=== PATIENT | male | born 1935 | race Caucasian/White ===

== ENCOUNTER 2017-12-14 14:39 | Inpatient (IN) ==
[2017-12-14] MEDS ORDERED: Naloxone Inj 2 MG/2 ML Vial ONE (14:44)
[2017-12-14] MEDS ORDERED: Succinylcholine Inj 200 MG/10 ML Vial ONE (14:45)
[2017-12-14] MEDS ORDERED: Etomidate Inj 40 MG/20 ML Vial IV.PUSH ONE (14:45)
[2017-12-14] MEDS ORDERED: Propofol 1000 mg/100 ml Inj 1,000 MG/100 ML BOTTLE ONE (14:47)
[2017-12-14] MEDS: Propofol 1000 mg/100 ml Inj 1,000 MG/100 ML BOTTLE IV.CONT PRN ×2 (14:55→21:47)
[2017-12-14] MEDS ORDERED: Metoprolol Inj 5 MG/5 ML Vial IV.PUSH ONE (15:03)
--- NOTE | 2017-12-14 15:09 | ED ---
HPI General Chief Complaint: Altered Mental Status Stated Complaint: Medical Time Seen by Provider: 12/14/17 14:48 History of Present Illness HPI narrative: This patient arrives critically ill. Arrives completely obtunded and cannot provide any history or review of systems. Family called for altered mental status gradually worsening over 3 days. During the eminence ride he decompensated fairly rapidly and when I see him in the room he has GCS 3. Related Data Home Medications Medication Instructions Recorded Confirmed esomeprazole magnesium [Nexium 20 mg PO DAILY 12/14/17 12/14/17 24HR] glipizide 5 mg PO DAILY 12/14/17 12/14/17 potassium chloride 10 meq PO DAILY 12/14/17 12/14/17 thyroid (pork) [Nature-Throid] 500 mg PO DAILY 12/14/17 12/14/17 tiotropium-olodaterol [Stiolto 2 puff INHALATION DAILY 12/14/17 12/14/17 Respimat] tizanidine 4 mg PO BID 12/14/17 12/14/17 Allergies Allergy/AdvReac Type Severity Reaction Status Date / Time No Known Allergies Allergy Verified 12/14/17 14:49 Review of Systems ROS Unobtainable ROS Unobtainable: unobtainable due to mental status PMFSH Medical History Medical History CHF (congestive heart failure) (Acute) COPD (chronic obstructive pulmonary disease) (Acute) Cyst of spinal meninges (Acute) Diabetes (Acute) GERD (gastroesophageal reflux disease) (Acute) Hypospadias (Acute) Hypothyroidism (Acute) Social History Social History Substance History: No History of Abuse Second Hand Smoke Exposure: Yes Smoking Status: Current every day smoker Tobacco Type: Cigarettes How Often Do You Have a Drink Containing Alcohol: Monthly or less Recent Travel in [facility] within the Last 8 Weeks: No Recent Out of Country Travel within the Last 8 Weeks: No Exam Narrative Exam Narrative: GENERAL: Elderly obese very hypertensive patient completely unresponsive . SKIN: Focused skin assessment reveals no rash and nodules. Skin is Warm and dry. HEAD: Atraumatic. Normocephalic. EYES: Pupils equal and round. No scleral icterus. No injection or drainage. ENT: No nasal bleeding or discharge. Mucous membranes pink and moist. NECK: Trachea midline. No JVD. CARDIOVASCULAR: Regular rate and rhythm. No murmur appreciated. RESPIRATORY: No accessory muscle use. Clear to auscultation. Breath sounds equal bilaterally. GASTROINTESTINAL: Abdomen soft, non-tender, nondistended. Hepatic and splenic margins not palpable. MUSCULOSKELETAL: No obvious deformities. No clubbing. No cyanosis. No edema. NEUROLOGICAL: GCS 3. No gag reflex. No response to pain stimuli. He is nonverbal PSYCHIATRIC: No way to assess mood or affect. insight and judgment poor . Course Initial Documented Vital Signs Temperature 98.6 F 12/14/17 14:40 Pulse Rate 86 12/14/17 14:40 Respiratory Rate 30 H 12/14/17 14:40 Blood Pressure 234/145 H 12/14/17 14:40 Pulse Oximetry 79 L 12/14/17 14:40 Last Documented Vital Signs Temperature 98.6 F 12/14/17 14:40 Pulse Rate 64 12/14/17 18:00 Respiratory Rate 18 12/14/17 18:00 Blood Pressure 137/66 12/14/17 18:00 Pulse Oximetry 100 12/14/17 17:00 Procedures Intubation Time Out Performed: No Sedative: etomidate Mg Given: 20 Laryngoscope: Travis ET Tube Size: 8 ET Tube Uncuffed: No Tube Secured Depth (cm): 24 Tube Secured Location: lips Tube Placement Confirmation: visualized tube passing through cords, equal breath sounds bilaterally and no breath sounds over epigastrium Patient Tolerated Procedure: well Intubation Complications: none Sign Out Sign Out Data: Patient Sign Out occurred on 12/14/17 at 15:24. Patient's care was discussed, and care was transferred from Marcus Moreland MD to Joya Boyer MD. Sign Out Comment: I have intubated this patient to secure airway and ordered extensive workup. Case is checked out to the evening physician. Last updated by Marcus Moreland MD at 12/14/17 15:16 Post-Handoff Eval: I received care of patient in check out. At time of check out, labs and CTs were pending with obvious plan on admission to the ICU. CT head did not show an intracranial hemorrhage. EKG showed sinus rhythm without ischemic changes. Labs revealed an elevated troponin. I spoke with Dr Vidal, manager r d business continuity specialist whom recommended the patient be started on heparin. He was admitted to Dr Beck, filter plant operator business continuity specialist with CTA PE protocol pending. Medical Decision Making MDM Narrative Medical decision making narrative: This patient required emergent intubation. He has no airway control. I am most concerned for large intracranial hemorrhage given his mental status rapid decline and excessive blood pressure. I am giving him 5 mg IV Lopressor. He arrived literally 10 minutes before shift change so I have secured an airway and ordered a workup and the case is checked out to Dr. Boyer. Medical Screen Exam Complete: Yes Emergency Medical Condition: Yes Lab Data Result diagrams: 12/14/17 15:00 12/14/17 15:00 Lab Results 12/14/17 12/14/17 12/14/17 Range/Units 15:00 15:00 15:00 WBC 10.8 (4.0-11.0) th/mm3 RBC 4.77 (4.50-5.90) mil/mm3 Hgb 15.7 (13.0-17.0) gm/dL Hct 47.8 (39.0-51.0) % MCV 100.2 H (80.0-100.0) fL MCH 33.0 (27.0-34.0) pg MCHC 32.9 (32.0-36.0) % RDW 15.2 (11.6-17.2) % Plt Count 196 (150-450) th/mm3 MPV 8.8 (7.0-11.0) fL Neut % (Auto) 61.2 (16.0-70.0) % Lymph % (Auto) 29.5 (9.0-44.0) % Bent % (Auto) 8.3 H (0.0-8.0) % Eos % (Auto) 0.7 (0.0-4.0) % Baso % (Auto) 0.3 (0.0-2.0) % Neut # (Auto) 6.6 (1.8-7.7) th/mm3 Lymph # (Auto) 3.2 (1.0-4.8) th/mm3 Bent # (Auto) 0.9 (0.0-0.9) th/mm3 Eos # (Auto) 0.1 (0.0-0.4) th/mm3 Baso # (Auto) 0.0 (0.0-0.2) th/mm3 WBC Differential . Differential Comment Auto diff final PT 11.1 (9.8-11.6) sec INR 1.1 Ratio APTT 25.6 (23.4-31.7) sec Puncture Site Patient Temperature O2 Saturation (90-100) % ABG pH (7.380-7.420) ABG pCO2 (38-42) mmHg ABG pO2 (61-120) mmHg ABG HCO3 (22-26) mmol/L ABG O2 Content (12.0-20.0) Vol % ABG Base Excess (-2-2) mmol/L ABG Methemoglobin (0-2) % Zhang Test Hemoglobin (12.0-16.0) G/DL Carboxyhemoglobin (0-4) % O2 Delivery Device Vent Setting Inspired O2 % Critical Value Sodium 142 (136-145) meq/L Potassium 4.0 (3.5-5.1) meq/L Chloride 102 (98-107) meq/L Carbon Dioxide 35.0 H (21.0-32.0) meq/L Anion Gap 5 (5-15) meq/L BUN 23 H (7-18) mg/dL Creatinine 0.98 (0.60-1.30) mg/dL Estimated GFR 66 L (>89) mL/min Random Glucose 139 H (74-106) mg/dL Lactic Acid (0.4-2.0) mmol/L Calcium 8.4 L (8.5-10.1) mg/dL Magnesium 2.1 (1.5-2.5) mg/dL Total Bilirubin 1.1 H (0.2-1.0) mg/dL AST 40 H (15-37) U/L ALT 50 (12-78) U/L Alkaline Phosphatase 55 (45-117) U/L Total Creatine Kinase 448 H (39-308) U/L CK-MB (CK-2) 22.0 H (0.5-3.6) ng/mL CK-MB (CK-2) % 4.9 H* (0.0-4.0) % Troponin I 1.35 H* (0.02-0.05) ng/mL B-Natriuretic Peptide (0-100) pg/mL Total Protein 7.5 (6.4-8.2) g/dL Albumin 3.6 (3.4-5.0) g/dL Urine Color (Yellw/Straw) Urine Clarity (Clear) Urine pH (5.0-8.5) Ur Specific [place] (1.002-1.035) Urine Protein (Neg-Trace) mg/dL Urine Glucose (UA) (Negative) mg/dL Urine Ketones (Negative) mg/dL Urine Occult Blood (Negative) Urine Nitrate (Negative) Urine Bilirubin (Negative) Urine Urobilinogen (Less than 2) mg/dL Ur Leukocyte Esterase (Negative) Urine RBC (0-3) /hpf Urine WBC (0-5) /hpf Ur Squamous Epith Cells (0-5) /hpf Hyaline Casts (0-3) /lpf Granular Casts (None) /lpf Urine Mucus (Occasional) /lpf Micro UA Comment Ur Microscopic Review Urine Culture Comments 12/14/17 12/14/17 12/14/17 Range/Units 15:00 15:09 15:10 WBC (4.0-11.0) th/mm3 RBC (4.50-5.90) mil/mm3 Hgb (13.0-17.0) gm/dL Hct (39.0-51.0) % MCV (80.0-100.0) fL MCH (27.0-34.0) pg MCHC (32.0-36.0) % RDW (11.6-17.2) % Plt Count (150-450) th/mm3 MPV (7.0-11.0) fL Neut % (Auto) (16.0-70.0) % Lymph % (Auto) (9.0-44.0) % Bent % (Auto) (0.0-8.0) % Eos % (Auto) (0.0-4.0) % Baso % (Auto) (0.0-2.0) % Neut # (Auto) (1.8-7.7) th/mm3 Lymph # (Auto) (1.0-4.8) th/mm3 Bent # (Auto) (0.0-0.9) th/mm3 Eos # (Auto) (0.0-0.4) th/mm3 Baso # (Auto) (0.0-0.2) th/mm3 WBC Differential Differential Comment PT (9.8-11.6) sec INR Ratio APTT (23.4-31.7) sec Puncture Site Patient Temperature O2 Saturation (90-100) % ABG pH (7.380-7.420) ABG pCO2 (38-42) mmHg ABG pO2 (61-120) mmHg ABG HCO3 (22-26) mmol/L ABG O2 Content (12.0-20.0) Vol % ABG Base Excess (-2-2) mmol/L ABG Methemoglobin (0-2) % Zhang Test Hemoglobin (12.0-16.0) G/DL Carboxyhemoglobin (0-4) % O2 Delivery Device Vent Setting Inspired O2 % Critical Value Sodium (136-145) meq/L Potassium (3.5-5.1) meq/L Chloride (98-107) meq/L Carbon Dioxide (21.0-32.0) meq/L Anion Gap (5-15) meq/L BUN (7-18) mg/dL Creatinine (0.60-1.30) mg/dL Estimated GFR (>89) mL/min Random Glucose (74-106) mg/dL Lactic Acid 1.2 (0.4-2.0) mmol/L Calcium (8.5-10.1) mg/dL Magnesium (1.5-2.5) mg/dL Total Bilirubin (0.2-1.0) mg/dL AST (15-37) U/L ALT (12-78) U/L Alkaline Phosphatase (45-117) U/L Total Creatine Kinase (39-308) U/L CK-MB (CK-2) (0.5-3.6) ng/mL CK-MB (CK-2) % (0.0-4.0) % Troponin I (0.02-0.05) ng/mL B-Natriuretic Peptide 227 H (0-100) pg/mL Total Protein (6.4-8.2) g/dL Albumin (3.4-5.0) g/dL Urine Color Yellow (Yellw/Straw) Urine Clarity Hazy H (Clear) Urine pH 5.0 (5.0-8.5) Ur Specific [place] 1.020 (1.002-1.035) Urine Protein 100 H (Neg-Trace) mg/dL Urine Glucose (UA) Negative (Negative) mg/dL Urine Ketones Negative (Negative) mg/dL Urine Occult Blood Small H (Negative) Urine Nitrate Negative (Negative) Urine Bilirubin Negative (Negative) Urine Urobilinogen 4 or greater (Less than 2) mg/dL Ur Leukocyte Esterase Negative (Negative) Urine RBC 2 (0-3) /hpf Urine WBC 4 (0-5) /hpf Ur Squamous Epith Cells <1 (0-5) /hpf Hyaline Casts 8 (0-3) /lpf Granular Casts 4 (None) /lpf Urine Mucus Moderate H (Occasional) /lpf Micro UA Comment Cath-culture not ind Ur Microscopic Review Not Reportable Urine Culture Comments Cath-cult not ind 12/14/17 12/14/17 Range/Units 16:18 17:05 WBC (4.0-11.0) th/mm3 RBC (4.50-5.90) mil/mm3 Hgb (13.0-17.0) gm/dL Hct (39.0-51.0) % MCV (80.0-100.0) fL MCH (27.0-34.0) pg MCHC (32.0-36.0) % RDW (11.6-17.2) % Plt Count (150-450) th/mm3 MPV (7.0-11.0) fL Neut % (Auto) (16.0-70.0) % Lymph % (Auto) (9.0-44.0) % Bent % (Auto) (0.0-8.0) % Eos % (Auto) (0.0-4.0) % Baso % (Auto) (0.0-2.0) % Neut # (Auto) (1.8-7.7) th/mm3 Lymph # (Auto) (1.0-4.8) th/mm3 Bent # (Auto) (0.0-0.9) th/mm3 Eos # (Auto) (0.0-0.4) th/mm3 Baso # (Auto) (0.0-0.2) th/mm3 WBC Differential Differential Comment PT 10.1 (9.8-11.6) sec INR 1.0 Ratio APTT 20.2 L D (23.4-31.7) sec Puncture Site Right radial Patient Temperature 98.6 O2 Saturation 96 (90-100) % ABG pH 7.39 (7.380-7.420) ABG pCO2 55 H* (38-42) mmHg ABG pO2 456 H (61-120) mmHg ABG HCO3 33 H (22-26) mmol/L ABG O2 Content 20.9 H (12.0-20.0) Vol % ABG Base Excess 8.1 H (-2-2) mmol/L ABG Methemoglobin 1.0 (0-2) % Zhang Test Present Hemoglobin 14.6 (12.0-16.0) G/DL Carboxyhemoglobin 2.3 (0-4) % O2 Delivery Device Ventilator Vent Setting See comments Inspired O2 100 % Critical Value Yes Sodium (136-145) meq/L Potassium (3.5-5.1) meq/L Chloride (98-107) meq/L Carbon Dioxide (21.0-32.0) meq/L Anion Gap (5-15) meq/L BUN (7-18) mg/dL Creatinine (0.60-1.30) mg/dL Estimated GFR (>89) mL/min Random Glucose (74-106) mg/dL Lactic Acid (0.4-2.0) mmol/L Calcium (8.5-10.1) mg/dL Magnesium (1.5-2.5) mg/dL Total Bilirubin (0.2-1.0) mg/dL AST (15-37) U/L ALT (12-78) U/L Alkaline Phosphatase (45-117) U/L Total Creatine Kinase (39-308) U/L CK-MB (CK-2) (0.5-3.6) ng/mL CK-MB (CK-2) % (0.0-4.0) % Troponin I (0.02-0.05) ng/mL B-Natriuretic Peptide (0-100) pg/mL Total Protein (6.4-8.2) g/dL Albumin (3.4-5.0) g/dL Urine Color (Yellw/Straw) Urine Clarity (Clear) Urine pH (5.0-8.5) Ur Specific [place] (1.002-1.035) Urine Protein (Neg-Trace) mg/dL Urine Glucose (UA) (Negative) mg/dL Urine Ketones (Negative) mg/dL Urine Occult Blood (Negative) Urine Nitrate (Negative) Urine Bilirubin (Negative) Urine Urobilinogen (Less than 2) mg/dL Ur Leukocyte Esterase (Negative) Urine RBC (0-3) /hpf Urine WBC (0-5) /hpf Ur Squamous Epith Cells (0-5) /hpf Hyaline Casts (0-3) /lpf Granular Casts (None) /lpf Urine Mucus (Occasional) /lpf Micro UA Comment Ur Microscopic Review Urine Culture Comments Imaging Data Radiologist's impression: Chest X-Ray 12/14/17 00:00 CONCLUSION: 1. Endotracheal tube is in appropriate position with tip measuring 4.5 cm from the vijay. 2. Underinflated examination with mild subsegmental atelectasis at the right lung base. Otherwise, no acute abnormality is identified. Head CT 12/14/17 14:53 CONCLUSION: 1. No acute intracranial abnormality is identified. 2. Chronic findings include generalized atrophy and periventricular white matter change characteristic of chronic microvascular ischemia. . Discharge Plan Discharge Disposition Patient Disposition: 30 Still Patient Discharge Condition Condition: Critical Discharge Details Diagnosis: Acute non-ST elevation myocardial infarction (NSTEMI), Respiratory failure requiring intubation Physicians Team ED Provider: Joya Boyer ED Midlevel Provider: Damion Capone Primary Care Provider: Primary Care Devorah Mcdermott Attending Provider: Caio Beck Other Providers: Jayjay Vidal Discharge Interventions Interventions: ED Discharge Assessment Last Done: 12/14/17 19:42 Vital Signs Last Done: 12/14/17 18:00 Status ED Status: Left Department Discharge Information Discharge Date/Time: 12/14/17 19:43
[2017-12-14 15:39] LABS: Baso % (Auto) 0.3 % (0.0-2.0); Eos # (Auto) 0.1 th/mm3 (0.0-0.4); Eos % (Auto) 0.7 % (0.0-4.0); Hematocrit 47.8 % (39.0-51.0); Hemoglobin 15.7 gm/dL (13.0-17.0); Lymph # (Auto) 3.2 th/mm3 (1.0-4.8); Lymph % (Auto) 29.5 % (9.0-44.0); Mean Corpuscular HGB Conc 32.9 % (32.0-36.0); Mean Corpuscular Volume 100.2 fL (80.0-100.0); Mean Platelet Volume 8.8 fL (7.0-11.0); Mono # (Auto) 0.9 th/mm3 (0.0-0.9); Mono % (Auto) 8.3 % (0.0-8.0); Neut # (Auto) 6.6 th/mm3 (1.8-7.7); Neut % (Auto) 61.2 % (16.0-70.0); Platelet Count 196 th/mm3 (150-450); Red Blood Count 4.77 mil/mm3 (4.50-5.90); Red Cell Distribution Width 15.2 % (11.6-17.2); White Blood Count 10.8 th/mm3 (4.0-11.0)
[2017-12-14] MEDS ORDERED: fentaNYL 10 mcg/mL Premix Drip 2,500 MCG/250 ML BAG IV.SIG ONE (15:45)
[2017-12-14 15:47] LABS: Activated Partial Thrombo Time 25.6 sec (23.4-31.7); INR 1.1 Ratio; Prothrombin Time 11.1 sec (9.8-11.6)
[2017-12-14 16:03] LABS: Bilirubin,Urine Negative (Negative); Clarity,Urine Hazy (Clear); Color,Urine Yellow (Yellw/Straw); Glucose,Urine (UA) Negative (Negative); Hyaline Casts,Urine 8 /lpf (0-3); Leukocyte Esterase,Urine Negative (Negative); Mucus,Urine Moderate /lpf (Occasional); Nitrite,Urine Negative (Negative); Squamous Epithelial Cell,Urine <1 /hpf (0-5); Urobilinogen,Urine 4 or Greater mg/dL (Less than 2)
[2017-12-14 16:06] LABS: Alanine Aminotransferase 50 U/L (12-78); Albumin 3.6 g/dL (3.4-5.0); Anion Gap 5 meq/L (5-15); Aspartate Aminotransferase 40 U/L (15-37); Blood Urea Nitrogen 23 mg/dL (7-18); Calcium 8.4 mg/dL (8.5-10.1); Chloride 102 meq/L (98-107); Glomerular Filtration Rate 66 mL/min (>89); Glucose,Random 139 mg/dL (74-106); Magnesium 2.1 mg/dL (1.5-2.5); Sodium 142 meq/L (136-145)
--- NOTE | 2017-12-14 16:09 | CT ---
EXAM DATE: 12/14/2017 4:02 PM EDT AGE/SEX: 89 years / Male INDICATIONS: Altered mental status. CLINICAL DATA: This is the patient's initial encounter. Patient reports that signs and symptoms have been present for 1 day and indicates a pain score of Nonresponsive. MEDICAL/SURGICAL HISTORY: Non-responsive. Non-responsive. RADIATION DOSE: 39.90 CTDI (mGy) COMPARISON: No prior exams available for comparison. TECHNIQUE: CT of the head without contrast. Using automated exposure control and adjustment of the mA and/or kV according to patient size, radiation dose was kept as low as reasonably achievable to ob tain optimal diagnostic quality images. DICOM format image data is available electronically for revi ew and comparison. FINDINGS: Cerebrum: There is mild generalized atrophy and ventricles are normal given the degree of atrophy. M ild periventricular white matter change is present. No midline shift, mass lesion, hemorrhage or acu te infarction. No extraaxial fluid collections are seen. Posterior Fossa: The cerebellum and brainstem demonstrate no acute abnormality. The 4th ventricle is midline. The cerebellopontine angle is within normal limits. Extracranial: The visualized sinuses are clear. Skull: The calvaria is intact. No skull fracture. CONCLUSION: 1. No acute intracranial abnormality is identified. 2. Chronic findings include generalized atrophy and periventricular white matter change characterist ic of chronic microvascular ischemia. . Electronically signed by: Jose Darling MD 12/14/2017 4:08 PM EDT
[2017-12-14 16:10] LABS: Alkaline Phosphatase 55 U/L (45-117); Creatine Kinase 448 U/L (39-308); Total Protein 7.5 g/dL (6.4-8.2)
--- NOTE | 2017-12-14 16:16 | XR ---
EXAM DATE: 12/14/2017 4:12 PM EDT AGE/SEX: 89 years / Male INDICATIONS: Post intubation CLINICAL DATA: This is the patient's initial encounter. Patient reports that signs and symptoms have been present for 1 day and indicates a pain score of Nonresponsive. MEDICAL/SURGICAL HISTORY: Non-responsive. Non-responsive. COMPARISON: No prior exams available for comparison. FINDINGS: 2 portable AP views of the chest demonstrate a normal size cardiac silhouette. Patient is rotated and underinflated. Endotracheal tube is present with distal tip measuring 4.5 cm from the vijay. [place] stric tube is looped in the stomach and distal tip in the gastric cardia region. There is mild atelec tasis at the right lung base. No pleural effusion, airspace consolidation, or pneumothorax is identif ied. The bones and soft tissues demonstrate no acute finding. There is levoscoliosis the lumbar spine with multilevel degenerative change. CONCLUSION: 1. Endotracheal tube is in appropriate position with tip measuring 4.5 cm from the vijay. 2. Underinflated examination with mild subsegmental atelectasis at the right lung base. Otherwise, n o acute abnormality is identified. Electronically signed by: Jose Darling MD 12/14/2017 4:15 PM EDT
[2017-12-14 16:28] LABS: ABG Base Excess 8.1 mmol/L (-2-2); ABG PCO2 55 mmHg (38-42); ABG PO2 456 mmHg (61-120)
[2017-12-14 16:41] LABS: CKMB Percent 4.9 % (0.0-4.0)
[2017-12-14 16:42] LABS: Troponin I 1.35 ng/mL (0.02-0.05)
[2017-12-14] MEDS ORDERED: Heparin 10,000 UNITS/10 ML Vial (for IV use) IV.PUSH STA (17:37)
[2017-12-14] MEDS ORDERED: Etomidate Inj 20 MG/10 ML Ampul IV.PUSH ONE (17:45)
[2017-12-14] MEDS ORDERED: Succinylcholine Inj 100 MG/5 ML Syringe IV.PUSH ONE (17:46)
[2017-12-14 18:09] LABS: Activated Partial Thrombo Time 20.2 sec (23.4-31.7); Prothrombin Time 10.1 sec (9.8-11.6)
[2017-12-14] MEDS ORDERED: Heparin Drip 25,000 UNIT/250 ML BAG IV.CONT STA (18:16)
[2017-12-14] MEDS ORDERED: Bisacodyl 10 MG Supp RECTAL PRN (18:25)
[2017-12-14] MEDS ORDERED: Acetaminophen 325 MG Tablet PO PRN (18:25)
[2017-12-14] MEDS ORDERED: fentaNYL 10 mcg/mL Premix Drip 2,500 MCG/250 ML BAG IV.SIG PRN (18:32)
[2017-12-14] MEDS ORDERED: Propofol 1000 mg/100 ml Inj 1,000 MG/100 ML BOTTLE IV.CONT PRN (18:32)
[2017-12-14] MEDS ORDERED: Potassium Phosphate Inj 30 MMOL in Sodium Chlor 0.9% Inj 250 ML IV.SIG PRN (18:45)
[2017-12-14] MEDS ORDERED: Sodium Phosphate Inj 30 MMOL in Sodium Chlor 0.9% Inj 250 ML IV.SIG PRN (18:45)
[2017-12-14] MEDS ORDERED: Potassium Chlor 20 mEq Premix 20 MEQ/100 ML PIGGYBACK IV.SIG PRN ×2 (18:45)
[2017-12-14] MEDS ORDERED: Potassium Phosphate 500 MG Soluble Tablet PO PRN ×2 (18:45)
[2017-12-14] MEDS ORDERED: Magnesium Oxide 400 MG Tablet PO PRN (18:45)
[2017-12-14] MEDS ORDERED: Potassium Chloride 25 MEQ Effervescent Tablet PO PRN (18:45)
[2017-12-14] MEDS ORDERED: Potassium Chlor 40 mEq Premix 40 MEQ/100 ML PIGGYBACK IV.SIG PRN ×2 (18:45)
[2017-12-14] MEDS ORDERED: Magnesium Sulfate Inj 2 GM in Sodium Chlor 0.9% Inj 96 ML IV.SIG PRN (18:45)
[2017-12-14] MEDS ORDERED: Magnesium Sulfate Inj 4 GM in Sodium Chlor 0.9% Inj 92 ML IV.SIG PRN (18:45)
--- NOTE | 2017-12-14 18:45 | P.HPCC ---
History of Present Illness Service: Critical care medicine Primary Care Physician: No Primary Care Physician Chief Complaint: Intubated unresponsive. History of Present Illness: This is a unknown male. Admission 11 03/2017. Past medical history is unknown to me. There is no family currently available. According to records from previous ED physician who saw the patient before the ED physician had notified me patient has a history of hypothyroidism, gastroesophageal reflux disease, COPD, diabetes, heart failure. Patient was found unresponsive by family with a GCS of 3 and was brought in to the emergency department. Patient was intubated using etomidate and succinylcholine. CT brain negative. CT pulmonary antrum revealed right upper and lower lobe atelectasis. Lower lobe atelectasis versus infiltrate. Patient had elevated troponin. EKG revealed normal sinus rhythm at 64 with normal OK, QS and QT intervals. Dr. Vidal was notified. Patient has been started on a heparin drip for non-STEMI. Cardiology will evaluate. Patient is placed on broad- spectrum antibiotics. We are asked to admit. Inpatient Certification: I certify that the inpatient services were ordered in accordance with Medicare regulations governing the order. This includes certification that hospital inpatient services are reasonable and necessary and in the case of services not specified as inpatient-only under 42 CFR 419.22(n), that they are appropriately provided as inpatient services in accordance to with the 2-midnight benchmark under 43 CFR 412.3(e) Estimated Total Length of Stay (Days): 5 Plans for Post Hospital Care: Not yet determined Review of Systems unobtainable due to endotracheal tube PMFSH - History History Provided By: Family Member - Medical History Medical History: Medical History (Last Updated 12/14/17 @ 22:29 by Caio Beck MD) CHF (congestive heart failure) COPD (chronic obstructive pulmonary disease) Cyst of spinal meninges Diabetes GERD (gastroesophageal reflux disease) Hypospadias Hypothyroidism - Surgical History Surgical History: Surgical History (Last Updated 12/14/17 @ 22:29 by Caio Beck MD) Surgical history unknown (Acute) - Family History Family History: Family History (Last Updated 12/14/17 @ 22:29 by Caio Beck MD) Other Family history unknown - Social History I have reviewed the patient's Social History: Yes - Tobacco History Second Hand Smoke Exposure: Yes Tobacco Use In Past 30 Days: Yes Smoking Status: Current every day smoker Tobacco Type: Cigarettes - Alcohol History How Often Do You Have a Drink Containing Alcohol: Monthly or less - Substance Use History Substance History: No History of Abuse - Travel History Recent Travel in the [place] Within the Last 8 Weeks: No Recent Travel Out of the Country Within the Last 8 Weeks: No - Immunization History Tetanus Immunization: Unsure Medications and Allergies Active Medications: Active Medications Acetaminophen (Tylenol) 650 mg PO Q6H PRN PRN Reason: PAIN 1-10 AND/OR FEVER >101F Al Hydroxide/Mg Hydroxide (Milk Of Magnfrantz Liq) 30 ml PO Q12H PRN PRN Reason: Mild Constipation Albuterol (Albuterol Neb (Prn)) 2.5 mg NEB Q2HR NEB PRN PRN Reason: SHORTNESS OF BREATH/WHEEZING Albuterol (Duoneb Neb (Bijal)) 1 ampul NEB Q4HR NEB BIJAL Artificial Tears (Tears Naturale Opth Drops) 1 drop EACH EYE TID BIJAL Bisacodyl (Dulcolax Supp) 10 mg RECTAL DAILY PRN PRN Reason: SEVERE CONSITIPATION Chlorhexidine Gluconate (Chlorhexidine 2% Cloth) 3 pack TOPICAL DAILY@0400 BIJAL Stop: 12/20/17 03:59 Chlorhexidine Gluconate (Chlorhexidine 2% Cloth) 3 pack TOPICAL DAILY@0400 PRN PRN Reason: Extra cloth needed Stop: 12/20/17 03:59 Chlorhexidine Gluconate (Peridex 0.12% Oral Kit) 15 ml OROPHARYNG BID@0800, 2000 [facility] Fentanyl (Fentanyl 10 Mcg/Ml Premix Drip) 2,500 mcg in 250 mls @ 5 mls/hr IV.SIG TITRATE ONE; Protocol Stop: 12/16/17 17:44 Propofol (Diprivan 1000 Mg/100 Ml Inj) 1,000 mg in 100 mls @ 2.994 mls/hr IV.CONT TITRATE PRN; Protocol PRN Reason: Per Protocol Last Titration: 12/14/17 15:30 Dose: 20 mcg/kg/min, 11.98 mls/hr Sodium Chloride (Ns Inj) 1,000 mls @ 84 mls/hr IV.CONT .[id number] [facility] Fentanyl (Fentanyl 10 Mcg/Ml Premix Drip) 2,500 mcg in 250 mls @ 5 mls/hr IV.SIG TITRATE PRN; Protocol PRN Reason: Per Protocol Propofol (Diprivan 1000 Mg/100 Ml Inj) 1,000 mg in 100 mls @ 2.994 mls/hr IV.CONT TITRATE PRN; Protocol PRN Reason: Per Protocol Lactulose (Lactulose Liq) 30 ml PO DAILY PRN PRN Reason: SEVERE CONSITIPATION Miscellaneous Medication () 1 each OROPHARYNG 0000,0400,1200,1600 BIJAL Pantoprazole Sodium (Protonix Inj) 40 mg IV.PUSH DAILY BIJAL Senna/Docusate Sodium (Marian-Colace) 1 tab PO BID BIJAL Sennosides (Senokot) 17.2 mg PO Q12H PRN PRN Reason: Moderate Constipation Sodium Chloride (Ns Flush) 2 ml IV.FLUSH PRN PRN PRN Reason: FLUSH AFTER USING IV ACCESS Sodium Chloride (Ns Flush) 2 ml IV.FLUSH BID BIJAL Sodium Chloride (Ns Flush) 2 ml IV.FLUSH PRN PRN PRN Reason: FLUSH AFTER USING IV ACCESS Allergies Allergy/AdvReac Type Severity Reaction Status Date / Time No Known Allergies Allergy Verified 12/14/17 14:49 Home Medications Medication Instructions Recorded Confirmed Type esomeprazole magnesium [Nexium 20 mg PO DAILY 12/14/17 12/14/17 History 24HR] glipizide 5 mg PO DAILY 12/14/17 12/14/17 History potassium chloride 10 meq PO DAILY 12/14/17 12/14/17 History thyroid (pork) [Nature-Throid] 500 mg PO DAILY 12/14/17 12/14/17 History tiotropium-olodaterol [Stiolto 2 puff INHALATION DAILY 12/14/17 12/14/17 History Respimat] tizanidine 4 mg PO BID 12/14/17 12/14/17 History Results - Labs CBC & Chem 7: 12/14/17 15:00 12/14/17 15:00 Labs: Short CBC 12/14/17 Range/Units 15:00 WBC 10.8 (4.0-11.0) th/mm3 Hgb 15.7 (13.0-17.0) gm/dL Hct 47.8 (39.0-51.0) % Plt Count 196 (150-450) th/mm3 [facility] 12/14/17 15:00 Sodium 142 Potassium 4.0 Chloride 102 Carbon Dioxide 35.0 H BUN 23 H Creatinine 0.98 Calcium 8.4 L Cardiac Enzymes 12/14/17 Range/Units 15:00 Total Creatine Kinase 448 H (39-308) U/L CK-MB (CK-2) 22.0 H (0.5-3.6) ng/mL Troponin I 1.35 H* (0.02-0.05) ng/mL Liver Function 12/14/17 Range/Units 15:00 Total Bilirubin 1.1 H (0.2-1.0) mg/dL AST 40 H (15-37) U/L ALT 50 (12-78) U/L Alkaline Phosphatase 55 (45-117) U/L Albumin 3.6 (3.4-5.0) g/dL Urine 12/14/17 Range/Units 15:10 Urine Color Yellow (Yellw/Straw) Urine Clarity Hazy H (Clear) Urine pH 5.0 (5.0-8.5) Ur Specific [place] 1.020 (1.002-1.035) Urine Protein 100 H (Neg-Trace) mg/dL Urine Glucose (UA) Negative (Negative) mg/dL - Imaging Impressions Chest X-Ray 12/14/17 00:00 CONCLUSION: 1. Endotracheal tube is in appropriate position with tip measuring 4.5 cm from the vijay. 2. Underinflated examination with mild subsegmental atelectasis at the right lung base. Otherwise, no acute abnormality is identified. Head CT 12/14/17 14:53 CONCLUSION: 1. No acute intracranial abnormality is identified. 2. Chronic findings include generalized atrophy and periventricular white matter change characteristic of chronic microvascular ischemia. . Exam Vital signs: Vital Signs 12/14/17 14:40 12/14/17 14:45 12/14/17 14:50 Temperature 98.6 F Pulse Rate 85 86 Respiratory Rate 30 H 16 Blood Pressure 231/145 H Pulse Oximetry 79 L 92 L 79 L 12/14/17 14:55 12/14/17 15:00 12/14/17 15:10 Temperature Pulse Rate 88 86 71 Respiratory Rate 16 16 Blood Pressure 108/65 126/66 Pulse Oximetry 100 100 100 12/14/17 15:25 12/14/17 15:59 12/14/17 16:00 Temperature Pulse Rate 67 66 70 Respiratory Rate 16 16 16 Blood Pressure 118/76 173/78 H 117/76 Pulse Oximetry 100 100 100 12/14/17 16:30 12/14/17 17:00 12/14/17 18:00 Temperature Pulse Rate 67 62 64 Respiratory Rate 16 16 18 Blood Pressure 173/78 H 125/60 137/66 Pulse Oximetry 100 100 Intake & Output 12/13/17 12/14/17 12/14/17 18:59 06:59 18:59 Weight 99.79 kg - Constitutional no acute distress - Routine HEENT Exam Head: Present: normocephalic, atraumatic Eye: Present: EOMI, PERRL ENT: Present: mucous membranes moist - Routine Neck Exam Present: supple, full ROM. Absent: JVD - Routine Chest/Breast/Axilla Exam Chest wall: Absent: tenderness Breast: Absent: tenderness Axillae: Absent: lymphadenopathy - Routine Respiratory Exam Present: patient mechanically ventilated, decreased breath sounds - Routine Cardiovascular Exam Present: RRR, S1, S2. Absent: murmur - Routine Abdominal Exam Present: soft, normoactive bowel sounds - Routine Extremities Exam Absent: cyanosis, clubbing, edema - Routine Skin Exam Present: intact - Routine Neurological Exam Present: CN II-XII intact. Absent: alert, oriented X3, sensory deficit Septic Shock Reassessment Septic shock perfusion: reassessment completed Caprini VTE Risk Assessment Caprini VTE Risk Assessment: Moderate/High Risk (score >= 2) Caprini Risk Assessment Model: Point Value = 1 Point Value = 2 Point Value = 3 Point Value = 5 Age 41-60 Minor surgery BMI > 25 kg/m2 Swollen legs Varicose veins or History of unexplained or recurrent spontaneous Oral contraceptives or hormone replacement Sepsis (< 1 month) Serious lung disease, including pneumonia (< 1 month) Abnormal pulmonary function Acute myocardial infarction Congestive heart failure (< 1 month) History of inflammatory bowel disease Medical patient at bed rest Age 61-74 Arthroscopic surgery Major open surgery (> 45 min) Laparoscopic surgery (> 45 min) Malignancy Confined to bed (> 72 hours) Immobilizing plaster cast Central venous access Age >= 75 History of VTE Family history of VTE Factor V Leiden Prothrombin [id number] Lupus anticoagulant Anticardiolipin antibodies Elevated serum homocysteine Heparin-induced thrombocytopenia Other congenital or acquired thrombophilia Stroke (< 1 month) Elective arthroplasty Hip, pelvis, or leg fracture Acute spinal cord injury (< 1 month) Prophylaxis Regimen: Total Risk Factor Score Risk Level Prophylaxis Regimen 0-1 Low Early ambulation 2 Moderate Order ONE of the following: *Sequential Compression Device (SCD) *Heparin 5000 units SQ BID 3-4 Higher Order ONE of the following medications: *Heparin 5000 units SQ TID *Enoxaparin/Lovenox 40 mg SQ daily (WT < 150 kg, CrCl > 30 mL/min) *Enoxaparin/Lovenox 30 mg SQ daily (WT < 150 kg, CrCl > 10-29 mL/min) *Enoxaparin/Lovenox 30 mg SQ BID (WT < 150 kg, CrCl > 30 mL/min) AND/OR *Sequential Compression Device (SCD) 5 or more Highest Order ONE of the following medications: *Heparin 5000 units SQ TID (Preferred with Epidurals) *Enoxaparin/Lovenox 40 mg SQ daily (WT < 150 kg, CrCl > 30 mL/min) *Enoxaparin/Lovenox 30 mg SQ daily (WT < 150 kg, CrCl > 10-29 mL/min) *Enoxaparin/Lovenox 30 mg SQ BID (WT < 150 kg, CrCl > 30 mL/min) AND *Sequential Compression Device (SCD) Assessment and Plan - Assessment and Plan Plan: Neuro/Psych: Acute altered mental status CT brain revealed no acute intracranial findings Currently on propofol/fentanyl drips for sedation/analgesia while intubated With RASS -2 Daily sedation vacation MRI brain/EEG pending Acetaminophen 650 mg every 6 hours as needed fever CV: Elevated troponin possibly type II non-STEMI History of essential hypertension History of congestive heart failure unknown etiology Dr. Patel was notified. Recommended heparin drip. Aspirin 81 mg daily Start on lipid-lowering agent Low-dose beta-valorie/CARLEEN inhibitor tolerates Cycle troponins 2D echocardiogram ordered Resp: Acute respiratory failure PRVC ventilation Albuterol/ipratropium aerosols every 4 hours with albuterol aerosols every 2 hours as needed dyspnea Ventilator bundle Spontaneous breathing trials when clinically indicated CT pulmonary revealed right upper/lower atelectasis versus infiltrate. Bilateral lower lobe consolidation versus infiltrate. GI: NPO status Pantoprazole for GI prophylaxis Docusate sodium senna 1 tablet twice daily for bowel regimen : Straight catheterization as needed Endo: Diabetes mellitus type 2 Hypothyroidism Continue home thyroid 500 mg daily Sliding scale insulin Accu-Cheks to maintain euglycemia every 6 hours aspart insulin Renal: Creatinine currently within normal limits Monitor urine output accurate I's and O's Heme: Macrocytosis Monitor CBC daily. Follow trends. No indication for transfusion of blood products at this time ID: Blood cultures x2 ordered. Placed on vancomycin/piperacillin/tazobactam Influenza a and B pending FEN: Replace electrolytes as clinically indicated per ICU electrolyte protocol MSK: Discal therapy evaluate and treat Access -Utilize peripheral IV. Central line if indicated Prophylaxis -GI -pantoprazole -DVT -SCDs/heparin drip Level 3 admission- Code Status: Full code Discussed Condition With: ED physician. Dr. Boyer. No family available. Care plan discussed and all questions answered.
[2017-12-14] MEDS ORDERED: Dextrose 50% in Water 50 ML Vial IV.PUSH PRN (18:46)
[2017-12-14] MEDS ORDERED: Chlorhexidine 0.12% Oral Kit 15 ML UDC OROPHARYNG SCH (20:00)
--- NOTE | 2017-12-14 20:08 | CT ---
EXAM DATE: 12/14/2017 7:59 PM EDT AGE/SEX: 89 years / Male INDICATIONS: Shortness of breath. CLINICAL DATA: This is the patient's initial encounter. Patient reports that signs and symptoms have been present for 1 day and indicates a pain score of 0/10. MEDICAL/SURGICAL HISTORY: Diabetes. Chronic obstructive pulmonary disease. Congestive heart failu re. Spinal Meninges cyst. None. RADIATION DOSE: 23.26 CTDI (mGy) COMPARISON: No prior exams available for comparison. TECHNIQUE: Volumetric scanning was performed using a multi-row detector CT scanner during bolus infu erika of 71 ml Omnipaque 350 (iohexol) nonionic water-soluble contrast as a single exam dose. The anny a was post processed with a variety of visualization algorithms including full volume maximum intensi ty projection and sliding thin slab reformation. Using automated exposure control and adjustment of t he mA and/or kV according to patient size, radiation dose was kept as low as reasonably achievable to obtain optimal diagnostic quality images. DICOM format image data is available electronically for r eview and comparison. FINDINGS: Pulmonary Arteries: No filling defects are seen in the pulmonary arteries out to the subsegmental ve ssels. The left and right pulmonary arteries are normal in diameter. Lung: There is mild increased density in the subpleural regions of the posterior lower lobes bilater ally likely related to atelectasis. There is focal subpleural density seen in the posterior right upp er lobe and in the superior segment of the right lower lobe likely related to atelectasis or minimal consolidation. Effusion: None. Mediastinum: No evidence of mediastinal or hilar adenopathy. Other: The axilla is unremarkable. Multiple gallstones are seen. There is degenerative change in the thoracic spine. CONCLUSION: 1. No pulmonary embolus. 2. Scattered areas of subpleural density seen in the posterior right upper and lower lobes likely re lated to mild consolidation or atelectasis. There is also some minimal suspected atelectasis or conso lidation at the posterior lower lobes bilaterally. 3. Gallstones Electronically signed by: Jose Henriquez MD 12/14/2017 8:07 PM EDT
[2017-12-14] MEDS: Chlorhexidine 0.12% Oral Kit 15 ML UDC OROPHARYNG SCH (21:49)
[2017-12-14] MEDS: Heparin Drip 25,000 UNIT/250 ML BAG IV.CONT PRN (21:50)
[2017-12-14] MEDS: Senna/Docusate Sodium 8.6/50 MG Tablet PO SCH (21:51)
[2017-12-14] MEDS: Sod Chloride 0.9% Inj 1,000 ML IV.CONT SCH (21:52)
[2017-12-14] MEDS ORDERED: Vancomycin Consult Pharmacy OTHER PRN (22:41)
[2017-12-14] MEDS ORDERED: Vancomycin Inj 2,500 MG in Sodium Chlor 0.9% Inj 500 ML IV.SIG ONE (23:00)
[2017-12-15] MEDS ORDERED: Oral Hygiene Kit OROPHARYNG SCH
[2017-12-15] MEDS: Metoprolol Inj 5 MG/5 ML Vial IV.PUSH SCH ×5 (00:33→22:37)
--- NOTE | 2017-12-15 00:34 | XR ---
EXAM DATE: 12/15/2017 12:00 AM EDT AGE/SEX: 89 years / Male INDICATIONS: Shortness of breath. CLINICAL DATA: This is the patient's subsequent encounter. Patient reports that signs and symptoms h ave been present for 1 day and indicates a pain score of Nonresponsive. MEDICAL/SURGICAL HISTORY: Non-responsive. Non-responsive. COMPARISON: [facility], [facility]A PULMONARY W CONTRAST W 3D, 12/14/2017. . FINDINGS: r endotracheal tube is present with tip in good position 3-4 cm above the vijay. Nasogastric tube de scends to the stomach. Lungs are symmetrically aerated and grossly clear. Cardiac contours are unchan ged. CONCLUSION: Stable chest appearance Electronically signed by: Jose Quintana MD 12/15/2017 12:33 AM EDT
[2017-12-15] MEDS: Insulin NovoLOG Aspart Correctional Sugar Inj SQ SCH ×4 (00:35→18:14)
[2017-12-15] MEDS: Oral Hygiene Kit OROPHARYNG SCH ×4 (00:35→16:05)
[2017-12-15 01:09] LABS: Activated Partial Thrombo Time 35.9 sec (23.4-31.7); INR 1.1 Ratio
[2017-12-15 01:50] LABS: Prothrombin Time 11.5 sec (9.8-11.6)
[2017-12-15] MEDS: Piperacil/Tazo 4.5 GM Premix 4.5 GM/100 ML BAG IV.SIG SCH ×5 (02:43→22:36)
--- NOTE | 2017-12-15 02:51 | MB ---
cc: VidalJayjay DO DATE: 12/14/2017 REASON FOR CONSULTATION: NSTEMI. HISTORY OF PRESENT ILLNESS: Jose Cowan is an unknown age male who presented to [facility] Emergency Room due to shortness of breath. The patient is unable to provide any history and so history is taken from the chart as well as the emergency room physician. Apparently, the patient was significantly short of breath and found unresponsive by the family with a GCS of 3. He was brought into the emergency room and intubated immediately. CT of the head showed no brain bleed. He was noted to have an elevated troponin and because of this, I was asked to see him. PAST MEDICAL HISTORY: 1. Unspecified congestive heart failure. 2. Chronic obstructive pulmonary disease. 3. Cyst of spinal meninges. 4. Diabetes. 5. GERD. 6. Hypospadias. 7. Hypothyroidism. PAST SURGICAL HISTORY: Unknown. ALLERGIES: NO KNOWN DRUG ALLERGIES. MEDICATIONS: 1. Glipizide 5 mg daily. 2. Tizanidine 4 mg b.i.d. 3. Stiolto Respimat 2 puffs daily. 4. Thyroid 500 mg daily. 5. Nexium 20 mg daily. 6. Potassium 10 mEq daily. FAMILY HISTORY: Unknown. SOCIAL HISTORY: The patient is a cigarette smoker. No history of alcohol or drug abuse as far as I know. REVIEW OF SYSTEMS: Unable to obtain due to the patient's current state. PHYSICAL EXAMINATION: VITAL SIGNS: Temperature 98.6, heart rate 64, blood pressure 137/66, respirations 18, pulse oximetry 100% on the ventilator. GENERAL: The patient is currently intubated and sedated. HEENT: Pupils are equal and round. Mucous membranes are moist. ET tube in place. NECK: Supple. No JVD at 45 degrees. No carotid bruits heard bilaterally. Carotid upstroke is brisk in nature. HEART: Regular rate and rhythm. Positive first and second heart sounds with no noted murmurs, gallops or rubs. LUNGS: Decreased breath sounds bilaterally. ABDOMEN: Soft, nontender, nondistended. No organomegaly noted. EXTREMITIES: Show no clubbing, cyanosis. Femoral and distal pulses are intact bilaterally. NEUROLOGIC: Unable to obtain as he is currently intubated and sedated. SKIN: Warm, dry and intact. LABORATORY DATA: Hemoglobin 15.7, hematocrit 47.8, platelets 196. Potassium 4.0, BUN 23, creatinine 0.98. Lactic acid 1.2. Troponin 1.35. Electrocardiogram (12/14/2017 at 16:47), sinus rhythm with sinus arrhythmia, poor R-wave progression, possible septal myocardial infarction. IMPRESSION: 1. Altered mental status with a GCS of 3. 2. Acute respiratory failure requiring an intubation. 3. [id number] myocardial infarction, possible type 1 versus type 2. 4. Congestive heart failure of unknown etiology. 5. Diabetes mellitus. RECOMMENDATIONS: 1. Mr. Cowan presented with a GCS of 3 and was immediately intubated for shortness of breath. 2. Unsure of the current etiology for his acute respiratory failure. ABG done after ventilator shows a pO2 of 456 which would go against congestive heart failure as a possible cause at this time, specifically with a chest x-ray that does not seem to show pulmonary edema. 3. He will be admitted to the ICU and evaluated by the critical care team. 4. He does have an elevated troponin, which may be type 1 versus type 2 in nature. For now, he will be placed on a heparin drip. EKG shows no acute ST elevations. 5. We will check a 2D echo to look at his overall left ventricular function, cardiac structure and possible valvulopathy. 6. We will have to wait and see his neurological status as he was GCS 3 upon arrival. If neurologically, he returns towards baseline, then an ischemic evaluation will need to be done less likely cardiac catheterization over stress testing. 7. Further recommendations will be made based on the hospital course. Thank you for allowing me to see Jose Cowan. If there are any questions, please do not hesitate to call. DO SHAILESH Chan/giovani/caden , 01:27 AM , 01:40 AM
[2017-12-15] MEDS: Multivitamin Inj 10 ML, Thiamine Inj 100 MG, Folic Acid Inj 1 MG in Sodium Chlor 0.9% I... IV.SIG SCH ×2 (03:36→22:36)
[2017-12-15] MEDS ORDERED: Heparin 10,000 UNITS/10 ML Vial (for IV use) IV.PUSH PRN ×2 (03:56→04:00)
[2017-12-15 04:00] LABS: Baso # (Auto) 0.1 th/mm3 (0.0-0.2); Baso % (Auto) 0.7 % (0.0-2.0); Eos % (Auto) 0.3 % (0.0-4.0); Hematocrit 44.2 % (39.0-51.0); Hemoglobin 14.4 gm/dL (13.0-17.0); Lymph # (Auto) 1.3 th/mm3 (1.0-4.8); Lymph % (Auto) 11.4 % (9.0-44.0); Mean Corpuscular HGB Conc 32.6 % (32.0-36.0); Mean Corpuscular Hemoglobin 31.9 pg (27.0-34.0); Mean Corpuscular Volume 97.8 fL (80.0-100.0); Mean Platelet Volume 8.7 fL (7.0-11.0); Mono # (Auto) 0.9 th/mm3 (0.0-0.9); Mono % (Auto) 7.9 % (0.0-8.0); Neut % (Auto) 79.7 % (16.0-70.0); Platelet Count 160 th/mm3 (150-450); Red Blood Count 4.52 mil/mm3 (4.50-5.90); Red Cell Distribution Width 14.7 % (11.6-17.2); White Blood Count 11.3 th/mm3 (4.0-11.0)
[2017-12-15] MEDS ORDERED: Chlorhexidine Gluconate 2% 1 Pack (2 Cloths) TOPICAL PRN (04:00)
[2017-12-15 04:12] LABS: Activated Partial Thrombo Time 43.8 sec (23.4-31.7); INR 1.1 Ratio; Prothrombin Time 11.5 sec (9.8-11.6)
[2017-12-15 04:24] LABS: Alanine Aminotransferase 39 U/L (12-78); Anion Gap 5 meq/L (5-15); Aspartate Aminotransferase 33 U/L (15-37); Blood Urea Nitrogen 19 mg/dL (7-18); Calcium 7.8 mg/dL (8.5-10.1); Carbon Dioxide 35.2 meq/L (21.0-32.0); Chloride 102 meq/L (98-107); Glomerular Filtration Rate 68 mL/min (>89); Glucose,Random 130 mg/dL (74-106); Magnesium 1.9 mg/dL (1.5-2.5); Phosphorus 2.7 mg/dL (2.5-4.9); Potassium 3.6 meq/L (3.5-5.1); Sodium 142 meq/L (136-145)
[2017-12-15 04:27] LABS: Lymphocytes 16 % (9-44); Monocytes 7 % (0-8); Platelet Estimate Normal (Normal); Platelet Morphology Normal (Normal); RBC Morphology Normal (Normal)
[2017-12-15 04:59] LABS: Alkaline Phosphatase 43 U/L (45-117); Total Protein 6.1 g/dL (6.4-8.2)
[2017-12-15 05:33] LABS: Troponin I 1.16 ng/mL (0.02-0.05)
[2017-12-15] MEDS: Chlorhexidine Gluconate 2% 1 Pack (2 Cloths) TOPICAL SCH (05:37)
[2017-12-15 05:40] LABS: ABG Base Excess 6.6 mmol/L (-2-2); ABG PCO2 45 mmHg (38-42); ABG PO2 76 mmHG (61-120)
--- NOTE | 2017-12-15 07:28 | P.PNCC ---
Subjective Subjective Remarks/Hospital Course: This is a unknown male. Admission 11 03/2017. Past medical history is unknown to me. There is no family currently available. According to records from previous ED physician who saw the patient before the ED physician had notified me patient has a history of hypothyroidism, gastroesophageal reflux disease, COPD, diabetes, heart failure. Patient was found unresponsive by family with a GCS of 3 and was brought in to the emergency department. Patient was intubated using etomidate and succinylcholine. CT brain negative. CT pulmonary antrum revealed right upper and lower lobe atelectasis. Lower lobe atelectasis versus infiltrate. Patient had elevated troponin. EKG revealed normal sinus rhythm at 64 with normal ND, QS and QT intervals. Dr. Vidal was notified. Patient has been started on a heparin drip for non-STEMI. Cardiology will evaluate. Patient is placed on broad- spectrum antibiotics. We are asked to admit. 12/15 Patient is intubated and sedated with Diprivan drip. On Heparin drip. Afebrile. CTA chest negative for PE. Objective Vital Signs / I&O: Vital Signs 12/14/17 14:40 12/14/17 14:45 12/14/17 14:50 Temperature 98.6 F Pulse Rate 85 86 Respiratory Rate 30 H 16 Blood Pressure 231/145 H Pulse Oximetry 79 L 92 L 79 L 12/14/17 14:55 12/14/17 15:00 12/14/17 15:10 Temperature Pulse Rate 88 86 71 Respiratory Rate 16 16 Blood Pressure 108/65 126/66 Pulse Oximetry 100 100 100 12/14/17 15:25 12/14/17 15:59 12/14/17 16:00 Temperature Pulse Rate 67 66 70 Respiratory Rate 16 16 16 Blood Pressure 118/76 173/78 H 117/76 Pulse Oximetry 100 100 100 12/14/17 16:30 12/14/17 17:00 12/14/17 18:00 Temperature Pulse Rate 67 62 64 Respiratory Rate 16 16 18 Blood Pressure 173/78 H 125/60 137/66 Pulse Oximetry 100 100 12/14/17 18:46 12/14/17 19:37 12/14/17 19:59 Temperature Pulse Rate 59 L 64 Respiratory Rate 14 Blood Pressure 156/71 H Pulse Oximetry 97 100 100 12/14/17 20:00 12/14/17 20:11 12/14/17 20:31 Temperature 98.8 F Pulse Rate 63 62 61 Respiratory Rate 25 H 16 16 Blood Pressure 179/88 H 162/77 H Pulse Oximetry 100 100 100 12/14/17 20:37 12/14/17 21:00 12/14/17 21:04 Temperature Pulse Rate 61 61 63 Respiratory Rate 16 16 16 Blood Pressure 182/84 H Pulse Oximetry 100 98 97 12/14/17 21:31 12/14/17 22:00 12/14/17 22:01 Temperature Pulse Rate 63 67 63 Respiratory Rate 16 16 16 Blood Pressure 154/82 H 137/74 Pulse Oximetry 97 97 98 12/14/17 22:35 12/14/17 23:00 12/14/17 23:01 Temperature Pulse Rate 63 61 62 Respiratory Rate 12 16 22 Blood Pressure 121/69 118/56 L Pulse Oximetry 96 97 97 12/14/17 23:25 12/14/17 23:31 12/15/17 00:00 Temperature Pulse Rate 91 H 69 66 Respiratory Rate 16 20 16 Blood Pressure 128/70 Pulse Oximetry 99 93 L 12/15/17 00:01 12/15/17 00:30 12/15/17 01:00 Temperature Pulse Rate 66 67 64 Respiratory Rate 21 16 16 Blood Pressure 133/73 130/58 L 117/56 L Pulse Oximetry 99 99 99 12/15/17 01:30 12/15/17 02:00 12/15/17 02:30 Temperature Pulse Rate 64 67 62 Respiratory Rate 16 16 16 Blood Pressure 133/69 137/64 134/63 Pulse Oximetry 97 99 97 12/15/17 03:00 12/15/17 03:01 12/15/17 03:30 Temperature Pulse Rate 65 62 66 Respiratory Rate 16 16 15 Blood Pressure 109/60 135/73 Pulse Oximetry 96 96 98 12/15/17 04:00 12/15/17 04:13 12/15/17 04:30 Temperature 99.1 F Pulse Rate 62 75 62 Respiratory Rate 14 16 16 Blood Pressure 124/72 142/65 H Pulse Oximetry 99 99 12/15/17 05:00 12/15/17 05:01 12/15/17 05:30 Temperature Pulse Rate 63 62 67 Respiratory Rate 16 16 16 Blood Pressure 128/61 128/61 Pulse Oximetry 99 98 96 Intake & Output 12/14/17 12/15/17 12/15/17 18:59 06:59 18:59 Intake Total 998.4 / 998.4 Output Total 850 / 850 Balance 148.4 / 148.4 Weight 99.79 kg 96 kg Intake: IV 878.4 / 878.4 Heparin/D5W 25,000 U/250 mL 25, 47.4 / 47.4 000 unit In 250 ml @ 1,000 UNITS/HR 10 mls/hr IV.CONT TITRATE PRN Rx#:[id number] Diprivan 1000 mg/100 ml Inj 1, 100 / 100 000 mg In 100 ml @ 5 MCG/KG/MIN 2.994 mls/hr IV.CONT TITRATE PRN Rx#:[id number] NS Inj 1,000 ML @ 84 mls/hr IV. 631 / 631 CONT .[id number] [facility] Rx#:[id number] Zosyn 4.5 GM Premix 4.5 gm In 100 / 100 100 ml @ 200 mls/hr IV.SIG Q6H [facility] Rx#:[id number] Water Bolus Amount 120 / 120 Output: Urine Amount (Catheter) 850 / 850 Indwelling Urethral Catheter 850 / 850 Gastric Drainage 0 / 0 Oral 0 / 0 Other: # Bowel Movements 0 Weight On Admission 96.5 kg Result Diagrams: 12/15/17 03:46 12/15/17 03:46 Other Results: Laboratory Results - last 12 hr 12/14/17 12/14/17 12/14/17 00:35 00:35 15:00 WBC RBC Hgb Hct MCV MCH MCHC RDW Plt Count MPV Prelim Diff (Auto) Neut % (Auto) Lymph % (Auto) [place] % (Auto) Eos % (Auto) Baso % (Auto) Neut # (Auto) Lymph # (Auto) [place] # (Auto) Eos # (Auto) Baso # (Auto) WBC Differential Seg Neuts % (Manual) Band Neuts % (Manual) Lymphocytes % (Manual) Monocytes % (Manual) Abs Neuts (Manual) Differential Comment Platelet Estimate Platelet Morphology RBC Morphology PT 11.5 11.1 INR 1.1 1.1 APTT 35.9 H 25.6 D Puncture Site Patient Temperature O2 Saturation ABG pH ABG pCO2 ABG pO2 ABG HCO3 ABG O2 Content ABG Base Excess ABG Methemoglobin Zhang Test Hemoglobin Carboxyhemoglobin O2 Delivery Device Vent Setting Inspired O2 Critical Value Sodium Potassium Chloride Carbon Dioxide Anion Gap BUN Creatinine Estimated GFR POC Glucose Random Glucose Lactic Acid Calcium Phosphorus Magnesium Total Bilirubin AST ALT Alkaline Phosphatase Troponin I 1.30 H* Total Protein Albumin Nasal Screen MRSA (PCR) 12/14/17 12/14/17 12/15/17 20:15 23:53 03:46 WBC 11.3 H RBC 4.52 Hgb 14.4 Hct 44.2 MCV 97.8 MCH 31.9 MCHC 32.6 RDW 14.7 Plt Count 160 MPV 8.7 Prelim Diff (Auto) Slide review pending Neut % (Auto) 79.7 H Lymph % (Auto) 11.4 [place] % (Auto) 7.9 Eos % (Auto) 0.3 Baso % (Auto) 0.7 Neut # (Auto) 9.0 H Lymph # (Auto) 1.3 [place] # (Auto) 0.9 Eos # (Auto) 0.0 Baso # (Auto) 0.1 WBC Differential Manual diff final Seg Neuts % (Manual) 73 H Band Neuts % (Manual) 4 Lymphocytes % (Manual) 16 Monocytes % (Manual) 7 Abs Neuts (Manual) 8.7 H Differential Comment . Platelet Estimate Normal Platelet Morphology Normal RBC Morphology Normal PT INR APTT Puncture Site Patient Temperature O2 Saturation ABG pH ABG pCO2 ABG pO2 ABG HCO3 ABG O2 Content ABG Base Excess ABG Methemoglobin Zhang Test Hemoglobin Carboxyhemoglobin O2 Delivery Device Vent Setting Inspired O2 Critical Value Sodium Potassium Chloride Carbon Dioxide Anion Gap BUN Creatinine Estimated GFR POC Glucose 109 Random Glucose Lactic Acid Calcium Phosphorus Magnesium Total Bilirubin AST ALT Alkaline Phosphatase Troponin I Total Protein Albumin Nasal Screen MRSA (PCR) Not detected 12/15/17 12/15/17 12/15/17 03:46 03:46 03:46 WBC RBC Hgb Hct MCV MCH MCHC RDW Plt Count MPV Prelim Diff (Auto) Neut % (Auto) Lymph % (Auto) [place] % (Auto) Eos % (Auto) Baso % (Auto) Neut # (Auto) Lymph # (Auto) [place] # (Auto) Eos # (Auto) Baso # (Auto) WBC Differential Seg Neuts % (Manual) Band Neuts % (Manual) Lymphocytes % (Manual) Monocytes % (Manual) Abs Neuts (Manual) Differential Comment Platelet Estimate Platelet Morphology RBC Morphology PT 11.5 INR 1.1 APTT 43.8 H D Puncture Site Patient Temperature O2 Saturation ABG pH ABG pCO2 ABG pO2 ABG HCO3 ABG O2 Content ABG Base Excess ABG Methemoglobin Zhang Test Hemoglobin Carboxyhemoglobin O2 Delivery Device Vent Setting Inspired O2 Critical Value Sodium 142 Potassium 3.6 Chloride 102 Carbon Dioxide 35.2 H Anion Gap 5 BUN 19 H Creatinine 0.95 Estimated GFR 68 L POC Glucose Random Glucose 130 H Lactic Acid 1.8 Calcium 7.8 L Phosphorus 2.7 Magnesium 1.9 Total Bilirubin 1.3 H AST 33 ALT 39 Alkaline Phosphatase 43 L Troponin I 1.16 H* Total Protein 6.1 L D Albumin 3.0 L D Nasal Screen MRSA (PCR) 12/15/17 12/15/17 12/15/17 03:46 05:24 05:44 WBC RBC Hgb Hct MCV MCH MCHC RDW Plt Count MPV Prelim Diff (Auto) Neut % (Auto) Lymph % (Auto) [place] % (Auto) Eos % (Auto) Baso % (Auto) Neut # (Auto) Lymph # (Auto) [place] # (Auto) Eos # (Auto) Baso # (Auto) WBC Differential Seg Neuts % (Manual) Band Neuts % (Manual) Lymphocytes % (Manual) Monocytes % (Manual) Abs Neuts (Manual) Differential Comment Platelet Estimate Platelet Morphology RBC Morphology PT INR APTT 44.3 H Puncture Site Left radial Patient Temperature 98.6 O2 Saturation 92 ABG pH 7.45 H ABG pCO2 45 H ABG pO2 76 ABG HCO3 31 H ABG O2 Content 18.6 ABG Base Excess 6.6 H ABG Methemoglobin 2.0 Zhang Test Present Hemoglobin 14.3 Carboxyhemoglobin 0.9 O2 Delivery Device Ventilator Vent Setting See comments Inspired O2 40 Critical Value No Sodium Potassium Chloride Carbon Dioxide Anion Gap BUN Creatinine Estimated GFR POC Glucose 127 H Random Glucose Lactic Acid Calcium Phosphorus Magnesium Total Bilirubin AST ALT Alkaline Phosphatase Troponin I Total Protein Albumin Nasal Screen MRSA (PCR) Imaging: Head CT 12/14/17 14:53 CONCLUSION: 1. No acute intracranial abnormality is identified. 2. Chronic findings include generalized atrophy and periventricular white matter change characteristic of chronic microvascular ischemia. . Chest CTA 12/14/17 17:06 CONCLUSION: 1. No pulmonary embolus. 2. Scattered areas of subpleural density seen in the posterior right upper and lower lobes likely related to mild consolidation or atelectasis. There is also some minimal suspected atelectasis or consolidation at the posterior lower lobes bilaterally. 3. Gallstones Objective Remarks: GENERAL: Patient is intubated and sedated SKIN: Warm and dry. HEAD: Normocephalic. EYES: No scleral icterus. No injection or drainage. NECK: Supple, trachea midline. No JVD or lymphadenopathy. CARDIOVASCULAR: Regular rate and rhythm without murmurs, gallops, or rubs. RESPIRATORY: Breath sounds equal bilaterally. No accessory muscle use. GASTROINTESTINAL: Abdomen soft, non-tender, nondistended. MUSCULOSKELETAL: No cyanosis, or edema. Neuro: sedated Assessment and Plan - Assessment and Plan Plan: Neuro/Psych: Acute altered mental status CT brain revealed no acute intracranial findings Currently on propofol drip for sedation/analgesia while intubated With RASS -2 Daily sedation vacation MRI brain/EEG pending Acetaminophen 650 mg every 6 hours as needed fever CV: Elevated troponin possibly type II non-STEMI History of essential hypertension History of congestive heart failure unknown etiology Monitor HR and BP keep MAP>65mmHg Aspirin 81 mg daily, Lipitor 40mg daily, Lopressor 2.5mg IV Q6 Low-dose beta-valorie/CARLEEN inhibitor tolerates Cycle troponins, continue with Heparin drip. Cards is following- Dr. Vidal 2D echocardiogram ordered Resp: Acute respiratory failure PRVC ventilation Albuterol/ipratropium aerosols every 4 hours with albuterol aerosols every 2 hours as needed dyspnea Ventilator bundle Spontaneous breathing trials CT pulmonary no evidence of PE, revealed right upper/lower atelectasis versus infiltrate. Bilateral lower lobe consolidation versus infiltrate. GI: Pantoprazole for GI prophylaxis Docusate sodium senna 1 tablet twice daily for bowel regimen Start tube feeds today if remains intubated Monitor renal function, I/O's, electrolytes replacement per protocol. Endo: Diabetes mellitus type 2 Hypothyroidism Continue home thyroid 500 mg daily Sliding scale insulin Accu-Cheks to maintain euglycemia every 6 hours aspart insulin Heme: Macrocytosis Monitor CBC daily. Follow trends. No indication for transfusion of blood products at this time ID: Follow up on blood and sputum cxs on vancomycin/piperacillin/tazobactam, deescalate abx if cultures are negative in 48hrs MSK: Discal therapy evaluate and treat Access -Utilize peripheral IV. Central line if indicated Prophylaxis -GI -pantoprazole -DVT -SCDs/heparin drip Level 3
[2017-12-15] MEDS ORDERED: THYROID PO SCH (09:00)
[2017-12-15] MEDS: Senna/Docusate Sodium 8.6/50 MG Tablet PO SCH ×2 (09:38→20:36)
[2017-12-15] MEDS: Chlorhexidine 0.12% Oral Kit 15 ML UDC OROPHARYNG SCH ×2 (09:38→21:28)
[2017-12-15] MEDS: Artificial Tears Opth Drops 15 ML Bottle EACH EYE SCH ×3 (09:39→18:14)
[2017-12-15] MEDS: Pantoprazole Inj 40 MG Vial IV.PUSH SCH (09:39)
[2017-12-15] MEDS: Sod Chloride 0.9% Inj 1,000 ML IV.CONT SCH ×2 (10:12→19:33)
[2017-12-15 10:27] LABS: Amphetamine Screen,Urine Neg (Neg); Barbiturate Screen,Urine Neg (Neg); Cannabinoid Screen,Urine Neg (Neg); Cocaine Screen,Urine Neg (Neg)
[2017-12-15 11:05] LABS: Opiate Screen,Urine Neg (Neg)
[2017-12-15 12:53] LABS: ABG Base Excess 6.3 mmol/L (-2-2); ABG PCO2 50 mmHg (38-42); ABG PO2 73 mmHG (61-120)
[2017-12-15] MEDS ORDERED: hydrALAZINE HCl Inj 20 MG/ML Vial IV.PUSH PRN (14:08)
[2017-12-15] MEDS: Vancomycin Inj 2,000 MG in Sodium Chlor 0.9% Inj 500 ML IV.SIG SCH (14:18)
--- NOTE | 2017-12-15 15:08 | P.PNCA ---
Subjective Interval history: No events overnight Awake on the ventilator, able to answer simple questions No chest pain Medications and Allergies Active Medications: Active Medications Acetaminophen (Tylenol) 650 mg PO Q6H PRN PRN Reason: PAIN 1-10 AND/OR FEVER >101F Al Hydroxide/Mg Hydroxide (Milk Of Magnfrantz Liq) 30 ml PO Q12H PRN PRN Reason: Mild Constipation Albuterol (Albuterol Neb (Prn)) 2.5 mg NEB Q2HR NEB PRN PRN Reason: SHORTNESS OF BREATH/WHEEZING Albuterol (Duoneb Neb ([facility])) 1 ampul NEB Q4HR NEB [facility] Last Admin: 12/15/17 11:22 Dose: 1 ampul Artificial Tears (Tears Naturale Opth Drops) 1 drop EACH EYE TID [facility] Last Admin: 12/15/17 14:11 Dose: 1 drop Aspirin (Aspirin Chew) 81 mg PO DAILY [facility] Last Admin: 12/15/17 09:38 Dose: 81 mg Atorvastatin Calcium (Lipitor) 40 mg PO DAILY [facility] Last Admin: 12/15/17 09:38 Dose: 40 mg Bisacodyl (Dulcolax Supp) 10 mg RECTAL DAILY PRN PRN Reason: SEVERE CONSITIPATION Chlorhexidine Gluconate (Chlorhexidine 2% Cloth) 3 pack TOPICAL DAILY@0400 [facility] Stop: 12/20/17 03:59 Last Admin: 12/15/17 05:37 Dose: 3 pack Chlorhexidine Gluconate (Chlorhexidine 2% Cloth) 3 pack TOPICAL DAILY@0400 PRN PRN Reason: Extra cloth needed Stop: 12/20/17 03:59 Chlorhexidine Gluconate (Peridex 0.12% Oral Kit) 15 ml OROPHARYNG BID@0800, 2000 [facility] Last Admin: 12/15/17 09:38 Dose: 15 ml Dextrose (D50w Vial) 50 ml IV.PUSH UNSCH PRN PRN Reason: PER HYPOGLYCEMIA PROTOCOL Diltiazem HCl (Cardizem) 60 mg PO QID [facility] Enalapril Maleate (Vasotec) 2.5 mg PO DAILY [facility] Last Admin: 12/15/17 11:19 Dose: 2.5 mg Glucagon (Glucagon Inj) 1 mg OTHER PRN PRN PRN Reason: for Hypoglycemia Protocol Heparin Sodium (Porcine) (Heparin Inj) 2,500 units IV.PUSH UNSCH PRN PRN Reason: aPTT 25-39 Last Admin: 12/15/17 01:38 Dose: 2,500 units Heparin Sodium (Porcine) (Heparin Inj) 5,000 units IV.PUSH UNSCH PRN PRN Reason: aPTT < 25 Hydralazine HCl (Apresoline Inj) 10 mg IV.PUSH Q6H PRN PRN Reason: SBP>160, DBP>90 Last Admin: 12/15/17 14:26 Dose: 10 mg Sodium Chloride (Ns Inj) 1,000 mls @ 84 mls/hr IV.CONT .[id number] [facility] Last Admin: 12/15/17 10:12 Dose: 84 mls/hr Magnesium Sulfate 4 gm/ Sodium (Chloride) 100 mls @ 50 mls/hr IV.SIG UNSCH PRN PRN Reason: For Magnesium 0.9 - 1.1 mg/dL Magnesium Sulfate 2 gm/ Sodium (Chloride) 100 mls @ 50 mls/hr IV.SIG UNSCH PRN PRN Reason: For Magnesium 1.2 - 1.6 mg/dL Potassium Chloride (Kcl 40 Meq Premix Inj) 40 meq in 100 mls @ 25 mls/hr IV.SIG Q2H PRN PRN Reason: For Potassium 2.8 - 3.2 mEq/L Potassium Chloride (Kcl 20 Meq Premix Inj) 20 meq in 100 mls @ 50 mls/hr IV.SIG Q2H PRN PRN Reason: For Potassium 3.3 - 3.5 mEq/L Potassium Chloride (Kcl 40 Meq Premix Inj) 40 meq in 100 mls @ 25 mls/hr IV.SIG UNSCH PRN PRN Reason: For Potassium 3.3 - 3.5 mEq/L Potassium Phosphate 30 mmol/ (Sodium Chloride) 260 mls @ 42 mls/hr IV.SIG UNSCH PRN PRN Reason: SEE LABEL COMMENTS Sodium Phosphate 30 mmol/ (Sodium Chloride) 260 mls @ 42 mls/hr IV.SIG UNSCH PRN PRN Reason: For Phosphorus < 2.5 mg/dL Potassium Chloride (Kcl 20 Meq Premix Inj) 20 meq in 100 mls @ 50 mls/hr IV.SIG Q2H PRN PRN Reason: For Potassium 2.8 - 3.2 mEq/L Heparin Sodium/Dextrose (Heparin/D5w 25,000 U/250 Ml) 25,000 unit in 250 mls @ 10 mls/hr IV.CONT TITRATE PRN; Protocol PRN Reason: Per Protocol Last Titration: 12/15/17 05:54 Dose: 1,100 units/hr, 11 mls/hr Piperacillin/Tazobactam/Dextrose (Zosyn 4.5 Gm Premix) 4.5 gm in 100 mls @ 200 mls/hr IV.SIG Q6H ANGIE Last Infusion: 12/15/17 11:58 Dose: Infused Multivitamins 10 ml/ Thiamine HCl 100 mg/ Folic Acid 1 mg/Sodium Chloride 511.2 mls @ 125 mls/hr IV.SIG Q24H ANGIE Stop: 12/17/17 03:06 Last Infusion: 12/15/17 09:00 Dose: Infused Vancomycin HCl 2,000 mg/ (Sodium Chloride) 520 mls @ 250 mls/hr IV.SIG Q12H [facility] Last Admin: 12/15/17 14:18 Dose: 250 mls/hr Insulin Aspart (Novolog Insulin [employer] Sugar Inj) 0 unit SQ Q6HR ANGIE; Protocol Last Admin: 12/15/17 12:01 Dose: Not Given Lactulose (Lactulose Liq) 30 ml PO DAILY PRN PRN Reason: SEVERE CONSITIPATION Magnesium Oxide (Mag-Ox) 800 mg PO UNSCH PRN PRN Reason: For Magnesium 1.2 - 1.6 mg/dL Metoprolol Tartrate (Lopressor Inj) 2.5 mg IV.PUSH Q6H [facility] Last Admin: 12/15/17 11:23 Dose: 2.5 mg Miscellaneous Information ([facility] Ordered Lab Info) 0 each OTHER ONCE ONE Stop: 12/16/17 12:46 Miscellaneous Medication () 1 each OROPHARYNG 0000,0400,1200,1600 [facility] Last Admin: 12/15/17 12:02 Dose: 1 each Non-Formulary Medication (Thyroid (Pork) [Nature-Throid]) 500 mg PO DAILY [facility] Pantoprazole Sodium (Protonix Inj) 40 mg IV.PUSH DAILY [facility] Last Admin: 12/15/17 09:39 Dose: 40 mg Pharmacy Profile Note (Vancomycin Consult Pharmacy) 1 each OTHER UNSCH PRN PRN Reason: Pharmacy to dose Potassium Bicarb/Potassium Chloride (K-Lyte Cl Eff) 50 meq PO UNSCH PRN PRN Reason: For Potassium 3.3 - 3.5 mEq/L Potassium Phosphate (K-Phos Original) 2,000 mg PO Q4H PRN PRN Reason: Phosphorus Less Than 2.5 mg/dL Potassium Phosphate (K-Phos Original) 2,000 mg PO UNSCH PRN PRN Reason: SEE LABEL COMMENTS Senna/Docusate Sodium (Marian-Colace) 1 tab PO BID [facility] Last Admin: 12/15/17 09:38 Dose: 1 tab Sennosides (Senokot) 17.2 mg PO Q12H PRN PRN Reason: Moderate Constipation Sodium Chloride (Ns Flush) 2 ml IV.FLUSH BID [facility] Last Admin: 12/15/17 09:38 Dose: 2 ml Sodium Chloride (Ns Flush) 2 ml IV.FLUSH PRN PRN PRN Reason: FLUSH AFTER USING IV ACCESS Allergies Allergy/AdvReac Type Severity Reaction Status Date / Time No Known Allergies Allergy Verified 12/14/17 14:49 Home Medications Medication Instructions Recorded Confirmed Type esomeprazole magnesium [Nexium 20 mg PO DAILY 12/14/17 12/14/17 History 24HR] glipizide 5 mg PO DAILY 12/14/17 12/14/17 History potassium chloride 10 meq PO DAILY 12/14/17 12/14/17 History thyroid (pork) [Nature-Throid] 500 mg PO DAILY 12/14/17 12/14/17 History tiotropium-olodaterol [Stiolto 2 puff INHALATION DAILY 12/14/17 12/14/17 History Respimat] tizanidine 4 mg PO BID 12/14/17 12/14/17 History Physical Exam Vital signs: Vital Signs 12/14/17 15:10 12/14/17 15:25 12/14/17 15:59 Temperature Pulse Rate 71 67 66 Respiratory Rate 16 16 16 Blood Pressure 126/66 118/76 173/78 H Pulse Oximetry 100 100 100 12/14/17 16:00 12/14/17 16:30 12/14/17 17:00 Temperature Pulse Rate 70 67 62 Respiratory Rate 16 16 16 Blood Pressure 117/76 173/78 H 125/60 Pulse Oximetry 100 100 100 12/14/17 18:00 12/14/17 18:46 12/14/17 19:37 Temperature Pulse Rate 64 59 L Respiratory Rate 18 14 Blood Pressure 137/66 156/71 H Pulse Oximetry 97 100 12/14/17 19:59 12/14/17 20:00 12/14/17 20:11 Temperature 98.8 F Pulse Rate 64 63 62 Respiratory Rate 25 H 16 Blood Pressure 179/88 H Pulse Oximetry 100 100 100 12/14/17 20:31 12/14/17 20:37 12/14/17 21:00 Temperature Pulse Rate 61 61 61 Respiratory Rate 16 16 16 Blood Pressure 162/77 H Pulse Oximetry 100 100 98 12/14/17 21:04 12/14/17 21:31 12/14/17 22:00 Temperature Pulse Rate 63 63 67 Respiratory Rate 16 16 16 Blood Pressure 182/84 H 154/82 H Pulse Oximetry 97 97 97 12/14/17 22:01 12/14/17 22:35 12/14/17 23:00 Temperature Pulse Rate 63 63 61 Respiratory Rate 16 12 16 Blood Pressure 137/74 121/69 Pulse Oximetry 98 96 97 12/14/17 23:01 12/14/17 23:25 12/14/17 23:31 Temperature Pulse Rate 62 91 H 69 Respiratory Rate 22 16 20 Blood Pressure 118/56 L 128/70 Pulse Oximetry 97 99 12/15/17 00:00 12/15/17 00:01 12/15/17 00:30 Temperature Pulse Rate 66 66 67 Respiratory Rate 16 21 16 Blood Pressure 133/73 130/58 L Pulse Oximetry 93 L 99 99 12/15/17 01:00 12/15/17 01:30 12/15/17 02:00 Temperature Pulse Rate 64 64 67 Respiratory Rate 16 16 16 Blood Pressure 117/56 L 133/69 137/64 Pulse Oximetry 99 97 99 12/15/17 02:30 12/15/17 03:00 12/15/17 03:01 Temperature Pulse Rate 62 65 62 Respiratory Rate 16 16 16 Blood Pressure 134/63 109/60 Pulse Oximetry 97 96 96 12/15/17 03:30 12/15/17 04:00 12/15/17 04:13 Temperature 99.1 F Pulse Rate 66 62 75 Respiratory Rate 15 14 16 Blood Pressure 135/73 124/72 Pulse Oximetry 98 99 12/15/17 04:30 12/15/17 05:00 12/15/17 05:01 Temperature Pulse Rate 62 63 62 Respiratory Rate 16 16 16 Blood Pressure 142/65 H 128/61 Pulse Oximetry 99 99 98 12/15/17 05:30 12/15/17 06:00 12/15/17 06:31 Temperature Pulse Rate 67 63 60 Respiratory Rate 16 16 6 L Blood Pressure 128/61 129/62 113/55 L Pulse Oximetry 96 99 96 12/15/17 07:00 12/15/17 07:31 12/15/17 08:00 Temperature 98.7 F Pulse Rate 60 61 62 Respiratory Rate 24 16 16 Blood Pressure 124/77 141/73 H 137/67 Pulse Oximetry 98 99 98 12/15/17 09:00 12/15/17 09:17 12/15/17 10:00 Temperature Pulse Rate 73 92 H 78 Respiratory Rate 19 19 20 Blood Pressure 155/72 H 141/65 H Pulse Oximetry 96 98 99 12/15/17 11:00 12/15/17 11:23 12/15/17 12:00 Temperature 99.2 F Pulse Rate 77 76 69 Respiratory Rate 17 22 21 Blood Pressure 141/65 H 129/58 L Pulse Oximetry 94 L 94 L 95 12/15/17 13:00 12/15/17 13:15 12/15/17 13:40 Temperature Pulse Rate 72 Respiratory Rate 20 Blood Pressure 152/65 H Pulse Oximetry 95 93 L 92 L 12/15/17 14:00 Temperature Pulse Rate 102 H Respiratory Rate 27 H Blood Pressure 157/122 H Pulse Oximetry 98 Intake & Output 12/14/17 12/15/17 12/15/17 18:59 06:59 18:59 Intake Total 998.4 / 998.4 1184 / 1184 Output Total 850 / 850 Balance 148.4 / 148.4 1184 / 1184 Weight 99.79 kg 96 kg Intake: IV 878.4 / 878.4 1184 / 1184 Heparin/D5W 25,000 U/250 mL 25, 47.4 / 47.4 000 unit In 250 ml @ 1,000 UNITS/HR 10 mls/hr IV.CONT TITRATE PRN Rx#:[id number] Diprivan 1000 mg/100 ml Inj 1, 100 / 100 000 mg In 100 ml @ 5 MCG/KG/MIN 2.994 mls/hr IV.CONT TITRATE PRN Rx#:[id number] NS Inj 1,000 ML @ 84 mls/hr IV. 631 / 631 337 / 337 CONT .[id number] [facility] Rx#:[id number] MVI-12 Inj 10 ML Thiamine Inj 560 / 560 100 MG Folvite Inj 1 MG In NS Inj 500 ML @ 125 mls/hr IV.SIG Q24H [facility] Rx#:[id number] Zosyn 4.5 GM Premix 4.5 gm In 100 / 100 187 / 187 100 ml @ 200 mls/hr IV.SIG Q6H [facility] Rx#:[id number] Water Bolus Amount 120 / 120 Output: Urine Amount (Catheter) 850 / 850 Indwelling Urethral Catheter 850 / 850 Gastric Drainage 0 / 0 Oral 0 / 0 Other: # Bowel Movements 0 Weight On Admission 96.5 kg Narrative: GENERAL: NAD SKIN: Warm and dry. HEAD: Atraumatic. Normocephalic. EYES: Pupils equal and round. No scleral icterus. No injection or drainage. ENT: No nasal bleeding or discharge. Mucous membranes pink and moist. NECK: Trachea midline. No JVD. CARDIOVASCULAR: Regular rate and rhythm. RESPIRATORY: No accessory muscle use. Decreased breath sounds bilaterally GASTROINTESTINAL: Abdomen soft, non-tender, nondistended. Hepatic and splenic margins not palpable. MUSCULOSKELETAL: Extremities without clubbing, cyanosis, or edema. No obvious deformities. NEUROLOGICAL: Awake and alert on the ventilator, able to answer simple questions with nod of his head - Urinary Catheter Management Indwelling Urethral Catheter Cath placed during this visit: yes Reason for continuing: Hourly intake/output Insertion date: 12/14/17 Insertion time: 15:00 Results 12/15/17 03:46 12/15/17 03:46 Cardiac Enzymes 12/14/17 12/14/17 12/14/17 Range/Units 00:35 15:00 15:00 AST 40 H (15-37) U/L CK-MB (CK-2) 22.0 H (0.5-3.6) ng/mL Troponin I 1.30 H* 1.35 H* (0.02-0.05) ng/mL B-Natriuretic Peptide 227 H (0-100) pg/mL 12/15/17 12/15/17 Range/Units 03:46 11:56 AST 33 (15-37) U/L CK-MB (CK-2) (0.5-3.6) ng/mL Troponin I 1.16 H* 1.08 H* (0.02-0.05) ng/mL B-Natriuretic Peptide (0-100) pg/mL Coagulation 12/14/17 12/14/17 12/14/17 Range/Units 00:35 15:00 15:00 PT 11.5 11.1 (9.8-11.6) sec APTT 35.9 H 25.6 D (23.4-31.7) sec B-Natriuretic Peptide 227 H (0-100) pg/mL 12/14/17 12/15/17 12/15/17 Range/Units 17:05 03:46 03:46 PT 10.1 11.5 (9.8-11.6) sec APTT 20.2 L D 43.8 H D 44.3 H (23.4-31.7) sec B-Natriuretic Peptide (0-100) pg/mL 12/15/17 Range/Units 11:56 PT (9.8-11.6) sec APTT 42.9 H (23.4-31.7) sec B-Natriuretic Peptide (0-100) pg/mL CBC 12/14/17 12/15/17 Range/Units 15:00 03:46 WBC 10.8 11.3 H (4.0-11.0) th/mm3 RBC 4.77 4.52 (4.50-5.90) mil/mm3 Hgb 15.7 14.4 (13.0-17.0) gm/dL Hct 47.8 44.2 (39.0-51.0) % Plt Count 196 160 (150-450) th/mm3 Neut # (Auto) 6.6 9.0 H (1.8-7.7) th/mm3 Lymph # (Auto) 3.2 1.3 (1.0-4.8) th/mm3 [place] # (Auto) 0.9 0.9 (0.0-0.9) th/mm3 Eos # (Auto) 0.1 0.0 (0.0-0.4) th/mm3 Baso # (Auto) 0.0 0.1 (0.0-0.2) th/mm3 Comprehensive Metabolic Panel 12/14/17 12/15/17 Range/Units 15:00 03:46 Sodium 142 142 (136-145) meq/L Potassium 4.0 3.6 (3.5-5.1) meq/L Chloride 102 102 (98-107) meq/L Carbon Dioxide 35.0 H 35.2 H (21.0-32.0) meq/L BUN 23 H 19 H (7-18) mg/dL Creatinine 0.98 0.95 (0.60-1.30) mg/dL Calcium 8.4 L 7.8 L (8.5-10.1) mg/dL AST 40 H 33 (15-37) U/L ALT 50 39 (12-78) U/L Alkaline Phosphatase 55 43 L (45-117) U/L Total Protein 7.5 6.1 L D (6.4-8.2) g/dL Albumin 3.6 3.0 L D (3.4-5.0) g/dL Intake and Output 12/15/17 12/15/17 12/15/17 06:59 14:59 22:59 Intake Total 898.4 / 898.4 1184 / 1184 Output Total 850 / 850 Balance 48.4 / 48.4 1184 / 1184 Intake: IV 778.4 / 778.4 1184 / 1184 Heparin/D5W 25,000 U/250 mL 25, 47.4 / 47.4 000 unit In 250 ml @ 1,000 UNITS/HR 10 mls/hr IV.CONT TITRATE PRN Rx#:[id number] NS Inj 1,000 ML @ 84 mls/hr IV. 631 / 631 337 / 337 CONT .[id number] [facility] Rx#:[id number] MVI-12 Inj 10 ML Thiamine Inj 560 / 560 100 MG Folvite Inj 1 MG In NS Inj 500 ML @ 125 mls/hr IV.SIG Q24H ANGIE Rx#:[id number] Zosyn 4.5 GM Premix 4.5 gm In 100 / 100 187 / 187 100 ml @ 200 mls/hr IV.SIG Q6H [facility] Rx#:[id number] Water Bolus Amount 120 / 120 Output: Urine Amount (Catheter) 850 / 850 Indwelling Urethral Catheter 850 / 850 Gastric Drainage 0 / 0 Oral 0 / 0 Other: # Bowel Movements 0 Weight 96 kg - Imaging and Cardiology Imaging: Impressions Chest X-Ray 12/14/17 00:00 CONCLUSION: 1. Endotracheal tube is in appropriate position with tip measuring 4.5 cm from the vijay. 2. Underinflated examination with mild subsegmental atelectasis at the right lung base. Otherwise, no acute abnormality is identified. Chest X-Ray 12/14/17 00:00 CONCLUSION: Stable chest appearance Head CT 12/14/17 14:53 CONCLUSION: 1. No acute intracranial abnormality is identified. 2. Chronic findings include generalized atrophy and periventricular white matter change characteristic of chronic microvascular ischemia. . Chest CTA 12/14/17 17:06 CONCLUSION: 1. No pulmonary embolus. 2. Scattered areas of subpleural density seen in the posterior right upper and lower lobes likely related to mild consolidation or atelectasis. There is also some minimal suspected atelectasis or consolidation at the posterior lower lobes bilaterally. 3. Gallstones Assessment and Plan - Assessment (1) Encephalopathy acute Code(s): G93.40 - Encephalopathy, unspecified Status: Acute (2) Acute non-ST elevation myocardial infarction (NSTEMI) Code(s): I21.4 - Non-ST elevation (NSTEMI) myocardial infarction Status: Acute (3) Respiratory failure requiring intubation Code(s): J96.90 - Respiratory failure, unspecified, unspecified whether with hypoxia or hypercapnia Status: Acute - Plan 1) Encephalopathy Presented with GCS of 3, possible carbon dioxide retention? Following simple commands on the vent 2) Acute respiratory failure s/p intubation Possible extubation later today 3) NSTEMI Probable type 2 Will need eventual ischemic work up 4) 2D echo pending
[2017-12-15] MEDS: Heparin Drip 25,000 UNIT/250 ML BAG IV.CONT PRN (16:24)
[2017-12-15] MEDS: dilTIAZem 60 MG Tablet PO SCH ×2 (18:14→20:36)
[2017-12-16] MEDS: Oral Hygiene Kit OROPHARYNG SCH ×4 (00:42→17:48)
[2017-12-16] MEDS: Vancomycin Inj 2,000 MG in Sodium Chlor 0.9% Inj 500 ML IV.SIG SCH (01:00)
[2017-12-16] MEDS: Metoprolol Inj 5 MG/5 ML Vial IV.PUSH SCH (04:48)
[2017-12-16] MEDS: Piperacil/Tazo 4.5 GM Premix 4.5 GM/100 ML BAG IV.SIG SCH ×3 (04:48→17:44)
[2017-12-16] MEDS: Chlorhexidine Gluconate 2% 1 Pack (2 Cloths) TOPICAL SCH (04:49)
[2017-12-16 07:07] LABS: Baso % (Auto) 0.3 % (0.0-2.0); Eos # (Auto) 0.1 th/mm3 (0.0-0.4); Eos % (Auto) 0.7 % (0.0-4.0); Hematocrit 42.8 % (39.0-51.0); Hemoglobin 14.4 gm/dL (13.0-17.0); Lymph # (Auto) 0.8 th/mm3 (1.0-4.8); Lymph % (Auto) 7.2 % (9.0-44.0); Mean Corpuscular HGB Conc 33.6 % (32.0-36.0); Mean Corpuscular Volume 98.1 fL (80.0-100.0); Mean Platelet Volume 8.4 fL (7.0-11.0); Mono # (Auto) 0.9 th/mm3 (0.0-0.9); Mono % (Auto) 8.2 % (0.0-8.0); Neut % (Auto) 83.6 % (16.0-70.0); Platelet Count 148 th/mm3 (150-450); Red Blood Count 4.36 mil/mm3 (4.50-5.90); Red Cell Distribution Width 15.1 % (11.6-17.2); White Blood Count 10.7 th/mm3 (4.0-11.0)
--- NOTE | 2017-12-16 07:09 | P.PNCC ---
Subjective Subjective Remarks/Hospital Course: This is a unknown male. Admission 11 03/2017. Past medical history is unknown to me. There is no family currently available. According to records from previous ED physician who saw the patient before the ED physician had notified me patient has a history of hypothyroidism, gastroesophageal reflux disease, COPD, diabetes, heart failure. Patient was found unresponsive by family with a GCS of 3 and was brought in to the emergency department. Patient was intubated using etomidate and succinylcholine. CT brain negative. CT pulmonary antrum revealed right upper and lower lobe atelectasis. Lower lobe atelectasis versus infiltrate. Patient had elevated troponin. EKG revealed normal sinus rhythm at 64 with normal UT, QS and QT intervals. Dr. Vidal was notified. Patient has been started on a heparin drip for non-STEMI. Cardiology will evaluate. Patient is placed on broad- spectrum antibiotics. We are asked to admit. 12/15 Patient is intubated and sedated with Diprivan drip. On Heparin drip. Afebrile. CTA chest negative for PE. 12/16 Patient was extubated yesterday on BIPAP 26/09 with 40% FIO2. Afebrile. Awake and alert.On Heparin drip. Objective Vital Signs / I&O: Vital Signs 12/15/17 09:00 12/15/17 09:17 12/15/17 10:00 Temperature Pulse Rate 73 92 H 78 Respiratory Rate 19 19 20 Blood Pressure 155/72 H 141/65 H Pulse Oximetry 96 98 99 12/15/17 11:00 12/15/17 11:23 12/15/17 12:00 Temperature 99.2 F Pulse Rate 77 76 69 Respiratory Rate 17 22 21 Blood Pressure 141/65 H 129/58 L Pulse Oximetry 94 L 94 L 95 12/15/17 13:00 12/15/17 13:15 12/15/17 13:40 Temperature Pulse Rate 72 Respiratory Rate 20 Blood Pressure 152/65 H Pulse Oximetry 95 93 L 92 L 12/15/17 14:00 12/15/17 15:00 12/15/17 15:51 Temperature Pulse Rate 102 H 98 H 83 Respiratory Rate 27 H 33 H 26 H Blood Pressure 157/122 H 155/81 H Pulse Oximetry 98 91 L 98 12/15/17 16:00 12/15/17 17:00 12/15/17 18:00 Temperature 99.7 F H Pulse Rate 81 79 70 Respiratory Rate 26 H 26 H 17 Blood Pressure 163/7 H 116/61 109/55 L Pulse Oximetry 97 97 95 12/15/17 20:00 12/15/17 20:44 12/15/17 21:00 Temperature 97.9 F Pulse Rate 71 71 60 Respiratory Rate 18 17 Blood Pressure 112/60 Pulse Oximetry 97 95 12/15/17 22:00 12/15/17 22:38 12/15/17 23:52 Temperature Pulse Rate 71 70 61 Respiratory Rate 20 Blood Pressure Pulse Oximetry 12/16/17 00:00 12/16/17 00:43 12/16/17 01:17 EDT Temperature 97.7 F Pulse Rate 69 65 Respiratory Rate 20 Blood Pressure 146/62 H Pulse Oximetry 97 94 L 12/16/17 02:00 12/16/17 03:33 12/16/17 04:00 Temperature 97.8 F Pulse Rate 65 60 62 Respiratory Rate 23 20 Blood Pressure 104/55 L Pulse Oximetry 96 12/16/17 04:25 12/16/17 04:35 12/16/17 06:00 Temperature Pulse Rate 64 65 Respiratory Rate Blood Pressure Pulse Oximetry 96 Intake & Output 12/15/17 12/16/17 12/16/17 19:59 06:59 18:59 Intake Total Output Total Balance Weight Intake: IV Heparin/D5W 25,000 U/250 mL 25, 000 unit In 250 ml @ 1,000 UNITS/HR 10 mls/hr IV.CONT TITRATE PRN Rx#:[id number] NS Inj 1,000 ML @ 84 mls/hr IV. CONT .[id number] [facility] Rx#:[id number] MVI-12 Inj 10 ML Thiamine Inj 100 MG Folvite Inj 1 MG In NS Inj 500 ML @ 125 mls/hr IV.SIG Q24H [facility] Rx#:[id number] Zosyn 4.5 GM Premix 4.5 gm In 100 ml @ 200 mls/hr IV.SIG Q6H [facility] Rx#:[id number] Vancomycin Inj 2,000 MG In NS Inj 500 ML @ 250 mls/hr IV.SIG Q12H [facility] Rx#:[id number] Tube Irrigant Output: Urine Amount (Catheter) Indwelling Urethral Catheter Other: # Bowel Movements Result Diagrams: 12/16/17 06:28 12/15/17 03:46 Other Results: Laboratory Results - last 12 hr 12/15/17 12/16/17 12/16/17 22:52 00:08 04:46 POC Glucose 121 H 102 Troponin I 0.93 H* Imaging: Head CT 12/14/17 14:53 CONCLUSION: 1. No acute intracranial abnormality is identified. 2. Chronic findings include generalized atrophy and periventricular white matter change characteristic of chronic microvascular ischemia. . Chest CTA 12/14/17 17:06 CONCLUSION: 1. No pulmonary embolus. 2. Scattered areas of subpleural density seen in the posterior right upper and lower lobes likely related to mild consolidation or atelectasis. There is also some minimal suspected atelectasis or consolidation at the posterior lower lobes bilaterally. 3. Gallstones Objective Remarks: GENERAL: Patient is intubated and sedated SKIN: Warm and dry. HEAD: Normocephalic. EYES: No scleral icterus. No injection or drainage. NECK: Supple, trachea midline. No JVD or lymphadenopathy. CARDIOVASCULAR: Regular rate and rhythm without murmurs, gallops, or rubs. RESPIRATORY: Breath sounds equal bilaterally. No accessory muscle use. GASTROINTESTINAL: Abdomen soft, non-tender, nondistended. MUSCULOSKELETAL: No cyanosis, or edema. Neuro: Awake and alert Assessment and Plan - Assessment and Plan Plan: Neuro/Psych: Awake and alert CT brain revealed no acute intracranial findings Acetaminophen 650 mg every 6 hours as needed fever CV: Elevated troponin possibly type II non-STEMI History of essential hypertension History of congestive heart failure unknown etiology Monitor HR and BP keep MAP>65mmHg Aspirin 81 mg daily, Lipitor 40mg daily, Cardizem 60mg QID, Vasotec 2.5mg daily continue with Heparin drip. Cards is following- Dr. Vidal 2D echo pending Resp: Acute respiratory failure Continue with oxygen keep sats >92% Bronchodilators, IS NIPPV PRN for resp distress. Check ABG CT pulmonary no evidence of PE, revealed right upper/lower atelectasis versus infiltrate. Bilateral lower lobe consolidation versus infiltrate. GI: Pantoprazole for GI prophylaxis Docusate sodium senna 1 tablet twice daily for bowel regimen Speech eval, diet per speech Monitor renal function, I/O's, electrolytes replacement per protocol. Endo: Diabetes mellitus type 2 Hypothyroidism Continue home thyroid 500 mg daily Sliding scale insulin Accu-Cheks to maintain euglycemia every 6 hours aspart insulin Heme: Macrocytosis Monitor CBC daily. Follow trends. No indication for transfusion of blood products at this time ID: Blood cx-NGTD, sputum cx: normal resp marcio on vancomycin/piperacillin/tazobactam, d/c vanco Monitor for signs of infections ( Fever, WBC) MSK: Discal therapy evaluate and treat Access -Utilize peripheral IV. Central line if indicated Prophylaxis -GI -pantoprazole -DVT -SCDs/heparin drip Level 3
[2017-12-16 07:29] LABS: Albumin 2.9 g/dL (3.4-5.0); Anion Gap 7 meq/L (5-15); Aspartate Aminotransferase 42 U/L (15-37); Blood Urea Nitrogen 13 mg/dL (7-18); Calcium 7.9 mg/dL (8.5-10.1); Carbon Dioxide 34.5 meq/L (21.0-32.0); Chloride 104 meq/L (98-107); Glomerular Filtration Rate 69 mL/min (>89); Glucose,Random 103 mg/dL (74-106); Potassium 3.2 meq/L (3.5-5.1); Sodium 145 meq/L (136-145)
[2017-12-16 07:44] LABS: Alanine Aminotransferase 37 U/L (12-78); Alkaline Phosphatase 43 U/L (45-117); Phosphorus 4.3 mg/dL (2.5-4.9); Total Protein 6.3 g/dL (6.4-8.2)
[2017-12-16 07:47] LABS: Troponin I 0.88 ng/mL (0.02-0.05)
[2017-12-16] MEDS: Pantoprazole Inj 40 MG Vial IV.PUSH SCH (09:00)
[2017-12-16] MEDS: Senna/Docusate Sodium 8.6/50 MG Tablet PO SCH ×2 (09:00→22:06)
[2017-12-16] MEDS: dilTIAZem 60 MG Tablet PO SCH ×4 (09:00→22:06)
[2017-12-16] MEDS: Artificial Tears Opth Drops 15 ML Bottle EACH EYE SCH ×3 (09:00→17:48)
[2017-12-16 09:01] LABS: ABG Base Excess 5.2 mmol/L (-2-2); ABG PCO2 58 mmHg (38-42); ABG PO2 96 mmHG (61-120)
[2017-12-16] MEDS ORDERED: Pharmacy Ordered Lab Info OTHER ONE (12:45)
[2017-12-16] MEDS: Chlorhexidine 0.12% Oral Kit 15 ML UDC OROPHARYNG SCH ×2 (13:34→22:06)
[2017-12-16] MEDS: Insulin NovoLOG Aspart Correctional Sugar Inj SQ SCH ×2 (13:45→19:11)
[2017-12-16 13:47] LABS: ABG Base Excess 5.8 mmol/L (-2-2); ABG PCO2 58 mmHg (38-42); ABG PO2 81 mmHG (61-120)
--- NOTE | 2017-12-16 15:20 | ECHRPT ---
Indication: Coronary Atherosclerosis CONCLUSIONS Normal left ventricular size. Wall thickness is measured at the upper limits of normal. The left ventricular systolic function is normal with an estimated ejection fraction in the range of 55-60%. Trace mitral valve regurgitation. Aortic valve sclerosis is present. Trace aortic valve regurgitation. There is trace tricuspid valve regurgitation. The estimated pulmonary arterial pressure is 44 mmHg. BP: 118 / 68 HR: 66 Rhythm: MEASUREMENTS (Male / Female) Normal Values Technical Quality:Fair 2D ECHO LV Diastolic Diameter PLAX 4.7 cm 4.2 - 5.9 / 3.9 - 5.3 cm LV Systolic Diameter PLAX 3.0 cm IVS Diastolic Thickness 1.0 cm 0.6 - 1.0 / 0.6 - 0.9 cm LVPW Diastolic Thickness 1.1 cm 0.6 - 1.0 / 0.6 - 0.9 cm LV Relative Wall Thickness 0.5 RV Internal Dim ED PLAX 2.5 cm LVOT Diameter 2.1 cm Aortic Root Diameter 3.0 cm LA Systolic Diameter LX 3.6 cm 3.0 - 4.0 / 2.7 - 3.8 cm DOPPLER AV Peak Velocity 156.0 cm/s AV Peak Gradient 9.7 mmHg LVOT Peak Velocity 108.0 cm/s LVOT Peak Gradient 4.7 mmHg AV Area Cont Eq pk 2.4 cm Mitral E Point Velocity 86.4 cm/s Mitral A Point Velocity 98.7 cm/s Mitral E to A Ratio 0.9 LV E' Lateral Velocity 8.0 cm/s Mitral E to LV E' Lateral Ratio 10.8 LV E' Septal Velocity 7.1 cm/s Mitral E to LV E' Septal Ratio 12.1 TR Peak Velocity 290.0 cm/s TR Peak Gradient 33.6 mmHg Right Atrial Pressure 10.0 mmHg Pulmonary Artery Systolic Pressu 43.6 mmHg Right Ventricular Systolic Press 43.6 mmHg PV Peak Velocity 115.0 cm/s PV Peak Gradient 5.3 mmHg FINDINGS LEFT VENTRICLE Normal left ventricular size. Wall thickness is measured at the upper limits of normal. The left ventricular systolic function is normal with an estimated ejection fraction in the range of 55-60%. RIGHT VENTRICLE Normal right ventricular size and systolic function. LEFT ATRIUM The left atrial size is normal. RIGHT ATRIUM The right atrial size is normal. ATRIAL SEPTUM Normal atrial septal thickness without atrial level shunting by limited color doppler interrogation. AORTA The aortic root and proximal ascending aorta are normal in size on limited imaging. MITRAL VALVE Trace mitral valve regurgitation. AORTIC VALVE Trileaflet aortic valve. Aortic valve sclerosis is present. Trace aortic valve regurgitation. TRICUSPID VALVE There is trace tricuspid valve regurgitation. The estimated pulmonary arterial pressure is 44 mmHg. PULMONARY VALVE No pulmonary valve regurgitation or stenosis. VESSELS The inferior vena cava is normal in size. PERICARDIUM No pericardial effusion. Alden Vaca MD (Electronically Signed) Final Date:16 December 2017 15:19
--- NOTE | 2017-12-16 15:27 | P.DIET ---
Nutritional Evaluation Type of nutrition evaluation: initial Nutrition consult regarding: Tube Feeding Objective - Diagnosis AMS - Objective Body Mass Index: 31.5 % IBW: 134 (IBW = 154lb) Body Weight Used for Calculations: IBW Energy Needs - Lower Range (kCal/kg): 25 Energy Needs - Upper Range (kCal/kg): 30 Lower Limit kCal/kg (kCals): 1,750 Upper Limit kCal/kg (kCals): 2,100 Lower Limit Protein Factor (Grams per Kg): 1.1 Upper Limit Protein Factor (Grams per Kg): 1.3 Lower Protein Needs (Protein): 77 Upper Protein Needs (Protein): 91 Fluid Factor (ml/kg): 25 Estimated Fluid Needs (ml): 1,750 Dietitian Reviewed in Medical Record: Current diet, Curent medications, Intake & Output, Labs, Medical history, Tube feeding Diet Order: NPO Objective Comments: PMH: CHF, COPD, DM, GERD, hypospadias, hypothyroidism Assessment Assessment: Pt is currently NPO. Pt previously received Jevity 1.5 @ 45mL goal rate. Pt was extubated yesterday (12/15) on BiPAP. ST notes reviewed, diet advancement pending on successful swallow eval. If pt continues TFing, RD to recommend Jevity 1.5 goal rate @ 55mL/hr to provide 1980 kcal, 84g of protein, 1003 mL of free water to meet pts nutritional needs. Monitor NPO status. Labs reviewed. Dietitian following. Additional recs depending on medical course. Recommendations: 1. Diet advancement pending on successful swallow eval 2. If pt continues TFing, RD to recommend Jevity 1.5 goal rate @ 55mL/hr to meet pts nutritional needs 3. Monitor NPO status 4. Dietitian following, additional recs depending on medical course Dietitian to Monitor: Lab values, Glucose level, Weight change, Diet advancement , Swallow recommendations, Medical course
--- NOTE | 2017-12-16 16:08 | P.PNCA ---
Subjective Interval history: Extubated Currently on BiPAP for elevated PCO2 No chest pain Medications and Allergies Active Medications: Active Medications Acetaminophen (Tylenol) 650 mg PO Q6H PRN PRN Reason: PAIN 1-10 AND/OR FEVER >101F Al Hydroxide/Mg Hydroxide (Milk Of Magnfrantz Liq) 30 ml PO Q12H PRN PRN Reason: Mild Constipation Albuterol (Albuterol Neb (Prn)) 2.5 mg NEB Q2HR NEB PRN PRN Reason: SHORTNESS OF BREATH/WHEEZING Albuterol (Duoneb Neb ([facility])) 1 ampul NEB Q4HR NEB [facility] Last Admin: 12/16/17 15:31 Dose: 1 ampul Artificial Tears (Tears Naturale Opth Drops) 1 drop EACH EYE TID [facility] Last Admin: 12/16/17 13:47 Dose: 1 drop Aspirin (Aspirin Chew) 81 mg PO DAILY [facility] Last Admin: 12/16/17 09:00 Dose: 81 mg Atorvastatin Calcium (Lipitor) 40 mg PO DAILY [facility] Last Admin: 12/16/17 09:00 Dose: 40 mg Bisacodyl (Dulcolax Supp) 10 mg RECTAL DAILY PRN PRN Reason: SEVERE CONSITIPATION Chlorhexidine Gluconate (Chlorhexidine 2% Cloth) 3 pack TOPICAL DAILY@0400 [facility] Stop: 12/20/17 03:59 Last Admin: 12/16/17 04:49 Dose: 3 pack Chlorhexidine Gluconate (Chlorhexidine 2% Cloth) 3 pack TOPICAL DAILY@0400 PRN PRN Reason: Extra cloth needed Stop: 12/20/17 03:59 Chlorhexidine Gluconate (Peridex 0.12% Oral Kit) 15 ml OROPHARYNG BID@0800, 2000 [facility] Last Admin: 12/16/17 13:34 Dose: Not Given Dextrose (D50w Vial) 50 ml IV.PUSH UNSCH PRN PRN Reason: PER HYPOGLYCEMIA PROTOCOL Diltiazem HCl (Cardizem) 60 mg PO QID [facility] Last Admin: 12/16/17 13:35 Dose: 60 mg Enalapril Maleate (Vasotec) 2.5 mg PO DAILY [facility] Last Admin: 12/16/17 09:00 Dose: 2.5 mg Glucagon (Glucagon Inj) 1 mg OTHER PRN PRN PRN Reason: for Hypoglycemia Protocol Heparin Sodium (Porcine) (Heparin Inj) 2,500 units IV.PUSH UNSCH PRN PRN Reason: aPTT 25-39 Last Admin: 12/15/17 01:38 Dose: 2,500 units Heparin Sodium (Porcine) (Heparin Inj) 5,000 units IV.PUSH UNSCH PRN PRN Reason: aPTT < 25 Hydralazine HCl (Apresoline Inj) 10 mg IV.PUSH Q6H PRN PRN Reason: SBP>160, DBP>90 Last Admin: 12/15/17 14:26 Dose: 10 mg Magnesium Sulfate 4 gm/ Sodium (Chloride) 100 mls @ 50 mls/hr IV.SIG UNSCH PRN PRN Reason: For Magnesium 0.9 - 1.1 mg/dL Magnesium Sulfate 2 gm/ Sodium (Chloride) 100 mls @ 50 mls/hr IV.SIG UNSCH PRN PRN Reason: For Magnesium 1.2 - 1.6 mg/dL Potassium Chloride (Kcl 40 Meq Premix Inj) 40 meq in 100 mls @ 25 mls/hr IV.SIG Q2H PRN PRN Reason: For Potassium 2.8 - 3.2 mEq/L Potassium Chloride (Kcl 20 Meq Premix Inj) 20 meq in 100 mls @ 50 mls/hr IV.SIG Q2H PRN PRN Reason: For Potassium 3.3 - 3.5 mEq/L Potassium Chloride (Kcl 40 Meq Premix Inj) 40 meq in 100 mls @ 25 mls/hr IV.SIG UNSCH PRN PRN Reason: For Potassium 3.3 - 3.5 mEq/L Potassium Phosphate 30 mmol/ (Sodium Chloride) 260 mls @ 42 mls/hr IV.SIG UNSCH PRN PRN Reason: SEE LABEL COMMENTS Sodium Phosphate 30 mmol/ (Sodium Chloride) 260 mls @ 42 mls/hr IV.SIG UNSCH PRN PRN Reason: For Phosphorus < 2.5 mg/dL Potassium Chloride (Kcl 20 Meq Premix Inj) 20 meq in 100 mls @ 50 mls/hr IV.SIG Q2H PRN PRN Reason: For Potassium 2.8 - 3.2 mEq/L Heparin Sodium/Dextrose (Heparin/D5w 25,000 U/250 Ml) 25,000 unit in 250 mls @ 10 mls/hr IV.CONT TITRATE PRN; Protocol PRN Reason: Per Protocol Last Titration: 12/15/17 23:00 Dose: 1,100 units/hr, 11 mls/hr Piperacillin/Tazobactam/Dextrose (Zosyn 4.5 Gm Premix) 4.5 gm in 100 mls @ 200 mls/hr IV.SIG Q6H [facility] Last Admin: 12/16/17 13:35 Dose: 200 mls/hr Multivitamins 10 ml/ Thiamine HCl 100 mg/ Folic Acid 1 mg/Sodium Chloride 511.2 mls @ 125 mls/hr IV.SIG Q24H [facility] Stop: 12/17/17 03:06 Last Infusion: 12/16/17 01:42 EDT Dose: Infused Insulin Aspart (Novolog Insulin Correctional Sugar Inj) 0 unit SQ Q6HR [facility]; Protocol Last Admin: 12/16/17 13:45 Dose: Not Given Lactulose (Lactulose Liq) 30 ml PO DAILY PRN PRN Reason: SEVERE CONSITIPATION Magnesium Oxide (Mag-Ox) 800 mg PO UNSCH PRN PRN Reason: For Magnesium 1.2 - 1.6 mg/dL Miscellaneous Medication () 1 each OROPHARYNG 0000,0400,1200,1600 [facility] Last Admin: 12/16/17 13:34 Dose: Not Given Non-Formulary Medication (Thyroid (Pork) [Nature-Throid]) 500 mg PO DAILY [facility] Pantoprazole Sodium (Protonix Inj) 40 mg IV.PUSH DAILY [facility] Last Admin: 12/16/17 09:00 Dose: 40 mg Potassium Bicarb/Potassium Chloride (K-Lyte Cl Eff) 50 meq PO UNSCH PRN PRN Reason: For Potassium 3.3 - 3.5 mEq/L Potassium Phosphate (K-Phos Original) 2,000 mg PO Q4H PRN PRN Reason: Phosphorus Less Than 2.5 mg/dL Potassium Phosphate (K-Phos Original) 2,000 mg PO UNSCH PRN PRN Reason: SEE LABEL COMMENTS Senna/Docusate Sodium (Marian-Colace) 1 tab PO BID [facility] Last Admin: 12/16/17 09:00 Dose: 1 tab Sennosides (Senokot) 17.2 mg PO Q12H PRN PRN Reason: Moderate Constipation Sodium Chloride (Ns Flush) 2 ml IV.FLUSH BID [facility] Last Admin: 12/16/17 09:00 Dose: 2 ml Sodium Chloride (Ns Flush) 2 ml IV.FLUSH PRN PRN PRN Reason: FLUSH AFTER USING IV ACCESS Allergies Allergy/AdvReac Type Severity Reaction Status Date / Time No Known Allergies Allergy Verified 12/14/17 14:49 Home Medications Medication Instructions Recorded Confirmed Type esomeprazole magnesium [Nexium 20 mg PO DAILY 12/14/17 12/14/17 History 24HR] glipizide 5 mg PO DAILY 12/14/17 12/14/17 History potassium chloride 10 meq PO DAILY 12/14/17 12/14/17 History thyroid (pork) [Nature-Throid] 500 mg PO DAILY 12/14/17 12/14/17 History tiotropium-olodaterol [Stiolto 2 puff INHALATION DAILY 12/14/17 12/14/17 History Respimat] tizanidine 4 mg PO BID 12/14/17 12/14/17 History Physical Exam Vital signs: Vital Signs 12/15/17 18:00 12/15/17 20:00 12/15/17 20:44 Temperature 97.9 F Pulse Rate 70 71 71 Respiratory Rate 17 18 17 Blood Pressure 109/55 L 112/60 Pulse Oximetry 95 97 95 12/15/17 21:00 12/15/17 22:00 12/15/17 22:38 Temperature Pulse Rate 60 71 70 Respiratory Rate Blood Pressure Pulse Oximetry 12/15/17 23:52 12/16/17 00:00 12/16/17 00:43 Temperature 97.7 F Pulse Rate 61 69 65 Respiratory Rate 20 20 Blood Pressure 146/62 H Pulse Oximetry 97 12/16/17 01:17 EDT 12/16/17 02:00 12/16/17 03:33 Temperature Pulse Rate 65 60 Respiratory Rate 23 Blood Pressure Pulse Oximetry 94 L 12/16/17 04:00 12/16/17 04:25 12/16/17 04:35 Temperature 97.8 F Pulse Rate 62 64 Respiratory Rate 20 Blood Pressure 104/55 L Pulse Oximetry 96 96 12/16/17 06:00 12/16/17 07:00 12/16/17 08:00 Temperature 98.2 F Pulse Rate 65 65 72 Respiratory Rate 21 21 Blood Pressure 97/62 L 150/89 H Pulse Oximetry 93 L 95 12/16/17 08:41 12/16/17 08:43 11/04/18 08:44 Temperature Pulse Rate 65 Respiratory Rate 20 Blood Pressure Pulse Oximetry 95 96 12/16/17 09:00 12/16/17 10:00 12/16/17 11:00 Temperature Pulse Rate 66 67 70 Respiratory Rate 18 19 22 Blood Pressure 126/59 L 127/58 L Pulse Oximetry 97 93 L 94 L 12/16/17 12:00 12/16/17 13:00 12/16/17 14:00 Temperature 99 F Pulse Rate 61 63 64 Respiratory Rate 20 18 18 Blood Pressure 118/68 118/67 122/59 L Pulse Oximetry 96 96 95 12/16/17 15:00 12/16/17 15:31 12/16/17 15:34 Temperature Pulse Rate 63 57 L Respiratory Rate 20 13 Blood Pressure 105/58 L Pulse Oximetry 95 98 Intake & Output 12/15/17 12/16/17 12/16/17 19:59 06:59 18:59 Intake Total Output Total Balance Weight Intake: IV Heparin/D5W 25,000 U/250 mL 25, 000 unit In 250 ml @ 1,000 UNITS/HR 10 mls/hr IV.CONT TITRATE PRN Rx#:[id number] NS Inj 1,000 ML @ 84 mls/hr IV. CONT .[id number] [facility] Rx#:[id number] MVI-12 Inj 10 ML Thiamine Inj 100 MG Folvite Inj 1 MG In NS Inj 500 ML @ 125 mls/hr IV.SIG Q24H [facility] Rx#:[id number] Zosyn 4.5 GM Premix 4.5 gm In 100 ml @ 200 mls/hr IV.SIG Q6H [facility] Rx#:[id number] Vancomycin Inj 2,000 MG In NS Inj 500 ML @ 250 mls/hr IV.SIG Q12H [facility] Rx#:[id number] Tube Irrigant Output: Urine Amount (Catheter) Indwelling Urethral Catheter Other: # Bowel Movements Narrative: GENERAL: NAD SKIN: Warm and dry. HEAD: Atraumatic. Normocephalic. EYES: Pupils equal and round. No scleral icterus. No injection or drainage. ENT: No nasal bleeding or discharge. Mucous membranes pink and moist. NECK: Trachea midline. No JVD. CARDIOVASCULAR: Regular rate and rhythm. RESPIRATORY: No accessory muscle use. Decreased breath sounds bilaterally GASTROINTESTINAL: Abdomen soft, non-tender, nondistended. Hepatic and splenic margins not palpable. MUSCULOSKELETAL: Extremities without clubbing, cyanosis, or edema. No obvious deformities. NEUROLOGICAL: Awake and alert, no focal deficits - Urinary Catheter Management Indwelling Urethral Catheter Cath placed during this visit: yes Reason for continuing: Hourly intake/output Insertion date: 12/14/17 Insertion time: 15:00 Results 12/16/17 06:28 12/16/17 06:38 Cardiac Enzymes 12/14/17 12/14/17 12/15/17 Range/Units 00:35 15:00 03:46 AST 33 (15-37) U/L Troponin I 1.30 H* 1.16 H* (0.02-0.05) ng/mL B-Natriuretic Peptide 227 H (0-100) pg/mL 12/15/17 12/15/17 12/16/17 Range/Units 11:56 18:23 00:08 AST (15-37) U/L Troponin I 1.08 H* 0.98 H* 0.93 H* (0.02-0.05) ng/mL B-Natriuretic Peptide (0-100) pg/mL 12/16/17 Range/Units 06:38 AST 42 H (15-37) U/L Troponin I 0.88 H* (0.02-0.05) ng/mL B-Natriuretic Peptide (0-100) pg/mL Coagulation 12/14/17 12/14/17 12/14/17 Range/Units 00:35 15:00 15:00 PT 11.5 11.1 (9.8-11.6) sec APTT 35.9 H 25.6 D (23.4-31.7) sec B-Natriuretic Peptide 227 H (0-100) pg/mL 12/14/17 12/15/17 12/15/17 Range/Units 17:05 03:46 03:46 PT 10.1 11.5 (9.8-11.6) sec APTT 20.2 L D 43.8 H D 44.3 H (23.4-31.7) sec B-Natriuretic Peptide (0-100) pg/mL 12/15/17 12/16/17 Range/Units 11:56 06:38 PT (9.8-11.6) sec APTT 42.9 H 50.3 H (23.4-31.7) sec B-Natriuretic Peptide (0-100) pg/mL CBC 12/15/17 12/16/17 Range/Units 03:46 06:28 WBC 11.3 H 10.7 (4.0-11.0) th/mm3 RBC 4.52 4.36 L (4.50-5.90) mil/mm3 Hgb 14.4 14.4 (13.0-17.0) gm/dL Hct 44.2 42.8 (39.0-51.0) % Plt Count 160 148 L (150-450) th/mm3 Neut # (Auto) 9.0 H 9.0 H (1.8-7.7) th/mm3 Lymph # (Auto) 1.3 0.8 L (1.0-4.8) th/mm3 [place] # (Auto) 0.9 0.9 (0.0-0.9) th/mm3 Eos # (Auto) 0.0 0.1 (0.0-0.4) th/mm3 Baso # (Auto) 0.1 0.0 (0.0-0.2) th/mm3 Comprehensive Metabolic Panel 12/15/17 12/16/17 Range/Units 03:46 06:38 Sodium 142 145 (136-145) meq/L Potassium 3.6 3.2 L (3.5-5.1) meq/L Chloride 102 104 (98-107) meq/L Carbon Dioxide 35.2 H 34.5 H (21.0-32.0) meq/L BUN 19 H 13 (7-18) mg/dL Creatinine 0.95 1.03 (0.60-1.30) mg/dL Calcium 7.8 L 7.9 L (8.5-10.1) mg/dL AST 33 42 H (15-37) U/L ALT 39 37 (12-78) U/L Alkaline Phosphatase 43 L 43 L (45-117) U/L Total Protein 6.1 L D 6.3 L (6.4-8.2) g/dL Albumin 3.0 L D 2.9 L (3.4-5.0) g/dL Intake and Output 12/16/17 12/16/17 12/16/17 06:59 14:59 22:59 Intake Total 91 / 91 Output Total Balance Intake: IV MVI-12 Inj 10 ML Thiamine Inj 100 MG Folvite Inj 1 MG In NS Inj 500 ML @ 125 mls/hr IV.SIG Q24H [facility] Rx#:[id number] Zosyn 4.5 GM Premix 4.5 gm In 100 ml @ 200 mls/hr IV.SIG Q6H [facility] Rx#:[id number] Vancomycin Inj 2,000 MG In NS Inj 500 ML @ 250 mls/hr IV.SIG Q12H [facility] Rx#:[id number] Output: Urine Amount (Catheter) Indwelling Urethral Catheter Other: Weight - Imaging and Cardiology Imaging: Impressions Chest X-Ray 12/14/17 00:00 CONCLUSION: Stable chest appearance Chest CTA 12/14/17 17:06 CONCLUSION: 1. No pulmonary embolus. 2. Scattered areas of subpleural density seen in the posterior right upper and lower lobes likely related to mild consolidation or atelectasis. There is also some minimal suspected atelectasis or consolidation at the posterior lower lobes bilaterally. 3. Gallstones Assessment and Plan - Assessment (1) Encephalopathy acute Code(s): G93.40 - Encephalopathy, unspecified Status: Acute (2) Acute non-ST elevation myocardial infarction (NSTEMI) Code(s): I21.4 - Non-ST elevation (NSTEMI) myocardial infarction Status: Acute (3) Respiratory failure requiring intubation Code(s): J96.90 - Respiratory failure, unspecified, unspecified whether with hypoxia or hypercapnia Status: Acute - Plan 1) Encephalopathy, resolved Presented with GCS of 3, possible carbon dioxide retention? Resolved now 2) Acute respiratory failure s/p extubation 3) NSTEMI Probable type 2 Will need eventual ischemic work up Discussed with him, he doesn't think he would want an ischemic evaluation , asked that I speak with his Plan to reevaluate tomorrow, discuss again with him and his 4) EF 55-60%
[2017-12-16] MEDS: Heparin Drip 25,000 UNIT/250 ML BAG IV.CONT PRN (17:05)
[2017-12-17] MEDS: Insulin NovoLOG Aspart Correctional Sugar Inj SQ SCH ×6 (00:20→17:42)
[2017-12-17] MEDS: Piperacil/Tazo 4.5 GM Premix 4.5 GM/100 ML BAG IV.SIG SCH ×3 (00:20→12:32)
[2017-12-17] MEDS: Multivitamin Inj 10 ML, Thiamine Inj 100 MG, Folic Acid Inj 1 MG in Sodium Chlor 0.9% I... IV.SIG SCH (00:22)
[2017-12-17] MEDS: Oral Hygiene Kit OROPHARYNG SCH ×4 (00:23→16:07)
--- NOTE | 2017-12-17 00:34 | ECG ---
Date Performed: 12/14/2017 Time Performed: 16:47:41 PTAGE: 89 years EKG: Sinus rhythm WITH SINUS ARRHYTHMIA SEPTAL MYOCARDIAL INFARCTION ABNORMAL ECG NO PREVIOUS TRACING DOCTOR: Jayjay Vidal Interpretating Date/Time 12/17/2017 00:32:59
[2017-12-17 05:21] LABS: Baso % (Auto) 0.4 % (0.0-2.0); Eos # (Auto) 0.1 th/mm3 (0.0-0.4); Hematocrit 40.7 % (39.0-51.0); Hemoglobin 13.5 gm/dL (13.0-17.0); Lymph # (Auto) 0.7 th/mm3 (1.0-4.8); Lymph % (Auto) 7.3 % (9.0-44.0); Mean Corpuscular HGB Conc 33.3 % (32.0-36.0); Mean Corpuscular Hemoglobin 32.5 pg (27.0-34.0); Mean Corpuscular Volume 97.6 fL (80.0-100.0); Mean Platelet Volume 8.7 fL (7.0-11.0); Mono % (Auto) 10.2 % (0.0-8.0); Neut # (Auto) 8.3 th/mm3 (1.8-7.7); Neut % (Auto) 81.1 % (16.0-70.0); Platelet Count 143 th/mm3 (150-450); Red Blood Count 4.17 mil/mm3 (4.50-5.90); Red Cell Distribution Width 15.1 % (11.6-17.2); White Blood Count 10.2 th/mm3 (4.0-11.0)
[2017-12-17 05:44] LABS: Alanine Aminotransferase 35 U/L (12-78); Albumin 2.5 g/dL (3.4-5.0); Alkaline Phosphatase 38 U/L (45-117); Anion Gap 11 meq/L (5-15); Aspartate Aminotransferase 39 U/L (15-37); Blood Urea Nitrogen 20 mg/dL (7-18); Calcium 7.8 mg/dL (8.5-10.1); Carbon Dioxide 31.7 meq/L (21.0-32.0); Chloride 104 meq/L (98-107); Glomerular Filtration Rate 28 mL/min (>89); Glucose,Random 84 mg/dL (74-106); Magnesium 2.1 mg/dL (1.5-2.5); Phosphorus 4.9 mg/dL (2.5-4.9); Potassium 3.4 meq/L (3.5-5.1); Sodium 147 meq/L (136-145); Total Protein 5.9 g/dL (6.4-8.2)
[2017-12-17] MEDS: Chlorhexidine Gluconate 2% 1 Pack (2 Cloths) TOPICAL SCH (06:53)
--- NOTE | 2017-12-17 07:33 | P.PNCC ---
Subjective Subjective Remarks/Hospital Course: This is a unknown male. Admission 11 03/2017. Past medical history is unknown to me. There is no family currently available. According to records from previous ED physician who saw the patient before the ED physician had notified me patient has a history of hypothyroidism, gastroesophageal reflux disease, COPD, diabetes, heart failure. Patient was found unresponsive by family with a GCS of 3 and was brought in to the emergency department. Patient was intubated using etomidate and succinylcholine. CT brain negative. CT pulmonary antrum revealed right upper and lower lobe atelectasis. Lower lobe atelectasis versus infiltrate. Patient had elevated troponin. EKG revealed normal sinus rhythm at 64 with normal NE, QS and QT intervals. Dr. Vidal was notified. Patient has been started on a heparin drip for non-STEMI. Cardiology will evaluate. Patient is placed on broad- spectrum antibiotics. We are asked to admit. 12/15 Patient is intubated and sedated with Diprivan drip. On Heparin drip. Afebrile. CTA chest negative for PE. 12/16 Patient was extubated yesterday on BIPAP 15/8 with 40% FIO2. Afebrile. Awake and alert.On Heparin drip. 12/17 Patient is on BIPAP 18/8 with 40%, remains on Heparin drip. Afebrile. Renal function worse today with Cr: 2.25 from 1.03 Objective Vital Signs / I&O: Vital Signs 12/16/17 08:00 12/16/17 08:41 12/16/17 08:43 Temperature 98.2 F Pulse Rate 72 65 Respiratory Rate 21 20 Blood Pressure 150/89 H Pulse Oximetry 95 95 12/16/17 08:44 12/16/17 09:00 12/16/17 10:00 Temperature Pulse Rate 66 67 Respiratory Rate 18 19 Blood Pressure 126/59 L Pulse Oximetry 96 97 93 L 12/16/17 11:00 12/16/17 12:00 12/16/17 13:00 Temperature 99 F Pulse Rate 70 61 63 Respiratory Rate 22 20 18 Blood Pressure 127/58 L 118/68 118/67 Pulse Oximetry 94 L 96 96 12/16/17 14:00 12/16/17 15:00 12/16/17 15:31 Temperature Pulse Rate 64 63 Respiratory Rate 18 20 Blood Pressure 122/59 L 105/58 L Pulse Oximetry 95 95 98 12/16/17 15:34 12/16/17 16:00 12/16/17 17:00 Temperature 98.7 F Pulse Rate 57 L 57 L 59 L Respiratory Rate 13 19 21 Blood Pressure 115/59 L 128/67 Pulse Oximetry 95 19 L 12/16/17 18:00 12/16/17 19:00 12/16/17 19:01 Temperature Pulse Rate 93 H 53 L 53 L Respiratory Rate 24 14 12 Blood Pressure 120/57 L 94/55 L Pulse Oximetry 24 L 94 L 94 L 12/16/17 20:00 12/16/17 20:18 12/16/17 20:19 Temperature 98.8 F Pulse Rate 54 L 60 Respiratory Rate 22 18 Blood Pressure 100/56 L Pulse Oximetry 96 97 12/16/17 21:00 12/16/17 22:00 12/16/17 22:01 Temperature Pulse Rate 60 56 L 52 L Respiratory Rate 18 18 18 Blood Pressure 117/56 L 115/55 L Pulse Oximetry 97 95 95 12/16/17 23:00 12/17/17 00:00 12/17/17 00:12 Temperature 98.5 F Pulse Rate 60 57 L 60 Respiratory Rate 18 16 20 Blood Pressure 116/61 114/58 L Pulse Oximetry 96 97 98 12/17/17 00:38 12/17/17 00:39 12/17/17 01:00 Temperature Pulse Rate 65 59 L Respiratory Rate 20 17 Blood Pressure 108/56 L Pulse Oximetry 98 97 12/17/17 02:00 12/17/17 03:00 12/17/17 03:01 Temperature Pulse Rate 59 L 60 60 Respiratory Rate 15 19 11 L Blood Pressure 116/64 129/61 Pulse Oximetry 98 97 97 12/17/17 04:00 12/17/17 04:26 12/17/17 05:00 Temperature Pulse Rate 59 L 65 60 Respiratory Rate 14 14 12 Blood Pressure 122/61 118/68 Pulse Oximetry 96 96 97 12/17/17 06:00 Temperature Pulse Rate 62 Respiratory Rate 15 Blood Pressure 131/66 Pulse Oximetry 98 Intake & Output 12/16/17 12/17/17 12/17/17 18:59 06:59 18:59 Intake Total 470 / 470 400 / 400 511.2 / 511.2 Output Total 250 / 250 300 / 300 Balance 220 / 220 100 / 100 511.2 / 511.2 Weight 94.6 kg Intake: IV 470 / 470 200 / 200 511.2 / 511.2 Heparin/D5W 25,000 U/250 mL 25, 279 / 279 000 unit In 250 ml @ 1,000 UNITS/HR 10 mls/hr IV.CONT TITRATE PRN Rx#:[id number] MVI-12 Inj 10 ML Thiamine Inj 511.2 / 511.2 100 MG Folvite Inj 1 MG In NS Inj 500 ML @ 125 mls/hr IV.SIG Q24H ANGIE Rx#:[id number] Zosyn 4.5 GM Premix 4.5 gm In 191 / 191 200 / 200 100 ml @ 200 mls/hr IV.SIG Q6H ANGIE Rx#:[id number] Oral 200 / 200 Output: Urine Amount (Catheter) 250 / 250 300 / 300 Indwelling Urethral Catheter 250 / 250 300 / 300 Result Diagrams: 12/17/17 08:06 12/17/17 08:06 Other Results: Laboratory Results - last 12 hr 12/16/17 12/17/17 12/17/17 18:15 00:14 03:43 WBC 10.2 RBC 4.17 L Hgb 13.5 Hct 40.7 MCV 97.6 MCH 32.5 MCHC 33.3 RDW 15.1 Plt Count 143 L MPV 8.7 Neut % (Auto) 81.1 H Lymph % (Auto) 7.3 L [place] % (Auto) 10.2 H Eos % (Auto) 1.0 Baso % (Auto) 0.4 Neut # (Auto) 8.3 H Lymph # (Auto) 0.7 L [place] # (Auto) 1.0 H Eos # (Auto) 0.1 Baso # (Auto) 0.0 WBC Differential . Differential Comment Auto diff final APTT Sodium Potassium 3.1 L Chloride Carbon Dioxide Anion Gap BUN Creatinine Estimated GFR POC Glucose 110 Random Glucose Calcium Phosphorus Magnesium Total Bilirubin AST ALT Alkaline Phosphatase Total Protein Albumin 12/17/17 12/17/17 03:43 03:43 WBC RBC Hgb Hct MCV MCH MCHC RDW Plt Count MPV Neut % (Auto) Lymph % (Auto) [place] % (Auto) Eos % (Auto) Baso % (Auto) Neut # (Auto) Lymph # (Auto) [place] # (Auto) Eos # (Auto) Baso # (Auto) WBC Differential Differential Comment APTT 47.7 H Sodium 147 H Potassium 3.4 L Chloride 104 Carbon Dioxide 31.7 Anion Gap 11 BUN 20 H Creatinine 2.25 H Estimated GFR 28 L POC Glucose Random Glucose 84 Calcium 7.8 L Phosphorus 4.9 Magnesium 2.1 Total Bilirubin 1.1 H AST 39 H ALT 35 Alkaline Phosphatase 38 L Total Protein 5.9 L Albumin 2.5 L Imaging: Head CT 12/14/17 14:53 CONCLUSION: 1. No acute intracranial abnormality is identified. 2. Chronic findings include generalized atrophy and periventricular white matter change characteristic of chronic microvascular ischemia. . Chest CTA 12/14/17 17:06 CONCLUSION: 1. No pulmonary embolus. 2. Scattered areas of subpleural density seen in the posterior right upper and lower lobes likely related to mild consolidation or atelectasis. There is also some minimal suspected atelectasis or consolidation at the posterior lower lobes bilaterally. 3. Gallstones Objective Remarks: GENERAL: Patient is intubated and sedated SKIN: Warm and dry. HEAD: Normocephalic. EYES: No scleral icterus. No injection or drainage. NECK: Supple, trachea midline. No JVD or lymphadenopathy. CARDIOVASCULAR: Regular rate and rhythm without murmurs, gallops, or rubs. RESPIRATORY: Breath sounds equal bilaterally. No accessory muscle use. GASTROINTESTINAL: Abdomen soft, non-tender, nondistended. MUSCULOSKELETAL: No cyanosis, or edema. Neuro: Awake and alert Assessment and Plan - Assessment and Plan Plan: Neuro/Psych: Awake and alert CT brain revealed no acute intracranial findings Acetaminophen 650 mg every 6 hours as needed fever CV: Elevated troponin possibly type II non-STEMI History of essential hypertension History of congestive heart failure unknown etiology Monitor HR and BP keep MAP>65mmHg Aspirin 81 mg daily, Lipitor 40mg daily, Cardizem 60mg QID, Vasotec 2.5mg daily continue with Heparin drip. Cards is following- Dr. Vidal Echo showed EF 55-60% Resp: Acute respiratory failure Continue with oxygen keep sats >92% Bronchodilators, IS NIPPV PRN for resp distress. CT pulmonary no evidence of PE, revealed right upper/lower atelectasis versus infiltrate. Bilateral lower lobe consolidation versus infiltrate. GI: Pantoprazole for GI prophylaxis Docusate sodium senna 1 tablet twice daily for bowel regimen Speech eval, diet per speech Monitor renal function, I/O's, avoid nephrotoxins Place on 02/13 NS@84ml/hr, check renal US Renal eval. Endo: Diabetes mellitus type 2 Hypothyroidism Continue home thyroid 500 mg daily. TSH level:2.37 today Sliding scale insulin Accu-Cheks to maintain euglycemia every 6 hours aspart insulin Heme: Macrocytosis Monitor CBC daily. Follow trends. No indication for transfusion of blood products at this time ID: Blood [id number], sputum cx: normal resp marcio Continue Zosyn and monitor for signs of infections ( Fever, WBC) MSK: Discal therapy evaluate and treat Access -Utilize peripheral IV. Prophylaxis -GI -pantoprazole -DVT -SCDs/heparin drip Palliative care met with today and they elected for no code DNR. Will sign off and transfer care in [facility] Level 2
[2017-12-17] MEDS: Chlorhexidine 0.12% Oral Kit 15 ML UDC OROPHARYNG SCH ×2 (08:20→21:13)
[2017-12-17 08:47] LABS: Baso % (Auto) 0.4 % (0.0-2.0); Eos # (Auto) 0.1 th/mm3 (0.0-0.4); Eos % (Auto) 1.5 % (0.0-4.0); Hematocrit 40.6 % (39.0-51.0); Hemoglobin 13.2 gm/dL (13.0-17.0); Lymph # (Auto) 0.8 th/mm3 (1.0-4.8); Lymph % (Auto) 8.2 % (9.0-44.0); Mean Corpuscular HGB Conc 32.5 % (32.0-36.0); Mean Corpuscular Hemoglobin 32.3 pg (27.0-34.0); Mean Corpuscular Volume 99.4 fL (80.0-100.0); Mean Platelet Volume 9.4 fL (7.0-11.0); Mono # (Auto) 0.9 th/mm3 (0.0-0.9); Mono % (Auto) 9.2 % (0.0-8.0); Neut # (Auto) 7.7 th/mm3 (1.8-7.7); Neut % (Auto) 80.7 % (16.0-70.0); Platelet Count 151 th/mm3 (150-450); Red Blood Count 4.09 mil/mm3 (4.50-5.90); Red Cell Distribution Width 15.3 % (11.6-17.2); White Blood Count 9.6 th/mm3 (4.0-11.0)
[2017-12-17 09:13] LABS: Albumin 2.5 g/dL (3.4-5.0); Anion Gap 6 meq/L (5-15); Aspartate Aminotransferase 37 U/L (15-37); Blood Urea Nitrogen 21 mg/dL (7-18); Carbon Dioxide 33.8 meq/L (21.0-32.0); Chloride 104 meq/L (98-107); Glomerular Filtration Rate 25 mL/min (>89); Glucose,Random 124 mg/dL (74-106); Potassium 3.3 meq/L (3.5-5.1); Sodium 144 meq/L (136-145)
[2017-12-17 09:14] LABS: Alanine Aminotransferase 36 U/L (12-78)
[2017-12-17] MEDS: Sodium Chloride 0.45 % Inj 1,000 ML IV.CONT SCH ×2 (09:16→21:13)
[2017-12-17] MEDS: Senna/Docusate Sodium 8.6/50 MG Tablet PO SCH ×2 (09:18→21:14)
[2017-12-17] MEDS: dilTIAZem 60 MG Tablet PO SCH ×4 (09:18→21:13)
[2017-12-17] MEDS: Artificial Tears Opth Drops 15 ML Bottle EACH EYE SCH ×3 (09:19→17:37)
[2017-12-17] MEDS: Pantoprazole Inj 40 MG Vial IV.PUSH SCH (09:19)
[2017-12-17 09:23] LABS: Alkaline Phosphatase 39 U/L (45-117)
[2017-12-17 10:27] LABS: ABG Base Excess 4.3 mmol/L (-2-2); ABG PCO2 59 mmHg (38-42); ABG PO2 81 mmHG (61-120)
--- NOTE | 2017-12-17 10:31 | P.CONNP ---
History of Present Illness Service: Nephrology Consult date: 12/17/17 Requesting Physician: Serene Stevenson Reason for Consult: Acute renal failure Primary Care Provider: No Primary Care Physician Chief Complaint: copd History of Present Illness: Patient is a 81-year-old white male who is on BiPAP, COPD, diabetes, admitted with exacerbation of COPD and shortness of breath patient was unresponsive subsequently he is on BiPAP, patient received CTA of the chest on 12/14/2017 with IV contrast and his baseline creatinine was around 0.95 and currently at 2.47 Urine output has declined to 550 cc, he was given IV fluid 1/2 normal saline at 84 cc an hour Continues to have shortness of breath, patient is responsive appears confused. Review of Systems Constitutional: Reports lack of energy, Reports malaise Eyes: Denies blind spots, Denies blurry vision, Denies bulging eyes, Denies change in vision, Denies double vision, Denies discharge, Denies dry eyes, Denies floaters, Denies irritation, Denies itchy eyes, Denies loss of vision, Denies pain, Denies requires corrective lenses, Denies sensitivity to light, Denies other Ears, Nose, Mouth, and Throat: Denies abnormal hearing, Denies bleeding gums, Denies bad breath, Denies change in voice, Denies dental pain, Denies difficulty swallowing, Denies dizziness, Denies dry mouth, Denies ear discharge , Denies ear pain, Denies facial pain, Denies headache(s), Denies hearing loss, Denies hoarseness, Denies lip swelling, Denies nosebleed, Denies mouth lesions, Denies mouth pain, Denies nasal congestion, Denies nasal discharge, Denies nasal obstruction, Denies nasal trauma, Denies neck lump, Denies neck pain, Denies nose pain, Denies pain with swallowing, Denies poor balance, Denies post nasal drip, Denies ringing in the ears, Denies sinus pain, Denies sinus pressure , Denies sore throat, Denies throat swelling, Denies tongue swelling, Denies other Cardiovascular: Reports shortness of breath, Reports shortness of breath with activity Respiratory: Reports shortness of breath Gastrointestinal: Reports change in stools Genitourinary: Reports other Musculoskeletal: Reports other Skin/Breast: Denies acne, Denies bleeding lesions, Denies boil, Denies breast swelling, Denies breast skin changes, Denies breast pain, Denies breast lump, Denies change in breast shape, Denies change in hair, Denies change in skin color, Denies changing lesions, Denies dry skin, Denies excessive hair growth, Denies hair loss, Denies itching, Denies lesions, Denies nail changes, Denies new lesions, Denies nipple discharge, Denies non-healing lesions, Denies redness , Denies sensitivity to light, Denies rash, Denies skin pain, Denies skin ulcer , Denies sores, Denies stretch irene, Denies unusual bruising, Denies wounds, Denies yellowing of the skin, Denies other Neurologic: Reports weakness Endocrine: Denies cold intolerance, Denies excessive sweating, Denies flushing, Denies heat intolerance, Denies increased hunger, Denies increased thirst, Denies increased urination, Denies rapid, pounding, or irregular heartbeat, Denies other Hematologic/Lymphatic: Denies easy bleeding, Denies easy bruising, Denies enlarged lymph nodes, Denies other Allergic/Immunologic: Denies GI upset with certain foods, Denies hives, Denies itchy eyes, Denies lip swelling, Denies seasonal runny nose, Denies throat swelling, Denies tongue swelling, Denies wheezing, Denies other PMFSH - History History Provided By: Family Member - Medical History Medical History: Medical History (Last Reviewed 12/17/17 @ 10:24 by Logan Hodler MD) CHF (congestive heart failure) COPD (chronic obstructive pulmonary disease) Cyst of spinal meninges Diabetes GERD (gastroesophageal reflux disease) Hypospadias Hypothyroidism - Surgical History Surgical History: Surgical History (Last Reviewed 12/17/17 @ 10:24 by Logan Holder MD) Surgical history unknown (Acute) - Family History Family History: Family History (Last Reviewed 12/17/17 @ 10:24 by Logan Holder MD) Other Family history unknown - Social History I have reviewed the patient's Social History: Yes - Tobacco History Second Hand Smoke Exposure: Yes Tobacco Use In Past 30 Days: Yes Smoking Status: Current every day smoker Tobacco Type: Cigarettes - Alcohol History How Often Do You Have a Drink Containing Alcohol: Monthly or less - Substance Use History Substance History: No History of Abuse - Travel History Recent Travel in the [facility] Within the Last 8 Weeks: No Recent Travel Out of the Country Within the Last 8 Weeks: No - Immunization History Tetanus Immunization: <5 Years Hx Influenza Vaccine This Season: No Medications and Allergies Active Medications: Active Medications Acetaminophen (Tylenol) 650 mg PO Q6H PRN PRN Reason: PAIN 1-10 AND/OR FEVER >101F Al Hydroxide/Mg Hydroxide (Milk Of Magnfrantz Liq) 30 ml PO Q12H PRN PRN Reason: Mild Constipation Albuterol (Albuterol Neb (Prn)) 2.5 mg NEB Q2HR NEB PRN PRN Reason: SHORTNESS OF BREATH/WHEEZING Albuterol (Duoneb Neb (Bijal)) 1 ampul NEB Q4HR NEB [facility] Last Admin: 12/17/17 08:10 Dose: 1 ampul Artificial Tears (Tears Naturale Opth Drops) 1 drop EACH EYE TID [facility] Last Admin: 12/17/17 09:19 Dose: 1 drop Aspirin (Aspirin Chew) 81 mg PO DAILY [facility] Last Admin: 12/17/17 09:18 Dose: 81 mg Atorvastatin Calcium (Lipitor) 40 mg PO DAILY [facility] Last Admin: 12/17/17 09:18 Dose: 40 mg Bisacodyl (Dulcolax Supp) 10 mg RECTAL DAILY PRN PRN Reason: SEVERE CONSITIPATION Bumetanide (Bumex Inj) 2 mg IV.PUSH BID [facility] Chlorhexidine Gluconate (Chlorhexidine 2% Cloth) 3 pack TOPICAL DAILY@0400 [facility] Stop: 12/20/17 03:59 Last Admin: 12/17/17 06:53 Dose: 3 pack Chlorhexidine Gluconate (Chlorhexidine 2% Cloth) 3 pack TOPICAL DAILY@0400 PRN PRN Reason: Extra cloth needed Stop: 12/20/17 03:59 Chlorhexidine Gluconate (Peridex 0.12% Oral Kit) 15 ml OROPHARYNG BID@0800, 2000 [facility] Last Admin: 12/17/17 08:20 Dose: Not Given Dextrose (D50w Vial) 50 ml IV.PUSH UNSCH PRN PRN Reason: PER HYPOGLYCEMIA PROTOCOL Diltiazem HCl (Cardizem) 60 mg PO QID [facility] Last Admin: 12/17/17 09:18 Dose: 60 mg Enalapril Maleate (Vasotec) 2.5 mg PO DAILY [facility] Last Admin: 12/17/17 09:18 Dose: 2.5 mg Glucagon (Glucagon Inj) 1 mg OTHER PRN PRN PRN Reason: for Hypoglycemia Protocol Heparin Sodium (Porcine) (Heparin Inj) 2,500 units IV.PUSH UNSCH PRN PRN Reason: aPTT 25-39 Last Admin: 12/15/17 01:38 Dose: 2,500 units Heparin Sodium (Porcine) (Heparin Inj) 5,000 units IV.PUSH UNSCH PRN PRN Reason: aPTT < 25 Hydralazine HCl (Apresoline Inj) 10 mg IV.PUSH Q6H PRN PRN Reason: SBP>160, DBP>90 Last Admin: 12/15/17 14:26 Dose: 10 mg Heparin Sodium/Dextrose (Heparin/D5w 25,000 U/250 Ml) 25,000 unit in 250 mls @ 10 mls/hr IV.CONT TITRATE PRN; Protocol PRN Reason: Per Protocol Last Admin: 12/16/17 17:05 Dose: 1,100 units/hr, 11 mls/hr Piperacillin/Tazobactam/Dextrose (Zosyn 4.5 Gm Premix) 4.5 gm in 100 mls @ 200 mls/hr IV.SIG Q6H [facility] Last Infusion: 12/17/17 08:21 Dose: Infused Sodium Chloride (1/2 Normal Saline Inj) 1,000 mls @ 84 mls/hr IV.CONT .[id number] [facility] Last Admin: 12/17/17 09:16 Dose: 84 mls/hr Insulin Aspart (Novolog Insulin Correctional Sugar Inj) 0 unit SQ Q6HR [facility]; Protocol Last Admin: 12/17/17 06:52 Dose: Not Given Lactulose (Lactulose Liq) 30 ml PO DAILY PRN PRN Reason: SEVERE CONSITIPATION Miscellaneous Medication () 1 each OROPHARYNG 0000,0400,1200,1600 [facility] Last Admin: 12/17/17 06:53 Dose: 1 each Pantoprazole Sodium (Protonix Inj) 40 mg IV.PUSH DAILY [facility] Last Admin: 12/17/17 09:19 Dose: 40 mg Senna/Docusate Sodium (Marian-Colace) 1 tab PO BID [facility] Last Admin: 12/17/17 09:18 Dose: 1 tab Sennosides (Senokot) 17.2 mg PO Q12H PRN PRN Reason: Moderate Constipation Sodium Chloride (Ns Flush) 2 ml IV.FLUSH BID [facility] Last Admin: 12/17/17 09:19 Dose: 2 ml Sodium Chloride (Ns Flush) 2 ml IV.FLUSH PRN PRN PRN Reason: FLUSH AFTER USING IV ACCESS Thyroid (Saragosa Thyroid) 30 mg PO DAILY@0600 [facility] Allergies Allergy/AdvReac Type Severity Reaction Status Date / Time No Known Allergies Allergy Verified 12/14/17 14:49 Home Medications Medication Instructions Recorded Confirmed Type esomeprazole magnesium [Nexium 20 mg PO DAILY 12/14/17 12/14/17 History 24HR] glipizide 5 mg PO DAILY 12/14/17 12/14/17 History potassium chloride 10 meq PO DAILY 12/14/17 12/14/17 History tiotropium-olodaterol [Stiolto 2 puff INHALATION DAILY 12/14/17 12/14/17 History Respimat] tizanidine 4 mg PO BID 12/14/17 12/14/17 History thyroid (pork) 30 mg PO DAILY 12/17/17 12/17/17 History Exam Vital signs: Vital Signs 12/16/17 11:00 12/16/17 12:00 12/16/17 13:00 Temperature 99 F Pulse Rate 70 61 63 Respiratory Rate 22 20 18 Blood Pressure 127/58 L 118/68 118/67 Pulse Oximetry 94 L 96 96 12/16/17 14:00 12/16/17 15:00 12/16/17 15:31 Temperature Pulse Rate 64 63 Respiratory Rate 18 20 Blood Pressure 122/59 L 105/58 L Pulse Oximetry 95 95 98 12/16/17 15:34 12/16/17 16:00 12/16/17 17:00 Temperature 98.7 F Pulse Rate 57 L 57 L 59 L Respiratory Rate 13 19 21 Blood Pressure 115/59 L 128/67 Pulse Oximetry 95 19 L 12/16/17 18:00 12/16/17 19:00 12/16/17 19:01 Temperature Pulse Rate 93 H 53 L 53 L Respiratory Rate 24 14 12 Blood Pressure 120/57 L 94/55 L Pulse Oximetry 24 L 94 L 94 L 12/16/17 20:00 12/16/17 20:18 12/16/17 20:19 Temperature 98.8 F Pulse Rate 54 L 60 Respiratory Rate 22 18 Blood Pressure 100/56 L Pulse Oximetry 96 97 12/16/17 21:00 12/16/17 22:00 12/16/17 22:01 Temperature Pulse Rate 60 56 L 52 L Respiratory Rate 18 18 18 Blood Pressure 117/56 L 115/55 L Pulse Oximetry 97 95 95 12/16/17 23:00 12/17/17 00:00 12/17/17 00:12 Temperature 98.5 F Pulse Rate 60 57 L 60 Respiratory Rate 18 16 20 Blood Pressure 116/61 114/58 L Pulse Oximetry 96 97 98 12/17/17 00:38 12/17/17 00:39 12/17/17 01:00 Temperature Pulse Rate 65 59 L Respiratory Rate 20 17 Blood Pressure 108/56 L Pulse Oximetry 98 97 12/17/17 02:00 12/17/17 03:00 12/17/17 03:01 Temperature Pulse Rate 59 L 60 60 Respiratory Rate 15 19 11 L Blood Pressure 116/64 129/61 Pulse Oximetry 98 97 97 12/17/17 04:00 12/17/17 04:26 12/17/17 05:00 Temperature Pulse Rate 59 L 65 60 Respiratory Rate 14 14 12 Blood Pressure 122/61 118/68 Pulse Oximetry 96 96 97 12/17/17 06:00 12/17/17 08:12 12/17/17 08:25 Temperature Pulse Rate 62 68 Respiratory Rate 15 20 Blood Pressure 131/66 Pulse Oximetry 98 91 L 12/17/17 08:46 Temperature Pulse Rate Respiratory Rate Blood Pressure Pulse Oximetry 96 Intake & Output 12/16/17 12/17/17 12/17/17 18:59 06:59 18:59 Intake Total 470 / 470 400 / 400 611.2 / 611.2 Output Total 250 / 250 300 / 300 Balance 220 / 220 100 / 100 611.2 / 611.2 Weight 94.6 kg Intake: IV 470 / 470 200 / 200 611.2 / 611.2 Heparin/D5W 25,000 U/250 mL 25, 279 / 279 000 unit In 250 ml @ 1,000 UNITS/HR 10 mls/hr IV.CONT TITRATE PRN Rx#:[id number] MVI-12 Inj 10 ML Thiamine Inj 511.2 / 511.2 100 MG Folvite Inj 1 MG In NS Inj 500 ML @ 125 mls/hr IV.SIG Q24H BIJAL Rx#:[id number] Zosyn 4.5 GM Premix 4.5 gm In 191 / 191 200 / 200 100 / 100 100 ml @ 200 mls/hr IV.SIG Q6H BIJAL Rx#:[id number] Oral 200 / 200 Output: Urine Amount (Catheter) 250 / 250 300 / 300 Indwelling Urethral Catheter 250 / 250 300 / 300 Narrative: GENERAL: Well-nourished, well-developed obese patient. On BiPAP SKIN: Warm and dry. HEAD: Normocephalic. EYES: No scleral icterus. No injection or drainage. NECK: Supple, trachea midline. No JVD or lymphadenopathy. CARDIOVASCULAR: Regular rate and rhythm without murmurs, gallops, or rubs. RESPIRATORY: Breath sounds diminished at bases GASTROINTESTINAL: Abdomen soft, non-tender, nondistended. EXTREMITIES: 1+ edema NEUROLOGICAL: Awake, alert, . Results - Lab Results 12/17/17 08:06 12/17/17 08:06 Most recent lab results ABG pH 7.35 (7.380-7.420) L 12/16/17 11:45 ABG pCO2 58 mmHg (38-42) H* 12/16/17 11:45 ABG pO2 81 mmHG (61-120) 12/16/17 11:45 ABG HCO3 31 mmol/L (22-26) H 12/16/17 11:45 Calcium 8.0 mg/dL (8.5-10.1) L 12/17/17 08:06 Phosphorus 4.9 mg/dL (2.5-4.9) 12/17/17 03:43 Magnesium 2.1 mg/dL (1.5-2.5) 12/17/17 03:43 Assessment and Plan - Assessment (1) Acute renal failure Code(s): N17.9 - Acute kidney failure, unspecified Status: Acute Plan: Acute renal failure is due to contrast-induced nephropathy, I will try to diurese him as he has not responded to IV fluid, waiting to get kidney ultrasound, repeat chest x-ray, his urine output is low I ordered Bumex 2 mg twice a day Follow BMP Avoid nephrotoxic agents Continue to monitor intake and output (2) COPD exacerbation Code(s): J44.1 - Chronic obstructive pulmonary disease with (acute) exacerbation Status: Acute Plan: Patient is under treatment (3) Respiratory failure Code(s): J96.90 - Respiratory failure, unspecified, unspecified whether with hypoxia or hypercapnia Status: Acute Plan: On BiPAP (4) Diabetes Code(s): E11.9 - Type 2 diabetes mellitus without complications Status: Acute Plan: Monitor blood glucose (5) Acute non-ST elevation myocardial infarction (NSTEMI) Code(s): I21.4 - Non-ST elevation (NSTEMI) myocardial infarction Status: Acute Plan: Cardiology is following
--- NOTE | 2017-12-17 10:42 | US ---
EXAM DATE: 12/17/2017 10:22 AM EST AGE/SEX: 81 years / Male INDICATIONS: Acute kidney injury. CLINICAL DATA: This is the patient's initial encounter. Patient reports that signs and symptoms have been present for 3 days and indicates a pain score of 4/10. MEDICAL/SURGICAL HISTORY: Congestive heart failure. Chronic obstructive pulmonary disease. Ga stroesophageal reflux disease. Diabetes. Hypospadias. Hypothyroidism. None. COMPARISON: No prior exams available for comparison. MEASUREMENTS: Right Kidney:__10.5 x 4.8 x 5.1 cm Left Kidney:__11.8 x 4.9 x 5.9 cm FINDINGS: Right Kidney: Borderline increased echotexture. No mass or hydronephrosis. Left Kidney: Borderline increased echotexture. No mass or hydronephrosis. Simple cyst lower pole eleno ures 21 x 17 x 23 mm. Smaller simple appearing cyst measures 17 x 14 x 15 mm. Bladder: Barlow catheter is present. Bladder decompressed. Other: Bilateral pleural effusions. Liver is echogenic. CONCLUSION: 1. Kidneys are borderline echogenic which can be seen with medical renal disease. 2. Left renal cyst. 3. Liver appears echogenic which can be seen with hepatic steatosis/hepatocellular dysfunction. Electronically signed by: Juan J Shelton MD 12/17/2017 10:41 AM EST
--- NOTE | 2017-12-17 10:57 | XR ---
EXAM DATE: 12/17/2017 10:50 AM EST AGE/SEX: 81 years / Male INDICATIONS: Shortness of breath. CLINICAL DATA: This is the patient's subsequent encounter. Patient reports that signs and symptoms h ave been present for 4 - 6 days and indicates a pain score of Nonresponsive. MEDICAL/SURGICAL HISTORY: None. None. COMPARISON: [facility] [place], CHEST 1V SINGLE AP, 12/14/2017. . FINDINGS: A single AP view of the chest demonstrates diminished lung volumes and minimal bibasilar densities. H eart normal in size. The cardiomediastinal contours are unremarkable. Osseous structures are intact. CONCLUSION: Diminished lung volumes and minimal bibasilar densities, greater left lower lobe Electronically signed by: Juan J Shelton MD 12/17/2017 10:56 AM EST
--- NOTE | 2017-12-17 11:58 | P.PNWCN ---
Wound Care Nurse Consult Description: Received wound management consult for sacral area Communicated with: KEZIA Riddle [facility] Recommendation: Please leave roofed bullae open to air and spray with Cavilon barrier film spray BID and PRN after cleaning patient following episodes of incontinence. Please keep patient turned from L side to R side avoiding pressure to sacral/ bilateral inner buttocks with diffuse roofed bullae Wound/Pressure Injury - Patient Status Premedicated for Pain Prior to Dressing Change: No - Wound medial bilateral inner buttocks Wound Type: Blister (Diffuse roofed and unroofed bullea) Is This a Chronic Wound: No Requested from Provider a Wound Care Consult: Yes (Saw patient today) Wound Bed Appearance: Diffuse roofed and unroofed bullae to medial bilateral inner buttocks and gluteal cleft Surrounding Tissue Appearance: Blanched/Dull, Erythema (blanchable erythema) Surrounding Tissue Temperature: Warm Drainage Amount: None Drainage Odor: No Odor Dressing Status: Open to Air - Additional Information Patient seen [place] [facility] management of sacral area. Patient was turned with the minimal assistance of sign writer hand and KEZIA riddle to reveal medial bilateral inner buttocks and gluteal cleft areas with diffuse roofed and unroofed bullae of unknown etiology. Bullae are dry without drainage. Skin surrounding bullae is noted with blanchable erythema. Patient requires minimal assistance with repositioning in bed, and is on a [facility] airloss bed with Micro climate management on.Bed is correctly set for patient's weight. Patient was positioned off bottom with pillow in place for support. Wound care recommendations are noted above. Please vocera wound care nurse for deterioration of wounds.
--- NOTE | 2017-12-17 13:52 | P.CONPAL ---
Consult Service: Palliative Care Requesting Physician: Serene Stevenson Reason for Consult: a. To assist with evaluation and management of symptoms including:pain, dyspnea , confusion b. To assist medical decision maker(s) with: better understanding of current medical conditions; weighing benefits/burdens of medical treatment options; making medical treatment decisions. Primary Care Provider: No Primary Care Physician History of Present Illness History of Present Illness: Mr. Da Silva is an 81-year-old male who presented to [place] emergency room on 12/14/17 with shortness of breath and altered mental status. Apparently he was found unresponsive by the family who then called 911. During his ambulance ride to the hospital he quickly decompensated to a GCS of 3, requiring emergent intubation. Per the family, the patient has a past medical history of hypothyroidism, GERD, COPD, diabetes, cyst of spinal meninges, and heart failure. Due to the perplexing nature of this patient's presentation and unsure etiology of his altered mental status he was admitted for further evaluation and treatment. Initial emergency room evaluation revealed: * Temp 98.6, pulse 86, respiratory rate 30, BP 234/144, pulse ox 79% on room air * WBC 10.8, Hgb 15.7, HCT 47.8, platelet 196 * PT 11.1, INR 1.1, APTT 25.6 * NA 142, K+ 4.0, CL 102, CO2 35, BUN 23, creatinine 0.98, estimated GFR 66, glucose 139 * CA 8.4, MG 2.1, total bili 1.1, AST 40, ALT 50, alk phos 55, lactic acid 1.2 * Total creatine kinase 448, CK-MB 22, troponin I 0.35, BNP 227 * ABG: PH 7.34, PCO2 55, PO2 456, HCO3 33, base excess 8.1+ current readings on ventilator with 100% FiO2 * CXR: Endotracheal tube is in appropriate position with the tip measuring 4.5 cm from the vijay. Underinflated examination with mild subsegmental atelectasis at the right lung base. Otherwise no acute abnormality is identified * Head CT: No acute intracranial abnormality is identified. Chronic findings include generalized atrophy and periventricular white matter change characteristic of chronic microvascular ischemia * EKG: Sinus rhythm with sinus arrhythmia, poor R wave progression, possible septal myocardial infarction The patient was transferred to the medical ICU for further evaluation. Dr. Vidal (Cardiology) was consulted for N STEMI, with unclear etiology. He felt this was unlikely due to CHF ordered a 2D echo. And suggest the patient be started on a heparin drip. 2D echo showed an EF of 55-60% with trace mitral valve and aortic valve regurgitation. There was aortic valve sclerosis and estimated pulmonary arterial pressure of 44 mmHg. Intensive care ordered CTA which was negative for PE. The patient was extubated to BiPAP 15/8 with 40% FiO2 on 12/16/17. Today his BiPAP settings were slightly increased to 18/8 remaining on 40% FiO2. His renal functioning was noted to be increasing in nephrology was consulted. Nephrology did note patient had probable medical renal disease. Palliative care was consulted to assist with symptom management and clarify goals of medical care. Upon examination patient is awake and alert though slightly confused. He knows he is at [facility] and that it is 2018. He is confused on the day and originally stated the president was Roberto Carlos, then corrected himself to name President Donna. He does not remember the events that brought him to the hospital in the first place. He was taken of Bipap earlier today though does appear to be working hard to breath. O2 sats 88% on room air. The patient denies any pain at this time and when asked about his breathing he states "I feel alright". Dr. Vidal was present for part of the exam and discussed the need for further cardiovascular workout including cardiac cath. The patient verbalized he would not want this time. Dr. Vidal reiterated that he declined further workup yesterday as well. Further discussion regarding goals of care, family discussion, etc. to follow. Function/Cognitive Trajectory: Prior to this admission, the patient was independent of ambulation and all ADL' s. He did walk at home with a walker and verbalizes difficult time ambulating due to shortness of breath. Review of Systems Cardiovascular: Reports shortness of breath with activity PMFSH - History History Provided By: Family Member - Medical History Medical History: Medical History (Last Reviewed 12/17/17 @ 10:24 by Logan Holder MD) CHF (congestive heart failure) COPD (chronic obstructive pulmonary disease) Cyst of spinal meninges Diabetes GERD (gastroesophageal reflux disease) Hypospadias Hypothyroidism - Surgical History Surgical History: Surgical History (Last Updated 12/17/17 @ 16:42 by MARIA ELENA Neumann) No pertinent past surgical history - Family History Family History: Family History (Last Updated 12/17/17 @ 16:44 by MARIA ELENA Neumann) Other Family history in first degree relatives is unremarkable - Social History I have reviewed the patient's Social History: Yes - Tobacco History Second Hand Smoke Exposure: Yes Tobacco Use In Past 30 Days: Yes Smoking Status: Current every day smoker Tobacco Type: Cigarettes - Alcohol History How Often Do You Have a Drink Containing Alcohol: 2 to 4 times a month - Substance Use History Substance History: No History of Abuse - Travel History History of Recent Travel: No Recent Travel in the [place] Within the Last 8 Weeks: No Recent Travel Out of the Country Within the Last 8 Weeks: No - Immunization History Tetanus Immunization: <5 Years Hx Influenza Vaccine This Season: No Medications and Allergies Active Medications: Active Medications Acetaminophen (Tylenol) 650 mg PO Q6H PRN PRN Reason: PAIN 1-10 AND/OR FEVER >101F Al Hydroxide/Mg Hydroxide (Milk Of Sia Burks) 30 ml PO Q12H PRN PRN Reason: Mild Constipation Albuterol (Albuterol Neb (Prn)) 2.5 mg NEB Q2HR NEB PRN PRN Reason: SHORTNESS OF BREATH/WHEEZING Albuterol (Duoneb Neb (Bijal)) 1 ampul NEB Q4HR NEB [facility] Last Admin: 12/17/17 10:59 Dose: 1 ampul Artificial Tears (Tears Naturale Opth Drops) 1 drop EACH EYE TID [facility] Last Admin: 12/17/17 09:19 Dose: 1 drop Aspirin (Aspirin Chew) 81 mg PO DAILY [facility] Last Admin: 12/17/17 09:18 Dose: 81 mg Atorvastatin Calcium (Lipitor) 40 mg PO DAILY [facility] Last Admin: 12/17/17 09:18 Dose: 40 mg Bisacodyl (Dulcolax Supp) 10 mg RECTAL DAILY PRN PRN Reason: SEVERE CONSITIPATION Bumetanide (Bumex Inj) 2 mg IV.PUSH BID [facility] Last Admin: 12/17/17 13:15 Dose: 2 mg Chlorhexidine Gluconate (Chlorhexidine 2% Cloth) 3 pack TOPICAL DAILY@0400 [facility] Stop: 12/20/17 03:59 Last Admin: 12/17/17 06:53 Dose: 3 pack Chlorhexidine Gluconate (Chlorhexidine 2% Cloth) 3 pack TOPICAL DAILY@0400 PRN PRN Reason: Extra cloth needed Stop: 12/20/17 03:59 Chlorhexidine Gluconate (Peridex 0.12% Oral Kit) 15 ml OROPHARYNG BID@0800, 2000 [facility] Last Admin: 12/17/17 08:20 Dose: Not Given Dextrose (D50w Vial) 50 ml IV.PUSH UNSCH PRN PRN Reason: PER HYPOGLYCEMIA PROTOCOL Diltiazem HCl (Cardizem) 60 mg PO QID [facility] Last Admin: 12/17/17 09:18 Dose: 60 mg Enalapril Maleate (Vasotec) 2.5 mg PO DAILY [facility] Last Admin: 12/17/17 09:18 Dose: 2.5 mg Glucagon (Glucagon Inj) 1 mg OTHER PRN PRN PRN Reason: for Hypoglycemia Protocol Heparin Sodium (Porcine) (Heparin Inj) 2,500 units IV.PUSH UNSCH PRN PRN Reason: aPTT 25-39 Last Admin: 12/15/17 01:38 Dose: 2,500 units Heparin Sodium (Porcine) (Heparin Inj) 5,000 units IV.PUSH UNSCH PRN PRN Reason: aPTT < 25 Hydralazine HCl (Apresoline Inj) 10 mg IV.PUSH Q6H PRN PRN Reason: SBP>160, DBP>90 Last Admin: 12/15/17 14:26 Dose: 10 mg Heparin Sodium/Dextrose (Heparin/D5w 25,000 U/250 Ml) 25,000 unit in 250 mls @ 10 mls/hr IV.CONT TITRATE PRN; Protocol PRN Reason: Per Protocol Last Admin: 12/16/17 17:05 Dose: 1,100 units/hr, 11 mls/hr Piperacillin/Tazobactam/Dextrose (Zosyn 4.5 Gm Premix) 4.5 gm in 100 mls @ 200 mls/hr IV.SIG Q6H [facility] Last Admin: 12/17/17 12:32 Dose: 200 mls/hr Sodium Chloride (1/2 Normal Saline Inj) 1,000 mls @ 84 mls/hr IV.CONT .[id number] [facility] Last Admin: 12/17/17 09:16 Dose: 84 mls/hr Insulin Aspart (Novolog Insulin Correctional Sugar Inj) 0 unit SQ Q6HR [facility]; Protocol Last Admin: 12/17/17 13:15 Dose: Not Given Lactulose (Lactulose Liq) 30 ml PO DAILY PRN PRN Reason: SEVERE CONSITIPATION Miscellaneous Medication () 1 each OROPHARYNG 0000,0400,1200,1600 [facility] Last Admin: 12/17/17 12:34 Dose: Not Given Pantoprazole Sodium (Protonix Inj) 40 mg IV.PUSH DAILY [facility] Last Admin: 12/17/17 09:19 Dose: 40 mg Senna/Docusate Sodium (Marian-Colace) 1 tab PO BID [facility] Last Admin: 12/17/17 09:18 Dose: 1 tab Sennosides (Senokot) 17.2 mg PO Q12H PRN PRN Reason: Moderate Constipation Sodium Chloride (Ns Flush) 2 ml IV.FLUSH BID [facility] Last Admin: 12/17/17 09:19 Dose: 2 ml Sodium Chloride (Ns Flush) 2 ml IV.FLUSH PRN PRN PRN Reason: FLUSH AFTER USING IV ACCESS Thyroid ([place] Thyroid) 30 mg PO DAILY@0600 [facility] Last Admin: 12/17/17 13:15 Dose: 30 mg Allergies Allergy/AdvReac Type Severity Reaction Status Date / Time No Known Allergies Allergy Verified 12/14/17 14:49 Home Medications Medication Instructions Recorded Confirmed Type esomeprazole magnesium [Nexium 20 mg PO DAILY 12/14/17 12/14/17 History 24HR] glipizide 5 mg PO DAILY 12/14/17 12/14/17 History potassium chloride 10 meq PO DAILY 12/14/17 12/14/17 History tiotropium-olodaterol [Stiolto 2 puff INHALATION DAILY 12/14/17 12/14/17 History Respimat] tizanidine 4 mg PO BID 12/14/17 12/14/17 History thyroid (pork) 30 mg PO DAILY 12/17/17 12/17/17 History Advance Directives Living Will: No Healthcare Surrogate: No Documented care wishes: The patient does not currently have a documented living will or durable power of energy attorney Today's verbally stated goals: We discussed in detail with RN Gracy) at bedside, should his clinical status deteriorate again to the point of requiring cardiopulmonary resuscitation, would he want intubation and CPR. The risks, benefits, and burdens of such were explained and the patient stated he did not want that. Dr. Vidal was also present for part of the conversation. He discussed the need for ischemic cardiac workout including cardiac cath at some point. The patient also verbalized that he would not want to have this procedure done. He verbalized that he just wants to get comfortable and go back home. Family/friends goals: Discussed case with patient's via telephone. Discussed patient's current clinical condition. He was informed that he has been taken off BiPAP though may require some supplemental oxygenation. We did talk about his unknown etiology concerning his N STEMI and acute respiratory failure. We also discussed how he has an increased probability of suffering another event in the near future. The patient's stated that she and her had talked about situations like this numerous times prior to this hospitalization. They both voiced their desire to be a DNR and not desire heroic measures. I informed her that her had stated as much to myself and numerous providers. She concurs with this thought and agrees to a DNR. Ethical and Legal Issues: The patient can participate to a limited degree in his own healthcare decision making. Should he become completely incapacitated at any time, per [place] statues, medical decision making would fall to his Sharon Da Silva by proxy Physical Exam Vital Signs: Vital Signs - 24 hr 12/16/17 14:00 12/16/17 15:00 12/16/17 15:31 Temperature Pulse Rate 64 63 Respiratory Rate 18 20 Blood Pressure 122/59 L 105/58 L Pulse Oximetry 95 95 98 12/16/17 15:34 12/16/17 16:00 12/16/17 17:00 Temperature 98.7 F Pulse Rate 57 L 57 L 59 L Respiratory Rate 13 19 21 Blood Pressure 115/59 L 128/67 Pulse Oximetry 95 19 L 12/16/17 18:00 12/16/17 19:00 12/16/17 19:01 Temperature Pulse Rate 93 H 53 L 53 L Respiratory Rate 24 14 12 Blood Pressure 120/57 L 94/55 L Pulse Oximetry 24 L 94 L 94 L 12/16/17 20:00 12/16/17 20:18 12/16/17 20:19 Temperature 98.8 F Pulse Rate 54 L 60 Respiratory Rate 22 18 Blood Pressure 100/56 L Pulse Oximetry 96 97 12/16/17 21:00 12/16/17 22:00 12/16/17 22:01 Temperature Pulse Rate 60 56 L 52 L Respiratory Rate 18 18 18 Blood Pressure 117/56 L 115/55 L Pulse Oximetry 97 95 95 12/16/17 23:00 12/17/17 00:00 12/17/17 00:12 Temperature 98.5 F Pulse Rate 60 57 L 60 Respiratory Rate 18 16 20 Blood Pressure 116/61 114/58 L Pulse Oximetry 96 97 98 12/17/17 00:38 12/17/17 00:39 12/17/17 01:00 Temperature Pulse Rate 65 59 L Respiratory Rate 20 17 Blood Pressure 108/56 L Pulse Oximetry 98 97 12/17/17 02:00 12/17/17 03:00 12/17/17 03:01 Temperature Pulse Rate 59 L 60 60 Respiratory Rate 15 19 11 L Blood Pressure 116/64 129/61 Pulse Oximetry 98 97 97 12/17/17 04:00 12/17/17 04:26 12/17/17 05:00 Temperature Pulse Rate 59 L 65 60 Respiratory Rate 14 14 12 Blood Pressure 122/61 118/68 Pulse Oximetry 96 96 97 12/17/17 06:00 12/17/17 07:00 12/17/17 08:00 Temperature 97.1 F L Pulse Rate 62 65 65 Respiratory Rate 15 18 19 Blood Pressure 131/66 124/68 124/60 Pulse Oximetry 98 98 19 L 12/17/17 08:12 12/17/17 08:25 12/17/17 08:46 Temperature Pulse Rate 68 Respiratory Rate 20 Blood Pressure Pulse Oximetry 91 L 96 12/17/17 09:00 12/17/17 10:00 12/17/17 10:59 Temperature Pulse Rate 62 70 59 L Respiratory Rate 19 23 20 Blood Pressure 117/58 L 114/54 L Pulse Oximetry 96 97 12/17/17 11:00 12/17/17 12:00 12/17/17 13:00 Temperature 97.4 F L Pulse Rate 64 56 L 61 Respiratory Rate 20 15 19 Blood Pressure 102/56 L 105/58 L 94/59 L Pulse Oximetry 97 94 L 98 I&O: Intake & Output 12/15/17 12/16/17 12/17/17 12/18/17 07:59 06:59 06:59 06:59 Intake Total 870 / 870 611.2 / 611.2 Output Total 550 / 550 Balance 320 / 320 611.2 / 611.2 Weight 94.6 kg Physical Exam: CONSTITUTIONAL/GENERAL: This is an adequately nourished patient, in no apparent distress. TUBES/LINES/DRAINS:PIV, Barlow SKIN: No jaundice, rashes, or lesions. Ecchymoses on upper extremities. No wounds seen anteriorly. Skin temperature appropriate. Not diaphoretic. HEAD: Atraumatic. Normocephalic. EYES: Pupils equal and round and reactive. Extraocular motions intact. No scleral icterus. No injection or drainage. Fundi not examined. ENT: Hearing grossly normal. Nose without bleeding or purulent drainage. Throat without visible erythema, exudates, masses, or lesions. NECK: Trachea midline. Supple, nontender. No palpable thyroid enlargement or nodularity. CARDIOVASCULAR: Sinus rhythm/sinus arrhythmia on tele with frequent PVC's. without murmurs, gallops, or rubs. No JVD. Peripheral pulses symmetric. RESPIRATORY/CHEST: Symmetric, slightly labored respirations. Clear to auscultation. Breath sounds equal bilaterally. No wheezes, rales, or rhonchi. Diminished at the bases. GASTROINTESTINAL: Abdomen soft, non-tender, nondistended. No hepato-splenomegaly , or palpable masses. No guarding. Bowel sounds present. GENITOURINARY: Without palpable bladder distension. Barlow catheter in place. MUSCULOSKELETAL: Extremities without clubbing, cyanosis, or edema. No joint tenderness or effusion noted. No calf tenderness. No mottling or clubbing. LYMPHATICS: No palpable cervical or supraclavicular adenopathy. NEUROLOGICAL: Awake and alert. Motor and sensory grossly within normal limits. Follows commands. Moves all extremities. Oriented to self, place and year. Does not remember the day. PSYCHIATRIC: No obvious anxiety/depression. no apparent hallucinations or other psychotic thought process. Diagnostic Tests Laboratory: Laboratory Results - last 72 hr 12/14/17 12/14/17 12/14/17 00:35 00:35 15:00 WBC 10.8 RBC 4.77 Hgb 15.7 Hct 47.8 MCV 100.2 H MCH 33.0 MCHC 32.9 RDW 15.2 Plt Count 196 MPV 8.8 Prelim Diff (Auto) Neut % (Auto) 61.2 Lymph % (Auto) 29.5 Gage % (Auto) 8.3 H Eos % (Auto) 0.7 Baso % (Auto) 0.3 Neut # (Auto) 6.6 Lymph # (Auto) 3.2 Gage # (Auto) 0.9 Eos # (Auto) 0.1 Baso # (Auto) 0.0 WBC Differential . Seg Neuts % (Manual) Band Neuts % (Manual) Lymphocytes % (Manual) Monocytes % (Manual) Abs Neuts (Manual) Differential Comment Auto diff final Platelet Estimate Platelet Morphology RBC Morphology PT 11.5 INR 1.1 APTT 35.9 H Puncture Site Patient Temperature O2 Saturation ABG pH ABG pCO2 ABG pO2 ABG HCO3 ABG O2 Content ABG Base Excess ABG Methemoglobin Zhang Test Hemoglobin Carboxyhemoglobin O2 Delivery Device Vent Setting Inspired O2 Critical Value Sodium Potassium Chloride Carbon Dioxide Anion Gap BUN Creatinine Estimated GFR POC Glucose Random Glucose Lactic Acid Calcium Phosphorus Magnesium Total Bilirubin AST ALT Alkaline Phosphatase Total Creatine Kinase CK-MB (CK-2) CK-MB (CK-2) % Troponin I 1.30 H* B-Natriuretic Peptide Total Protein Albumin TSH Urine Color Urine Clarity Urine pH Ur Specific [place] Urine Protein Urine Glucose (UA) Urine Ketones Urine Occult Blood Urine Nitrate Urine Bilirubin Urine Urobilinogen Ur Leukocyte Esterase Urine RBC Urine WBC Ur Squamous Epith Cells Hyaline Casts Granular Casts Urine Mucus Micro UA Comment Ur Microscopic Review Urine Culture Comments Nasal Screen MRSA (PCR) Vancomycin Trough Urine Opiates Screen Ur Barbiturates Screen Ur Amphetamines Screen U Benzodiazepines Scrn Urine Cocaine Screen U Cannabinoids Screen 12/14/17 12/14/17 12/14/17 15:00 15:00 15:00 WBC RBC Hgb Hct MCV MCH MCHC RDW Plt Count MPV Prelim Diff (Auto) Neut % (Auto) Lymph % (Auto) Gage % (Auto) Eos % (Auto) Baso % (Auto) Neut # (Auto) Lymph # (Auto) Gage # (Auto) Eos # (Auto) Baso # (Auto) WBC Differential Seg Neuts % (Manual) Band Neuts % (Manual) Lymphocytes % (Manual) Monocytes % (Manual) Abs Neuts (Manual) Differential Comment Platelet Estimate Platelet Morphology RBC Morphology PT 11.1 INR 1.1 APTT 25.6 D Puncture Site Patient Temperature O2 Saturation ABG pH ABG pCO2 ABG pO2 ABG HCO3 ABG O2 Content ABG Base Excess ABG Methemoglobin Zhang Test Hemoglobin Carboxyhemoglobin O2 Delivery Device Vent Setting Inspired O2 Critical Value Sodium 142 Potassium 4.0 Chloride 102 Carbon Dioxide 35.0 H Anion Gap 5 BUN 23 H Creatinine 0.98 Estimated GFR 66 L POC Glucose Random Glucose 139 H Lactic Acid Calcium 8.4 L Phosphorus Magnesium 2.1 Total Bilirubin 1.1 H AST 40 H ALT 50 Alkaline Phosphatase 55 Total Creatine Kinase 448 H CK-MB (CK-2) 22.0 H CK-MB (CK-2) % 4.9 H* Troponin I 1.35 H* B-Natriuretic Peptide 227 H Total Protein 7.5 Albumin 3.6 TSH Urine Color Urine Clarity Urine pH Ur Specific [place] Urine Protein Urine Glucose (UA) Urine Ketones Urine Occult Blood Urine Nitrate Urine Bilirubin Urine Urobilinogen Ur Leukocyte Esterase Urine RBC Urine WBC Ur Squamous Epith Cells Hyaline Casts Granular Casts Urine Mucus Micro UA Comment Ur Microscopic Review Urine Culture Comments Nasal Screen MRSA (PCR) Vancomycin Trough Urine Opiates Screen Ur Barbiturates Screen Ur Amphetamines Screen U Benzodiazepines Scrn Urine Cocaine Screen U Cannabinoids Screen 12/14/17 12/14/17 12/14/17 15:09 15:10 16:18 WBC RBC Hgb Hct MCV MCH MCHC RDW Plt Count MPV Prelim Diff (Auto) Neut % (Auto) Lymph % (Auto) Gage % (Auto) Eos % (Auto) Baso % (Auto) Neut # (Auto) Lymph # (Auto) Gage # (Auto) Eos # (Auto) Baso # (Auto) WBC Differential Seg Neuts % (Manual) Band Neuts % (Manual) Lymphocytes % (Manual) Monocytes % (Manual) Abs Neuts (Manual) Differential Comment Platelet Estimate Platelet Morphology RBC Morphology PT INR APTT Puncture Site Right radial Patient Temperature 98.6 O2 Saturation 96 ABG pH 7.39 ABG pCO2 55 H* ABG pO2 456 H ABG HCO3 33 H ABG O2 Content 20.9 H ABG Base Excess 8.1 H ABG Methemoglobin 1.0 Zhang Test Present Hemoglobin 14.6 Carboxyhemoglobin 2.3 O2 Delivery Device Ventilator Vent Setting See comments Inspired O2 100 Critical Value Yes Sodium Potassium Chloride Carbon Dioxide Anion Gap BUN Creatinine Estimated GFR POC Glucose Random Glucose Lactic Acid 1.2 Calcium Phosphorus Magnesium Total Bilirubin AST ALT Alkaline Phosphatase Total Creatine Kinase CK-MB (CK-2) CK-MB (CK-2) % Troponin I B-Natriuretic Peptide Total Protein Albumin TSH Urine Color Yellow Urine Clarity Hazy H Urine pH 5.0 Ur Specific [place] 1.020 Urine Protein 100 H Urine Glucose (UA) Negative Urine Ketones Negative Urine Occult Blood Small H Urine Nitrate Negative Urine Bilirubin Negative Urine Urobilinogen 4 or greater Ur Leukocyte Esterase Negative Urine RBC 2 Urine WBC 4 Ur Squamous Epith Cells <1 Hyaline Casts 8 Granular Casts 4 Urine Mucus Moderate H Micro UA Comment Cath-culture not ind Ur Microscopic Review Not Reportable Urine Culture Comments Cath-cult not ind Nasal Screen MRSA (PCR) Vancomycin Trough Urine Opiates Screen Ur Barbiturates Screen Ur Amphetamines Screen U Benzodiazepines Scrn Urine Cocaine Screen U Cannabinoids Screen 12/14/17 12/14/17 12/14/17 17:05 20:15 23:53 WBC RBC Hgb Hct MCV MCH MCHC RDW Plt Count MPV Prelim Diff (Auto) Neut % (Auto) Lymph % (Auto) Gage % (Auto) Eos % (Auto) Baso % (Auto) Neut # (Auto) Lymph # (Auto) Gage # (Auto) Eos # (Auto) Baso # (Auto) WBC Differential Seg Neuts % (Manual) Band Neuts % (Manual) Lymphocytes % (Manual) Monocytes % (Manual) Abs Neuts (Manual) Differential Comment Platelet Estimate Platelet Morphology RBC Morphology PT 10.1 INR 1.0 APTT 20.2 L D Puncture Site Patient Temperature O2 Saturation ABG pH ABG pCO2 ABG pO2 ABG HCO3 ABG O2 Content ABG Base Excess ABG Methemoglobin Zhang Test Hemoglobin Carboxyhemoglobin O2 Delivery Device Vent Setting Inspired O2 Critical Value Sodium Potassium Chloride Carbon Dioxide Anion Gap BUN Creatinine Estimated GFR POC Glucose 109 Random Glucose Lactic Acid Calcium Phosphorus Magnesium Total Bilirubin AST ALT Alkaline Phosphatase Total Creatine Kinase CK-MB (CK-2) CK-MB (CK-2) % Troponin I B-Natriuretic Peptide Total Protein Albumin TSH Urine Color Urine Clarity Urine pH Ur Specific [place] Urine Protein Urine Glucose (UA) Urine Ketones Urine Occult Blood Urine Nitrate Urine Bilirubin Urine Urobilinogen Ur Leukocyte Esterase Urine RBC Urine WBC Ur Squamous Epith Cells Hyaline Casts Granular Casts Urine Mucus Micro UA Comment Ur Microscopic Review Urine Culture Comments Nasal Screen MRSA (PCR) Not detected Vancomycin Trough Urine Opiates Screen Ur Barbiturates Screen Ur Amphetamines Screen U Benzodiazepines Scrn Urine Cocaine Screen U Cannabinoids Screen 12/15/17 12/15/17 12/15/17 01:47 03:46 03:46 WBC 11.3 H RBC 4.52 Hgb 14.4 Hct 44.2 MCV 97.8 MCH 31.9 MCHC 32.6 RDW 14.7 Plt Count 160 MPV 8.7 Prelim Diff (Auto) Slide review pending Neut % (Auto) 79.7 H Lymph % (Auto) 11.4 Gage % (Auto) 7.9 Eos % (Auto) 0.3 Baso % (Auto) 0.7 Neut # (Auto) 9.0 H Lymph # (Auto) 1.3 Gage # (Auto) 0.9 Eos # (Auto) 0.0 Baso # (Auto) 0.1 WBC Differential Manual diff final Seg Neuts % (Manual) 73 H Band Neuts % (Manual) 4 Lymphocytes % (Manual) 16 Monocytes % (Manual) 7 Abs Neuts (Manual) 8.7 H Differential Comment . Platelet Estimate Normal Platelet Morphology Normal RBC Morphology Normal PT 11.5 INR 1.1 APTT 43.8 H D Puncture Site Patient Temperature O2 Saturation ABG pH ABG pCO2 ABG pO2 ABG HCO3 ABG O2 Content ABG Base Excess ABG Methemoglobin Zhang Test Hemoglobin Carboxyhemoglobin O2 Delivery Device Vent Setting Inspired O2 Critical Value Sodium Potassium Chloride Carbon Dioxide Anion Gap BUN Creatinine Estimated GFR POC Glucose Random Glucose Lactic Acid Calcium Phosphorus Magnesium Total Bilirubin AST ALT Alkaline Phosphatase Total Creatine Kinase CK-MB (CK-2) CK-MB (CK-2) % Troponin I B-Natriuretic Peptide Total Protein Albumin TSH Urine Color Urine Clarity Urine pH Ur Specific [place] Urine Protein Urine Glucose (UA) Urine Ketones Urine Occult Blood Urine Nitrate Urine Bilirubin Urine Urobilinogen Ur Leukocyte Esterase Urine RBC Urine WBC Ur Squamous Epith Cells Hyaline Casts Granular Casts Urine Mucus Micro UA Comment Ur Microscopic Review Urine Culture Comments Nasal Screen MRSA (PCR) Vancomycin Trough Urine Opiates Screen Neg Ur Barbiturates Screen Neg Ur Amphetamines Screen Neg U Benzodiazepines Scrn Pos H Urine Cocaine Screen Neg U Cannabinoids Screen Neg 12/15/17 12/15/17 12/15/17 03:46 03:46 03:46 WBC RBC Hgb Hct MCV MCH MCHC RDW Plt Count MPV Prelim Diff (Auto) Neut % (Auto) Lymph % (Auto) Gage % (Auto) Eos % (Auto) Baso % (Auto) Neut # (Auto) Lymph # (Auto) Gage # (Auto) Eos # (Auto) Baso # (Auto) WBC Differential Seg Neuts % (Manual) Band Neuts % (Manual) Lymphocytes % (Manual) Monocytes % (Manual) Abs Neuts (Manual) Differential Comment Platelet Estimate Platelet Morphology RBC Morphology PT INR APTT 44.3 H Puncture Site Patient Temperature O2 Saturation ABG pH ABG pCO2 ABG pO2 ABG HCO3 ABG O2 Content ABG Base Excess ABG Methemoglobin Zhang Test Hemoglobin Carboxyhemoglobin O2 Delivery Device Vent Setting Inspired O2 Critical Value Sodium 142 Potassium 3.6 Chloride 102 Carbon Dioxide 35.2 H Anion Gap 5 BUN 19 H Creatinine 0.95 Estimated GFR 68 L POC Glucose Random Glucose 130 H Lactic Acid 1.8 Calcium 7.8 L Phosphorus 2.7 Magnesium 1.9 Total Bilirubin 1.3 H AST 33 ALT 39 Alkaline Phosphatase 43 L Total Creatine Kinase CK-MB (CK-2) CK-MB (CK-2) % Troponin I 1.16 H* B-Natriuretic Peptide Total Protein 6.1 L D Albumin 3.0 L D TSH Urine Color Urine Clarity Urine pH Ur Specific [place] Urine Protein Urine Glucose (UA) Urine Ketones Urine Occult Blood Urine Nitrate Urine Bilirubin Urine Urobilinogen Ur Leukocyte Esterase Urine RBC Urine WBC Ur Squamous Epith Cells Hyaline Casts Granular Casts Urine Mucus Micro UA Comment Ur Microscopic Review Urine Culture Comments Nasal Screen MRSA (PCR) Vancomycin Trough Urine Opiates Screen Ur Barbiturates Screen Ur Amphetamines Screen U Benzodiazepines Scrn Urine Cocaine Screen U Cannabinoids Screen 12/15/17 12/15/17 12/15/17 05:24 05:44 11:56 WBC RBC Hgb Hct MCV MCH MCHC RDW Plt Count MPV Prelim Diff (Auto) Neut % (Auto) Lymph % (Auto) Gage % (Auto) Eos % (Auto) Baso % (Auto) Neut # (Auto) Lymph # (Auto) Gage # (Auto) Eos # (Auto) Baso # (Auto) WBC Differential Seg Neuts % (Manual) Band Neuts % (Manual) Lymphocytes % (Manual) Monocytes % (Manual) Abs Neuts (Manual) Differential Comment Platelet Estimate Platelet Morphology RBC Morphology PT INR APTT Puncture Site Left radial Patient Temperature 98.6 O2 Saturation 92 ABG pH 7.45 H ABG pCO2 45 H ABG pO2 76 ABG HCO3 31 H ABG O2 Content 18.6 ABG Base Excess 6.6 H ABG Methemoglobin 2.0 Zhang Test Present Hemoglobin 14.3 Carboxyhemoglobin 0.9 O2 Delivery Device Ventilator Vent Setting See comments Inspired O2 40 Critical Value No Sodium Potassium Chloride Carbon Dioxide Anion Gap BUN Creatinine Estimated GFR POC Glucose 127 H Random Glucose Lactic Acid Calcium Phosphorus Magnesium Total Bilirubin AST ALT Alkaline Phosphatase Total Creatine Kinase CK-MB (CK-2) CK-MB (CK-2) % Troponin I 1.08 H* B-Natriuretic Peptide Total Protein Albumin TSH Urine Color Urine Clarity Urine pH Ur Specific [place] Urine Protein Urine Glucose (UA) Urine Ketones Urine Occult Blood Urine Nitrate Urine Bilirubin Urine Urobilinogen Ur Leukocyte Esterase Urine RBC Urine WBC Ur Squamous Epith Cells Hyaline Casts Granular Casts Urine Mucus Micro UA Comment Ur Microscopic Review Urine Culture Comments Nasal Screen MRSA (PCR) Vancomycin Trough Urine Opiates Screen Ur Barbiturates Screen Ur Amphetamines Screen U Benzodiazepines Scrn Urine Cocaine Screen U Cannabinoids Screen 12/15/17 12/15/17 12/15/17 11:56 12:01 12:46 WBC RBC Hgb Hct MCV MCH MCHC RDW Plt Count MPV Prelim Diff (Auto) Neut % (Auto) Lymph % (Auto) Gage % (Auto) Eos % (Auto) Baso % (Auto) Neut # (Auto) Lymph # (Auto) Gage # (Auto) Eos # (Auto) Baso # (Auto) WBC Differential Seg Neuts % (Manual) Band Neuts % (Manual) Lymphocytes % (Manual) Monocytes % (Manual) Abs Neuts (Manual) Differential Comment Platelet Estimate Platelet Morphology RBC Morphology PT INR APTT 42.9 H Puncture Site Right radial Patient Temperature 98.6 O2 Saturation 91 ABG pH 7.41 ABG pCO2 50 H ABG pO2 73 ABG HCO3 31 H ABG O2 Content 19.0 ABG Base Excess 6.3 H ABG Methemoglobin 1.9 Zhang Test Present Hemoglobin 14.9 Carboxyhemoglobin 0.8 O2 Delivery Device Ventilator Vent Setting Cpap+[id number] Inspired O2 40 Critical Value No Sodium Potassium Chloride Carbon Dioxide Anion Gap BUN Creatinine Estimated GFR POC Glucose 130 H Random Glucose Lactic Acid Calcium Phosphorus Magnesium Total Bilirubin AST ALT Alkaline Phosphatase Total Creatine Kinase CK-MB (CK-2) CK-MB (CK-2) % Troponin I B-Natriuretic Peptide Total Protein Albumin TSH Urine Color Urine Clarity Urine pH Ur Specific [place] Urine Protein Urine Glucose (UA) Urine Ketones Urine Occult Blood Urine Nitrate Urine Bilirubin Urine Urobilinogen Ur Leukocyte Esterase Urine RBC Urine WBC Ur Squamous Epith Cells Hyaline Casts Granular Casts Urine Mucus Micro UA Comment Ur Microscopic Review Urine Culture Comments Nasal Screen MRSA (PCR) Vancomycin Trough Urine Opiates Screen Ur Barbiturates Screen Ur Amphetamines Screen U Benzodiazepines Scrn Urine Cocaine Screen U Cannabinoids Screen 12/15/17 12/15/17 12/15/17 18:12 18:23 22:52 WBC RBC Hgb Hct MCV MCH MCHC RDW Plt Count MPV Prelim Diff (Auto) Neut % (Auto) Lymph % (Auto) Gage % (Auto) Eos % (Auto) Baso % (Auto) Neut # (Auto) Lymph # (Auto) Gage # (Auto) Eos # (Auto) Baso # (Auto) WBC Differential Seg Neuts % (Manual) Band Neuts % (Manual) Lymphocytes % (Manual) Monocytes % (Manual) Abs Neuts (Manual) Differential Comment Platelet Estimate Platelet Morphology RBC Morphology PT INR APTT Puncture Site Patient Temperature O2 Saturation ABG pH ABG pCO2 ABG pO2 ABG HCO3 ABG O2 Content ABG Base Excess ABG Methemoglobin Zhang Test Hemoglobin Carboxyhemoglobin O2 Delivery Device Vent Setting Inspired O2 Critical Value Sodium Potassium Chloride Carbon Dioxide Anion Gap BUN Creatinine Estimated GFR POC Glucose 124 H 121 H Random Glucose Lactic Acid Calcium Phosphorus Magnesium Total Bilirubin AST ALT Alkaline Phosphatase Total Creatine Kinase CK-MB (CK-2) CK-MB (CK-2) % Troponin I 0.98 H* B-Natriuretic Peptide Total Protein Albumin TSH Urine Color Urine Clarity Urine pH Ur Specific [place] Urine Protein Urine Glucose (UA) Urine Ketones Urine Occult Blood Urine Nitrate Urine Bilirubin Urine Urobilinogen Ur Leukocyte Esterase Urine RBC Urine WBC Ur Squamous Epith Cells Hyaline Casts Granular Casts Urine Mucus Micro UA Comment Ur Microscopic Review Urine Culture Comments Nasal Screen MRSA (PCR) Vancomycin Trough Urine Opiates Screen Ur Barbiturates Screen Ur Amphetamines Screen U Benzodiazepines Scrn Urine Cocaine Screen U Cannabinoids Screen 12/16/17 12/16/17 12/16/17 00:08 04:46 06:28 WBC 10.7 RBC 4.36 L Hgb 14.4 Hct 42.8 MCV 98.1 MCH 33.0 MCHC 33.6 RDW 15.1 Plt Count 148 L MPV 8.4 Prelim Diff (Auto) Neut % (Auto) 83.6 H Lymph % (Auto) 7.2 L Gage % (Auto) 8.2 H Eos % (Auto) 0.7 Baso % (Auto) 0.3 Neut # (Auto) 9.0 H Lymph # (Auto) 0.8 L Gage # (Auto) 0.9 Eos # (Auto) 0.1 Baso # (Auto) 0.0 WBC Differential . Seg Neuts % (Manual) Band Neuts % (Manual) Lymphocytes % (Manual) Monocytes % (Manual) Abs Neuts (Manual) Differential Comment Auto diff final Platelet Estimate Platelet Morphology RBC Morphology PT INR APTT Puncture Site Patient Temperature O2 Saturation ABG pH ABG pCO2 ABG pO2 ABG HCO3 ABG O2 Content ABG Base Excess ABG Methemoglobin Zhang Test Hemoglobin Carboxyhemoglobin O2 Delivery Device Vent Setting Inspired O2 Critical Value Sodium Potassium Chloride Carbon Dioxide Anion Gap BUN Creatinine Estimated GFR POC Glucose 102 Random Glucose Lactic Acid Calcium Phosphorus Magnesium Total Bilirubin AST ALT Alkaline Phosphatase Total Creatine Kinase CK-MB (CK-2) CK-MB (CK-2) % Troponin I 0.93 H* B-Natriuretic Peptide Total Protein Albumin TSH Urine Color Urine Clarity Urine pH Ur Specific [place] Urine Protein Urine Glucose (UA) Urine Ketones Urine Occult Blood Urine Nitrate Urine Bilirubin Urine Urobilinogen Ur Leukocyte Esterase Urine RBC Urine WBC Ur Squamous Epith Cells Hyaline Casts Granular Casts Urine Mucus Micro UA Comment Ur Microscopic Review Urine Culture Comments Nasal Screen MRSA (PCR) Vancomycin Trough Urine Opiates Screen Ur Barbiturates Screen Ur Amphetamines Screen U Benzodiazepines Scrn Urine Cocaine Screen U Cannabinoids Screen 12/16/17 12/16/17 12/16/17 06:38 06:38 08:50 WBC RBC Hgb Hct MCV MCH MCHC RDW Plt Count MPV Prelim Diff (Auto) Neut % (Auto) Lymph % (Auto) Gage % (Auto) Eos % (Auto) Baso % (Auto) Neut # (Auto) Lymph # (Auto) Gage # (Auto) Eos # (Auto) Baso # (Auto) WBC Differential Seg Neuts % (Manual) Band Neuts % (Manual) Lymphocytes % (Manual) Monocytes % (Manual) Abs Neuts (Manual) Differential Comment Platelet Estimate Platelet Morphology RBC Morphology PT INR APTT 50.3 H Puncture Site Left radial Patient Temperature 98.6 O2 Saturation 93 ABG pH 7.34 L ABG pCO2 58 H* ABG pO2 96 ABG HCO3 31 H ABG O2 Content 18.9 ABG Base Excess 5.2 H ABG Methemoglobin 1.9 Zhang Test Present Hemoglobin 14.3 Carboxyhemoglobin 1.1 O2 Delivery Device Bipap Vent Setting 15/5/40 Inspired O2 40 Critical Value Yes Sodium 145 Potassium 3.2 L Chloride 104 Carbon Dioxide 34.5 H Anion Gap 7 BUN 13 Creatinine 1.03 Estimated GFR 69 L POC Glucose Random Glucose 103 Lactic Acid Calcium 7.9 L Phosphorus 4.3 D Magnesium 2.0 Total Bilirubin 1.0 AST 42 H ALT 37 Alkaline Phosphatase 43 L Total Creatine Kinase CK-MB (CK-2) CK-MB (CK-2) % Troponin I 0.88 H* B-Natriuretic Peptide Total Protein 6.3 L Albumin 2.9 L TSH Urine Color Urine Clarity Urine pH Ur Specific [place] Urine Protein Urine Glucose (UA) Urine Ketones Urine Occult Blood Urine Nitrate Urine Bilirubin Urine Urobilinogen Ur Leukocyte Esterase Urine RBC Urine WBC Ur Squamous Epith Cells Hyaline Casts Granular Casts Urine Mucus Micro UA Comment Ur Microscopic Review Urine Culture Comments Nasal Screen MRSA (PCR) Vancomycin Trough Urine Opiates Screen Ur Barbiturates Screen Ur Amphetamines Screen U Benzodiazepines Scrn Urine Cocaine Screen U Cannabinoids Screen 12/16/17 12/16/17 12/16/17 11:45 12:10 18:15 WBC RBC Hgb Hct MCV MCH MCHC RDW Plt Count MPV Prelim Diff (Auto) Neut % (Auto) Lymph % (Auto) Gage % (Auto) Eos % (Auto) Baso % (Auto) Neut # (Auto) Lymph # (Auto) Gage # (Auto) Eos # (Auto) Baso # (Auto) WBC Differential Seg Neuts % (Manual) Band Neuts % (Manual) Lymphocytes % (Manual) Monocytes % (Manual) Abs Neuts (Manual) Differential Comment Platelet Estimate Platelet Morphology RBC Morphology PT INR APTT Puncture Site Left radial Patient Temperature 98.6 O2 Saturation 92 ABG pH 7.35 L ABG pCO2 58 H* ABG pO2 81 ABG HCO3 31 H ABG O2 Content 18.4 ABG Base Excess 5.8 H ABG Methemoglobin 1.9 Zhang Test Present Hemoglobin 14.2 Carboxyhemoglobin 1.0 O2 Delivery Device Bipap Vent Setting 18/8/40 Inspired O2 40 Critical Value Yes Sodium Potassium Chloride Carbon Dioxide Anion Gap BUN Creatinine Estimated GFR POC Glucose 120 H Random Glucose Lactic Acid Calcium Phosphorus Magnesium Total Bilirubin AST ALT Alkaline Phosphatase Total Creatine Kinase CK-MB (CK-2) CK-MB (CK-2) % Troponin I B-Natriuretic Peptide Total Protein Albumin TSH Urine Color Urine Clarity Urine pH Ur Specific [place] Urine Protein Urine Glucose (UA) Urine Ketones Urine Occult Blood Urine Nitrate Urine Bilirubin Urine Urobilinogen Ur Leukocyte Esterase Urine RBC Urine WBC Ur Squamous Epith Cells Hyaline Casts Granular Casts Urine Mucus Micro UA Comment Ur Microscopic Review Urine Culture Comments Nasal Screen MRSA (PCR) Vancomycin Trough 23.8 H Urine Opiates Screen Ur Barbiturates Screen Ur Amphetamines Screen U Benzodiazepines Scrn Urine Cocaine Screen U Cannabinoids Screen 12/16/17 12/16/17 12/17/17 18:15 18:42 00:14 WBC RBC Hgb Hct MCV MCH MCHC RDW Plt Count MPV Prelim Diff (Auto) Neut % (Auto) Lymph % (Auto) Gage % (Auto) Eos % (Auto) Baso % (Auto) Neut # (Auto) Lymph # (Auto) Gage # (Auto) Eos # (Auto) Baso # (Auto) WBC Differential Seg Neuts % (Manual) Band Neuts % (Manual) Lymphocytes % (Manual) Monocytes % (Manual) Abs Neuts (Manual) Differential Comment Platelet Estimate Platelet Morphology RBC Morphology PT INR APTT Puncture Site Patient Temperature O2 Saturation ABG pH ABG pCO2 ABG pO2 ABG HCO3 ABG O2 Content ABG Base Excess ABG Methemoglobin Zhang Test Hemoglobin Carboxyhemoglobin O2 Delivery Device Vent Setting Inspired O2 Critical Value Sodium Potassium 3.1 L Chloride Carbon Dioxide Anion Gap BUN Creatinine Estimated GFR POC Glucose 111 H 110 Random Glucose Lactic Acid Calcium Phosphorus Magnesium Total Bilirubin AST ALT Alkaline Phosphatase Total Creatine Kinase CK-MB (CK-2) CK-MB (CK-2) % Troponin I B-Natriuretic Peptide Total Protein Albumin TSH Urine Color Urine Clarity Urine pH Ur Specific [place] Urine Protein Urine Glucose (UA) Urine Ketones Urine Occult Blood Urine Nitrate Urine Bilirubin Urine Urobilinogen Ur Leukocyte Esterase Urine RBC Urine WBC Ur Squamous Epith Cells Hyaline Casts Granular Casts Urine Mucus Micro UA Comment Ur Microscopic Review Urine Culture Comments Nasal Screen MRSA (PCR) Vancomycin Trough Urine Opiates Screen Ur Barbiturates Screen Ur Amphetamines Screen U Benzodiazepines Scrn Urine Cocaine Screen U Cannabinoids Screen 12/17/17 12/17/17 12/17/17 03:43 03:43 03:43 WBC 10.2 RBC 4.17 L Hgb 13.5 Hct 40.7 MCV 97.6 MCH 32.5 MCHC 33.3 RDW 15.1 Plt Count 143 L MPV 8.7 Prelim Diff (Auto) Neut % (Auto) 81.1 H Lymph % (Auto) 7.3 L Gage % (Auto) 10.2 H Eos % (Auto) 1.0 Baso % (Auto) 0.4 Neut # (Auto) 8.3 H Lymph # (Auto) 0.7 L Gage # (Auto) 1.0 H Eos # (Auto) 0.1 Baso # (Auto) 0.0 WBC Differential . Seg Neuts % (Manual) Band Neuts % (Manual) Lymphocytes % (Manual) Monocytes % (Manual) Abs Neuts (Manual) Differential Comment Auto diff final Platelet Estimate Platelet Morphology RBC Morphology PT INR APTT 47.7 H Puncture Site Patient Temperature O2 Saturation ABG pH ABG pCO2 ABG pO2 ABG HCO3 ABG O2 Content ABG Base Excess ABG Methemoglobin Zhang Test Hemoglobin Carboxyhemoglobin O2 Delivery Device Vent Setting Inspired O2 Critical Value Sodium 147 H Potassium 3.4 L Chloride 104 Carbon Dioxide 31.7 Anion Gap 11 BUN 20 H Creatinine 2.25 H Estimated GFR 28 L POC Glucose Random Glucose 84 Lactic Acid Calcium 7.8 L Phosphorus 4.9 Magnesium 2.1 Total Bilirubin 1.1 H AST 39 H ALT 35 Alkaline Phosphatase 38 L Total Creatine Kinase CK-MB (CK-2) CK-MB (CK-2) % Troponin I B-Natriuretic Peptide Total Protein 5.9 L Albumin 2.5 L TSH Urine Color Urine Clarity Urine pH Ur Specific [place] Urine Protein Urine Glucose (UA) Urine Ketones Urine Occult Blood Urine Nitrate Urine Bilirubin Urine Urobilinogen Ur Leukocyte Esterase Urine RBC Urine WBC Ur Squamous Epith Cells Hyaline Casts Granular Casts Urine Mucus Micro UA Comment Ur Microscopic Review Urine Culture Comments Nasal Screen MRSA (PCR) Vancomycin Trough Urine Opiates Screen Ur Barbiturates Screen Ur Amphetamines Screen U Benzodiazepines Scrn Urine Cocaine Screen U Cannabinoids Screen 12/17/17 12/17/17 12/17/17 08:06 08:06 10:20 WBC 9.6 RBC 4.09 L Hgb 13.2 Hct 40.6 MCV 99.4 MCH 32.3 MCHC 32.5 RDW 15.3 Plt Count 151 MPV 9.4 Prelim Diff (Auto) Neut % (Auto) 80.7 H Lymph % (Auto) 8.2 L Gage % (Auto) 9.2 H Eos % (Auto) 1.5 Baso % (Auto) 0.4 Neut # (Auto) 7.7 Lymph # (Auto) 0.8 L Gage # (Auto) 0.9 Eos # (Auto) 0.1 Baso # (Auto) 0.0 WBC Differential . Seg Neuts % (Manual) Band Neuts % (Manual) Lymphocytes % (Manual) Monocytes % (Manual) Abs Neuts (Manual) Differential Comment Auto diff final Platelet Estimate Platelet Morphology RBC Morphology PT INR APTT Puncture Site Right radial Patient Temperature 98.6 O2 Saturation 92 ABG pH 7.33 L ABG pCO2 59 H* ABG pO2 81 ABG HCO3 30 H ABG O2 Content 17.9 ABG Base Excess 4.3 H ABG Methemoglobin 1.9 Zhang Test Present Hemoglobin 13.8 Carboxyhemoglobin 0.9 O2 Delivery Device Bipap/18ipap/8epap Vent Setting Inspired O2 40 Critical Value Yes Sodium 144 Potassium 3.3 L Chloride 104 Carbon Dioxide 33.8 H Anion Gap 6 BUN 21 H Creatinine 2.47 H Estimated GFR 25 L POC Glucose Random Glucose 124 H Lactic Acid Calcium 8.0 L Phosphorus Magnesium Total Bilirubin 1.0 AST 37 ALT 36 Alkaline Phosphatase 39 L Total Creatine Kinase CK-MB (CK-2) CK-MB (CK-2) % Troponin I B-Natriuretic Peptide Total Protein 6.0 L Albumin 2.5 L TSH 2.370 Urine Color Urine Clarity Urine pH Ur Specific [place] Urine Protein Urine Glucose (UA) Urine Ketones Urine Occult Blood Urine Nitrate Urine Bilirubin Urine Urobilinogen Ur Leukocyte Esterase Urine RBC Urine WBC Ur Squamous Epith Cells Hyaline Casts Granular Casts Urine Mucus Micro UA Comment Ur Microscopic Review Urine Culture Comments Nasal Screen MRSA (PCR) Vancomycin Trough Urine Opiates Screen Ur Barbiturates Screen Ur Amphetamines Screen U Benzodiazepines Scrn Urine Cocaine Screen U Cannabinoids Screen 12/17/17 13:04 WBC RBC Hgb Hct MCV MCH MCHC RDW Plt Count MPV Prelim Diff (Auto) Neut % (Auto) Lymph % (Auto) Gage % (Auto) Eos % (Auto) Baso % (Auto) Neut # (Auto) Lymph # (Auto) Gage # (Auto) Eos # (Auto) Baso # (Auto) WBC Differential Seg Neuts % (Manual) Band Neuts % (Manual) Lymphocytes % (Manual) Monocytes % (Manual) Abs Neuts (Manual) Differential Comment Platelet Estimate Platelet Morphology RBC Morphology PT INR APTT Puncture Site Patient Temperature O2 Saturation ABG pH ABG pCO2 ABG pO2 ABG HCO3 ABG O2 Content ABG Base Excess ABG Methemoglobin Zhang Test Hemoglobin Carboxyhemoglobin O2 Delivery Device Vent Setting Inspired O2 Critical Value Sodium Potassium Chloride Carbon Dioxide Anion Gap BUN Creatinine Estimated GFR POC Glucose 132 H Random Glucose Lactic Acid Calcium Phosphorus Magnesium Total Bilirubin AST ALT Alkaline Phosphatase Total Creatine Kinase CK-MB (CK-2) CK-MB (CK-2) % Troponin I B-Natriuretic Peptide Total Protein Albumin TSH Urine Color Urine Clarity Urine pH Ur Specific [place] Urine Protein Urine Glucose (UA) Urine Ketones Urine Occult Blood Urine Nitrate Urine Bilirubin Urine Urobilinogen Ur Leukocyte Esterase Urine RBC Urine WBC Ur Squamous Epith Cells Hyaline Casts Granular Casts Urine Mucus Micro UA Comment Ur Microscopic Review Urine Culture Comments Nasal Screen MRSA (PCR) Vancomycin Trough Urine Opiates Screen Ur Barbiturates Screen Ur Amphetamines Screen U Benzodiazepines Scrn Urine Cocaine Screen U Cannabinoids Screen Result Diagrams: 12/17/17 08:06 12/17/17 08:06 Microbiology: Microbiology 12/14/17 15:00 Aerobic Blood Culture - Preliminary Blood - Peripheral No growth in 3 days Anaerobic Blood Culture - Preliminary No growth in 3 days 12/14/17 15:00 Aerobic Blood Culture - Preliminary Blood - Peripheral No growth in 3 days Anaerobic Blood Culture - Preliminary No growth in 3 days 12/15/17 01:47 Urine Culture - Final Catheterized Urine No growth in 48 hours 12/14/17 19:05 Gram Stain - Final Sputum - Endotracheal Sputum Culture - Final Heavy growth normal respiratory marcio Imaging: Impressions Abdomen/Bladder Ultrasound 12/17/17 00:00 CONCLUSION: 1. Kidneys are borderline echogenic which can be seen with medical renal disease. 2. Left renal cyst. 3. Liver appears echogenic which can be seen with hepatic steatosis/ hepatocellular dysfunction. Chest X-Ray 12/17/17 00:00 CONCLUSION: Diminished lung volumes and minimal bibasilar densities, greater left lower lobe Procedures: 12/14/17 * Endotracheal intubation Patient/Family Conference Present at Family Conference: KEZIA Mckeon at bedside. Was later able to discuss issues with patient's , Sharon Da Silva via telephone Family Conference Location: Bedside, Telephone Issues Discussed: * Palliative care role, purpose, approach * Additional medical, psychosocial, and spiritual history * Patients general health, functional status, and cognitive changes in the months leading up to the current hospitalization * Patient/family understanding of the current medical problems * Patient/family understanding of prognosis * Patients goals of care as best understood from advance directives and/or conversations and/or values * Current medical treatment options and benefits/burdens of those options * Likely scenarios comparing ongoing aggressive care with a transition to comfort measures only; concerning if the patient declined further cardiac workup and he suffered another cardiovascular event * Questions answered to the best of my ability * Palliative care contact information provided We discussed in detail with RN (Linda) at bedside, should his clinical status deteriorate again to the point of requiring cardiopulmonary resuscitation, would he want intubation and CPR. The risks, benefits, and burdens of such were explained and the patient stated he did not want that. Dr. Vidal was also present for part of the conversation. He discussed the need for ischemic cardiac workout including cardiac cath at some point. The patient also verbalized that he would not want to have this procedure done. He verbalized that he just wants to get comfortable and go back home. Discussed case with patient's via telephone. Discussed patient's current clinical condition. He was informed that he has been taken off BiPAP though may require some supplemental oxygenation. We did talk about his unknown etiology concerning his N STEMI and acute respiratory failure. We also discussed how he has an increased probability of suffering another event in the near future. The patient's stated that she and her had talked about situations like this numerous times prior to this hospitalization. They both voiced their desire to be a DNR and not desire heroic measures. I informed her that her had stated as much to myself and numerous providers. She concurs with this thought and agrees to a DNR. Assessment and Plan - Disease Oriented Problem List (1) Acute non-ST elevation myocardial infarction (NSTEMI) (2) Respiratory failure requiring intubation - Symptom Scale (1) Dyspnea 0-10 Scale: Unable to quantify (2) Pain 0-10 Scale: Unable to quantify Pertinent Non-Medical Issues: Psychosocial: The patient was born and raised in [place] where he met his . 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 They have 2 sons to still live in [place] Spiritual: Gnosticist. 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 Legal: Should the patient become completely incapacitated, and in the absence of a documented living, per [place] statues medical decision making would fall to his , Sharon Da Silva by proxy [phone] Ethical issues impacting care: There are currently no known ethical issues impacting care at this time. Important Contacts: Sharon Da Silva, Prognosis: The patient currently remains in the MICU in stable condition. He has declined further cardiac workup at this and now appears to be in acute renal insufficiency. He remains at high risk for further decline, increased morbidity , and . Code Status: No Code DNR Plan: * LEGAL DECISION MAKER -the patient is currently able to participate in his own healthcare decision making though defers to his Sharon. Should he become completely incapacitated any time in the absence of a documented living will per [place] statutes decision making would fall to his by proxy Sharon Da Silva [phone] * GOALS - We discussed in detail with RN (Linda) at bedside, should his clinical status deteriorate again to the point of requiring cardiopulmonary resuscitation, would he want intubation and CPR. The risks, benefits, and burdens of such were explained and the patient stated he did not want that. Dr. Vidal was also present for part of the conversation. He discussed the need for ischemic cardiac workout including cardiac cath at some point. The patient also verbalized that he would not want to have this procedure done. He verbalized that he just wants to get comfortable and go back home. Discussed case with patient's via telephone. Discussed patient's current clinical condition. He was informed that he has been taken off BiPAP though may require some supplemental oxygenation. We did talk about his unknown etiology concerning his N STEMI and acute respiratory failure. We also discussed how he has an increased probability of suffering another event in the near future. The patient's stated that she and her had talked about situations like this numerous times prior to this hospitalization. They both voiced their desire to be a DNR and not desire heroic measures. I informed her that her had stated as much to myself and numerous providers. She concurs with this thought and agrees to a DNR. * CODE STATUS -DNR * SYMPTOMS Pain - multifactorial including bedbound status, blood draws, invasive lines, tubes, procedures, etc. currently the patient verbalizes that he does not have any pain and appears comfortable. There is concern for increased respiratory depression with opiate use in this patient. Should the need arise with benefit from a small dose of oral oxycodone as needed. Would stay away from morphine use in light of patient's recent renal insufficiency. Dyspnea patient is currently been extubated and off BiPAP since this morning. Does have periods of desaturation. Encourage cold pulmonary toilet and frequent repositioning. Did discuss at length with patient and the need for possible reintubation and accumulation of CO2 causing confusion. They would be amenable to BiPAP but do not want further intubation. Palliative care will continue to follow during hospital course as condition evolves, to assist patient/decision maker with understanding of medical conditions, weighing benefits/burdens of treatment options, for clarification of goals of treatment. Additionally will assist with any symptoms of palliative concern. Appreciation Thank you for the opportunity to participate in the care of Avinash Saha. Attestation Attestation: To help prompt me to consider important information that might be impacting today's encounter and assessment, information from prior notes written by myself or my colleagues may have been "brought forward" into today's note. My signature on this note, however, is an attestation that I personally performed the exam, history, and/or decision-making noted today, and, unless otherwise indicated, the interactions with patient, family, and staff as well as the review of records all occurred today. I also attest that the listed assessment and stated plan reflect my best clinical judgment today based on the combination of historical information, prior notes, and today's exam/ interactions. When time spent is documented, it refers only to time spent today by the signer, or if indicated, combined time spent today by collaborating physician/nurse practitioner.
[2017-12-17] MEDS: Heparin Drip 25,000 UNIT/250 ML BAG IV.CONT PRN (15:36)
[2017-12-17] MEDS: Piperacil/Tazo 3.375 GM Premix 50 ML IV.SIG SCH ×2 (17:42→23:13)
--- NOTE | 2017-12-17 23:28 | P.PNCA ---
Subjective Interval history: Off Bipap Palliative care at the bedside discussing goals with patient Medications and Allergies Active Medications: Active Medications Acetaminophen (Tylenol) 650 mg PO Q6H PRN PRN Reason: PAIN 1-10 AND/OR FEVER >101F Al Hydroxide/Mg Hydroxide (Milk Of Magnesia Liq) 30 ml PO Q12H PRN PRN Reason: Mild Constipation Albuterol (Albuterol Neb (Prn)) 2.5 mg NEB Q2HR NEB PRN PRN Reason: SHORTNESS OF BREATH/WHEEZING Albuterol (Duoneb Neb ([facility])) 1 ampul NEB Q4HR NEB [facility] Last Admin: 12/17/17 19:43 Dose: 1 ampul Artificial Tears (Tears Naturale Opth Drops) 1 drop EACH EYE TID [facility] Last Admin: 12/17/17 17:37 Dose: 1 drop Aspirin (Aspirin Chew) 81 mg PO DAILY [facility] Last Admin: 12/17/17 09:18 Dose: 81 mg Atorvastatin Calcium (Lipitor) 40 mg PO DAILY [facility] Last Admin: 12/17/17 09:18 Dose: 40 mg Bisacodyl (Dulcolax Supp) 10 mg RECTAL DAILY PRN PRN Reason: SEVERE CONSITIPATION Bumetanide (Bumex Inj) 2 mg IV.PUSH BID [facility] Last Admin: 12/17/17 21:12 Dose: 2 mg Chlorhexidine Gluconate (Chlorhexidine 2% Cloth) 3 pack TOPICAL DAILY@0400 [facility] Stop: 12/20/17 03:59 Last Admin: 12/17/17 06:53 Dose: 3 pack Chlorhexidine Gluconate (Chlorhexidine 2% Cloth) 3 pack TOPICAL DAILY@0400 PRN PRN Reason: Extra cloth needed Stop: 12/20/17 03:59 Chlorhexidine Gluconate (Peridex 0.12% Oral Kit) 15 ml OROPHARYNG BID@0800, 2000 [facility] Last Admin: 12/17/17 21:13 Dose: Not Given Dextrose (D50w Vial) 50 ml IV.PUSH UNSCH PRN PRN Reason: PER HYPOGLYCEMIA PROTOCOL Diltiazem HCl (Cardizem) 60 mg PO QID [facility] Last Admin: 12/17/17 21:13 Dose: Not Given Enalapril Maleate (Vasotec) 2.5 mg PO DAILY [facility] Last Admin: 12/17/17 09:18 Dose: 2.5 mg Glucagon (Glucagon Inj) 1 mg OTHER PRN PRN PRN Reason: for Hypoglycemia Protocol Heparin Sodium (Porcine) (Heparin Inj) 2,500 units IV.PUSH UNSCH PRN PRN Reason: aPTT 25-39 Last Admin: 12/15/17 01:38 Dose: 2,500 units Heparin Sodium (Porcine) (Heparin Inj) 5,000 units IV.PUSH UNSCH PRN PRN Reason: aPTT < 25 Hydralazine HCl (Apresoline Inj) 10 mg IV.PUSH Q6H PRN PRN Reason: SBP>160, DBP>90 Last Admin: 12/15/17 14:26 Dose: 10 mg Heparin Sodium/Dextrose (Heparin/D5w 25,000 U/250 Ml) 25,000 unit in 250 mls @ 10 mls/hr IV.CONT TITRATE PRN; Protocol PRN Reason: Per Protocol Last Admin: 12/17/17 15:36 Dose: 1,100 units/hr, 11 mls/hr Sodium Chloride (1/2 Normal Saline Inj) 1,000 mls @ 84 mls/hr IV.CONT .[id number] [facility] Last Admin: 12/17/17 21:13 Dose: 84 mls/hr Piperacillin/Tazobactam/Dextrose (Zosyn 3.375 Gm Premix) 50 mls @ 200 mls/hr IV.SIG Q6H [facility] Last Admin: 12/17/17 23:13 Dose: 100 mls/hr Insulin Aspart (Novolog Insulin [place] Sugar Inj) 0 unit SQ Q6HR [facility]; Protocol Last Admin: 12/17/17 17:42 Dose: Not Given Lactulose (Lactulose Liq) 30 ml PO DAILY PRN PRN Reason: SEVERE CONSITIPATION Miscellaneous Medication () 1 each OROPHARYNG 0000,0400,1200,1600 [facility] Last Admin: 12/17/17 16:07 Dose: Not Given Pantoprazole Sodium (Protonix Inj) 40 mg IV.PUSH DAILY [facility] Last Admin: 12/17/17 09:19 Dose: 40 mg Senna/Docusate Sodium (Marian-Colace) 1 tab PO BID [facility] Last Admin: 12/17/17 21:14 Dose: Not Given Sennosides (Senokot) 17.2 mg PO Q12H PRN PRN Reason: Moderate Constipation Sodium Chloride (Ns Flush) 2 ml IV.FLUSH BID [facility] Last Admin: 12/17/17 21:13 Dose: 2 ml Sodium Chloride (Ns Flush) 2 ml IV.FLUSH PRN PRN PRN Reason: FLUSH AFTER USING IV ACCESS Thyroid ([place] Thyroid) 30 mg PO DAILY@0600 [facility] Last Admin: 12/17/17 13:15 Dose: 30 mg Allergies Allergy/AdvReac Type Severity Reaction Status Date / Time No Known Allergies Allergy Verified 12/14/17 14:49 Home Medications Medication Instructions Recorded Confirmed Type esomeprazole magnesium [Nexium 20 mg PO DAILY 12/14/17 12/14/17 History 24HR] glipizide 5 mg PO DAILY 12/14/17 12/14/17 History potassium chloride 10 meq PO DAILY 12/14/17 12/14/17 History tiotropium-olodaterol [Stiolto 2 puff INHALATION DAILY 12/14/17 12/14/17 History Respimat] tizanidine 4 mg PO BID 12/14/17 12/14/17 History thyroid (pork) 30 mg PO DAILY 12/17/17 12/17/17 History Physical Exam Vital signs: Vital Signs 12/17/17 00:00 12/17/17 00:12 12/17/17 00:38 Temperature 98.5 F Pulse Rate 57 L 60 Respiratory Rate 16 20 Blood Pressure 114/58 L Pulse Oximetry 97 98 98 12/17/17 00:39 12/17/17 01:00 12/17/17 02:00 Temperature Pulse Rate 65 59 L 59 L Respiratory Rate 20 17 15 Blood Pressure 108/56 L 116/64 Pulse Oximetry 97 98 12/17/17 03:00 12/17/17 03:01 12/17/17 04:00 Temperature Pulse Rate 60 60 59 L Respiratory Rate 19 11 L 14 Blood Pressure 129/61 122/61 Pulse Oximetry 97 97 96 12/17/17 04:26 12/17/17 05:00 12/17/17 06:00 Temperature Pulse Rate 65 60 62 Respiratory Rate 14 12 15 Blood Pressure 118/68 131/66 Pulse Oximetry 96 97 98 12/17/17 07:00 12/17/17 08:00 12/17/17 08:12 Temperature 97.1 F L Pulse Rate 65 65 68 Respiratory Rate 18 19 20 Blood Pressure 124/68 124/60 Pulse Oximetry 98 19 L 12/17/17 08:25 12/17/17 08:46 12/17/17 09:00 Temperature Pulse Rate 62 Respiratory Rate 19 Blood Pressure 117/58 L Pulse Oximetry 91 L 96 96 12/17/17 10:00 12/17/17 10:59 12/17/17 11:00 Temperature Pulse Rate 70 59 L 64 Respiratory Rate 23 20 20 Blood Pressure 114/54 L 102/56 L Pulse Oximetry 97 97 12/17/17 12:00 12/17/17 13:00 12/17/17 14:00 Temperature 97.4 F L Pulse Rate 56 L 61 65 Respiratory Rate 15 19 19 Blood Pressure 105/58 L 94/59 L 109/53 L Pulse Oximetry 94 L 98 94 L 12/17/17 14:34 12/17/17 15:00 12/17/17 16:00 Temperature Pulse Rate 68 64 73 Respiratory Rate 24 27 H 23 Blood Pressure 107/51 L 112/56 L Pulse Oximetry 92 L 92 L 12/17/17 17:00 12/17/17 18:00 12/17/17 19:43 Temperature 97.5 F L Pulse Rate 72 75 65 Respiratory Rate 22 45 H 21 Blood Pressure 114/53 L 98/54 L Pulse Oximetry 95 84 L 95 12/17/17 20:00 12/17/17 22:00 Temperature 98 F Pulse Rate 63 65 Respiratory Rate 20 Blood Pressure 103/51 L Pulse Oximetry 100 Intake & Output 12/17/17 12/17/17 12/18/17 06:59 18:59 06:59 Intake Total 400 / 400 1728.2 / 1728.2 1000 / 1000 Output Total 300 / 300 450 / 450 Balance 100 / 100 1278.2 / 1278.2 1000 / 1000 Weight 94.6 kg Intake: IV 200 / 200 1008.2 / 1008.2 1000 / 1000 Heparin/D5W 25,000 U/250 mL 25, 247 / 247 000 unit In 250 ml @ 1,000 UNITS/HR 10 mls/hr IV.CONT TITRATE PRN Rx#:[id number] 1/2 Normal Saline Inj 1,000 ML 1000 / 1000 @ 84 mls/hr IV.CONT .[id number] [facility] Rx#:[id number] MVI-12 Inj 10 ML Thiamine Inj 511.2 / 511.2 100 MG Folvite Inj 1 MG In NS Inj 500 ML @ 125 mls/hr IV.SIG Q24H [facility] Rx#:[id number] Zosyn 3.375 GM Premix 50 ML @ 50 / 50 200 mls/hr IV.SIG Q6H [facility] Rx#: [id number] Zosyn 4.5 GM Premix 4.5 gm In 200 / 200 200 / 200 100 ml @ 200 mls/hr IV.SIG Q6H [facility] Rx#:[id number] Oral 200 / 200 720 / 720 Output: Urine Amount (Catheter) 300 / 300 450 / 450 Indwelling Urethral Catheter 300 / 300 450 / 450 Narrative: GENERAL: Well-nourished, well-developed obese patient. On BiPAP SKIN: Warm and dry. HEAD: Normocephalic. EYES: No scleral icterus. No injection or drainage. NECK: Supple, trachea midline. No JVD or lymphadenopathy. CARDIOVASCULAR: Regular rate and rhythm without murmurs, gallops, or rubs. RESPIRATORY: Breath sounds diminished at bases GASTROINTESTINAL: Abdomen soft, non-tender, nondistended. EXTREMITIES: 1+ edema NEUROLOGICAL: Awake, alert, . - Urinary Catheter Management Indwelling Urethral Catheter Cath placed during this visit: yes Reason for continuing: Hourly intake/output Insertion date: 12/14/17 Insertion time: 15:00 Results 12/17/17 08:06 12/17/17 08:06 Cardiac Enzymes 12/16/17 12/16/17 12/17/17 Range/Units 00:08 06:38 03:43 AST 42 H 39 H (15-37) U/L Troponin I 0.93 H* 0.88 H* (0.02-0.05) ng/mL 12/17/17 Range/Units 08:06 AST 37 (15-37) U/L Troponin I (0.02-0.05) ng/mL Coagulation 12/16/17 12/17/17 Range/Units 06:38 03:43 APTT 50.3 H 47.7 H (23.4-31.7) sec CBC 12/16/17 12/17/17 12/17/17 Range/Units 06:28 03:43 08:06 WBC 10.7 10.2 9.6 (4.0-11.0) th/mm3 RBC 4.36 L 4.17 L 4.09 L (4.50-5.90) mil/mm3 Hgb 14.4 13.5 13.2 (13.0-17.0) gm/dL Hct 42.8 40.7 40.6 (39.0-51.0) % Plt Count 148 L 143 L 151 (150-450) th/mm3 Neut # (Auto) 9.0 H 8.3 H 7.7 (1.8-7.7) th/mm3 Lymph # (Auto) 0.8 L 0.7 L 0.8 L (1.0-4.8) th/mm3 [place] # (Auto) 0.9 1.0 H 0.9 (0.0-0.9) th/mm3 Eos # (Auto) 0.1 0.1 0.1 (0.0-0.4) th/mm3 Baso # (Auto) 0.0 0.0 0.0 (0.0-0.2) th/mm3 Comprehensive Metabolic Panel 12/16/17 12/16/17 12/17/17 Range/Units 06:38 18:15 03:43 Sodium 145 147 H (136-145) meq/L Potassium 3.2 L 3.1 L 3.4 L (3.5-5.1) meq/L Chloride 104 104 (98-107) meq/L Carbon Dioxide 34.5 H 31.7 (21.0-32.0) meq/L BUN 13 20 H (7-18) mg/dL Creatinine 1.03 2.25 H (0.60-1.30) mg/dL Calcium 7.9 L 7.8 L (8.5-10.1) mg/dL AST 42 H 39 H (15-37) U/L ALT 37 35 (12-78) U/L Alkaline Phosphatase 43 L 38 L (45-117) U/L Total Protein 6.3 L 5.9 L (6.4-8.2) g/dL Albumin 2.9 L 2.5 L (3.4-5.0) g/dL 12/17/17 Range/Units 08:06 Sodium 144 (136-145) meq/L Potassium 3.3 L (3.5-5.1) meq/L Chloride 104 (98-107) meq/L Carbon Dioxide 33.8 H (21.0-32.0) meq/L BUN 21 H (7-18) mg/dL Creatinine 2.47 H (0.60-1.30) mg/dL Calcium 8.0 L (8.5-10.1) mg/dL AST 37 (15-37) U/L ALT 36 (12-78) U/L Alkaline Phosphatase 39 L (45-117) U/L Total Protein 6.0 L (6.4-8.2) g/dL Albumin 2.5 L (3.4-5.0) g/dL Intake and Output 12/17/17 12/17/17 12/18/17 14:59 22:59 06:59 Intake Total 611.2 / 611.2 2117 / 2117 Output Total 450 / 450 Balance 611.2 / 611.2 1667 / 1667 Intake: IV 611.2 / 611.2 1397 / 1397 Heparin/D5W 25,000 U/250 mL 25, 247 / 247 000 unit In 250 ml @ 1,000 UNITS/HR 10 mls/hr IV.CONT TITRATE PRN Rx#:[id number] 1/2 Normal Saline Inj 1,000 ML 1000 / 1000 @ 84 mls/hr IV.CONT .[id number] [facility] Rx#:[id number] MVI-12 Inj 10 ML Thiamine Inj 511.2 / 511.2 100 MG Folvite Inj 1 MG In NS Inj 500 ML @ 125 mls/hr IV.SIG Q24H [facility] Rx#:[id number] Zosyn 3.375 GM Premix 50 ML @ 50 / 50 200 mls/hr IV.SIG Q6H [facility] Rx#: [id number] Zosyn 4.5 GM Premix 4.5 gm In 100 / 100 100 / 100 100 ml @ 200 mls/hr IV.SIG Q6H [facility] Rx#:[id number] Oral 720 / 720 Output: Urine Amount (Catheter) 450 / 450 Indwelling Urethral Catheter 450 / 450 - Imaging and Cardiology Imaging: Impressions Abdomen/Bladder Ultrasound 12/17/17 00:00 CONCLUSION: 1. Kidneys are borderline echogenic which can be seen with medical renal disease. 2. Left renal cyst. 3. Liver appears echogenic which can be seen with hepatic steatosis/ hepatocellular dysfunction. Chest X-Ray 12/17/17 00:00 CONCLUSION: Diminished lung volumes and minimal bibasilar densities, greater left lower lobe Assessment and Plan - Assessment (1) Encephalopathy acute Code(s): G93.40 - Encephalopathy, unspecified Status: Acute (2) Acute non-ST elevation myocardial infarction (NSTEMI) Code(s): I21.4 - Non-ST elevation (NSTEMI) myocardial infarction Status: Acute (3) Respiratory failure requiring intubation Code(s): J96.90 - Respiratory failure, unspecified, unspecified whether with hypoxia or hypercapnia Status: Acute - Plan 1) Encephalopathy, resolved Presented with GCS of 3, possible carbon dioxide retention? Resolved now 2) Acute respiratory failure s/p extubation 3) NSTEMI Probable type 2 Discussed with him on multiple days about consideration of ischemic work up He declines ischemic work up, understands risks/benefits Discussed with Palliative care, patient is DNR Will continue to treat medically per the patient's wishes 4) EF 55-60%
[2017-12-18] MEDS: Insulin NovoLOG Aspart Correctional Sugar Inj SQ SCH ×5 (03:03→23:56)
[2017-12-18] MEDS: Oral Hygiene Kit OROPHARYNG SCH ×5 (03:04→23:57)
[2017-12-18] MEDS: Chlorhexidine Gluconate 2% 1 Pack (2 Cloths) TOPICAL SCH (04:15)
[2017-12-18] MEDS: Piperacil/Tazo 3.375 GM Premix 50 ML IV.SIG SCH ×4 (05:39→23:57)
[2017-12-18 06:05] LABS: Baso % (Auto) 0.3 % (0.0-2.0); Eos # (Auto) 0.2 th/mm3 (0.0-0.4); Eos % (Auto) 2.2 % (0.0-4.0); Hematocrit 40.8 % (39.0-51.0); Hemoglobin 13.2 gm/dL (13.0-17.0); Lymph # (Auto) 0.8 th/mm3 (1.0-4.8); Lymph % (Auto) 9.7 % (9.0-44.0); Mean Corpuscular HGB Conc 32.4 % (32.0-36.0); Mean Corpuscular Hemoglobin 31.9 pg (27.0-34.0); Mean Corpuscular Volume 98.6 fL (80.0-100.0); Mono # (Auto) 0.8 th/mm3 (0.0-0.9); Mono % (Auto) 9.9 % (0.0-8.0); Neut # (Auto) 6.5 th/mm3 (1.8-7.7); Neut % (Auto) 77.9 % (16.0-70.0); Platelet Count 150 th/mm3 (150-450); Red Blood Count 4.13 mil/mm3 (4.50-5.90); Red Cell Distribution Width 14.8 % (11.6-17.2); White Blood Count 8.4 th/mm3 (4.0-11.0)
[2017-12-18 06:27] LABS: Alanine Aminotransferase 46 U/L (12-78); Albumin 2.8 g/dL (3.4-5.0); Anion Gap 10 meq/L (5-15); Aspartate Aminotransferase 44 U/L (15-37); Blood Urea Nitrogen 24 mg/dL (7-18); Calcium 8.2 mg/dL (8.5-10.1); Carbon Dioxide 32.7 meq/L (21.0-32.0); Chloride 99 meq/L (98-107); Glomerular Filtration Rate 18 mL/min (>89); Glucose,Random 96 mg/dL (74-106); Magnesium 2.1 mg/dL (1.5-2.5); Phosphorus 4.7 mg/dL (2.5-4.9); Potassium 3.3 meq/L (3.5-5.1); Sodium 142 meq/L (136-145)
[2017-12-18 06:30] LABS: Alkaline Phosphatase 40 U/L (45-117); Total Protein 6.5 g/dL (6.4-8.2)
[2017-12-18] MEDS: Pantoprazole Inj 40 MG Vial IV.PUSH SCH (10:23)
[2017-12-18] MEDS: Senna/Docusate Sodium 8.6/50 MG Tablet PO SCH ×2 (10:24→20:42)
[2017-12-18] MEDS: dilTIAZem 60 MG Tablet PO SCH ×4 (10:24→20:42)
[2017-12-18] MEDS: Artificial Tears Opth Drops 15 ML Bottle EACH EYE SCH ×3 (11:38→18:26)
[2017-12-18] MEDS: Chlorhexidine 0.12% Oral Kit 15 ML UDC OROPHARYNG SCH ×2 (11:39→20:43)
[2017-12-18] MEDS: Sodium Chloride 0.45 % Inj 1,000 ML IV.CONT SCH ×2 (11:39→23:59)
--- NOTE | 2017-12-18 12:38 | P.PNNP ---
Subjective Interval history: Patient did improve and off BiPAP urine output increased Physical Exam Vital signs: Vital Signs 12/17/17 13:00 12/17/17 14:00 12/17/17 14:34 Temperature Pulse Rate 61 65 68 Respiratory Rate 19 19 24 Blood Pressure 94/59 L 109/53 L Pulse Oximetry 98 94 L 12/17/17 15:00 12/17/17 16:00 12/17/17 17:00 Temperature Pulse Rate 64 73 72 Respiratory Rate 27 H 23 22 Blood Pressure 107/51 L 112/56 L 114/53 L Pulse Oximetry 92 L 92 L 95 12/17/17 18:00 12/17/17 19:43 12/17/17 20:00 Temperature 97.5 F L 98 F Pulse Rate 75 65 63 Respiratory Rate 45 H 21 20 Blood Pressure 98/54 L 103/51 L Pulse Oximetry 84 L 95 100 12/17/17 22:00 12/17/17 23:33 12/18/17 00:00 Temperature 98.4 F Pulse Rate 65 97 H 76 Respiratory Rate 18 22 Blood Pressure 140/64 Pulse Oximetry 94 L 12/18/17 01:13 12/18/17 02:00 12/18/17 03:36 Temperature Pulse Rate 62 67 Respiratory Rate 17 Blood Pressure Pulse Oximetry 94 L 12/18/17 04:00 12/18/17 04:46 12/18/17 06:00 Temperature 99.1 F Pulse Rate 71 59 L Respiratory Rate 22 Blood Pressure 152/68 H Pulse Oximetry 93 L 97 12/18/17 07:43 12/18/17 07:44 12/18/17 08:00 Temperature Pulse Rate 66 Respiratory Rate 18 Blood Pressure Pulse Oximetry 98 95 12/18/17 08:49 12/18/17 11:22 Temperature Pulse Rate 73 Respiratory Rate 20 Blood Pressure Pulse Oximetry 93 L Intake & Output 12/17/17 12/18/17 12/18/17 18:59 06:59 18:59 Intake Total 1728.2 / 1728.2 1050 / 1050 1000 / 1000 Output Total 450 / 450 975 / 975 Balance 1278.2 / 1278.2 75 / 75 1000 / 1000 Weight 97.5 kg Intake: IV 1008.2 / 1008.2 1050 / 1050 1000 / 1000 Heparin/D5W 25,000 U/250 mL 25, 247 / 247 000 unit In 250 ml @ 1,000 UNITS/HR 10 mls/hr IV.CONT TITRATE PRN Rx#:[id number] 1/2 Normal Saline Inj 1,000 ML 1000 / 1000 1000 / 1000 @ 84 mls/hr IV.CONT .[id number] [facility] Rx#:[id number] MVI-12 Inj 10 ML Thiamine Inj 511.2 / 511.2 100 MG Folvite Inj 1 MG In NS Inj 500 ML @ 125 mls/hr IV.SIG Q24H [facility] Rx#:[id number] Zosyn 3.375 GM Premix 50 ML @ 50 / 50 50 / 50 200 mls/hr IV.SIG Q6H [facility] Rx#: [id number] Zosyn 4.5 GM Premix 4.5 gm In 200 / 200 100 ml @ 200 mls/hr IV.SIG Q6H [facility] Rx#:[id number] Oral 720 / 720 Output: Urine Amount (Catheter) 450 / 450 975 / 975 Indwelling Urethral Catheter 450 / 450 975 / 975 Narrative: GENERAL: Well-nourished, well-developed obese patient. On BiPAP SKIN: Warm and dry. HEAD: Normocephalic. EYES: No scleral icterus. No injection or drainage. NECK: Supple, trachea midline. No JVD or lymphadenopathy. CARDIOVASCULAR: Regular rate and rhythm without murmurs, gallops, or rubs. RESPIRATORY: Breath sounds diminished at bases GASTROINTESTINAL: Abdomen soft, non-tender, nondistended. EXTREMITIES: 1+ edema NEUROLOGICAL: Awake, alert, . - Urinary Catheter Management Indwelling Urethral Catheter Cath placed during this visit: yes Reason for continuing: Hourly intake/output Insertion date: 12/14/17 Insertion time: 15:00 Assessment and Plan - Assessment (1) Acute renal failure Code(s): N17.9 - Acute kidney failure, unspecified Status: Acute Plan: Acute renal failure is due to contrast-induced nephropathy, good response to Bumex 1.4 L off I will DC Bumex and give him potassium supplement, Diamox and restarted from tomorrow 500 mg IV daily Creatinine is still higher he is getting IV fluids which I will cut back Follow BMP Avoid nephrotoxic agents Continue to monitor intake and output (2) COPD exacerbation Code(s): J44.1 - Chronic obstructive pulmonary disease with (acute) exacerbation Status: Acute Plan: Patient is under treatment (3) Respiratory failure Code(s): J96.90 - Respiratory failure, unspecified, unspecified whether with hypoxia or hypercapnia Status: Acute Plan: On BiPAP (4) Diabetes Code(s): E11.9 - Type 2 diabetes mellitus without complications Status: Acute Plan: Monitor blood glucose (5) Acute non-ST elevation myocardial infarction (NSTEMI) Code(s): I21.4 - Non-ST elevation (NSTEMI) myocardial infarction Status: Acute Plan: Cardiology is following
[2017-12-18] MEDS: Heparin Drip 25,000 UNIT/250 ML BAG IV.CONT PRN (15:41)
[2017-12-18] MEDS: Potassium Chloride 8 MEQ ER Capsule PO SCH (15:42)
--- NOTE | 2017-12-18 17:12 | P.PNPAL ---
Reason for Visit Reason for visit: a. To assist with evaluation and management of symptoms including:pain, dyspnea , confusion b. To assist medical decision maker(s) with: better understanding of current medical conditions; weighing benefits/burdens of medical treatment options; making medical treatment decisions. Subjective Subjective/Interval History: Mr. Da Silva is an 81-year-old male who presented to [facility] emergency room on 12/14/17 with shortness of breath and altered mental status. Apparently he was found unresponsive by the family who then called 911. During his ambulance ride to the hospital he quickly decompensated to a GCS of 3, requiring emergent intubation. Per the family, the patient has a past medical history of hypothyroidism, GERD, COPD, diabetes, cyst of spinal meninges, and heart failure. Due to the perplexing nature of this patient's presentation and unsure etiology of his altered mental status he was admitted for further evaluation and treatment. The patient was transferred to the medical ICU for further evaluation. Dr. Vidal (Cardiology) was consulted for N STEMI, with unclear etiology. He felt this was unlikely due to CHF ordered a 2D echo. And suggest the patient be started on a heparin drip. 2D echo showed an EF of 55-60% with trace mitral valve and aortic valve regurgitation. There was aortic valve sclerosis and estimated pulmonary arterial pressure of 44 mmHg. Intensive care ordered CTA which was negative for PE. The patient was extubated to BiPAP 15/8 with 40% FiO2 on 12/16/17. Today his BiPAP settings were slightly increased to 18/8 remaining on 40% FiO2. His renal functioning was noted to be increasing in nephrology was consulted. Nephrology did note patient had probable medical renal disease. 12/18/17 Palliative care to follow with symptom management and to assist with continued medical goals. Patient continues to require Bipap on and off throughout the day. He states he feels his breathing has improved but still appears to have some increased work of breathing. Kidney function continues to trend upward. Nephrology started Diamox today. Patient was able to pass swallow eval today and cleared for regular diet with thin liquids. Today clinical's data revealed: * WBC 8.4, Hgb 13.2, HCT 40.8, platelets 150 * NA 142, K+ 3.3, CL 99, CO2 32.7, BUN 24, creatinine 3.31, glucose 96 * Total bili 1.0, AST 44, ALT 46, alk phos 40, albumin 2.8 Family/Friend Interactions: Update given to patient's , Sharon Da Silva [phone]: Discussed patient's clinical course. We she is aware he is requiring BiPAP usage throughout the night and periodically throughout the day coupled with O2 use via nasal cannula ranging from 2-4 L she reiterates that he was not on oxygen prior to this admission at home. Discussed upward trend in kidney function and explained how this can happen in critically ill patients but we will continue to monitor. We did talk about her plans after the patient was discharged. We briefly talked about hospice and the support that they can provide for her at home. She states that she is well aware of hospice services but declined to discuss further at this time. They plan to hopefully discharge to an [facility] back in [place] near their children. Advance Directives Health Care Surrogate Name and Number: Sharon Da Silva, /HCP [phone] Documented care wishes:: The patient does not currently have a documented living will or durable power of coordinator of online programs Significant change in goals:: No significant goals and care. The patient will remain a DNR. They have declined further cardiac workup but would still like aggressive treatment up to the point of requiring cardiopulmonary resuscitation. Objective Vital Signs: Vital Signs 12/17/17 17:00 12/17/17 18:00 12/17/17 19:43 Temperature 97.5 F L Pulse Rate 72 75 65 Respiratory Rate 22 45 H 21 Blood Pressure 114/53 L 98/54 L Pulse Oximetry 95 84 L 95 12/17/17 20:00 12/17/17 22:00 12/17/17 23:33 Temperature 98 F Pulse Rate 63 65 97 H Respiratory Rate 20 18 Blood Pressure 103/51 L Pulse Oximetry 100 12/18/17 00:00 12/18/17 01:13 12/18/17 02:00 Temperature 98.4 F Pulse Rate 76 62 Respiratory Rate 22 Blood Pressure 140/64 Pulse Oximetry 94 L 94 L 12/18/17 03:36 12/18/17 04:00 12/18/17 04:46 Temperature 99.1 F Pulse Rate 67 71 Respiratory Rate 17 22 Blood Pressure 152/68 H Pulse Oximetry 93 L 97 12/18/17 06:00 12/18/17 07:43 12/18/17 07:44 Temperature Pulse Rate 59 L 66 Respiratory Rate 18 Blood Pressure Pulse Oximetry 98 12/18/17 08:00 12/18/17 08:49 12/18/17 10:00 Temperature 98.5 F Pulse Rate 63 80 Respiratory Rate 18 Blood Pressure 150/67 H Pulse Oximetry 95 93 L 12/18/17 11:22 12/18/17 12:00 12/18/17 14:00 Temperature 99.0 F Pulse Rate 73 79 80 Respiratory Rate 20 25 H Blood Pressure 146/65 H Pulse Oximetry 95 12/18/17 14:50 12/18/17 16:00 Temperature 98.3 F Pulse Rate 78 80 Respiratory Rate 24 22 Blood Pressure 139/60 Pulse Oximetry 91 L Intake & Output 12/17/17 12/18/17 12/18/17 18:59 06:59 18:59 Intake Total 1728.2 / 1728.2 1100 / 1100 1250 / 1250 Output Total 450 / 450 975 / 975 Balance 1278.2 / 1278.2 125 / 125 1250 / 1250 Weight 97.5 kg Intake: IV 1008.2 / 1008.2 1100 / 1100 1250 / 1250 Heparin/D5W 25,000 U/250 mL 25, 247 / 247 250 / 250 000 unit In 250 ml @ 1,000 UNITS/HR 10 mls/hr IV.CONT TITRATE PRN Rx#:[id number] 1/2 Normal Saline Inj 1,000 ML 1000 / 1000 1000 / 1000 @ 84 mls/hr IV.CONT .[id number] ANGIE Rx#:[id number] MVI-12 Inj 10 ML Thiamine Inj 511.2 / 511.2 100 MG Folvite Inj 1 MG In NS Inj 500 ML @ 125 mls/hr IV.SIG Q24H ANGIE Rx#:[id number] Zosyn 3.375 GM Premix 50 ML @ 50 / 50 100 / 100 200 mls/hr IV.SIG Q6H ANGIE Rx#: [id number] Zosyn 4.5 GM Premix 4.5 gm In 200 / 200 100 ml @ 200 mls/hr IV.SIG Q6H ANGIE Rx#:[id number] Oral 720 / 720 Output: Urine Amount (Catheter) 450 / 450 975 / 975 Indwelling Urethral Catheter 450 / 450 975 / 975 Physical Exam: CONSTITUTIONAL/GENERAL: This is an adequately nourished patient, in no apparent distress. TUBES/LINES/DRAINS:PIV, [place] EYES: Pupils equal and round and reactive. Extraocular motions intact. No scleral icterus. No injection or drainage. Fundi not examined. ENT: Hearing grossly normal. Nose without bleeding or purulent drainage. Throat without visible erythema, exudates, masses, or lesions. CARDIOVASCULAR: Sinus rhythm on tele. Regular rate and rhythm to auscultation without murmurs, gallops, or rubs. No JVD. Peripheral pulses symmetric. RESPIRATORY/CHEST: Symmetric, slightly labored respirations. Clear to auscultation. Breath sounds equal bilaterally. No wheezes, rales, or rhonchi. Diminished at the bases. Currently on 3 L nasal cannula GASTROINTESTINAL: Abdomen soft, non-tender, nondistended. No hepato-splenomegaly , or palpable masses. No guarding. Bowel sounds present. MUSCULOSKELETAL: Extremities without clubbing, cyanosis, or edema. No joint tenderness or effusion noted. No calf tenderness. No mottling or clubbing. LYMPHATICS: No palpable cervical or supraclavicular adenopathy. NEUROLOGICAL: Awake and alert. Motor and sensory grossly within normal limits. Follows commands. Moves all extremities. Oriented to self, place and year. Does not remember the day. Able to make his needs more clearly known today. Was able to verbalize the moving plan he and his have made to get back to [place] PSYCHIATRIC: No obvious anxiety/depression. no apparent hallucinations or other psychotic thought process. Diagnostic Tests Laboratory: Laboratory Results - last 72 hr 12/15/17 12/15/17 12/15/17 18:12 18:23 22:52 WBC RBC Hgb Hct MCV MCH MCHC RDW Plt Count MPV Neut % (Auto) Lymph % (Auto) Graves % (Auto) Eos % (Auto) Baso % (Auto) Neut # (Auto) Lymph # (Auto) Graves # (Auto) Eos # (Auto) Baso # (Auto) WBC Differential Differential Comment APTT Puncture Site Patient Temperature O2 Saturation ABG pH ABG pCO2 ABG pO2 ABG HCO3 ABG O2 Content ABG Base Excess ABG Methemoglobin Zhang Test Hemoglobin Carboxyhemoglobin O2 Delivery Device Vent Setting Inspired O2 Critical Value Sodium Potassium Chloride Carbon Dioxide Anion Gap BUN Creatinine Estimated GFR POC Glucose 124 H 121 H Random Glucose Calcium Phosphorus Magnesium Total Bilirubin AST ALT Alkaline Phosphatase Troponin I 0.98 H* Total Protein Albumin TSH Vancomycin Trough 12/16/17 12/16/17 12/16/17 00:08 04:46 06:28 WBC 10.7 RBC 4.36 L Hgb 14.4 Hct 42.8 MCV 98.1 MCH 33.0 MCHC 33.6 RDW 15.1 Plt Count 148 L MPV 8.4 Neut % (Auto) 83.6 H Lymph % (Auto) 7.2 L Graves % (Auto) 8.2 H Eos % (Auto) 0.7 Baso % (Auto) 0.3 Neut # (Auto) 9.0 H Lymph # (Auto) 0.8 L Graves # (Auto) 0.9 Eos # (Auto) 0.1 Baso # (Auto) 0.0 WBC Differential . Differential Comment Auto diff final APTT Puncture Site Patient Temperature O2 Saturation ABG pH ABG pCO2 ABG pO2 ABG HCO3 ABG O2 Content ABG Base Excess ABG Methemoglobin Zhang Test Hemoglobin Carboxyhemoglobin O2 Delivery Device Vent Setting Inspired O2 Critical Value Sodium Potassium Chloride Carbon Dioxide Anion Gap BUN Creatinine Estimated GFR POC Glucose 102 Random Glucose Calcium Phosphorus Magnesium Total Bilirubin AST ALT Alkaline Phosphatase Troponin I 0.93 H* Total Protein Albumin TSH Vancomycin Trough 12/16/17 12/16/17 12/16/17 06:38 06:38 08:50 WBC RBC Hgb Hct MCV MCH MCHC RDW Plt Count MPV Neut % (Auto) Lymph % (Auto) Graves % (Auto) Eos % (Auto) Baso % (Auto) Neut # (Auto) Lymph # (Auto) Graves # (Auto) Eos # (Auto) Baso # (Auto) WBC Differential Differential Comment APTT 50.3 H Puncture Site Left radial Patient Temperature 98.6 O2 Saturation 93 ABG pH 7.34 L ABG pCO2 58 H* ABG pO2 96 ABG HCO3 31 H ABG O2 Content 18.9 ABG Base Excess 5.2 H ABG Methemoglobin 1.9 Zhang Test Present Hemoglobin 14.3 Carboxyhemoglobin 1.1 O2 Delivery Device Bipap Vent Setting 15/5/40 Inspired O2 40 Critical Value Yes Sodium 145 Potassium 3.2 L Chloride 104 Carbon Dioxide 34.5 H Anion Gap 7 BUN 13 Creatinine 1.03 Estimated GFR 69 L POC Glucose Random Glucose 103 Calcium 7.9 L Phosphorus 4.3 D Magnesium 2.0 Total Bilirubin 1.0 AST 42 H ALT 37 Alkaline Phosphatase 43 L Troponin I 0.88 H* Total Protein 6.3 L Albumin 2.9 L TSH Vancomycin Trough 12/16/17 12/16/17 12/16/17 11:45 12:10 18:15 WBC RBC Hgb Hct MCV MCH MCHC RDW Plt Count MPV Neut % (Auto) Lymph % (Auto) Graves % (Auto) Eos % (Auto) Baso % (Auto) Neut # (Auto) Lymph # (Auto) Graves # (Auto) Eos # (Auto) Baso # (Auto) WBC Differential Differential Comment APTT Puncture Site Left radial Patient Temperature 98.6 O2 Saturation 92 ABG pH 7.35 L ABG pCO2 58 H* ABG pO2 81 ABG HCO3 31 H ABG O2 Content 18.4 ABG Base Excess 5.8 H ABG Methemoglobin 1.9 Zhang Test Present Hemoglobin 14.2 Carboxyhemoglobin 1.0 O2 Delivery Device Bipap Vent Setting 30/09/39 Inspired O2 40 Critical Value Yes Sodium Potassium Chloride Carbon Dioxide Anion Gap BUN Creatinine Estimated GFR POC Glucose 120 H Random Glucose Calcium Phosphorus Magnesium Total Bilirubin AST ALT Alkaline Phosphatase Troponin I Total Protein Albumin TSH Vancomycin Trough 23.8 H 12/16/17 12/16/17 12/17/17 18:15 18:42 00:14 WBC RBC Hgb Hct MCV MCH MCHC RDW Plt Count MPV Neut % (Auto) Lymph % (Auto) Graves % (Auto) Eos % (Auto) Baso % (Auto) Neut # (Auto) Lymph # (Auto) Graves # (Auto) Eos # (Auto) Baso # (Auto) WBC Differential Differential Comment APTT Puncture Site Patient Temperature O2 Saturation ABG pH ABG pCO2 ABG pO2 ABG HCO3 ABG O2 Content ABG Base Excess ABG Methemoglobin Zhang Test Hemoglobin Carboxyhemoglobin O2 Delivery Device Vent Setting Inspired O2 Critical Value Sodium Potassium 3.1 L Chloride Carbon Dioxide Anion Gap BUN Creatinine Estimated GFR POC Glucose 111 H 110 Random Glucose Calcium Phosphorus Magnesium Total Bilirubin AST ALT Alkaline Phosphatase Troponin I Total Protein Albumin TSH Vancomycin Trough 12/17/17 12/17/17 12/17/17 03:43 03:43 03:43 WBC 10.2 RBC 4.17 L Hgb 13.5 Hct 40.7 MCV 97.6 MCH 32.5 MCHC 33.3 RDW 15.1 Plt Count 143 L MPV 8.7 Neut % (Auto) 81.1 H Lymph % (Auto) 7.3 L Graves % (Auto) 10.2 H Eos % (Auto) 1.0 Baso % (Auto) 0.4 Neut # (Auto) 8.3 H Lymph # (Auto) 0.7 L Graves # (Auto) 1.0 H Eos # (Auto) 0.1 Baso # (Auto) 0.0 WBC Differential . Differential Comment Auto diff final APTT 47.7 H Puncture Site Patient Temperature O2 Saturation ABG pH ABG pCO2 ABG pO2 ABG HCO3 ABG O2 Content ABG Base Excess ABG Methemoglobin Zhang Test Hemoglobin Carboxyhemoglobin O2 Delivery Device Vent Setting Inspired O2 Critical Value Sodium 147 H Potassium 3.4 L Chloride 104 Carbon Dioxide 31.7 Anion Gap 11 BUN 20 H Creatinine 2.25 H Estimated GFR 28 L POC Glucose Random Glucose 84 Calcium 7.8 L Phosphorus 4.9 Magnesium 2.1 Total Bilirubin 1.1 H AST 39 H ALT 35 Alkaline Phosphatase 38 L Troponin I Total Protein 5.9 L Albumin 2.5 L TSH Vancomycin Trough 12/17/17 12/17/17 12/17/17 08:06 08:06 10:20 WBC 9.6 RBC 4.09 L Hgb 13.2 Hct 40.6 MCV 99.4 MCH 32.3 MCHC 32.5 RDW 15.3 Plt Count 151 MPV 9.4 Neut % (Auto) 80.7 H Lymph % (Auto) 8.2 L Graves % (Auto) 9.2 H Eos % (Auto) 1.5 Baso % (Auto) 0.4 Neut # (Auto) 7.7 Lymph # (Auto) 0.8 L Graves # (Auto) 0.9 Eos # (Auto) 0.1 Baso # (Auto) 0.0 WBC Differential . Differential Comment Auto diff final APTT Puncture Site Right radial Patient Temperature 98.6 O2 Saturation 92 ABG pH 7.33 L ABG pCO2 59 H* ABG pO2 81 ABG HCO3 30 H ABG O2 Content 17.9 ABG Base Excess 4.3 H ABG Methemoglobin 1.9 Zhang Test Present Hemoglobin 13.8 Carboxyhemoglobin 0.9 O2 Delivery Device Bipap/18ipap/8epap Vent Setting Inspired O2 40 Critical Value Yes Sodium 144 Potassium 3.3 L Chloride 104 Carbon Dioxide 33.8 H Anion Gap 6 BUN 21 H Creatinine 2.47 H Estimated GFR 25 L POC Glucose Random Glucose 124 H Calcium 8.0 L Phosphorus Magnesium Total Bilirubin 1.0 AST 37 ALT 36 Alkaline Phosphatase 39 L Troponin I Total Protein 6.0 L Albumin 2.5 L TSH 2.370 Vancomycin Trough 12/17/17 12/17/17 12/18/17 13:04 23:16 05:08 WBC 8.4 RBC 4.13 L Hgb 13.2 Hct 40.8 MCV 98.6 MCH 31.9 MCHC 32.4 RDW 14.8 Plt Count 150 MPV 9.0 Neut % (Auto) 77.9 H Lymph % (Auto) 9.7 Graves % (Auto) 9.9 H Eos % (Auto) 2.2 Baso % (Auto) 0.3 Neut # (Auto) 6.5 Lymph # (Auto) 0.8 L Graves # (Auto) 0.8 Eos # (Auto) 0.2 Baso # (Auto) 0.0 WBC Differential . Differential Comment Auto diff final APTT Puncture Site Patient Temperature O2 Saturation ABG pH ABG pCO2 ABG pO2 ABG HCO3 ABG O2 Content ABG Base Excess ABG Methemoglobin Zhang Test Hemoglobin Carboxyhemoglobin O2 Delivery Device Vent Setting Inspired O2 Critical Value Sodium Potassium Chloride Carbon Dioxide Anion Gap BUN Creatinine Estimated GFR POC Glucose 132 H 112 H Random Glucose Calcium Phosphorus Magnesium Total Bilirubin AST ALT Alkaline Phosphatase Troponin I Total Protein Albumin TSH Vancomycin Trough 12/18/17 12/18/17 12/18/17 05:08 05:08 05:39 WBC RBC Hgb Hct MCV MCH MCHC RDW Plt Count MPV Neut % (Auto) Lymph % (Auto) Graves % (Auto) Eos % (Auto) Baso % (Auto) Neut # (Auto) Lymph # (Auto) Graves # (Auto) Eos # (Auto) Baso # (Auto) WBC Differential Differential Comment APTT 48.8 H Puncture Site Patient Temperature O2 Saturation ABG pH ABG pCO2 ABG pO2 ABG HCO3 ABG O2 Content ABG Base Excess ABG Methemoglobin Zhang Test Hemoglobin Carboxyhemoglobin O2 Delivery Device Vent Setting Inspired O2 Critical Value Sodium 142 Potassium 3.3 L Chloride 99 Carbon Dioxide 32.7 H Anion Gap 10 BUN 24 H Creatinine 3.31 H Estimated GFR 18 L POC Glucose 105 Random Glucose 96 Calcium 8.2 L Phosphorus 4.7 Magnesium 2.1 Total Bilirubin 1.0 AST 44 H ALT 46 Alkaline Phosphatase 40 L Troponin I Total Protein 6.5 Albumin 2.8 L TSH Vancomycin Trough 12/18/17 13:16 WBC RBC Hgb Hct MCV MCH MCHC RDW Plt Count MPV Neut % (Auto) Lymph % (Auto) Graves % (Auto) Eos % (Auto) Baso % (Auto) Neut # (Auto) Lymph # (Auto) Graves # (Auto) Eos # (Auto) Baso # (Auto) WBC Differential Differential Comment APTT Puncture Site Patient Temperature O2 Saturation ABG pH ABG pCO2 ABG pO2 ABG HCO3 ABG O2 Content ABG Base Excess ABG Methemoglobin Zhang Test Hemoglobin Carboxyhemoglobin O2 Delivery Device Vent Setting Inspired O2 Critical Value Sodium Potassium Chloride Carbon Dioxide Anion Gap BUN Creatinine Estimated GFR POC Glucose 99 Random Glucose Calcium Phosphorus Magnesium Total Bilirubin AST ALT Alkaline Phosphatase Troponin I Total Protein Albumin TSH Vancomycin Trough Result Diagrams: 12/18/17 05:08 12/18/17 05:08 Microbiology: Microbiology 12/14/17 15:00 Aerobic Blood Culture - Preliminary Blood - Peripheral No growth in 4 days Anaerobic Blood Culture - Preliminary No growth in 4 days 12/14/17 15:00 Aerobic Blood Culture - Preliminary Blood - Peripheral No growth in 4 days Anaerobic Blood Culture - Preliminary No growth in 4 days 12/15/17 01:47 Urine Culture - Final Catheterized Urine No growth in 48 hours 12/14/17 19:05 Gram Stain - Final Sputum - Endotracheal Sputum Culture - Final Heavy growth normal respiratory marcio Procedures: 12/14/17 * Endotracheal intubation Assessment and Plan - Disease Oriented Problem List (1) Acute non-ST elevation myocardial infarction (NSTEMI) (2) Respiratory failure requiring intubation - Symptom Scale (1) Dyspnea 0-10 Scale: Unable to quantify Comment: waxes and wanes between Bipap and NC (2) Pain 0-10 Scale: 0 Comment: Denies at this time (3) Debility 0-10 Scale: Unable to quantify Pertinent Non-Medical Issues: Psychosocial: The patient was born and raised in [place] where he met his . 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 They have 2 sons to still live in [place] Spiritual: Quaker. He declines a director instrumentation visit at this time. Legal: Should the patient become completely incapacitated, and in the absence of a documented living, per [place] statues medical decision making would fall to his , Sharon Da Silva by proxy [phone] Ethical issues impacting care: There are currently no known ethical issues impacting care at this time. Important Contacts: Sharon Da Silva, Prognosis: The patient currently remains in the MICU in stable condition. He has declined further cardiac workup at this and now appears to be in acute renal insufficiency. He remains at high risk for further decline, increased morbidity , and . Code Status: No Code DNR Plan: * LEGAL DECISION MAKER -the patient is currently able to participate in his own healthcare decision making though defers to his Sharon. Should he become completely incapacitated any time in the absence of a documented living will per [place] statutes decision making would fall to his by proxy Sharon Da Silva [phone] * GOALS - Discussed patient's clinical course. We she is aware he is requiring BiPAP usage throughout the night and periodically throughout the day coupled with O2 use via nasal cannula ranging from 2-4 L she reiterates that he was not on oxygen prior to this admission at home. Discussed upward trend in kidney function and explained how this can happen in critically ill patients but we will continue to monitor. We did talk about her plans after the patient was discharged. We briefly talked about hospice and the support that they can provide for her at home. She states that she is well aware of hospice services but declined to discuss further at this time. They plan to hopefully discharge to an [facility] back in [place] near their children. * CODE STATUS -DNR * SYMPTOMS Pain - multifactorial including bedbound status, blood draws, invasive lines, tubes, procedures, etc. currently the patient verbalizes that he does not have any pain and appears comfortable. There is concern for increased respiratory depression with opiate use in this patient. Should the need arise with benefit from a small dose of oral oxycodone as needed. Would stay away from morphine use in light of patient's recent renal insufficiency. Dyspnea patient is currently been extubated and off BiPAP since this morning. Does have periods of desaturation. Encourage cold pulmonary toilet and frequent repositioning. Did discuss at length with patient and the need for possible reintubation and accumulation of CO2 causing confusion. They would be amenable to BiPAP but do not want further intubation. Patient may also benefit from occasional reverse Trendelenburg position as he has a large abdomen which is most likely impeding diaphragmatic breathing Debility -patient was walking with a walker at home would be short of breath walking from the front door to the mailbox. Would benefit from increased ambulation with physical therapy. May possibly need supplemental oxygen functional status and ambulation. Palliative care will continue to follow during hospital course as condition evolves, to assist patient/decision maker with understanding of medical conditions, weighing benefits/burdens of treatment options, for clarification of goals of treatment. Additionally will assist with any symptoms of palliative concern. Case discussed with RN (Delia) at bedside Attestation Attestation: To help prompt me to consider important information that might be impacting today's encounter and assessment, information from prior notes written by myself or my colleagues may have been "brought forward" into today's note. My signature on this note, however, is an attestation that I personally performed the exam, history, and/or decision-making noted today, and, unless otherwise indicated, the interactions with patient, family, and staff as well as the review of records all occurred today. I also attest that the listed assessment and stated plan reflect my best clinical judgment today based on the combination of historical information, prior notes, and today's exam/ interactions. When time spent is documented, it refers only to time spent today by the signer, or if indicated, combined time spent today by collaborating physician/nurse practitioner.
--- NOTE | 2017-12-18 17:21 | P.PNIM ---
Subjective Interval history: 81-year-old male admitted with respiratory failure who was intubated on 2017 extubated on 12/16/2017. Today he is still dependent on BiPAP for adequate oxygenation. He is being treated for pneumonia and possible OR. Physical Exam Vital signs: Vital Signs 12/17/17 18:00 12/17/17 19:43 12/17/17 20:00 Temperature 97.5 F L 98 F Pulse Rate 75 65 63 Respiratory Rate 45 H 21 20 Blood Pressure 98/54 L 103/51 L Pulse Oximetry 84 L 95 100 12/17/17 22:00 12/17/17 23:33 12/18/17 00:00 Temperature 98.4 F Pulse Rate 65 97 H 76 Respiratory Rate 18 22 Blood Pressure 140/64 Pulse Oximetry 94 L 12/18/17 01:13 12/18/17 02:00 12/18/17 03:36 Temperature Pulse Rate 62 67 Respiratory Rate 17 Blood Pressure Pulse Oximetry 94 L 12/18/17 04:00 12/18/17 04:46 12/18/17 06:00 Temperature 99.1 F Pulse Rate 71 59 L Respiratory Rate 22 Blood Pressure 152/68 H Pulse Oximetry 93 L 97 12/18/17 07:43 12/18/17 07:44 12/18/17 08:00 Temperature 98.5 F Pulse Rate 66 63 Respiratory Rate 18 18 Blood Pressure 150/67 H Pulse Oximetry 98 95 12/18/17 08:49 12/18/17 10:00 12/18/17 11:22 Temperature Pulse Rate 80 73 Respiratory Rate 20 Blood Pressure Pulse Oximetry 93 L 12/18/17 12:00 12/18/17 14:00 12/18/17 14:50 Temperature 99.0 F Pulse Rate 79 80 78 Respiratory Rate 25 H 24 Blood Pressure 146/65 H Pulse Oximetry 95 12/18/17 16:00 Temperature 98.3 F Pulse Rate 80 Respiratory Rate 22 Blood Pressure 139/60 Pulse Oximetry 91 L Intake & Output 12/17/17 12/18/17 12/18/17 18:59 06:59 18:59 Intake Total 1728.2 / 1728.2 1100 / 1100 1250 / 1250 Output Total 450 / 450 975 / 975 Balance 1278.2 / 1278.2 125 / 125 1250 / 1250 Weight 97.5 kg Intake: IV 1008.2 / 1008.2 1100 / 1100 1250 / 1250 Heparin/D5W 25,000 U/250 mL 25, 247 / 247 250 / 250 000 unit In 250 ml @ 1,000 UNITS/HR 10 mls/hr IV.CONT TITRATE PRN Rx#:[id number] 1/2 Normal Saline Inj 1,000 ML 1000 / 1000 1000 / 1000 @ 84 mls/hr IV.CONT .[id number] ANGIE Rx#:[id number] MVI-12 Inj 10 ML Thiamine Inj 511.2 / 511.2 100 MG Folvite Inj 1 MG In NS Inj 500 ML @ 125 mls/hr IV.SIG Q24H ANGIE Rx#:[id number] Zosyn 3.375 GM Premix 50 ML @ 50 / 50 100 / 100 200 mls/hr IV.SIG Q6H ANGIE Rx#: [id number] Zosyn 4.5 GM Premix 4.5 gm In 200 / 200 100 ml @ 200 mls/hr IV.SIG Q6H ANGIE Rx#:[id number] Oral 720 / 720 Output: Urine Amount (Catheter) 450 / 450 975 / 975 Indwelling Urethral Catheter 450 / 450 975 / 975 Narrative: GENERAL: AAOx3, requiring BiPAP use for oxygenation SKIN: Warm and dry. No rashes HEAD: Atruamtic, normocephalic. EYES: No scleral icterus. No injection or drainage. ENT: Moist mucous membranes, patent nares, no erythema of oropharynx. NECK: Supple, trachea midline. No JVD or lymphadenopathy. Normal thyroid. CARDIOVASCULAR: Borderline sinus tachycardia. No murmurs, gallops, or rubs. RESPIRATORY: Breath sounds mostly clear, scattered congestive sounds. No accessory muscle use. GASTROINTESTINAL: Abdomen soft, non-tender, nondistended, normal active bowel sounds MUSCULOSKELETAL: No cyanosis, or edema. NEURO: CN II-XII grossly intact, no focal deficits, no slurring of speech - Urinary Catheter Management Indwelling Urethral Catheter Cath placed during this visit: yes Reason for continuing: Hourly intake/output Insertion date: 12/14/17 Insertion time: 15:00 Results - Labs CBC & Chem 7: 12/18/17 05:08 12/18/17 05:08 Laboratory Results - last 24 hr 12/17/17 12/18/17 12/18/17 23:16 05:08 05:08 WBC 8.4 RBC 4.13 L Hgb 13.2 Hct 40.8 MCV 98.6 MCH 31.9 MCHC 32.4 RDW 14.8 Plt Count 150 MPV 9.0 Neut % (Auto) 77.9 H Lymph % (Auto) 9.7 [place] % (Auto) 9.9 H Eos % (Auto) 2.2 Baso % (Auto) 0.3 Neut # (Auto) 6.5 Lymph # (Auto) 0.8 L [place] # (Auto) 0.8 Eos # (Auto) 0.2 Baso # (Auto) 0.0 WBC Differential . Differential Comment Auto diff final APTT Sodium 142 Potassium 3.3 L Chloride 99 Carbon Dioxide 32.7 H Anion Gap 10 BUN 24 H Creatinine 3.31 H Estimated GFR 18 L POC Glucose 112 H Random Glucose 96 Calcium 8.2 L Phosphorus 4.7 Magnesium 2.1 Total Bilirubin 1.0 AST 44 H ALT 46 Alkaline Phosphatase 40 L Total Protein 6.5 Albumin 2.8 L 12/18/17 12/18/17 12/18/17 05:08 05:39 13:16 WBC RBC Hgb Hct MCV MCH MCHC RDW Plt Count MPV Neut % (Auto) Lymph % (Auto) [place] % (Auto) Eos % (Auto) Baso % (Auto) Neut # (Auto) Lymph # (Auto) [place] # (Auto) Eos # (Auto) Baso # (Auto) WBC Differential Differential Comment APTT 48.8 H Sodium Potassium Chloride Carbon Dioxide Anion Gap BUN Creatinine Estimated GFR POC Glucose 105 99 Random Glucose Calcium Phosphorus Magnesium Total Bilirubin AST ALT Alkaline Phosphatase Total Protein Albumin Microbiology 12/14/17 15:00 Blood - Peripheral Aerobic Blood Culture - Preliminary No growth in 4 days 12/14/17 15:00 Blood - Peripheral Anaerobic Blood Culture - Preliminary No growth in 4 days 12/14/17 15:00 Blood - Peripheral Aerobic Blood Culture - Preliminary No growth in 4 days 12/14/17 15:00 Blood - Peripheral Anaerobic Blood Culture - Preliminary No growth in 4 days Assessment and Plan - Plan Respiratory failure Patient patient has bilateral lower lobe consolidations versus infiltrates, treatment for pneumonia Echocardiogram seems sufficient with ejection fraction of 55-60% Continue with Zosyn IV Patient is still dependent on BiPAP Continue efforts to wean Elevated troponin level Consider non-STEMI versus cardiac strain secondary to hypoxemia Continue with heparin drip Continue aspirin, Lipitor, Cardizem, Vasotec Echocardiogram shows ejection fraction 55-60% Appreciate cardiology following Acute on chronic kidney failure Balancing between avoiding nephrotoxins and need to diurese due to pulmonary edema Follow labs for trend, avoid nephrotoxins Type 2 diabetes Accu-Cheks with sliding scale insulin coverage Diabetic diet Hypothyroidism Continue Synthroid DVT Prophylaxis Heparin drip CODE STATUS DNR after family discussion
--- NOTE | 2017-12-19 00:55 | P.PNCA ---
Subjective Interval history: No events overnight On Bipap at the bedside No chest pain Medications and Allergies Active Medications: Active Medications Acetaminophen (Tylenol) 650 mg PO Q6H PRN PRN Reason: PAIN 1-10 AND/OR FEVER >101F Acetazolamide Sodium (Diamox Inj) 500 mg IV.PUSH DAILY [facility] Al Hydroxide/Mg Hydroxide (Milk Of Sia Liq) 30 ml PO Q12H PRN PRN Reason: Mild Constipation Albuterol (Albuterol Neb (Prn)) 2.5 mg NEB Q2HR NEB PRN PRN Reason: SHORTNESS OF BREATH/WHEEZING Artificial Tears (Tears Naturale Opth Drops) 1 drop EACH EYE TID [facility] Last Admin: 12/18/17 18:26 Dose: 1 drop Aspirin (Aspirin Chew) 81 mg PO DAILY [facility] Last Admin: 12/18/17 11:38 Dose: 81 mg Atorvastatin Calcium (Lipitor) 40 mg PO DAILY [facility] Last Admin: 12/18/17 10:24 Dose: 40 mg Bisacodyl (Dulcolax Supp) 10 mg RECTAL DAILY PRN PRN Reason: SEVERE CONSITIPATION Chlorhexidine Gluconate (Chlorhexidine 2% Cloth) 3 pack TOPICAL DAILY@0400 [facility] Stop: 12/20/17 03:59 Last Admin: 12/18/17 04:15 Dose: 3 pack Chlorhexidine Gluconate (Chlorhexidine 2% Cloth) 3 pack TOPICAL DAILY@0400 PRN PRN Reason: Extra cloth needed Stop: 12/20/17 03:59 Chlorhexidine Gluconate (Peridex 0.12% Oral Kit) 15 ml OROPHARYNG BID@0800, 2000 [facility] Last Admin: 12/18/17 20:43 Dose: Not Given Dextrose (D50w Vial) 50 ml IV.PUSH UNSCH PRN PRN Reason: PER HYPOGLYCEMIA PROTOCOL Diltiazem HCl (Cardizem) 60 mg PO QID [facility] Last Admin: 12/18/17 20:42 Dose: 60 mg Enalapril Maleate (Vasotec) 2.5 mg PO DAILY [facility] Last Admin: 12/18/17 10:24 Dose: 2.5 mg Glucagon (Glucagon Inj) 1 mg OTHER PRN PRN PRN Reason: for Hypoglycemia Protocol Heparin Sodium (Porcine) (Heparin Inj) 2,500 units IV.PUSH UNSCH PRN PRN Reason: aPTT 25-39 Last Admin: 12/15/17 01:38 Dose: 2,500 units Heparin Sodium (Porcine) (Heparin Inj) 5,000 units IV.PUSH UNSCH PRN PRN Reason: aPTT < 25 Hydralazine HCl (Apresoline Inj) 10 mg IV.PUSH Q6H PRN PRN Reason: SBP>160, DBP>90 Last Admin: 12/15/17 14:26 Dose: 10 mg Sodium Chloride (1/2 Normal Saline Inj) 1,000 mls @ 42 mls/hr IV.CONT .[id number] [facility] Last Admin: 12/18/17 23:59 Dose: 42 mls/hr Piperacillin/Tazobactam/Dextrose (Zosyn 3.375 Gm Premix) 50 mls @ 200 mls/hr IV.SIG Q6H [facility] Last Admin: 12/18/17 23:57 Dose: 200 mls/hr Insulin Aspart (Novolog Insulin Correctional Sugar Inj) 0 unit SQ Q6HR [facility]; Protocol Last Admin: 12/18/17 23:56 Dose: Not Given Lactulose (Lactulose Liq) 30 ml PO DAILY PRN PRN Reason: SEVERE CONSITIPATION Miscellaneous Medication () 1 each OROPHARYNG 0000,0400,1200,1600 [facility] Last Admin: 12/18/17 23:57 Dose: Not Given Pantoprazole Sodium (Protonix Inj) 40 mg IV.PUSH DAILY [facility] Last Admin: 12/18/17 10:23 Dose: 40 mg Potassium Chloride (Micro-K) 16 meq PO DAILY [facility] Last Admin: 12/18/17 15:42 Dose: 16 meq Senna/Docusate Sodium (Marian-Colace) 1 tab PO BID [facility] Last Admin: 12/18/17 20:42 Dose: 1 tab Sennosides (Senokot) 17.2 mg PO Q12H PRN PRN Reason: Moderate Constipation Sodium Chloride (Ns Flush) 2 ml IV.FLUSH BID [facility] Last Admin: 12/18/17 20:42 Dose: 2 ml Sodium Chloride (Ns Flush) 2 ml IV.FLUSH PRN PRN PRN Reason: FLUSH AFTER USING IV ACCESS Thyroid (Wiota Thyroid) 30 mg PO DAILY@0600 [facility] Last Admin: 12/18/17 05:39 Dose: 30 mg Allergies Allergy/AdvReac Type Severity Reaction Status Date / Time No Known Allergies Allergy Verified 12/14/17 14:49 Home Medications Medication Instructions Recorded Confirmed Type esomeprazole magnesium [Nexium 20 mg PO DAILY 12/14/17 12/14/17 History 24HR] glipizide 5 mg PO DAILY 12/14/17 12/14/17 History potassium chloride 10 meq PO DAILY 12/14/17 12/14/17 History tiotropium-olodaterol [Stiolto 2 puff INHALATION DAILY 12/14/17 12/14/17 History Respimat] tizanidine 4 mg PO BID 12/14/17 12/14/17 History thyroid (pork) 30 mg PO DAILY 12/17/17 12/17/17 History Physical Exam Vital signs: Vital Signs 12/18/17 01:13 12/18/17 02:00 12/18/17 03:36 Temperature Pulse Rate 62 67 Respiratory Rate 17 Blood Pressure Pulse Oximetry 94 L 12/18/17 04:00 12/18/17 04:46 12/18/17 06:00 Temperature 99.1 F Pulse Rate 71 59 L Respiratory Rate 22 Blood Pressure 152/68 H Pulse Oximetry 93 L 97 12/18/17 07:43 12/18/17 07:44 12/18/17 08:00 Temperature 98.5 F Pulse Rate 66 63 Respiratory Rate 18 18 Blood Pressure 150/67 H Pulse Oximetry 98 95 12/18/17 08:49 12/18/17 10:00 12/18/17 11:22 Temperature Pulse Rate 80 73 Respiratory Rate 20 Blood Pressure Pulse Oximetry 93 L 12/18/17 12:00 12/18/17 14:00 12/18/17 14:50 Temperature 99.0 F Pulse Rate 79 80 78 Respiratory Rate 25 H 24 Blood Pressure 146/65 H Pulse Oximetry 95 12/18/17 16:00 12/18/17 18:00 12/18/17 19:56 Temperature 98.3 F Pulse Rate 80 78 79 Respiratory Rate 22 18 Blood Pressure 139/60 Pulse Oximetry 91 L 96 12/18/17 20:00 12/18/17 22:57 Temperature Pulse Rate 79 Respiratory Rate Blood Pressure Pulse Oximetry 98 Intake & Output 12/18/17 12/18/17 12/19/17 06:59 18:59 06:59 Intake Total 1100 / 1100 1780 / 1780 1050 / 1050 Output Total 975 / 975 2000 / 2000 Balance 125 / 125 -220 / -220 1050 / 1050 Weight 97.5 kg Intake: IV 1100 / 1100 1300 / 1300 1050 / 1050 Heparin/D5W 25,000 U/250 mL 25, 250 / 250 000 unit In 250 ml @ 1,000 UNITS/HR 10 mls/hr IV.CONT TITRATE PRN Rx#:[id number] 1/2 Normal Saline Inj 1,000 ML 1000 / 1000 1000 / 1000 1000 / 1000 @ 42 mls/hr IV.CONT .[id number] [facility] Rx#:[id number] Zosyn 3.375 GM Premix 50 ML @ 100 / 100 50 / 50 50 / 50 200 mls/hr IV.SIG Q6H ANGIE Rx#: [id number] Oral 480 / 480 Output: Urine Amount (Catheter) 1999 Indwelling Urethral Catheter 1999 Other: # Bowel Movements 0 Narrative: GENERAL: AAOx3, requiring BiPAP use for oxygenation SKIN: Warm and dry. No rashes HEAD: Atruamtic, normocephalic. EYES: No scleral icterus. No injection or drainage. ENT: Moist mucous membranes, patent nares, no erythema of oropharynx. NECK: Supple, trachea midline. No JVD or lymphadenopathy. Normal thyroid. CARDIOVASCULAR: Borderline sinus tachycardia. No murmurs, gallops, or rubs. RESPIRATORY: Breath sounds mostly clear, scattered congestive sounds. No accessory muscle use. GASTROINTESTINAL: Abdomen soft, non-tender, nondistended, normal active bowel sounds MUSCULOSKELETAL: No cyanosis, or edema. NEURO: CN II-XII grossly intact, no focal deficits, no slurring of speech - Urinary Catheter Management Indwelling Urethral Catheter Cath placed during this visit: yes Reason for continuing: Hourly intake/output Insertion date: 12/14/17 Insertion time: 15:00 Results 12/18/17 05:08 12/18/17 05:08 Cardiac Enzymes 12/17/17 12/17/17 12/18/17 Range/Units 03:43 08:06 05:08 AST 39 H 37 44 H (15-37) U/L Coagulation 12/17/17 12/18/17 Range/Units 03:43 05:08 APTT 47.7 H 48.8 H (23.4-31.7) sec CBC 11/05/18 11/05/18 11/06/18 Range/Units 03:43 08:06 05:08 WBC 10.2 9.6 8.4 (4.0-11.0) th/mm3 RBC 4.17 L 4.09 L 4.13 L (4.50-5.90) mil/mm3 Hgb 13.5 13.2 13.2 (13.0-17.0) gm/dL Hct 40.7 40.6 40.8 (39.0-51.0) % Plt Count 143 L 151 150 (150-450) th/mm3 Neut # (Auto) 8.3 H 7.7 6.5 (1.8-7.7) th/mm3 Lymph # (Auto) 0.7 L 0.8 L 0.8 L (1.0-4.8) th/mm3 [place] # (Auto) 1.0 H 0.9 0.8 (0.0-0.9) th/mm3 Eos # (Auto) 0.1 0.1 0.2 (0.0-0.4) th/mm3 Baso # (Auto) 0.0 0.0 0.0 (0.0-0.2) th/mm3 Comprehensive Metabolic Panel 12/17/17 12/17/17 12/18/17 Range/Units 03:43 08:06 05:08 Sodium 147 H 144 142 (136-145) meq/L Potassium 3.4 L 3.3 L 3.3 L (3.5-5.1) meq/L Chloride 104 104 99 (98-107) meq/L Carbon Dioxide 31.7 33.8 H 32.7 H (21.0-32.0) meq/L BUN 20 H 21 H 24 H (7-18) mg/dL Creatinine 2.25 H 2.47 H 3.31 H (0.60-1.30) mg/dL Calcium 7.8 L 8.0 L 8.2 L (8.5-10.1) mg/dL AST 39 H 37 44 H (15-37) U/L ALT 35 36 46 (12-78) U/L Alkaline Phosphatase 38 L 39 L 40 L (45-117) U/L Total Protein 5.9 L 6.0 L 6.5 (6.4-8.2) g/dL Albumin 2.5 L 2.5 L 2.8 L (3.4-5.0) g/dL Intake and Output 12/18/17 12/18/17 12/19/17 14:59 22:59 06:59 Intake Total 1300 / 1300 530 / 530 1000 / 1000 Output Total 1999 Balance 1300 / 1300 -1470 / -1470 1000 / 1000 Intake: IV 1300 / 1300 50 / 50 1000 / 1000 Heparin/D5W 25,000 U/250 mL 25, 250 / 250 000 unit In 250 ml @ 1,000 UNITS/HR 10 mls/hr IV.CONT TITRATE PRN Rx#:[id number] 02/13 Normal Saline Inj 1,000 ML 1000 / 1000 1000 / 1000 @ 42 mls/hr IV.CONT .[id number] [facility] Rx#:[id number] Zosyn 3.375 GM Premix 50 ML @ 50 / 50 50 / 50 200 mls/hr IV.SIG Q6H ANGIE Rx#: [id number] Oral 480 / 480 Output: Urine Amount (Catheter) 1999 Indwelling Urethral Catheter 1999 Other: # Bowel Movements 0 - Imaging and Cardiology Imaging: Impressions Abdomen/Bladder Ultrasound 12/17/17 00:00 CONCLUSION: 1. Kidneys are borderline echogenic which can be seen with medical renal disease. 2. Left renal cyst. 3. Liver appears echogenic which can be seen with hepatic steatosis/ hepatocellular dysfunction. Chest X-Ray 12/17/17 00:00 CONCLUSION: Diminished lung volumes and minimal bibasilar densities, greater left lower lobe Assessment and Plan - Assessment (1) Encephalopathy acute Code(s): G93.40 - Encephalopathy, unspecified Status: Acute (2) Acute non-ST elevation myocardial infarction (NSTEMI) Code(s): I21.4 - Non-ST elevation (NSTEMI) myocardial infarction Status: Acute (3) Respiratory failure requiring intubation Code(s): J96.90 - Respiratory failure, unspecified, unspecified whether with hypoxia or hypercapnia Status: Acute - Plan 1) Encephalopathy, resolved Presented with GCS of 3, possible carbon dioxide retention? Resolved now 2) Acute respiratory failure s/p extubation 3) NSTEMI Probable type 2 Discussed with him on multiple days about consideration of ischemic work up He declines ischemic work up, understands risks/benefits Discussed with Palliative care, patient is DNR Will continue to treat medically per the patient's wishes Discussed with on 12/18/17, she agrees with decision of medical management and DNR status Will DC Heparin drip Con't ASA/Cardizem/Statin No CARLEEN-I due to SCARLET No BB due to significant lung disease 4) EF 55-60%
--- NOTE | 2017-12-19 05:07 | XR ---
EXAM DATE: 12/19/2017 5:04 AM EST AGE/SEX: 81 years / Male INDICATIONS: Short of breath. CLINICAL DATA: This is the patient's subsequent encounter. Patient reports that signs and symptoms h ave been present for 1 week and indicates a pain score of 0/10. MEDICAL/SURGICAL HISTORY: Non-responsive. Non-responsive. COMPARISON: [facility] – [place], CHEST 1V SINGLE AP, 12/17/2017. . FINDINGS: There is elevation of the right diaphragm and blunting of the costophrenic angle consistent with subp ulmonic effusion. Left lung appears grossly clear. Visualized cardiac contours are satisfactory. CONCLUSION: Likely subpulmonic effusion on the right Electronically signed by: Jose Quintana MD 12/19/2017 5:06 AM EST
[2017-12-19 05:40] LABS: Baso % (Auto) 0.4 % (0.0-2.0); Eos # (Auto) 0.3 th/mm3 (0.0-0.4); Eos % (Auto) 3.3 % (0.0-4.0); Hematocrit 39.7 % (39.0-51.0); Hemoglobin 13.3 gm/dL (13.0-17.0); Lymph # (Auto) 0.7 th/mm3 (1.0-4.8); Lymph % (Auto) 8.5 % (9.0-44.0); Mean Corpuscular HGB Conc 33.6 % (32.0-36.0); Mean Corpuscular Hemoglobin 32.2 pg (27.0-34.0); Mean Corpuscular Volume 95.9 fL (80.0-100.0); Mean Platelet Volume 8.9 fL (7.0-11.0); Mono % (Auto) 11.1 % (0.0-8.0); Neut # (Auto) 6.7 th/mm3 (1.8-7.7); Neut % (Auto) 76.7 % (16.0-70.0); Platelet Count 146 th/mm3 (150-450); Red Blood Count 4.14 mil/mm3 (4.50-5.90); Red Cell Distribution Width 14.8 % (11.6-17.2); White Blood Count 8.7 th/mm3 (4.0-11.0)
[2017-12-19 05:51] LABS: Albumin 2.5 g/dL (3.4-5.0); Anion Gap 8 meq/L (5-15); Aspartate Aminotransferase 35 U/L (15-37); Blood Urea Nitrogen 29 mg/dL (7-18); Carbon Dioxide 31.8 meq/L (21.0-32.0); Chloride 102 meq/L (98-107); Glomerular Filtration Rate 15 mL/min (>89); Glucose,Random 127 mg/dL (74-106); Magnesium 2.1 mg/dL (1.5-2.5); Potassium 3.6 meq/L (3.5-5.1); Sodium 142 meq/L (136-145)
[2017-12-19] MEDS: Oral Hygiene Kit OROPHARYNG SCH ×3 (05:56→16:56)
[2017-12-19 05:57] LABS: Alanine Aminotransferase 45 U/L (12-78); Alkaline Phosphatase 35 U/L (45-117); Phosphorus 4.9 mg/dL (2.5-4.9); Total Protein 6.4 g/dL (6.4-8.2)
[2017-12-19] MEDS: Insulin NovoLOG Aspart Correctional Sugar Inj SQ SCH ×3 (05:57→17:14)
[2017-12-19] MEDS: Chlorhexidine Gluconate 2% 1 Pack (2 Cloths) TOPICAL SCH (05:57)
[2017-12-19] MEDS: Piperacil/Tazo 3.375 GM Premix 50 ML IV.SIG SCH ×3 (05:57→17:16)
[2017-12-19] MEDS: Pantoprazole Inj 40 MG Vial IV.PUSH SCH (08:42)
[2017-12-19] MEDS: Potassium Chloride 8 MEQ ER Capsule PO SCH (08:43)
[2017-12-19] MEDS: Senna/Docusate Sodium 8.6/50 MG Tablet PO SCH ×2 (08:43→21:07)
[2017-12-19] MEDS: dilTIAZem 60 MG Tablet PO SCH ×4 (08:43→21:07)
[2017-12-19] MEDS: Chlorhexidine 0.12% Oral Kit 15 ML UDC OROPHARYNG SCH ×2 (08:44→21:07)
[2017-12-19] MEDS: Artificial Tears Opth Drops 15 ML Bottle EACH EYE SCH ×3 (09:00→17:15)
[2017-12-19] MEDS ORDERED: MethylPREDNISolone Sod Succinate Inj 125 MG/2 ML Vial IV.PUSH ONE (10:00)
--- NOTE | 2017-12-19 11:39 | P.PNIM ---
Subjective Interval history: Patient remains in the ICU for hypoxemia and regular use of BiPAP overnight. BiPAP was removed this morning we had a conversation which she explains to me that he was formerly a 2 pack/day smoker. Physical Exam Vital signs: Vital Signs 12/18/17 12:00 12/18/17 14:00 12/18/17 14:50 Temperature 99.0 F Pulse Rate 79 80 78 Respiratory Rate 25 H 24 Blood Pressure 146/65 H Pulse Oximetry 95 12/18/17 16:00 12/18/17 18:00 12/18/17 19:56 Temperature 98.3 F Pulse Rate 80 78 79 Respiratory Rate 22 18 Blood Pressure 139/60 Pulse Oximetry 91 L 96 12/18/17 20:00 12/18/17 22:00 12/18/17 22:57 Temperature 98.3 F Pulse Rate 79 73 Respiratory Rate 28 H Blood Pressure 151/66 H Pulse Oximetry 100 98 12/19/17 00:00 12/19/17 02:00 12/19/17 04:00 Temperature 98.2 F 98 F Pulse Rate 68 67 58 L Respiratory Rate 26 H 28 H Blood Pressure 131/61 133/62 Pulse Oximetry 98 97 12/19/17 04:44 12/19/17 06:00 12/19/17 08:00 Temperature 98.9 F Pulse Rate 55 L 53 L Respiratory Rate 26 H Blood Pressure 110/53 L Pulse Oximetry 98 96 12/19/17 08:44 12/19/17 09:44 12/19/17 10:00 Temperature Pulse Rate 51 L 58 L Respiratory Rate 17 Blood Pressure Pulse Oximetry 91 L 92 L Intake & Output 12/18/17 12/19/17 12/19/17 18:59 06:59 18:59 Intake Total 1780 / 1780 1285 / 1285 Output Total 1999 / 1999 1400 / 1400 Balance -220 / -220 -115 / -115 Weight 96 kg Intake: IV 1300 / 1300 1225 / 1225 Heparin/D5W 25,000 U/250 mL 25, 250 / 250 125 / 125 000 unit In 250 ml @ 1,000 UNITS/HR 10 mls/hr IV.CONT TITRATE PRN Rx#:[id number] 1/2 Normal Saline Inj 1,000 ML 1000 / 1000 1000 / 1000 @ 42 mls/hr IV.CONT .[id number] ANGIE Rx#:[id number] Zosyn 3.375 GM Premix 50 ML @ 50 / 50 100 / 100 200 mls/hr IV.SIG Q6H ANGIE Rx#: [id number] Oral 480 / 480 60 / 60 Output: Stool 0 / 0 Urine/Stool Mix 0 / 0 Urine Amount (Catheter) 1999 Indwelling Urethral Catheter 1999 Other: # Bowel Movements 0 0 # Incontinent Bowel Movements 0 Narrative: GENERAL: AAOx3, requiring BiPAP use for oxygenation SKIN: Warm and dry. No rashes HEAD: Atruamtic, normocephalic. EYES: No scleral icterus. No injection or drainage. ENT: Moist mucous membranes, patent nares, no erythema of oropharynx. NECK: Supple, trachea midline. No JVD or lymphadenopathy. Normal thyroid. CARDIOVASCULAR: Borderline sinus tachycardia. No murmurs, gallops, or rubs. RESPIRATORY: Poor airway passage and upper airway, diminished bases, scattered congestive sounds. No accessory muscle use. GASTROINTESTINAL: Abdomen soft, non-tender, nondistended, normal active bowel sounds MUSCULOSKELETAL: No cyanosis, or edema. NEURO: CN II-XII grossly intact, no focal deficits, no slurring of speech - Urinary Catheter Management Indwelling Urethral Catheter Cath placed during this visit: yes Reason for continuing: Hourly intake/output Insertion date: 12/14/17 Insertion time: 15:00 Results - Labs CBC & Chem 7: 12/19/17 05:04 12/19/17 05:04 Laboratory Results - last 24 hr 12/18/17 12/18/17 12/18/17 13:16 18:25 23:40 WBC RBC Hgb Hct MCV MCH MCHC RDW Plt Count MPV Neut % (Auto) Lymph % (Auto) [place] % (Auto) Eos % (Auto) Baso % (Auto) Neut # (Auto) Lymph # (Auto) [place] # (Auto) Eos # (Auto) Baso # (Auto) WBC Differential Differential Comment Sodium Potassium Chloride Carbon Dioxide Anion Gap BUN Creatinine Estimated GFR POC Glucose 99 125 H 106 Random Glucose Calcium Phosphorus Magnesium Total Bilirubin AST ALT Alkaline Phosphatase Total Protein Albumin 12/19/17 12/19/17 12/19/17 05:04 05:04 05:51 WBC 8.7 RBC 4.14 L Hgb 13.3 Hct 39.7 MCV 95.9 MCH 32.2 MCHC 33.6 RDW 14.8 Plt Count 146 L MPV 8.9 Neut % (Auto) 76.7 H Lymph % (Auto) 8.5 L [place] % (Auto) 11.1 H Eos % (Auto) 3.3 Baso % (Auto) 0.4 Neut # (Auto) 6.7 Lymph # (Auto) 0.7 L [place] # (Auto) 1.0 H Eos # (Auto) 0.3 Baso # (Auto) 0.0 WBC Differential . Differential Comment Auto diff final Sodium 142 Potassium 3.6 Chloride 102 Carbon Dioxide 31.8 Anion Gap 8 BUN 29 H Creatinine 3.96 H Estimated GFR 15 L POC Glucose 156 H Random Glucose 127 H Calcium 8.0 L Phosphorus 4.9 Magnesium 2.1 Total Bilirubin 0.8 AST 35 ALT 45 Alkaline Phosphatase 35 L Total Protein 6.4 Albumin 2.5 L Microbiology 12/14/17 15:00 Blood - Peripheral Aerobic Blood Culture - Final No growth in 5 days 12/14/17 15:00 Blood - Peripheral Anaerobic Blood Culture - Final No growth in 5 days 12/14/17 15:00 Blood - Peripheral Aerobic Blood Culture - Final No growth in 5 days 12/14/17 15:00 Blood - Peripheral Anaerobic Blood Culture - Final No growth in 5 days - Imaging Impressions Chest X-Ray 12/19/17 06:00 CONCLUSION: Likely subpulmonic effusion on the right Assessment and Plan - Plan Respiratory failure, pneumonia, COPD Patient patient has bilateral lower lobe consolidations versus infiltrates, treatment for pneumonia Echocardiogram seems sufficient with ejection fraction of 55-60% Patient reports he is formerly a 2 pack/day smoker, will add treatment for COPD elements Begin Solu-Medrol with single dose of 125 mg now, continue duo nebs as needed Patient using BiPAP overnight, nasal cannula or nonrebreather during the day Continue with Zosyn IV Continue efforts to wean Elevated troponin level Consider non-STEMI versus cardiac strain secondary to hypoxemia Continue with heparin drip Continue aspirin, Lipitor, Cardizem, Vasotec Echocardiogram shows ejection fraction 55-60% Appreciate cardiology following Acute on chronic kidney failure Balancing between avoiding nephrotoxins and need to diurese due to pulmonary edema Follow labs for trend, avoid nephrotoxins Type 2 diabetes Accu-Cheks with sliding scale insulin coverage Diabetic diet Hypothyroidism Continue Synthroid DVT Prophylaxis Heparin drip CODE STATUS DNR after family discussion
--- NOTE | 2017-12-19 17:57 | P.PNNP ---
Subjective Interval history: Patient remains critically ill on BiPAP Physical Exam Vital signs: Vital Signs 12/18/17 18:00 12/18/17 19:56 12/18/17 20:00 Temperature 98.3 F Pulse Rate 78 79 79 Respiratory Rate 18 28 H Blood Pressure 151/66 H Pulse Oximetry 96 100 12/18/17 22:00 12/18/17 22:57 12/19/17 00:00 Temperature 98.2 F Pulse Rate 73 68 Respiratory Rate 26 H Blood Pressure 131/61 Pulse Oximetry 98 98 12/19/17 02:00 12/19/17 04:00 12/19/17 04:44 Temperature 98 F Pulse Rate 67 58 L Respiratory Rate 28 H Blood Pressure 133/62 Pulse Oximetry 97 98 12/19/17 06:00 12/19/17 08:00 12/19/17 08:44 Temperature 98.9 F Pulse Rate 55 L 53 L Respiratory Rate 26 H Blood Pressure 110/53 L Pulse Oximetry 96 91 L 12/19/17 09:44 12/19/17 10:00 12/19/17 12:00 Temperature 98.3 F Pulse Rate 51 L 58 L 57 L Respiratory Rate 17 13 Blood Pressure 126/65 Pulse Oximetry 92 L 93 L 12/19/17 13:05 12/19/17 14:00 12/19/17 14:49 Temperature Pulse Rate 57 L Respiratory Rate Blood Pressure Pulse Oximetry 93 L 93 L 12/19/17 15:10 12/19/17 16:27 Temperature Pulse Rate Respiratory Rate Blood Pressure Pulse Oximetry 92 L 96 Intake & Output 12/18/17 12/19/17 12/19/17 18:59 06:59 18:59 Intake Total 1780 / 1780 1335 / 1335 50 / 50 Output Total 1999 / 1999 1400 / 1400 Balance -220 / -220 -65 / -65 50 / 50 Weight 96 kg Intake: IV 1300 / 1300 1275 / 1275 50 / 50 Heparin/D5W 25,000 U/250 mL 25, 250 / 250 125 / 125 000 unit In 250 ml @ 1,000 UNITS/HR 10 mls/hr IV.CONT TITRATE PRN Rx#:[id number] 1/2 Normal Saline Inj 1,000 ML 1000 / 1000 1000 / 1000 @ 42 mls/hr IV.CONT .[id number] [facility] Rx#:[id number] Zosyn 3.375 GM Premix 50 ML @ 50 / 50 150 / 150 50 / 50 200 mls/hr IV.SIG Q6H [facility] Rx#: [id number] Oral 480 / 480 60 / 60 Output: Stool 0 / 0 Urine/Stool Mix 0 / 0 Urine Amount (Catheter) 1999 Indwelling Urethral Catheter 1999 Other: # Bowel Movements 0 0 # Incontinent Bowel Movements 0 Narrative: GENERAL: AAOx3, requiring BiPAP use for oxygenation SKIN: Warm and dry. No rashes HEAD: Atruamtic, normocephalic. EYES: No scleral icterus. No injection or drainage. ENT: Moist mucous membranes, patent nares, no erythema of oropharynx. NECK: Supple, trachea midline. No JVD or lymphadenopathy. Normal thyroid. CARDIOVASCULAR: Borderline sinus tachycardia. No murmurs, gallops, or rubs. RESPIRATORY: Poor airway passage and upper airway, diminished bases, scattered congestive sounds. No accessory muscle use. GASTROINTESTINAL: Abdomen soft, non-tender, nondistended, normal active bowel sounds MUSCULOSKELETAL: No cyanosis, or edema. NEURO: CN II-XII grossly intact, no focal deficits, no slurring of speech - Urinary Catheter Management Indwelling Urethral Catheter Cath placed during this visit: yes Reason for continuing: Hourly intake/output Insertion date: 12/14/17 Insertion time: 15:00 Assessment and Plan - Assessment (1) Acute renal failure Code(s): N17.9 - Acute kidney failure, unspecified Status: Acute Plan: Acute renal failure is due to contrast-induced nephropathy, 3.4 L of urine Patient on Diamox urine output is improved however creatinine is higher Follow BMP Avoid nephrotoxic agents Continue to monitor intake and output (2) COPD exacerbation Code(s): J44.1 - Chronic obstructive pulmonary disease with (acute) exacerbation Status: Acute Plan: Patient is under treatment (3) Respiratory failure Code(s): J96.90 - Respiratory failure, unspecified, unspecified whether with hypoxia or hypercapnia Status: Acute Plan: On BiPAP (4) Diabetes Code(s): E11.9 - Type 2 diabetes mellitus without complications Status: Acute Plan: Monitor blood glucose (5) Acute non-ST elevation myocardial infarction (NSTEMI) Code(s): I21.4 - Non-ST elevation (NSTEMI) myocardial infarction Status: Acute Plan: Cardiology is following
[2017-12-19] MEDS: Sodium Chloride 0.45 % Inj 1,000 ML IV.CONT SCH (22:00)
--- NOTE | 2017-12-19 23:26 | P.PNCA ---
Subjective Interval history: Still requiring significant time on Bipap SOB when off Bipap No chest pain Medications and Allergies Active Medications: Active Medications Acetaminophen (Tylenol) 650 mg PO Q6H PRN PRN Reason: PAIN 1-10 AND/OR FEVER >101F Acetazolamide Sodium (Diamox Inj) 500 mg IV.PUSH DAILY [facility] Last Admin: 12/19/17 08:42 Dose: 500 mg Al Hydroxide/Mg Hydroxide (Milk Of Magnesia Liq) 30 ml PO Q12H PRN PRN Reason: Mild Constipation Albuterol (Albuterol Neb (Prn)) 2.5 mg NEB Q2HR NEB PRN PRN Reason: SHORTNESS OF BREATH/WHEEZING Last Admin: 12/19/17 09:43 Dose: 2.5 mg Artificial Tears (Tears Naturale Opth Drops) 1 drop EACH EYE TID [facility] Last Admin: 12/19/17 17:15 Dose: 1 drop Aspirin (Aspirin Chew) 81 mg PO DAILY [facility] Last Admin: 12/19/17 08:42 Dose: 81 mg Atorvastatin Calcium (Lipitor) 40 mg PO DAILY [facility] Last Admin: 12/19/17 08:43 Dose: 40 mg Bisacodyl (Dulcolax Supp) 10 mg RECTAL DAILY PRN PRN Reason: SEVERE CONSITIPATION Budesonide (Pulmocort Respule Neb) 0.5 mg NEB Q12HR NEB [facility] Last Admin: 12/19/17 20:32 Dose: 0.5 mg Chlorhexidine Gluconate (Chlorhexidine 2% Cloth) 3 pack TOPICAL DAILY@0400 [facility] Stop: 12/20/17 03:59 Last Admin: 12/19/17 05:57 Dose: 3 pack Chlorhexidine Gluconate (Chlorhexidine 2% Cloth) 3 pack TOPICAL DAILY@0400 PRN PRN Reason: Extra cloth needed Stop: 12/20/17 03:59 Chlorhexidine Gluconate (Peridex 0.12% Oral Kit) 15 ml OROPHARYNG BID@0800, 2000 [facility] Last Admin: 12/19/17 21:07 Dose: Not Given Dextrose (D50w Vial) 50 ml IV.PUSH UNSCH PRN PRN Reason: PER HYPOGLYCEMIA PROTOCOL Diltiazem HCl (Cardizem) 60 mg PO QID [facility] Last Admin: 12/19/17 21:07 Dose: 60 mg Enalapril Maleate (Vasotec) 2.5 mg PO DAILY [facility] Last Admin: 12/19/17 08:43 Dose: 2.5 mg Glucagon (Glucagon Inj) 1 mg OTHER PRN PRN PRN Reason: for Hypoglycemia Protocol Hydralazine HCl (Apresoline Inj) 10 mg IV.PUSH Q6H PRN PRN Reason: SBP>160, DBP>90 Last Admin: 12/15/17 14:26 Dose: 10 mg Sodium Chloride (1/2 Normal Saline Inj) 1,000 mls @ 42 mls/hr IV.CONT .[id number] [facility] Last Admin: 12/19/17 22:00 Dose: 42 mls/hr Piperacillin/Tazobactam/Dextrose (Zosyn 3.375 Gm Premix) 50 mls @ 200 mls/hr IV.SIG Q6H [facility] Last Infusion: 12/19/17 19:57 Dose: Infused Insulin Aspart (Novolog Insulin Correctional Sugar Inj) 0 unit SQ Q6HR [facility]; Protocol Last Admin: 12/19/17 17:14 Dose: 1 unit Lactulose (Lactulose Liq) 30 ml PO DAILY PRN PRN Reason: SEVERE CONSITIPATION Miscellaneous Medication () 1 each OROPHARYNG 0000,0400,1200,1600 [facility] Last Admin: 12/19/17 16:56 Dose: Not Given Pantoprazole Sodium (Protonix Inj) 40 mg IV.PUSH DAILY [facility] Last Admin: 12/19/17 08:42 Dose: 40 mg Potassium Chloride (Micro-K) 16 meq PO DAILY [facility] Last Admin: 12/19/17 08:43 Dose: 16 meq Senna/Docusate Sodium (Marian-Colace) 1 tab PO BID [facility] Last Admin: 12/19/17 21:07 Dose: 1 tab Sennosides (Senokot) 17.2 mg PO Q12H PRN PRN Reason: Moderate Constipation Sodium Chloride (Ns Flush) 2 ml IV.FLUSH BID [facility] Last Admin: 12/19/17 21:07 Dose: 2 ml Sodium Chloride (Ns Flush) 2 ml IV.FLUSH PRN PRN PRN Reason: FLUSH AFTER USING IV ACCESS Thyroid ([place] Thyroid) 30 mg PO DAILY@0600 [facility] Last Admin: 12/19/17 05:56 Dose: 30 mg Allergies Allergy/AdvReac Type Severity Reaction Status Date / Time No Known Allergies Allergy Verified 12/14/17 14:49 Home Medications Medication Instructions Recorded Confirmed Type esomeprazole magnesium [Nexium 20 mg PO DAILY 12/14/17 12/14/17 History 24HR] glipizide 5 mg PO DAILY 12/14/17 12/14/17 History potassium chloride 10 meq PO DAILY 12/14/17 12/14/17 History tiotropium-olodaterol [Stiolto 2 puff INHALATION DAILY 12/14/17 12/14/17 History Respimat] tizanidine 4 mg PO BID 12/14/17 12/14/17 History thyroid (pork) 30 mg PO DAILY 12/17/17 12/17/17 History Physical Exam Vital signs: Vital Signs 12/19/17 00:00 12/19/17 02:00 12/19/17 04:00 Temperature 98.2 F 98 F Pulse Rate 68 67 58 L Respiratory Rate 26 H 28 H Blood Pressure 131/61 133/62 Pulse Oximetry 98 97 12/19/17 04:44 12/19/17 06:00 12/19/17 08:00 Temperature 98.9 F Pulse Rate 55 L 53 L Respiratory Rate 26 H Blood Pressure 110/53 L Pulse Oximetry 98 96 12/19/17 08:44 12/19/17 09:44 12/19/17 10:00 Temperature Pulse Rate 51 L 58 L Respiratory Rate 17 Blood Pressure Pulse Oximetry 91 L 92 L 12/19/17 12:00 12/19/17 13:05 12/19/17 14:00 Temperature 98.3 F Pulse Rate 57 L 57 L Respiratory Rate 13 Blood Pressure 126/65 Pulse Oximetry 93 L 93 L 12/19/17 14:49 12/19/17 15:10 12/19/17 16:00 Temperature 98 F Pulse Rate 60 Respiratory Rate 22 Blood Pressure 130/61 Pulse Oximetry 93 L 92 L 95 12/19/17 16:27 12/19/17 18:00 12/19/17 20:32 Temperature Pulse Rate 60 59 L Respiratory Rate 17 Blood Pressure Pulse Oximetry 96 96 Intake & Output 12/19/17 12/19/17 12/20/17 06:59 18:59 06:59 Intake Total 1335 / 1335 250 / 250 1050 / 1050 Output Total 1400 / 1400 700 / 700 Balance -65 / -65 -450 / -450 1050 / 1050 Weight 96 kg Intake: IV 1275 / 1275 50 / 50 1050 / 1050 Heparin/D5W 25,000 U/250 mL 25, 125 / 125 000 unit In 250 ml @ 1,000 UNITS/HR 10 mls/hr IV.CONT TITRATE PRN Rx#:[id number] 1/2 Normal Saline Inj 1,000 ML 1000 / 1000 1000 / 1000 @ 42 mls/hr IV.CONT .[id number] [facility] Rx#:[id number] Zosyn 3.375 GM Premix 50 ML @ 150 / 150 50 / 50 50 / 50 200 mls/hr IV.SIG Q6H [facility] Rx#: [id number] Oral 60 / 60 200 / 200 Output: Stool 0 / 0 0 / 0 Urine/Stool Mix 0 / 0 0 / 0 Urine Amount (Catheter) 1400 / 1400 700 / 700 Indwelling Urethral Catheter 1400 / 1400 700 / 700 Other: # Bowel Movements 0 0 # Incontinent Bowel Movements 0 0 Narrative: GENERAL: AAOx3, requiring BiPAP use for oxygenation SKIN: Warm and dry. No rashes HEAD: Atruamtic, normocephalic. EYES: No scleral icterus. No injection or drainage. ENT: Moist mucous membranes, patent nares, no erythema of oropharynx. NECK: Supple, trachea midline. No JVD or lymphadenopathy. Normal thyroid. CARDIOVASCULAR: Borderline sinus tachycardia. No murmurs, gallops, or rubs. RESPIRATORY: Poor airway passage and upper airway, diminished bases, scattered congestive sounds. No accessory muscle use. GASTROINTESTINAL: Abdomen soft, non-tender, nondistended, normal active bowel sounds MUSCULOSKELETAL: No cyanosis, or edema. NEURO: CN II-XII grossly intact, no focal deficits, no slurring of speech - Urinary Catheter Management Indwelling Urethral Catheter Cath placed during this visit: yes Reason for continuing: Hourly intake/output Insertion date: 12/14/17 Insertion time: 15:00 Results 12/19/17 05:04 12/19/17 05:04 Cardiac Enzymes 12/18/17 12/19/17 Range/Units 05:08 05:04 AST 44 H 35 (15-37) U/L Coagulation 12/18/17 Range/Units 05:08 APTT 48.8 H (23.4-31.7) sec CBC 12/18/17 12/19/17 Range/Units 05:08 05:04 WBC 8.4 8.7 (4.0-11.0) th/mm3 RBC 4.13 L 4.14 L (4.50-5.90) mil/mm3 Hgb 13.2 13.3 (13.0-17.0) gm/dL Hct 40.8 39.7 (39.0-51.0) % Plt Count 150 146 L (150-450) th/mm3 Neut # (Auto) 6.5 6.7 (1.8-7.7) th/mm3 Lymph # (Auto) 0.8 L 0.7 L (1.0-4.8) th/mm3 [place] # (Auto) 0.8 1.0 H (0.0-0.9) th/mm3 Eos # (Auto) 0.2 0.3 (0.0-0.4) th/mm3 Baso # (Auto) 0.0 0.0 (0.0-0.2) th/mm3 Comprehensive Metabolic Panel 12/18/17 12/19/17 Range/Units 05:08 05:04 Sodium 142 142 (136-145) meq/L Potassium 3.3 L 3.6 (3.5-5.1) meq/L Chloride 99 102 (98-107) meq/L Carbon Dioxide 32.7 H 31.8 (21.0-32.0) meq/L BUN 24 H 29 H (7-18) mg/dL Creatinine 3.31 H 3.96 H (0.60-1.30) mg/dL Calcium 8.2 L 8.0 L (8.5-10.1) mg/dL AST 44 H 35 (15-37) U/L ALT 46 45 (12-78) U/L Alkaline Phosphatase 40 L 35 L (45-117) U/L Total Protein 6.5 6.4 (6.4-8.2) g/dL Albumin 2.8 L 2.5 L (3.4-5.0) g/dL Intake and Output 12/19/17 12/19/17 12/20/17 14:59 22:59 06:59 Intake Total 1300 / 1300 Output Total 700 / 700 Balance 600 / 600 Intake: IV 1100 / 1100 1/2 Normal Saline Inj 1,000 ML 1000 / 1000 @ 42 mls/hr IV.CONT .[id number] [facility] Rx#:[id number] Zosyn 3.375 GM Premix 50 ML @ 100 / 100 200 mls/hr IV.SIG Q6H [facility] Rx#: [id number] Oral 200 / 200 Output: Stool 0 / 0 Urine/Stool Mix 0 / 0 Urine Amount (Catheter) 700 / 700 Indwelling Urethral Catheter 700 / 700 Other: # Bowel Movements 0 # Incontinent Bowel Movements 0 - Imaging and Cardiology Imaging: Impressions Chest X-Ray 12/19/17 06:00 CONCLUSION: Likely subpulmonic effusion on the right Assessment and Plan - Assessment (1) Encephalopathy acute Code(s): G93.40 - Encephalopathy, unspecified Status: Acute (2) Acute non-ST elevation myocardial infarction (NSTEMI) Code(s): I21.4 - Non-ST elevation (NSTEMI) myocardial infarction Status: Acute (3) Respiratory failure requiring intubation Code(s): J96.90 - Respiratory failure, unspecified, unspecified whether with hypoxia or hypercapnia Status: Acute - Plan 1) Encephalopathy, resolved Presented with GCS of 3, possible carbon dioxide retention? Resolved now 2) Acute respiratory failure s/p extubation 3) NSTEMI Probable type 2 Discussed with him on multiple days about consideration of ischemic work up He declines ischemic work up, understands risks/benefits Discussed with Palliative care, patient is DNR Will continue to treat medically per the patient's wishes Discussed with on 12/18/17, she agrees with decision of medical management and DNR status Will DC Heparin drip Con't ASA/Cardizem/Statin No CARLEEN-I due to SCARLET No BB due to significant lung disease 4) EF 55-60%
[2017-12-20] MEDS: Oral Hygiene Kit OROPHARYNG SCH ×4 (00:47→17:37)
[2017-12-20] MEDS: Piperacil/Tazo 3.375 GM Premix 50 ML IV.SIG SCH ×4 (00:47→17:37)
[2017-12-20] MEDS: Insulin NovoLOG Aspart Correctional Sugar Inj SQ SCH ×4 (00:50→17:40)
[2017-12-20] MEDS: Potassium Chloride 8 MEQ ER Capsule PO SCH (08:41)
[2017-12-20] MEDS: Pantoprazole Inj 40 MG Vial IV.PUSH SCH (08:42)
[2017-12-20] MEDS: Senna/Docusate Sodium 8.6/50 MG Tablet PO SCH ×2 (08:42→21:30)
[2017-12-20] MEDS: dilTIAZem 60 MG Tablet PO SCH ×4 (08:49→21:27)
[2017-12-20] MEDS: Artificial Tears Opth Drops 15 ML Bottle EACH EYE SCH ×3 (08:50→18:49)
--- NOTE | 2017-12-20 10:44 | P.PNIM ---
Subjective Interval history: No acute complaints today. Decreased need for BiPAP. Respiratory status is slightly improved. Story status is not at baseline. Physical Exam Vital signs: Vital Signs 12/19/17 12:00 12/19/17 13:05 12/19/17 14:00 Temperature 98.3 F Pulse Rate 57 L 57 L Respiratory Rate 13 Blood Pressure 126/65 Pulse Oximetry 93 L 93 L 12/19/17 14:49 12/19/17 15:10 12/19/17 16:00 Temperature 98 F Pulse Rate 60 Respiratory Rate 22 Blood Pressure 130/61 Pulse Oximetry 93 L 92 L 95 12/19/17 16:27 12/19/17 18:00 12/19/17 20:00 Temperature 98.4 F Pulse Rate 60 56 L Respiratory Rate 19 Blood Pressure 127/66 Pulse Oximetry 96 95 12/19/17 20:32 12/19/17 22:00 12/20/17 00:00 Temperature 98.2 F Pulse Rate 59 L 58 L 59 L Respiratory Rate 17 28 H Blood Pressure 126/60 Pulse Oximetry 96 93 L 12/20/17 02:00 12/20/17 04:00 12/20/17 06:00 Temperature 98.2 F Pulse Rate 60 63 66 Respiratory Rate 19 Blood Pressure 144/72 H Pulse Oximetry 96 12/20/17 08:22 Temperature Pulse Rate 66 Respiratory Rate 18 Blood Pressure Pulse Oximetry 97 Intake & Output 12/19/17 12/20/17 12/20/17 18:59 06:59 18:59 Intake Total 250 / 250 1350 / 1350 Output Total 700 / 700 400 / 400 Balance -450 / -450 950 / 950 Weight 97.5 kg Intake: IV 50 / 50 1150 / 1150 1/2 Normal Saline Inj 1,000 ML 1000 / 1000 @ 42 mls/hr IV.CONT .[id number] [facility] Rx#:[id number] Zosyn 3.375 GM Premix 50 ML @ 50 / 50 150 / 150 200 mls/hr IV.SIG Q6H [facility] Rx#: [id number] Oral 200 / 200 200 / 200 Output: Stool 0 / 0 Urine/Stool Mix 0 / 0 Urine Amount (Catheter) 700 / 700 400 / 400 Indwelling Urethral Catheter 700 / 700 400 / 400 Other: Date of Last Bowel Movement 12/20/17 # Bowel Movements 0 1 # Incontinent Bowel Movements 0 1 Narrative: GENERAL: NAD, A&Ox3 HEAD: Normocephalic. NECK: Supple, trachea midline. No lymphadenopathy. EYES: No scleral icterus. No injection or drainage. CARDIOVASCULAR: Regular rate and rhythm without murmurs, gallops, or rubs. RESPIRATORY: Breath sounds equal bilaterally. No accessory muscle use. GASTROINTESTINAL: Abdomen soft, non-tender, nondistended. MUSCULOSKELETAL: No cyanosis, or edema. SKIN: Warm and dry. NEURO: No focal neurological deficits. - Urinary Catheter Management Indwelling Urethral Catheter Cath placed during this visit: yes Reason for continuing: Hourly intake/output Insertion date: 12/14/17 Insertion time: 15:00 Results - Labs CBC & Chem 7: 12/19/17 05:04 12/19/17 05:04 Laboratory Results - last 24 hr 12/19/17 12/19/17 12/20/17 14:25 17:04 00:16 POC Glucose 144 H 154 H 172 H 12/20/17 05:52 POC Glucose 132 H Microbiology 12/14/17 15:00 Blood - Peripheral Aerobic Blood Culture - Final No growth in 5 days 12/14/17 15:00 Blood - Peripheral Anaerobic Blood Culture - Final No growth in 5 days 12/14/17 15:00 Blood - Peripheral Aerobic Blood Culture - Final No growth in 5 days 12/14/17 15:00 Blood - Peripheral Anaerobic Blood Culture - Final No growth in 5 days Assessment and Plan - Plan 81-year-old male admitted secondary to respiratory failure with pneumonia Respiratory failure Community-acquired pneumonia COPD Continue oxygen supplementation Continue Zosyn Wean oxygen as tolerated BiPAP as needed Continue steroids Breathing treatments as needed Elevated troponin level Likely related to cardiac strain Continue heparin Continue aspirin, Lipitor, Cardizem, Vasotec Echocardiogram shows ejection fraction 55-60% Cardiology following Acute on chronic kidney failure Monitor renal function Avoid nephrotoxins Type 2 diabetes Follow blood sugars Insulin sliding scale Diabetic diet Hypothyroidism Continue Synthroid DVT Prophylaxis Heparin drip CODE STATUS DNR after family discussion
--- NOTE | 2017-12-20 11:09 | P.PNPAL ---
Reason for Visit Reason for visit: a. To assist with evaluation and management of symptoms including:pain, dyspnea , debility b. To assist medical decision maker(s) with: better understanding of current medical conditions; weighing benefits/burdens of medical treatment options; making medical treatment decisions. Subjective Subjective/Interval History: Mr. Da Silva is an 81-year-old male who presented to [place] emergency room on 12/14/17 with shortness of breath and altered mental status. Apparently he was found unresponsive by the family who then called 911. During his ambulance ride to the hospital he quickly decompensated to a GCS of 3, requiring emergent intubation. Per the family, the patient has a past medical history of hypothyroidism, GERD, COPD, diabetes, cyst of spinal meninges, and heart failure. Due to the perplexing nature of this patient's presentation and unsure etiology of his altered mental status he was admitted for further evaluation and treatment. The patient was transferred to the medical ICU for further evaluation. Dr. Vidal (Cardiology) was consulted for N STEMI, with unclear etiology. He felt this was unlikely due to CHF ordered a 2D echo. And suggest the patient be started on a heparin drip. 2D echo showed an EF of 55-60% with trace mitral valve and aortic valve regurgitation. There was aortic valve sclerosis and estimated pulmonary arterial pressure of 44 mmHg. Intensive care ordered CTA which was negative for PE. The patient was extubated to BiPAP 15/8 with 40% FiO2 on 12/16/17. Today his BiPAP settings were slightly increased to 18/8 remaining on 40% FiO2. His renal functioning was noted to be increasing in nephrology was consulted. Nephrology did note patient had probable medical renal disease. 12/20/17 Palliative care to follow with symptom management and to assist with continued medical goals. Patient continues to require Bipap on and off throughout the day. They are attempting to keep BiPAP on at night and supplement with nasal cannula or Ventimask during the day. Patient denies any pain today. Mentation appears somewhat more clear. He continues to deny shortness of breath. Renal function does not appear to be improving. Yesterday creatinine was up to 3.96. Labs today are pending. Discussed with and patient at bedside. They agree that they would be open to temporary hemodialysis if the need arises and we do not see any improvement in renal function. They would however, not be open to long-term hemodialysis if the patient did in fact exhibit permanent renal failure. Today clinical's data revealed: * WBC 8.4, Hgb 13.2, HCT 40.8, platelets 150 * NA 142, K+ 3.3, CL 99, CO2 32.7, BUN 24, creatinine 3.31, glucose 96 * Total bili 1.0, AST 44, ALT 46, alk phos 40, albumin 2.8 Family/Friend Interactions: Discussed with patient's , Sharon Da Silva at bedside. We discussed that he still is requiring a significant amount of BiPAP at night and at times throughout the day. She reiterates along with the patient that he still continues to desire a DNR CODE STATUS and would not want any further intubation. We also discussed worsening renal function. She is aware that there is a possibility his renal function may not improve and he may require hemodialysis. She feels that he would be open to temporary hemodialysis but should it appear that his renal function will be permanently impaired, patient would not want permanent hemodialysis. The patient is able to verbalize agreement with this. Advance Directives Health Care Surrogate Name and Number: Sharon Da Silva, /HCP [phone] Documented care wishes:: The patient does not currently have a documented living will or durable power of district attorney Significant change in goals:: Discussed with patient's , Sharon Da Silva at bedside. We discussed that he still is requiring a significant amount of BiPAP at night and at times throughout the day. She reiterates along with the patient that he still continues to desire a DNR CODE STATUS and would not want any further intubation. We also discussed worsening renal function. She is aware that there is a possibility his renal function may not improve and he may require hemodialysis. She feels that he would be open to temporary hemodialysis but should it appear that his renal function will be permanently impaired, patient would not want permanent hemodialysis. The patient is able to verbalize agreement with this. Objective Vital Signs: Vital Signs 12/19/17 12:00 12/19/17 13:05 12/19/17 14:00 Temperature 98.3 F Pulse Rate 57 L 57 L Respiratory Rate 13 Blood Pressure 126/65 Pulse Oximetry 93 L 93 L 12/19/17 14:49 12/19/17 15:10 12/19/17 16:00 Temperature 98 F Pulse Rate 60 Respiratory Rate 22 Blood Pressure 130/61 Pulse Oximetry 93 L 92 L 95 12/19/17 16:27 12/19/17 18:00 12/19/17 20:00 Temperature 98.4 F Pulse Rate 60 56 L Respiratory Rate 19 Blood Pressure 127/66 Pulse Oximetry 96 95 12/19/17 20:32 12/19/17 22:00 12/20/17 00:00 Temperature 98.2 F Pulse Rate 59 L 58 L 59 L Respiratory Rate 17 28 H Blood Pressure 126/60 Pulse Oximetry 96 93 L 12/20/17 02:00 12/20/17 04:00 12/20/17 06:00 Temperature 98.2 F Pulse Rate 60 63 66 Respiratory Rate 19 Blood Pressure 144/72 H Pulse Oximetry 96 12/20/17 08:22 Temperature Pulse Rate 66 Respiratory Rate 18 Blood Pressure Pulse Oximetry 97 Intake & Output 12/19/17 12/20/17 12/20/17 18:59 06:59 18:59 Intake Total 250 / 250 1350 / 1350 Output Total 700 / 700 400 / 400 Balance -450 / -450 950 / 950 Weight 97.5 kg Intake: IV 50 / 50 1150 / 1150 1/2 Normal Saline Inj 1,000 ML 1000 / 1000 @ 42 mls/hr IV.CONT .[id number] [facility] Rx#:[id number] Zosyn 3.375 GM Premix 50 ML @ 50 / 50 150 / 150 200 mls/hr IV.SIG Q6H [facility] Rx#: [id number] Oral 200 / 200 200 / 200 Output: Stool 0 / 0 Urine/Stool Mix 0 / 0 Urine Amount (Catheter) 700 / 700 400 / 400 Indwelling Urethral Catheter 700 / 700 400 / 400 Other: Date of Last Bowel Movement 12/20/17 # Bowel Movements 0 1 # Incontinent Bowel Movements 0 1 Physical Exam: CONSTITUTIONAL/GENERAL: This is an adequately nourished patient, in no apparent distress. TUBES/LINES/DRAINS:PIV, [place] EYES: Pupils equal and round and reactive. Extraocular motions intact. No scleral icterus. No injection or drainage. Fundi not examined. ENT: Hearing grossly normal. Nose without bleeding or purulent drainage. Throat without visible erythema, exudates, masses, or lesions. CARDIOVASCULAR: Sinus rhythm on tele. Regular rate and rhythm to auscultation without murmurs, gallops, or rubs. No JVD. Peripheral pulses symmetric. RESPIRATORY/CHEST: Symmetric, slightly labored respirations. Clear to auscultation. Breath sounds equal bilaterally. No wheezes, rales, or rhonchi. Diminished at the bases. Currently on 3 L nasal cannula GASTROINTESTINAL: Abdomen soft, non-tender, nondistended. No hepato-splenomegaly , or palpable masses. No guarding. Bowel sounds present. MUSCULOSKELETAL: Extremities without clubbing, cyanosis, or edema. No joint tenderness or effusion noted. No calf tenderness. No mottling or clubbing. LYMPHATICS: No palpable cervical or supraclavicular adenopathy. NEUROLOGICAL: Awake and alert. Motor and sensory grossly within normal limits. Follows commands. Moves all extremities. Oriented to self, place and year. Does not remember the day. Able to make his needs more clearly known today. Was able to verbalize the moving plan he and his have made to get back to [place] PSYCHIATRIC: No obvious anxiety/depression. no apparent hallucinations or other psychotic thought process. Diagnostic Tests Laboratory: Laboratory Results - last 72 hr 12/17/17 12/17/17 12/18/17 13:04 23:16 05:08 WBC 8.4 RBC 4.13 L Hgb 13.2 Hct 40.8 MCV 98.6 MCH 31.9 MCHC 32.4 RDW 14.8 Plt Count 150 MPV 9.0 Neut % (Auto) 77.9 H Lymph % (Auto) 9.7 Meriwether % (Auto) 9.9 H Eos % (Auto) 2.2 Baso % (Auto) 0.3 Neut # (Auto) 6.5 Lymph # (Auto) 0.8 L [place]iwether # (Auto) 0.8 Eos # (Auto) 0.2 Baso # (Auto) 0.0 WBC Differential . Differential Comment Auto diff final APTT Sodium Potassium Chloride Carbon Dioxide Anion Gap BUN Creatinine Estimated GFR POC Glucose 132 H 112 H Random Glucose Calcium Phosphorus Magnesium Total Bilirubin AST ALT Alkaline Phosphatase Total Protein Albumin 12/18/17 12/18/17 12/18/17 05:08 05:08 05:39 WBC RBC Hgb Hct MCV MCH MCHC RDW Plt Count MPV Neut % (Auto) Lymph % (Auto) Mer[place]ether % (Auto) Eos % (Auto) Baso % (Auto) Neut # (Auto) Lymph # (Auto) Meriwether # (Auto) Eos # (Auto) Baso # (Auto) WBC Differential Differential Comment APTT 48.8 H Sodium 142 Potassium 3.3 L Chloride 99 Carbon Dioxide 32.7 H Anion Gap 10 BUN 24 H Creatinine 3.31 H Estimated GFR 18 L POC Glucose 105 Random Glucose 96 Calcium 8.2 L Phosphorus 4.7 Magnesium 2.1 Total Bilirubin 1.0 AST 44 H ALT 46 Alkaline Phosphatase 40 L Total Protein 6.5 Albumin 2.8 L 12/18/17 12/18/17 12/18/17 13:16 18:25 23:40 WBC RBC Hgb Hct MCV MCH MCHC RDW Plt Count MPV Neut % (Auto) Lymph % (Auto) Meriwether % (Auto) Eos % (Auto) Baso % (Auto) Neut # (Auto) Lymph # (Auto) Meriwether # (Auto) Eos # (Auto) Baso # (Auto) WBC Differential Differential Comment APTT Sodium Potassium Chloride Carbon Dioxide Anion Gap BUN Creatinine Estimated GFR POC Glucose 99 125 H 106 Random Glucose Calcium Phosphorus Magnesium Total Bilirubin AST ALT Alkaline Phosphatase Total Protein Albumin 12/19/17 12/19/17 12/19/17 05:04 05:04 05:51 WBC 8.7 RBC 4.14 L Hgb 13.3 Hct 39.7 MCV 95.9 MCH 32.2 MCHC 33.6 RDW 14.8 Plt Count 146 L MPV 8.9 Neut % (Auto) 76.7 H Lymph % (Auto) 8.5 L [place] % (Auto) 11.1 H Eos % (Auto) 3.3 Baso % (Auto) 0.4 Neut # (Auto) 6.7 Lymph # (Auto) 0.7 L [place] # (Auto) 1.0 H Eos # (Auto) 0.3 Baso # (Auto) 0.0 WBC Differential . Differential Comment Auto diff final APTT Sodium 142 Potassium 3.6 Chloride 102 Carbon Dioxide 31.8 Anion Gap 8 BUN 29 H Creatinine 3.96 H Estimated GFR 15 L POC Glucose 156 H Random Glucose 127 H Calcium 8.0 L Phosphorus 4.9 Magnesium 2.1 Total Bilirubin 0.8 AST 35 ALT 45 Alkaline Phosphatase 35 L Total Protein 6.4 Albumin 2.5 L 12/19/17 12/19/17 12/20/17 14:25 17:04 00:16 WBC RBC Hgb Hct MCV MCH MCHC RDW Plt Count MPV Neut % (Auto) Lymph % (Auto) Mer[place]ether % (Auto) Eos % (Auto) Baso % (Auto) Neut # (Auto) Lymph # (Auto) Mer[place]ether # (Auto) Eos # (Auto) Baso # (Auto) WBC Differential Differential Comment APTT Sodium Potassium Chloride Carbon Dioxide Anion Gap BUN Creatinine Estimated GFR POC Glucose 144 H 154 H 172 H Random Glucose Calcium Phosphorus Magnesium Total Bilirubin AST ALT Alkaline Phosphatase Total Protein Albumin 12/20/17 05:52 WBC RBC Hgb Hct MCV MCH MCHC RDW Plt Count MPV Neut % (Auto) Lymph % (Auto) [place]ether % (Auto) Eos % (Auto) Baso % (Auto) Neut # (Auto) Lymph # (Auto) [place]ether # (Auto) Eos # (Auto) Baso # (Auto) WBC Differential Differential Comment APTT Sodium Potassium Chloride Carbon Dioxide Anion Gap BUN Creatinine Estimated GFR POC Glucose 132 H Random Glucose Calcium Phosphorus Magnesium Total Bilirubin AST ALT Alkaline Phosphatase Total Protein Albumin Result Diagrams: 12/19/17 05:04 12/19/17 05:04 Microbiology: Microbiology 12/14/17 15:00 Aerobic Blood Culture - Final Blood - Peripheral No growth in 5 days Anaerobic Blood Culture - Final No growth in 5 days 12/14/17 15:00 Aerobic Blood Culture - Final Blood - Peripheral No growth in 5 days Anaerobic Blood Culture - Final No growth in 5 days 12/15/17 01:47 Urine Culture - Final Catheterized Urine No growth in 48 hours Procedures: 12/14/17 * Endotracheal intubation Assessment and Plan - Disease Oriented Problem List (1) Acute non-ST elevation myocardial infarction (NSTEMI) (2) Respiratory failure requiring intubation - Symptom Scale (1) Dyspnea 0-10 Scale: Unable to quantify Comment: waxes and wanes between Bipap and NC (2) Pain 0-10 Scale: Unable to quantify Comment: Denies at this time (3) Debility 0-10 Scale: Unable to quantify Pertinent Non-Medical Issues: Psychosocial: The patient was born and raised in [place] where he met his . 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 They have 2 sons to still live in [place] Spiritual: Yazidi. 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 Legal: Should the patient become completely incapacitated, and in the absence of a documented living, per [place] statues medical decision making would fall to his , Sharon Da Silva by proxy [phone] Ethical issues impacting care: There are currently no known ethical issues impacting care at this time. Important Contacts: Sharon Da Silva, Prognosis: The patient currently remains in the MICU in stable condition. He has declined further cardiac workup at this and now appears to be in acute renal insufficiency. Given the unclear etiology of his original medical insult, combined with his multiple comorbidities he remains at high risk for further decline, increased morbidity, and . Code Status: No Code DNR Plan: * LEGAL DECISION MAKER -the patient is currently able to participate in his own healthcare decision making though defers to his Sharon. Should he become completely incapacitated any time in the absence of a documented living will per [place] statutes decision making would fall to his by proxy Sharon Da Silva [phone] * GOALS - Discussed with patient's , Sharon Da Silva at bedside. We discussed that he still is requiring a significant amount of BiPAP at night and at times throughout the day. She reiterates along with the patient that he still continues to desire a DNR CODE STATUS and would not want any further intubation. We also discussed worsening renal function. She is aware that there is a possibility his renal function may not improve and he may require hemodialysis. She feels that he would be open to temporary hemodialysis but should it appear that his renal function will be permanently impaired, patient would not want permanent hemodialysis. The patient is able to verbalize agreement with this. * CODE STATUS -DNR * SYMPTOMS Pain - multifactorial including bedbound status, blood draws, invasive lines, tubes, procedures, etc. currently the patient verbalizes that he does not have any pain and appears comfortable. There is concern for increased respiratory depression with opiate use in this patient. Should the need arise with benefit from a small dose of oral oxycodone as needed. Would stay away from morphine use in light of patient's recent renal insufficiency. Dyspnea patient is currently been extubated and off BiPAP since this morning. Does have periods of desaturation. Encourage cold pulmonary toilet and frequent repositioning. Did discuss at length with patient and the need for possible reintubation and accumulation of CO2 causing confusion. They would be amenable to BiPAP but do not want further intubation. Patient may also benefit from occasional reverse Trendelenburg position as he has a large abdomen which is most likely impeding diaphragmatic breathing Debility -patient was walking with a walker at home would be short of breath walking from the front door to the mailbox. Would benefit from increased ambulation with physical therapy. May possibly need supplemental oxygen functional status and ambulation. Palliative care will continue to follow during hospital course as condition evolves, to assist patient/decision maker with understanding of medical conditions, weighing benefits/burdens of treatment options, for clarification of goals of treatment. Additionally will assist with any symptoms of palliative concern. Case discussed with RN (Linda) at bedside Attestation Attestation: To help prompt me to consider important information that might be impacting today's encounter and assessment, information from prior notes written by myself or my colleagues may have been "brought forward" into today's note. My signature on this note, however, is an attestation that I personally performed the exam, history, and/or decision-making noted today, and, unless otherwise indicated, the interactions with patient, family, and staff as well as the review of records all occurred today. I also attest that the listed assessment and stated plan reflect my best clinical judgment today based on the combination of historical information, prior notes, and today's exam/ interactions. When time spent is documented, it refers only to time spent today by the signer, or if indicated, combined time spent today by collaborating physician/nurse practitioner.
[2017-12-20] MEDS: Chlorhexidine 0.12% Oral Kit 15 ML UDC OROPHARYNG SCH ×2 (13:01→21:15)
[2017-12-20] MEDS ORDERED: Epoetin Alfa Inj 4,000 UNIT/ML Vial IV.PUSH PRN (16:27)
[2017-12-20] MEDS ORDERED: Sod Chloride 0.9% Inj 1,000 ML OTHER PRN ×2 (16:27)
[2017-12-20] MEDS ORDERED: Sod Chloride 0.9% Inj 1,000 ML IV.CONT PRN (16:27)
[2017-12-20] MEDS ORDERED: Acetaminophen 325 MG Tablet PO PRN (16:27)
[2017-12-20] MEDS ORDERED: Gelatin 12 MM/7 MM Topical Foam TOPICAL PRN (16:27)
[2017-12-20] MEDS ORDERED: Heparin 10,000 UNITS/10 ML Vial (for IV use) OTHER PRN ×2 (16:27)
[2017-12-20] MEDS ORDERED: Albumin Human 25% Inj 100 ML IV.SIG PRN (16:27)
--- NOTE | 2017-12-20 16:31 | P.PNNP ---
Subjective Interval history: Patient is sick on BiPAP again O2 sats 91-93% Physical Exam Vital signs: Vital Signs 12/19/17 18:00 12/19/17 20:00 12/19/17 20:32 Temperature 98.4 F Pulse Rate 60 56 L 59 L Respiratory Rate 19 17 Blood Pressure 127/66 Pulse Oximetry 95 96 12/19/17 22:00 12/20/17 00:00 12/20/17 02:00 Temperature 98.2 F Pulse Rate 58 L 59 L 60 Respiratory Rate 28 H Blood Pressure 126/60 Pulse Oximetry 93 L 12/20/17 04:00 12/20/17 06:00 12/20/17 08:00 Temperature 98.2 F 98.0 F Pulse Rate 63 66 70 Respiratory Rate 19 23 Blood Pressure 144/72 H 153/101 H Pulse Oximetry 96 90 L 12/20/17 08:22 12/20/17 10:00 12/20/17 11:18 Temperature Pulse Rate 66 68 Respiratory Rate 18 Blood Pressure Pulse Oximetry 97 94 L 12/20/17 12:00 12/20/17 13:05 12/20/17 14:00 Temperature 98.2 F Pulse Rate 66 66 68 Respiratory Rate 23 Blood Pressure 109/57 L Pulse Oximetry 94 L Intake & Output 12/19/17 12/20/17 12/20/17 18:59 06:59 18:59 Intake Total 250 / 250 1350 / 1350 Output Total 700 / 700 400 / 400 Balance -450 / -450 950 / 950 Weight 97.5 kg Intake: IV 50 / 50 1150 / 1150 1/2 Normal Saline Inj 1,000 ML 1000 / 1000 @ 42 mls/hr IV.CONT .[id number] [facility] Rx#:[id number] Zosyn 3.375 GM Premix 50 ML @ 50 / 50 150 / 150 200 mls/hr IV.SIG Q6H [facility] Rx#: [id number] Oral 200 / 200 200 / 200 Output: Stool 0 / 0 Urine/Stool Mix 0 / 0 Urine Amount (Catheter) 700 / 700 400 / 400 Indwelling Urethral Catheter 700 / 700 400 / 400 Other: Date of Last Bowel Movement 12/20/17 12/20/17 # Bowel Movements 0 1 # Incontinent Bowel Movements 0 1 Narrative: GENERAL: NAD, A&Ox3 HEAD: Normocephalic. NECK: Supple, trachea midline. No lymphadenopathy. EYES: No scleral icterus. No injection or drainage. CARDIOVASCULAR: Regular rate and rhythm without murmurs, gallops, or rubs. RESPIRATORY: Breath sounds equal bilaterally. No accessory muscle use. GASTROINTESTINAL: Abdomen soft, non-tender, nondistended. MUSCULOSKELETAL: No cyanosis, or edema. SKIN: Warm and dry. NEURO: No focal neurological deficits. - Urinary Catheter Management Indwelling Urethral Catheter Cath placed during this visit: yes, but has since been removed by the nurse Reason for continuing: Hourly intake/output Insertion date: 12/14/17 Insertion time: 15:00 Removal date: 12/20/17 Removal time: 13:53 Condom Cath placed during this visit: yes Reason for continuing: Not indwelling catheter Insertion date: 12/20/17 Insertion time: 13:05 Assessment and Plan - Assessment (1) Acute renal failure Code(s): N17.9 - Acute kidney failure, unspecified Status: Acute Plan: Acute renal failure is due to contrast-induced nephropathy, 1.1 L of urine Patient on Diamox urine output is improved however creatinine is higher Doing poorly creatinine continued to climb discuss he needs dialysis Orders placed for Vas-Cath and hemodialysis for tomorrow meanwhile continue with Diamox Continue to monitor intake and output (2) COPD exacerbation Code(s): J44.1 - Chronic obstructive pulmonary disease with (acute) exacerbation Status: Acute Plan: Patient is under treatment (3) Respiratory failure Code(s): J96.90 - Respiratory failure, unspecified, unspecified whether with hypoxia or hypercapnia Status: Acute Plan: On BiPAP (4) Diabetes Code(s): E11.9 - Type 2 diabetes mellitus without complications Status: Acute Plan: Monitor blood glucose (5) Acute non-ST elevation myocardial infarction (NSTEMI) Code(s): I21.4 - Non-ST elevation (NSTEMI) myocardial infarction Status: Acute Plan: Cardiology is following
[2017-12-20] MEDS: Sodium Chloride 0.45 % Inj 1,000 ML IV.CONT SCH (21:30)
--- NOTE | 2017-12-20 22:59 | P.PNCA ---
Subjective Interval history: No complaints Off Bipap at this time, but still requiring frequently Medications and Allergies Active Medications: Active Medications Acetaminophen (Tylenol) 650 mg PO Q6H PRN PRN Reason: FEVER >101F Acetaminophen (Tylenol) 650 mg PO UNSCH PRN PRN Reason: SEE LABEL COMMENTS Acetazolamide Sodium (Diamox Inj) 500 mg IV.PUSH DAILY [facility] [place] Last Admin: 12/20/17 13:06 Dose: 500 mg Al Hydroxide/Mg Hydroxide (Milk Of Magnfrantz Liq) 30 ml PO Q12H PRN PRN Reason: Mild Constipation Albuterol (Albuterol Neb (Prn)) 2.5 mg NEB Q2HR NEB PRN PRN Reason: SHORTNESS OF BREATH/WHEEZING Last Admin: 12/20/17 08:22 Dose: 2.5 mg Artificial Tears (Tears Naturale Opth Drops) 1 drop EACH EYE TID [facility] [place] Last Admin: 12/20/17 18:49 Dose: 1 drop Aspirin (Aspirin Chew) 81 mg PO DAILY [facility] [place] Last Admin: 12/20/17 08:50 Dose: 81 mg Atorvastatin Calcium (Lipitor) 40 mg PO DAILY [facility] [place] Last Admin: 12/20/17 08:43 Dose: 40 mg Bisacodyl (Dulcolax Supp) 10 mg RECTAL DAILY PRN PRN Reason: SEVERE CONSITIPATION Budesonide (Pulmocort Respule Neb) 0.5 mg NEB Q12HR NEB [facility] [place] Last Admin: 12/20/17 08:21 Dose: 0.5 mg Chlorhexidine Gluconate (Peridex 0.12% Oral Kit) 15 ml OROPHARYNG BID@0800, 2000 [facility] [place] Last Admin: 12/20/17 21:15 Dose: Not Given Clonidine HCl (Catapres) 0.1 mg PO UNSCH PRN PRN Reason: SEE LABEL COMMENTS Dextrose (D50w Vial) 50 ml IV.PUSH UNSCH PRN PRN Reason: PER HYPOGLYCEMIA PROTOCOL Diltiazem HCl (Cardizem) 60 mg PO QID [facility] [place] Last Admin: 12/20/17 21:27 Dose: 60 mg Diphenhydramine HCl (Benadryl) 25 mg PO UNSCH PRN PRN Reason: SEE LABEL COMMENTS Enalapril Maleate (Vasotec) 2.5 mg PO DAILY [facility] [place] Last Admin: 12/20/17 08:50 Dose: 2.5 mg Epoetin [place] (Epogen Inj) 4,000 unit IV.PUSH UNSCH PRN PRN Reason: SEE LABEL COMMENTS Gelatin (Gelfoam 12 Mm/7 Mm Topical) 1 foam TOPICAL PRN PRN PRN Reason: help stop bleeding from site Gentamicin Sulfate (Gentamicin Inj) 20 mg OTHER WITH DIALYSIS PRN PRN Reason: Dwell Gentamycin Lock Glucagon (Glucagon Inj) 1 mg OTHER PRN PRN PRN Reason: for Hypoglycemia Protocol Heparin Sodium (Porcine) (Heparin Inj) 8,000 units OTHER WITH DIALYSIS PRN PRN Reason: for machine prime Heparin Sodium (Porcine) (Heparin Inj) 1,000 units OTHER WITH DIALYSIS PRN PRN Reason: Dwell Heparin to Fill Catheter Hydralazine HCl (Apresoline Inj) 10 mg IV.PUSH Q6H PRN PRN Reason: SBP>160, DBP>90 Last Admin: 12/15/17 14:26 Dose: 10 mg Sodium Chloride (1/2 Normal Saline Inj) 1,000 mls @ 42 mls/hr IV.CONT .[id number] [facility] [place] Last Admin: 12/20/17 21:30 Dose: 42 mls/hr Piperacillin/Tazobactam/Dextrose (Zosyn 3.375 Gm Premix) 50 mls @ 200 mls/hr IV.SIG Q6H [facility] [place] Last Admin: 12/20/17 17:37 Dose: 200 mls/hr Albumin Human (Flexbumin 25% Inj) 100 mls @ 60 mls/hr IV.SIG WITH DIALYSIS PRN PRN Reason: hypotension / volume replace Sodium Chloride (Ns Inj) 1,000 mls @ 0 mls/hr OTHER .Q0M PRN PRN Reason: for prime and rinse back Sodium Chloride (Ns Inj) 1,000 mls @ 200 mls/hr OTHER .Q5H PRN PRN Reason: for dialyzer flush PRN Sodium Chloride (Ns Inj) 1,000 mls @ 0 mls/hr IV.CONT .Q0M PRN PRN Reason: hypotension / volume replace Insulin Aspart (Novolog Insulin Correctional Sugar Inj) 0 unit SQ Q6HR [facility] [place]; Protocol Last Admin: 12/20/17 17:40 Dose: Not Given Lactulose (Lactulose Liq) 30 ml PO DAILY PRN PRN Reason: SEVERE CONSITIPATION Mannitol (Mannitol Inj) 12.5 gm IV.PUSH UNSCH PRN PRN Reason: hypotension / volume replace Miscellaneous Medication () 1 each OROPHARYNG 0000,0400,1200,1600 [facility] [place] Last Admin: 12/20/17 17:37 Dose: Not Given Nitroglycerin (Nitrostat Sl) 0.4 mg SL Q5M PRN PRN Reason: CHEST PAIN Ondansetron HCl (Zofran Inj) 4 mg IV.PUSH UNSCH PRN PRN Reason: NAUSEA OR VOMITING Pantoprazole Sodium (Protonix Inj) 40 mg IV.PUSH DAILY [facility] [place] Last Admin: 12/20/17 08:42 Dose: 40 mg Potassium Chloride (Micro-K) 16 meq PO DAILY [facility] [place] Last Admin: 12/20/17 08:41 Dose: 16 meq Senna/Docusate Sodium (Marian-Colace) 1 tab PO BID [facility] [place] Last Admin: 12/20/17 21:30 Dose: Not Given Sennosides (Senokot) 17.2 mg PO Q12H PRN PRN Reason: Moderate Constipation Sodium Chloride (Ns Flush) 2 ml IV.FLUSH BID [facility] [place] Last Admin: 12/20/17 21:29 Dose: Not Given Sodium Chloride (Ns Flush) 2 ml IV.FLUSH PRN PRN PRN Reason: FLUSH AFTER USING IV ACCESS Sodium Chloride (Ns Flush) 5 ml IV.FLUSH PRN PRN PRN Reason: flush each lumen during HD Thyroid (Minong Thyroid) 30 mg PO DAILY@0600 [facility] [place] Last Admin: 12/20/17 05:45 Dose: 30 mg Allergies Allergy/AdvReac Type Severity Reaction Status Date / Time No Known Allergies Allergy Verified 12/14/17 14:49 Home Medications Medication Instructions Recorded Confirmed Type esomeprazole magnesium [Nexium 20 mg PO DAILY 12/14/17 12/14/17 History 24HR] glipizide 5 mg PO DAILY 12/14/17 12/14/17 History potassium chloride 10 meq PO DAILY 12/14/17 12/14/17 History tiotropium-olodaterol [Stiolto 2 puff INHALATION DAILY 12/14/17 12/14/17 History Respimat] tizanidine 4 mg PO BID 12/14/17 12/14/17 History thyroid (pork) 30 mg PO DAILY 12/17/17 12/17/17 History Physical Exam Vital signs: Vital Signs 12/20/17 00:00 12/20/17 02:00 12/20/17 04:00 Temperature 98.2 F 98.2 F Pulse Rate 59 L 60 63 Respiratory Rate 28 H 19 Blood Pressure 126/60 144/72 H Pulse Oximetry 93 L 96 12/20/17 06:00 12/20/17 08:00 12/20/17 08:22 Temperature 98.0 F Pulse Rate 66 70 66 Respiratory Rate 23 18 Blood Pressure 153/101 H Pulse Oximetry 90 L 97 12/20/17 10:00 12/20/17 11:18 12/20/17 12:00 Temperature 98.2 F Pulse Rate 68 66 Respiratory Rate 23 Blood Pressure 109/57 L Pulse Oximetry 94 L 94 L 12/20/17 13:05 12/20/17 14:00 12/20/17 16:00 Temperature 97.9 F Pulse Rate 66 68 63 Respiratory Rate 25 H Blood Pressure 131/58 L Pulse Oximetry 92 L 12/20/17 16:39 12/20/17 18:00 12/20/17 20:00 Temperature 97.7 F Pulse Rate 63 114 H Respiratory Rate 18 Blood Pressure 104/52 L Pulse Oximetry 93 L 92 L 12/20/17 21:10 12/20/17 21:53 Temperature Pulse Rate Respiratory Rate Blood Pressure Pulse Oximetry 96 95 Intake & Output 12/20/17 12/20/17 12/21/17 06:59 18:59 06:59 Intake Total 1350 / 1350 350 / 350 1000 / 1000 Output Total 400 / 400 600 / 600 Balance 950 / 950 -250 / -250 1000 / 1000 Weight 97.5 kg Intake: IV 1150 / 1150 50 / 50 1000 / 1000 1/2 Normal Saline Inj 1,000 ML 1000 / 1000 1000 / 1000 @ 42 mls/hr IV.CONT .[id number] [facility] Rx#:[id number] Zosyn 3.375 GM Premix 50 ML @ 150 / 150 50 / 50 200 mls/hr IV.SIG Q6H [facility] Rx#: [id number] Oral 200 / 200 300 / 300 Output: Urine Amount (Catheter) 400 / 400 600 / 600 Condom 0 / 0 Indwelling Urethral Catheter 400 / 400 600 / 600 Other: Date of Last Bowel Movement 12/20/17 12/20/17 # Bowel Movements 1 1 # Incontinent Bowel Movements 1 1 Narrative: GENERAL: NAD, A&Ox3 HEAD: Normocephalic. NECK: Supple, trachea midline. No lymphadenopathy. EYES: No scleral icterus. No injection or drainage. CARDIOVASCULAR: Regular rate and rhythm without murmurs, gallops, or rubs. RESPIRATORY: Breath sounds equal bilaterally. No accessory muscle use. GASTROINTESTINAL: Abdomen soft, non-tender, nondistended. MUSCULOSKELETAL: No cyanosis, or edema. SKIN: Warm and dry. NEURO: No focal neurological deficits. - Urinary Catheter Management Indwelling Urethral Catheter Cath placed during this visit: yes, but has since been removed by the nurse Reason for continuing: Hourly intake/output Insertion date: 12/14/17 Insertion time: 15:00 Removal date: 12/20/17 Removal time: 13:53 Condom Cath placed during this visit: yes Reason for continuing: Not indwelling catheter Insertion date: 12/20/17 Insertion time: 13:05 Results 12/19/17 05:04 12/19/17 05:04 Cardiac Enzymes 12/19/17 Range/Units 05:04 AST 35 (15-37) U/L CBC 12/19/17 Range/Units 05:04 WBC 8.7 (4.0-11.0) th/mm3 RBC 4.14 L (4.50-5.90) mil/mm3 Hgb 13.3 (13.0-17.0) gm/dL Hct 39.7 (39.0-51.0) % Plt Count 146 L (150-450) th/mm3 Neut # (Auto) 6.7 (1.8-7.7) th/mm3 Lymph # (Auto) 0.7 L (1.0-4.8) th/mm3 [place] # (Auto) 1.0 H (0.0-0.9) th/mm3 Eos # (Auto) 0.3 (0.0-0.4) th/mm3 Baso # (Auto) 0.0 (0.0-0.2) th/mm3 Comprehensive Metabolic Panel 12/19/17 Range/Units 05:04 Sodium 142 (136-145) meq/L Potassium 3.6 (3.5-5.1) meq/L Chloride 102 (98-107) meq/L Carbon Dioxide 31.8 (21.0-32.0) meq/L BUN 29 H (7-18) mg/dL Creatinine 3.96 H (0.60-1.30) mg/dL Calcium 8.0 L (8.5-10.1) mg/dL AST 35 (15-37) U/L ALT 45 (12-78) U/L Alkaline Phosphatase 35 L (45-117) U/L Total Protein 6.4 (6.4-8.2) g/dL Albumin 2.5 L (3.4-5.0) g/dL Intake and Output 12/20/17 12/20/17 12/20/17 06:59 14:59 22:59 Intake Total 300 / 300 50 / 50 1300 / 1300 Output Total 400 / 400 600 / 600 Balance -100 / -100 50 / 50 700 / 700 Intake: IV 100 / 100 50 / 50 1000 / 1000 1/2 Normal Saline Inj 1,000 ML 1000 / 1000 @ 42 mls/hr IV.CONT .[id number] [facility] [place] Rx#:[id number] Zosyn 3.375 GM Premix 50 ML @ 100 / 100 50 / 50 200 mls/hr IV.SIG Q6H [facility] Rx#: [id number] Oral 200 / 200 300 / 300 Output: Urine Amount (Catheter) 400 / 400 600 / 600 Condom 0 / 0 Indwelling Urethral Catheter 400 / 400 600 / 600 Other: Date of Last Bowel Movement 12/20/17 12/20/17 12/20/17 # Bowel Movements 1 1 # Incontinent Bowel Movements 1 1 Weight 97.5 kg - Imaging and Cardiology Imaging: Impressions Chest X-Ray 12/19/17 06:00 CONCLUSION: Likely subpulmonic effusion on the right Assessment and Plan - Assessment (1) Encephalopathy acute Code(s): G93.40 - Encephalopathy, unspecified Status: Acute (2) Acute non-ST elevation myocardial infarction (NSTEMI) Code(s): I21.4 - Non-ST elevation (NSTEMI) myocardial infarction Status: Acute (3) Respiratory failure requiring intubation Code(s): J96.90 - Respiratory failure, unspecified, unspecified whether with hypoxia or hypercapnia Status: Acute - Plan 1) Encephalopathy, resolved Presented with GCS of 3, possible carbon dioxide retention? Resolved now 2) Acute respiratory failure s/p extubation 3) NSTEMI Probable type 2 Discussed with him on multiple days about consideration of ischemic work up He declines ischemic work up, understands risks/benefits Discussed with Palliative care, patient is DNR Will continue to treat medically per the patient's wishes Discussed with on 12/18/17, she agrees with decision of medical management and DNR status Will DC Heparin drip Con't ASA/Cardizem/Statin No CARLEEN-I due to SCARLET No BB due to significant lung disease 4) EF 55-60% 5) Attempting to diuresis May need HD, but would only want temporary per palliative care
[2017-12-21] MEDS: Piperacil/Tazo 3.375 GM Premix 50 ML IV.SIG SCH ×4 (01:00→18:25)
[2017-12-21] MEDS: Oral Hygiene Kit OROPHARYNG SCH ×4 (01:00→16:57)
[2017-12-21] MEDS: Insulin NovoLOG Aspart Correctional Sugar Inj SQ SCH ×5 (01:00→18:03)
[2017-12-21] MEDS: Chlorhexidine 0.12% Oral Kit 15 ML UDC OROPHARYNG SCH ×2 (07:39→21:34)
[2017-12-21 07:46] LABS: Baso % (Auto) 0.3 % (0.0-2.0); Eos # (Auto) 0.1 th/mm3 (0.0-0.4); Eos % (Auto) 0.8 % (0.0-4.0); Hematocrit 41.7 % (39.0-51.0); Hemoglobin 13.6 gm/dL (13.0-17.0); Lymph # (Auto) 1.1 th/mm3 (1.0-4.8); Lymph % (Auto) 9.4 % (9.0-44.0); Mean Corpuscular HGB Conc 32.5 % (32.0-36.0); Mean Corpuscular Hemoglobin 32.3 pg (27.0-34.0); Mean Corpuscular Volume 99.2 fL (80.0-100.0); Mean Platelet Volume 9.5 fL (7.0-11.0); Mono % (Auto) 8.4 % (0.0-8.0); Neut # (Auto) 9.3 th/mm3 (1.8-7.7); Neut % (Auto) 81.1 % (16.0-70.0); Platelet Count 178 th/mm3 (150-450); Red Blood Count 4.21 mil/mm3 (4.50-5.90); Red Cell Distribution Width 15.4 % (11.6-17.2); White Blood Count 11.5 th/mm3 (4.0-11.0)
[2017-12-21 08:02] LABS: Albumin 2.8 g/dL (3.4-5.0); Anion Gap 11 meq/L (5-15); Aspartate Aminotransferase 23 U/L (15-37); Blood Urea Nitrogen 51 mg/dL (7-18); Calcium 8.3 mg/dL (8.5-10.1); Carbon Dioxide 29.7 meq/L (21.0-32.0); Chloride 101 meq/L (98-107); Glomerular Filtration Rate 13 mL/min (>89); Glucose,Random 115 mg/dL (74-106); Potassium 3.5 meq/L (3.5-5.1); Sodium 142 meq/L (136-145)
[2017-12-21 08:22] LABS: Alanine Aminotransferase 43 U/L (12-78); Alkaline Phosphatase 35 U/L (45-117); Total Protein 6.6 g/dL (6.4-8.2)
[2017-12-21 08:28] LABS: Hepatitits B Surface Antigen Nonreactive (Nonreactive)
[2017-12-21] MEDS: Senna/Docusate Sodium 8.6/50 MG Tablet PO SCH ×2 (09:42→21:42)
[2017-12-21] MEDS: dilTIAZem 60 MG Tablet PO SCH (09:42)
[2017-12-21] MEDS: Artificial Tears Opth Drops 15 ML Bottle EACH EYE SCH ×3 (09:43→18:03)
[2017-12-21 10:05] LABS: Hepatitis A IgM Antibody Indeterminate (Nonreactive)
--- NOTE | 2017-12-21 10:22 | P.PNIM ---
Subjective Interval history: Patient is lethargic compared to previous day. Oxygen levels are normal on pulse ox and his breathing rates within normal limits. Patient is unable to converse A. Physical Exam Vital signs: Vital Signs 12/20/17 11:18 12/20/17 12:00 12/20/17 13:05 Temperature 98.2 F Pulse Rate 66 66 Respiratory Rate 23 Blood Pressure 109/57 L Pulse Oximetry 94 L 94 L 12/20/17 14:00 12/20/17 16:00 12/20/17 16:39 Temperature 97.9 F Pulse Rate 68 63 Respiratory Rate 25 H Blood Pressure 131/58 L Pulse Oximetry 92 L 93 L 12/20/17 18:00 12/20/17 20:00 12/20/17 21:10 Temperature 97.7 F Pulse Rate 63 114 H Respiratory Rate 18 Blood Pressure 104/52 L Pulse Oximetry 95 96 12/20/17 21:53 12/21/17 00:00 12/21/17 04:00 Temperature 97.5 F L 97.7 F Pulse Rate 97 H 67 Respiratory Rate 18 18 Blood Pressure 106/53 L 133/62 Pulse Oximetry 95 93 L 94 L 12/21/17 08:32 12/21/17 08:43 Temperature Pulse Rate 71 Respiratory Rate 16 Blood Pressure Pulse Oximetry 98 Intake & Output 12/20/17 12/21/17 12/21/17 18:59 06:59 18:59 Intake Total 400 / 400 1100 / 1100 Output Total 600 / 600 350 / 350 Balance -200 / -200 750 / 750 Weight 97.5 kg Intake: IV 100 / 100 1100 / 1100 1/2 Normal Saline Inj 1,000 ML 1000 / 1000 @ 42 mls/hr IV.CONT .[id number] [facility] Rx#:[id number] Zosyn 3.375 GM Premix 50 ML @ 100 / 100 100 / 100 200 mls/hr IV.SIG Q6H [facility] Rx#: [id number] Oral 300 / 300 Output: Urine 350 / 350 Urine Amount (Catheter) 600 / 600 Condom 0 / 0 Indwelling Urethral Catheter 600 / 600 Other: # Urine Diapers 2 Date of Last Bowel Movement 12/20/17 12/20/17 # Bowel Movements 1 # Incontinent Bowel Movements 1 2 Narrative: GENERAL: NAD, A&Ox0 HEAD: Normocephalic. NECK: Supple, trachea midline. No lymphadenopathy. EYES: No scleral icterus. No injection or drainage. CARDIOVASCULAR: Regular rate and rhythm without murmurs, gallops, or rubs. RESPIRATORY: Breath sounds equal bilaterally. No accessory muscle use. GASTROINTESTINAL: Abdomen soft, non-tender, nondistended. MUSCULOSKELETAL: No cyanosis, or edema. SKIN: Warm and dry. NEURO: No focal neurological deficits. - Urinary Catheter Management Indwelling Urethral Catheter Cath placed during this visit: yes, but has since been removed by the nurse Reason for continuing: Hourly intake/output Insertion date: 12/14/17 Insertion time: 15:00 Removal date: 12/20/17 Removal time: 13:53 Condom Cath placed during this visit: yes Reason for continuing: Not indwelling catheter Insertion date: 12/20/17 Insertion time: 13:05 Results - Labs CBC & Chem 7: 12/21/17 05:54 12/21/17 05:54 Laboratory Results - last 24 hr 12/20/17 12/21/17 12/21/17 23:39 05:54 05:54 WBC 11.5 H RBC 4.21 L Hgb 13.6 Hct 41.7 MCV 99.2 MCH 32.3 MCHC 32.5 RDW 15.4 Plt Count 178 MPV 9.5 Neut % (Auto) 81.1 H Lymph % (Auto) 9.4 [place] % (Auto) 8.4 H Eos % (Auto) 0.8 Baso % (Auto) 0.3 Neut # (Auto) 9.3 H Lymph # (Auto) 1.1 [place] # (Auto) 1.0 H Eos # (Auto) 0.1 Baso # (Auto) 0.0 WBC Differential . Differential Comment Auto diff final Sodium Potassium Chloride Carbon Dioxide Anion Gap BUN Creatinine Estimated GFR POC Glucose 116 H Random Glucose Calcium Total Bilirubin AST ALT Alkaline Phosphatase Total Protein Albumin Hepatitis A IgM Ab Indeterminate H Hep Bs Antigen Nonreactive Hep B Core IgM Ab Nonreactive Hep C IgG Ab Nonreactive 12/21/17 12/21/17 05:54 06:13 WBC RBC Hgb Hct MCV MCH MCHC RDW Plt Count MPV Neut % (Auto) Lymph % (Auto) [place] % (Auto) Eos % (Auto) Baso % (Auto) Neut # (Auto) Lymph # (Auto) [place] # (Auto) Eos # (Auto) Baso # (Auto) WBC Differential Differential Comment Sodium 142 Potassium 3.5 Chloride 101 Carbon Dioxide 29.7 Anion Gap 11 BUN 51 H Creatinine 4.49 H Estimated GFR 13 L POC Glucose 117 H Random Glucose 115 H Calcium 8.3 L Total Bilirubin 0.5 AST 23 ALT 43 Alkaline Phosphatase 35 L Total Protein 6.6 Albumin 2.8 L Hepatitis A IgM Ab Hep Bs Antigen Hep B Core IgM Ab Hep C IgG Ab Assessment and Plan - Plan 81-year-old male admitted secondary to respiratory failure with pneumonia Acute lethargy Hypercarbia suspected Obtain ABG Obtain chest x-ray Continue oxygen supplementation Upgraded BiPAP if needed Will transfer to critical care if upgraded BiPAP as needed Respiratory failure Community-acquired pneumonia COPD Continue oxygen supplementation Continue Zosyn Wean oxygen as tolerated BiPAP as needed Continue steroids Breathing treatments as needed Elevated troponin level Likely related to cardiac strain Continue heparin Continue aspirin, Lipitor, Cardizem, Vasotec Echocardiogram shows ejection fraction 55-60% Cardiology following Acute on chronic kidney failure Monitor renal function Avoid nephrotoxins Type 2 diabetes Follow blood sugars Insulin sliding scale Diabetic diet Hypothyroidism Continue Synthroid DVT Prophylaxis Heparin drip CODE STATUS DNR after family discussion
[2017-12-21 11:16] LABS: ABG Base Excess -1.6 mmol/L (-2-2); ABG PCO2 108 mmHg (38-42); ABG PO2 108 mmHg (61-120)
--- NOTE | 2017-12-21 11:18 | XR ---
EXAM DATE: 12/21/2017 11:13 AM EST AGE/SEX: 81 years / Male INDICATIONS: Shortness of breath. CLINICAL DATA: This is the patient's initial encounter. Patient reports that signs and symptoms have been present for 1 day and indicates a pain score of Nonresponsive. MEDICAL/SURGICAL HISTORY: Non-responsive. Non-responsive. [place] [facility] [place]. . FINDINGS: Generalized interstitial vascular prominence, basilar airspace disease and bilateral effusions have d eveloped. Heart appears enlarged. CONCLUSION: Acute mild pulmonary congestion with suspected bilateral pleural effusions. Electronically signed by: Alex Brewer MD 12/21/2017 11:17 AM EST
[2017-12-21] MEDS: Potassium Chloride 8 MEQ ER Capsule PO SCH (12:00)
--- NOTE | 2017-12-21 12:44 | P.PNCA ---
Subjective Interval history: More lethargic this morning Medications and Allergies Active Medications: Active Medications Acetaminophen (Tylenol) 650 mg PO Q6H PRN PRN Reason: FEVER >101F Acetaminophen (Tylenol) 650 mg PO UNSCH PRN PRN Reason: SEE LABEL COMMENTS Acetazolamide Sodium (Diamox Inj) 500 mg IV.PUSH DAILY [facility] Last Admin: 12/21/17 09:43 Dose: 500 mg Al Hydroxide/Mg Hydroxide (Milk Of Magnfrantz Liq) 30 ml PO Q12H PRN PRN Reason: Mild Constipation Albuterol (Albuterol Neb (Prn)) 2.5 mg NEB Q2HR NEB PRN PRN Reason: SHORTNESS OF BREATH/WHEEZING Last Admin: 12/20/17 08:22 Dose: 2.5 mg Artificial Tears (Tears Naturale Opth Drops) 1 drop EACH EYE TID [facility] Last Admin: 12/21/17 09:43 Dose: Not Given Aspirin (Aspirin Chew) 81 mg PO DAILY [facility] Last Admin: 12/21/17 09:42 Dose: 81 mg Atorvastatin Calcium (Lipitor) 40 mg PO DAILY [facility] Last Admin: 12/21/17 09:42 Dose: 40 mg Bisacodyl (Dulcolax Supp) 10 mg RECTAL DAILY PRN PRN Reason: SEVERE CONSITIPATION Budesonide (Pulmocort Respule Neb) 0.5 mg NEB Q12HR NEB [facility] Last Admin: 12/21/17 08:32 Dose: 0.5 mg Chlorhexidine Gluconate (Peridex 0.12% Oral Kit) 15 ml OROPHARYNG BID@0800, 2000 [facility] Last Admin: 12/21/17 07:39 Dose: Not Given Clonidine HCl (Catapres) 0.1 mg PO UNSCH PRN PRN Reason: SEE LABEL COMMENTS Dextrose (D50w Vial) 50 ml IV.PUSH UNSCH PRN PRN Reason: PER HYPOGLYCEMIA PROTOCOL Diltiazem HCl (Cardizem) 60 mg PO QID [facility] Last Admin: 12/21/17 09:42 Dose: 60 mg Diphenhydramine HCl (Benadryl) 25 mg PO UNSCH PRN PRN Reason: SEE LABEL COMMENTS Enalapril Maleate (Vasotec) 2.5 mg PO DAILY [facility] Last Admin: 12/20/17 08:50 Dose: 2.5 mg Epoetin Norman (Epogen Inj) 4,000 unit IV.PUSH UNSCH PRN PRN Reason: SEE LABEL COMMENTS Gelatin (Gelfoam 12 Mm/7 Mm Topical) 1 foam TOPICAL PRN PRN PRN Reason: help stop bleeding from site Gentamicin Sulfate (Gentamicin Inj) 20 mg OTHER WITH DIALYSIS PRN PRN Reason: Dwell Gentamycin Lock Glucagon (Glucagon Inj) 1 mg OTHER PRN PRN PRN Reason: for Hypoglycemia Protocol Heparin Sodium (Porcine) (Heparin Inj) 8,000 units OTHER WITH DIALYSIS PRN PRN Reason: for machine prime Heparin Sodium (Porcine) (Heparin Inj) 1,000 units OTHER WITH DIALYSIS PRN PRN Reason: Dwell Heparin to Fill Catheter Hydralazine HCl (Apresoline Inj) 10 mg IV.PUSH Q6H PRN PRN Reason: SBP>160, DBP>90 Last Admin: 12/15/17 14:26 Dose: 10 mg Sodium Chloride (1/2 Normal Saline Inj) 1,000 mls @ 42 mls/hr IV.CONT .[id number] [facility] Last Admin: 12/20/17 21:30 Dose: 42 mls/hr Piperacillin/Tazobactam/Dextrose (Zosyn 3.375 Gm Premix) 50 mls @ 200 mls/hr IV.SIG Q6H [facility] Last Infusion: 12/21/17 06:43 Dose: Infused Albumin Human (Flexbumin 25% Inj) 100 mls @ 60 mls/hr IV.SIG WITH DIALYSIS PRN PRN Reason: hypotension / volume replace Sodium Chloride (Ns Inj) 1,000 mls @ 0 mls/hr OTHER .Q0M PRN PRN Reason: for prime and rinse back Sodium Chloride (Ns Inj) 1,000 mls @ 200 mls/hr OTHER .Q5H PRN PRN Reason: for dialyzer flush PRN Sodium Chloride (Ns Inj) 1,000 mls @ 0 mls/hr IV.CONT .Q0M PRN PRN Reason: hypotension / volume replace Insulin Aspart (Novolog Insulin Correctional Sugar Inj) 0 unit SQ Q6HR [facility]; Protocol Last Admin: 12/21/17 06:07 Dose: Not Given Lactulose (Lactulose Liq) 30 ml PO DAILY PRN PRN Reason: SEVERE CONSITIPATION Mannitol (Mannitol Inj) 12.5 gm IV.PUSH UNSCH PRN PRN Reason: hypotension / volume replace Miscellaneous Medication () 1 each OROPHARYNG 0000,0400,1200,1600 [facility] Last Admin: 12/21/17 03:41 Dose: Not Given Nitroglycerin (Nitrostat Sl) 0.4 mg SL Q5M PRN PRN Reason: CHEST PAIN Ondansetron HCl (Zofran Inj) 4 mg IV.PUSH UNSCH PRN PRN Reason: NAUSEA OR VOMITING Pantoprazole Sodium (Protonix) 40 mg PO DAILY [facility] Potassium Chloride (Micro-K) 16 meq PO DAILY [facility] Last Admin: 12/20/17 08:41 Dose: 16 meq Senna/Docusate Sodium (Marian-Colace) 1 tab PO BID [facility] Last Admin: 12/21/17 09:42 Dose: 1 tab Sennosides (Senokot) 17.2 mg PO Q12H PRN PRN Reason: Moderate Constipation Sodium Chloride (Ns Flush) 2 ml IV.FLUSH BID [facility] Last Admin: 12/21/17 09:43 Dose: 2 ml Sodium Chloride (Ns Flush) 2 ml IV.FLUSH PRN PRN PRN Reason: FLUSH AFTER USING IV ACCESS Sodium Chloride (Ns Flush) 5 ml IV.FLUSH PRN PRN PRN Reason: flush each lumen during HD Thyroid ([place] Thyroid) 30 mg PO DAILY@0600 [facility] Last Admin: 12/21/17 06:08 Dose: 30 mg Allergies Allergy/AdvReac Type Severity Reaction Status Date / Time No Known Allergies Allergy Verified 12/14/17 14:49 Home Medications Medication Instructions Recorded Confirmed Type esomeprazole magnesium [Nexium 20 mg PO DAILY 12/14/17 12/14/17 History 24HR] glipizide 5 mg PO DAILY 12/14/17 12/14/17 History potassium chloride 10 meq PO DAILY 12/14/17 12/14/17 History tiotropium-olodaterol [Stiolto 2 puff INHALATION DAILY 12/14/17 12/14/17 History Respimat] tizanidine 4 mg PO BID 12/14/17 12/14/17 History thyroid (pork) 30 mg PO DAILY 12/17/17 12/17/17 History Physical Exam Vital signs: Vital Signs 12/20/17 13:05 12/20/17 14:00 12/20/17 16:00 Temperature 97.9 F Pulse Rate 66 68 63 Respiratory Rate 25 H Blood Pressure 131/58 L Pulse Oximetry 92 L 12/20/17 16:39 12/20/17 18:00 12/20/17 20:00 Temperature 97.7 F Pulse Rate 63 114 H Respiratory Rate 18 Blood Pressure 104/52 L Pulse Oximetry 93 L 95 12/20/17 21:10 12/20/17 21:53 12/21/17 00:00 Temperature 97.5 F L Pulse Rate 97 H Respiratory Rate 18 Blood Pressure 106/53 L Pulse Oximetry 96 95 93 L 12/21/17 04:00 12/21/17 08:00 12/21/17 08:32 Temperature 97.7 F 97.1 F L Pulse Rate 67 68 71 Respiratory Rate 18 18 16 Blood Pressure 133/62 142/66 H Pulse Oximetry 94 L 92 L 12/21/17 08:43 12/21/17 11:27 Temperature Pulse Rate Respiratory Rate Blood Pressure Pulse Oximetry 98 97 Intake & Output 12/20/17 12/21/17 12/21/17 18:59 06:59 18:59 Intake Total 400 / 400 1100 / 1100 Output Total 600 / 600 350 / 350 Balance -200 / -200 750 / 750 Weight 97.5 kg Intake: IV 100 / 100 1100 / 1100 1/2 Normal Saline Inj 1,000 ML 1000 / 1000 @ 42 mls/hr IV.CONT .[id number] [facility] Rx#:[id number] Zosyn 3.375 GM Premix 50 ML @ 100 / 100 100 / 100 200 mls/hr IV.SIG Q6H [facility] Rx#: [id number] Oral 300 / 300 Output: Urine 350 / 350 Urine Amount (Catheter) 600 / 600 Condom 0 / 0 Indwelling Urethral Catheter 600 / 600 Other: # Urine Diapers 2 Date of Last Bowel Movement 12/20/17 12/20/17 # Bowel Movements 1 # Incontinent Bowel Movements 1 2 Narrative: GENERAL: NAD, A&Ox0 HEAD: Normocephalic. NECK: Supple, trachea midline. No lymphadenopathy. EYES: No scleral icterus. No injection or drainage. CARDIOVASCULAR: Regular rate and rhythm without murmurs, gallops, or rubs. RESPIRATORY: Breath sounds equal bilaterally. No accessory muscle use. GASTROINTESTINAL: Abdomen soft, non-tender, nondistended. MUSCULOSKELETAL: No cyanosis, or edema. SKIN: Warm and dry. NEURO: No focal neurological deficits. - Urinary Catheter Management Indwelling Urethral Catheter Cath placed during this visit: yes, but has since been removed by the nurse Reason for continuing: Hourly intake/output Insertion date: 12/14/17 Insertion time: 15:00 Removal date: 12/20/17 Removal time: 13:53 Condom Cath placed during this visit: yes Reason for continuing: Not indwelling catheter Insertion date: 12/20/17 Insertion time: 13:05 Results 12/21/17 05:54 12/21/17 05:54 Cardiac Enzymes 12/21/17 Range/Units 05:54 AST 23 (15-37) U/L CBC 12/21/17 Range/Units 05:54 WBC 11.5 H (4.0-11.0) th/mm3 RBC 4.21 L (4.50-5.90) mil/mm3 Hgb 13.6 (13.0-17.0) gm/dL Hct 41.7 (39.0-51.0) % Plt Count 178 (150-450) th/mm3 Neut # (Auto) 9.3 H (1.8-7.7) th/mm3 Lymph # (Auto) 1.1 (1.0-4.8) th/mm3 Parker # (Auto) 1.0 H (0.0-0.9) th/mm3 Eos # (Auto) 0.1 (0.0-0.4) th/mm3 Baso # (Auto) 0.0 (0.0-0.2) th/mm3 Comprehensive Metabolic Panel 12/21/17 Range/Units 05:54 Sodium 142 (136-145) meq/L Potassium 3.5 (3.5-5.1) meq/L Chloride 101 (98-107) meq/L Carbon Dioxide 29.7 (21.0-32.0) meq/L BUN 51 H (7-18) mg/dL Creatinine 4.49 H (0.60-1.30) mg/dL Calcium 8.3 L (8.5-10.1) mg/dL AST 23 (15-37) U/L ALT 43 (12-78) U/L Alkaline Phosphatase 35 L (45-117) U/L Total Protein 6.6 (6.4-8.2) g/dL Albumin 2.8 L (3.4-5.0) g/dL Intake and Output 12/20/17 12/21/17 12/21/17 22:59 06:59 14:59 Intake Total 1350 / 1350 100 / 100 Output Total 600 / 600 350 / 350 Balance 750 / 750 -250 / -250 Intake: IV 1050 / 1050 100 / 100 1/2 Normal Saline Inj 1,000 ML 1000 / 1000 @ 42 mls/hr IV.CONT .[id number] [facility] Rx#:[id number] Zosyn 3.375 GM Premix 50 ML @ 50 / 50 100 / 100 200 mls/hr IV.SIG Q6H [facility] Rx#: [id number] Oral 300 / 300 Output: Urine 350 / 350 Urine Amount (Catheter) 600 / 600 Condom 0 / 0 Indwelling Urethral Catheter 600 / 600 Other: # Urine Diapers 2 Date of Last Bowel Movement 12/20/17 # Bowel Movements 1 # Incontinent Bowel Movements 1 2 Weight 97.5 kg - Imaging and Cardiology Imaging: Impressions Chest X-Ray 12/21/17 00:00 CONCLUSION: Acute mild pulmonary congestion with suspected bilateral pleural effusions. Assessment and Plan - Assessment (1) Encephalopathy acute Code(s): G93.40 - Encephalopathy, unspecified Status: Acute (2) Acute non-ST elevation myocardial infarction (NSTEMI) Code(s): I21.4 - Non-ST elevation (NSTEMI) myocardial infarction Status: Acute (3) Respiratory failure requiring intubation Code(s): J96.90 - Respiratory failure, unspecified, unspecified whether with hypoxia or hypercapnia Status: Acute - Plan 1) Encephalopathy, resolved Presented with GCS of 3, possible carbon dioxide retention? Resolved now 2) Acute respiratory failure s/p extubation 3) NSTEMI Probable type 2 Discussed with him on multiple days about consideration of ischemic work up He declines ischemic work up, understands risks/benefits Discussed with Palliative care, patient is DNR Will continue to treat medically per the patient's wishes Discussed with on 12/18/17, she agrees with decision of medical management and DNR status Will DC Heparin drip Con't ASA/Cardizem/Statin No CARLEEN-I due to SCARLET No BB due to significant lung disease 4) EF 55-60% 5) Attempting to diuresis May need HD, but would only want temporary per palliative care 6) Continues to retain CO2 7) If concerns over the weekend, please call the service for covering physician
[2017-12-21] MEDS ORDERED: Propofol Inj 500 MG/50 ML Vial ONE (13:37)
[2017-12-21] MEDS ORDERED: Etomidate Inj 40 MG/20 ML Vial IV.PUSH ONE (13:37)
--- NOTE | 2017-12-21 13:59 | P.PNCC ---
Subjective Subjective Remarks/Hospital Course: This is a unknown male. Admission 11 03/2017. Past medical history is unknown to me. There is no family currently available. According to records from previous ED physician who saw the patient before the ED physician had notified me patient has a history of hypothyroidism, gastroesophageal reflux disease, COPD, diabetes, heart failure. Patient was found unresponsive by family with a GCS of 3 and was brought in to the emergency department. Patient was intubated using etomidate and succinylcholine. CT brain negative. CT pulmonary antrum revealed right upper and lower lobe atelectasis. Lower lobe atelectasis versus infiltrate. Patient had elevated troponin. EKG revealed normal sinus rhythm at 64 with normal MI, QS and QT intervals. Dr. Vidal was notified. Patient has been started on a heparin drip for non-STEMI. Cardiology will evaluate. Patient is placed on broad- spectrum antibiotics. We are asked to admit. 12/15 Patient is intubated and sedated with Diprivan drip. On Heparin drip. Afebrile. CTA chest negative for PE. 12/16 Patient was extubated yesterday on BIPAP 15/8 with 40% FIO2. Afebrile. Awake and alert.On Heparin drip. 12/17 Patient is on BIPAP 18/8 with 40%, remains on Heparin drip. Afebrile. Renal function worse today with Cr: 2.25 from 1.03 12/21 Reconsult Patient was in resp. distress and with AMS. ABG showed acute hypercapneic resp acidosis with PH:7.05, pCO2:108. Floor nurse spoke to and she was agreeable for intubation. Patient was subsequently transferred to [facility] where he was immediately intubated by me and placed on mechanical ventilation. Renal function worse today with Cr: 4.49 from 3.96 plan to initiated HD today per renal. Objective Vital Signs / I&O: Vital Signs 12/20/17 14:00 12/20/17 16:00 12/20/17 16:39 Temperature 97.9 F Pulse Rate 68 63 Respiratory Rate 25 H Blood Pressure 131/58 L Pulse Oximetry 92 L 93 L 12/20/17 18:00 12/20/17 20:00 12/20/17 21:10 Temperature 97.7 F Pulse Rate 63 114 H Respiratory Rate 18 Blood Pressure 104/52 L Pulse Oximetry 95 96 12/20/17 21:53 12/21/17 00:00 12/21/17 04:00 Temperature 97.5 F L 97.7 F Pulse Rate 97 H 67 Respiratory Rate 18 18 Blood Pressure 106/53 L 133/62 Pulse Oximetry 95 93 L 94 L 12/21/17 08:00 12/21/17 08:32 12/21/17 08:43 Temperature 97.1 F L Pulse Rate 68 71 Respiratory Rate 18 16 Blood Pressure 142/66 H Pulse Oximetry 92 L 98 12/21/17 11:27 Temperature Pulse Rate Respiratory Rate Blood Pressure Pulse Oximetry 97 Intake & Output 12/20/17 12/21/17 12/21/17 18:59 06:59 18:59 Intake Total 400 / 400 1100 / 1100 Output Total 600 / 600 350 / 350 Balance -200 / -200 750 / 750 Weight 97.5 kg Intake: IV 100 / 100 1100 / 1100 1/2 Normal Saline Inj 1,000 ML 1000 / 1000 @ 42 mls/hr IV.CONT .[id number] [facility] Rx#:[id number] Zosyn 3.375 GM Premix 50 ML @ 100 / 100 100 / 100 200 mls/hr IV.SIG Q6H [facility] Rx#: [id number] Oral 300 / 300 Output: Urine 350 / 350 Urine Amount (Catheter) 600 / 600 Condom 0 / 0 Indwelling Urethral Catheter 600 / 600 Other: # Urine Diapers 2 Date of Last Bowel Movement 12/20/17 12/20/17 # Bowel Movements 1 # Incontinent Bowel Movements 1 2 Result Diagrams: 12/21/17 05:54 12/21/17 05:54 Other Results: Laboratory Results - last 12 hr 12/21/17 12/21/17 12/21/17 05:54 05:54 05:54 WBC 11.5 H RBC 4.21 L Hgb 13.6 Hct 41.7 MCV 99.2 MCH 32.3 MCHC 32.5 RDW 15.4 Plt Count 178 MPV 9.5 Neut % (Auto) 81.1 H Lymph % (Auto) 9.4 Moca % (Auto) 8.4 H Eos % (Auto) 0.8 Baso % (Auto) 0.3 Neut # (Auto) 9.3 H Lymph # (Auto) 1.1 Moca # (Auto) 1.0 H Eos # (Auto) 0.1 Baso # (Auto) 0.0 WBC Differential . Differential Comment Auto diff final Puncture Site Patient Temperature O2 Saturation ABG pH ABG pCO2 ABG pO2 ABG HCO3 ABG O2 Content ABG Base Excess ABG Methemoglobin Zhang Test Hemoglobin Carboxyhemoglobin O2 Delivery Device Liter Flow Critical Value Sodium 142 Potassium 3.5 Chloride 101 Carbon Dioxide 29.7 Anion Gap 11 BUN 51 H Creatinine 4.49 H Estimated GFR 13 L POC Glucose Random Glucose 115 H Calcium 8.3 L Total Bilirubin 0.5 AST 23 ALT 43 Alkaline Phosphatase 35 L Total Protein 6.6 Albumin 2.8 L Hepatitis A IgM Ab Indeterminate H Hep Bs Antigen Nonreactive Hep B Core IgM Ab Nonreactive Hep C IgG Ab Nonreactive 12/21/17 12/21/17 06:13 11:11 WBC RBC Hgb Hct MCV MCH MCHC RDW Plt Count MPV Neut % (Auto) Lymph % (Auto) Moca % (Auto) Eos % (Auto) Baso % (Auto) Neut # (Auto) Lymph # (Auto) Moca # (Auto) Eos # (Auto) Baso # (Auto) WBC Differential Differential Comment Puncture Site Left radial Patient Temperature 98.6 O2 Saturation 93 ABG pH 7.05 L* ABG pCO2 108 H* ABG pO2 108 ABG HCO3 28 H ABG O2 Content 18.5 ABG Base Excess -1.6 ABG Methemoglobin 1.3 Zhang Test Present Hemoglobin 14.1 Carboxyhemoglobin 0.6 O2 Delivery Device Mask Liter Flow 10.00 Critical Value Yes Sodium Potassium Chloride Carbon Dioxide Anion Gap BUN Creatinine Estimated GFR POC Glucose 117 H Random Glucose Calcium Total Bilirubin AST ALT Alkaline Phosphatase Total Protein Albumin Hepatitis A IgM Ab Hep Bs Antigen Hep B Core IgM Ab Hep C IgG Ab Imaging: Head CT 12/14/17 14:53 CONCLUSION: 1. No acute intracranial abnormality is identified. 2. Chronic findings include generalized atrophy and periventricular white matter change characteristic of chronic microvascular ischemia. . Chest CTA 12/14/17 17:06 CONCLUSION: 1. No pulmonary embolus. 2. Scattered areas of subpleural density seen in the posterior right upper and lower lobes likely related to mild consolidation or atelectasis. There is also some minimal suspected atelectasis or consolidation at the posterior lower lobes bilaterally. 3. Gallstones Abdomen/Bladder Ultrasound 12/17/17 00:00 CONCLUSION: 1. Kidneys are borderline echogenic which can be seen with medical renal disease. 2. Left renal cyst. 3. Liver appears echogenic which can be seen with hepatic steatosis/ hepatocellular dysfunction. Chest X-Ray 12/21/17 00:00 CONCLUSION: Acute mild pulmonary congestion with suspected bilateral pleural effusions. Objective Remarks: GENERAL: Patient is 81 yo critically ill now intubated SKIN: Warm and dry. HEAD: Normocephalic. EYES: No scleral icterus. No injection or drainage. NECK: Supple, trachea midline. No JVD or lymphadenopathy. orally intubated CARDIOVASCULAR: Regular rate and rhythm without murmurs, gallops, or rubs. RESPIRATORY: Breath sounds equal bilaterally. No accessory muscle use. GASTROINTESTINAL: Abdomen soft, non-tender, nondistended. MUSCULOSKELETAL: No cyanosis, or edema. Neuro: Intubated Assessment and Plan - Assessment and Plan Plan: Neuro/Psych: Monitor neuro status, diprivan infusion if needed for sedation. 12/14 CT brain revealed no acute intracranial findings Acetaminophen 650 mg every 6 hours as needed fever CV: Elevated troponin possibly type II non-STEMI History of essential hypertension History of congestive heart failure unknown etiology Monitor HR and BP keep MAP>65mmHg Aspirin 81 mg daily, Lipitor 40mg daily, Hold Cardizem 60mg QID and Vasotec 2.5mg daily for hypotension post intubation Cards is following- Dr. Vidal Echo showed EF 55-60% Resp: Acute respiratory failure Continue with vent support keep sats >92% Bronchodilators, check CXR/ABG post intubation 12/14 CT pulmonary no evidence of PE, revealed right upper/lower atelectasis versus infiltrate. Bilateral lower lobe consolidation versus infiltrate. GI: Pantoprazole for GI prophylaxis Docusate sodium senna 1 tablet twice daily for bowel regimen Start nutrition support via tube feeds- Nepro with goal rate 40ml/hr Monitor renal function, I/O's, avoid nephrotoxins Renal is following-Dr. Holder Cr: 4.[address] V[address]ath and start HD per renal. On Diamox 500mg IV daily Endo: Diabetes mellitus type 2 Hypothyroidism Continue home thyroid 500 mg daily. TSH level:2.37 Sliding scale insulin Accu-Cheks to maintain euglycemia every 6 hours aspart insulin Heme: Macrocytosis Monitor CBC daily. Follow trends. No indication for transfusion of blood products at this time ID: Blood cx-NGTD, sputum cx: normal resp marcio Continue Zosyn and monitor for signs of infections ( Fever, WBC) Access -Utilize peripheral IV. Prophylaxis -GI -pantoprazole -DVT -SCDs/heparin Sq Palliative care is following CCT 35 mins excluding procedures.
[2017-12-21] MEDS ORDERED: fentaNYL Citrate Inj 100 MCG/2 ML Ampul ONE (14:11)
[2017-12-21] MEDS ORDERED: fentaNYL 10 mcg/mL Premix Drip 2,500 MCG/250 ML BAG IV.SIG PRN (14:21)
--- NOTE | 2017-12-21 15:14 | XR ---
EXAM DATE: 12/21/2017 3:10 PM EST AGE/SEX: 81 years / Male INDICATIONS: Vas cath and post intubation. CLINICAL DATA: This is the patient's initial encounter. Patient reports that signs and symptoms have been present for 4 - 6 days and indicates a pain score of Nonresponsive. MEDICAL/SURGICAL HISTORY: Non-responsive. Non-responsive. COMPARISON: C, CHEST 1V SINGLE AP, 12/21/2017. . FINDINGS: ETT at the level of the clavicles. Right IJ central line with tip in the right atrium. Small bilatera l pleural effusions with associated lower lobe airspace disease. Cardiac silhouette is enlarged. Cent ral pulmonary vascularity is indistinct. Remainder of exam is unchanged. CONCLUSION: 1. ETT and right IJ central line in good position. 2. Cardiomegaly with pulmonary vascular congestion. 3. Small bilateral pleural effusions and suspected associated compressive atelectasis at the lung ba ses. Electronically signed by: Jayson Escoto MD 12/21/2017 3:13 PM EST
--- NOTE | 2017-12-21 15:17 | P.PNNP ---
Subjective Interval history: Patient critically ill intubated respiratory failure Vas-Cath is placed However family change their mind and wanted comfort measures Physical Exam Vital signs: Vital Signs 12/20/17 16:00 12/20/17 16:39 12/20/17 18:00 Temperature 97.9 F Pulse Rate 63 63 Respiratory Rate 25 H Blood Pressure 131/58 L Pulse Oximetry 92 L 93 L 12/20/17 20:00 12/20/17 21:10 12/20/17 21:53 Temperature 97.7 F Pulse Rate 114 H Respiratory Rate 18 Blood Pressure 104/52 L Pulse Oximetry 95 96 95 12/21/17 00:00 12/21/17 04:00 12/21/17 08:00 Temperature 97.5 F L 97.7 F 97.1 F L Pulse Rate 97 H 67 68 Respiratory Rate 18 18 18 Blood Pressure 106/53 L 133/62 142/66 H Pulse Oximetry 93 L 94 L 92 L 12/21/17 08:32 12/21/17 08:43 12/21/17 11:27 Temperature Pulse Rate 71 Respiratory Rate 16 Blood Pressure Pulse Oximetry 98 97 12/21/17 13:56 Temperature Pulse Rate Respiratory Rate 18 Blood Pressure Pulse Oximetry 98 Intake & Output 12/20/17 12/21/17 12/21/17 18:59 06:59 18:59 Intake Total 400 / 400 1100 / 1100 Output Total 600 / 600 350 / 350 Balance -200 / -200 750 / 750 Weight 97.5 kg Intake: IV 100 / 100 1100 / 1100 1/2 Normal Saline Inj 1,000 ML 1000 / 1000 @ 42 mls/hr IV.CONT .[id number] [facility] Rx#:[id number] Zosyn 3.375 GM Premix 50 ML @ 100 / 100 100 / 100 200 mls/hr IV.SIG Q6H [facility] Rx#: [id number] Oral 300 / 300 Output: Urine 350 / 350 Urine Amount (Catheter) 600 / 600 Condom 0 / 0 Indwelling Urethral Catheter 600 / 600 Other: # Urine Diapers 2 Date of Last Bowel Movement 12/20/17 12/20/17 12/20/17 # Bowel Movements 1 # Incontinent Bowel Movements 1 2 Narrative: GENERAL: Patient got intubated HEAD: Intubated. NECK: Supple, trachea midline. No lymphadenopathy. EYES: No scleral icterus. No injection or drainage. CARDIOVASCULAR: Regular rate and rhythm without murmurs, gallops, or rubs. RESPIRATORY: Breath sounds diminished at bases GASTROINTESTINAL: Abdomen soft, non-tender, nondistended. MUSCULOSKELETAL: 1+ r edema. SKIN: Warm and dry. NEURO: Intubated and sedated - Urinary Catheter Management Indwelling Urethral Catheter Cath placed during this visit: yes, but has since been removed by the nurse Reason for continuing: Hourly intake/output Insertion date: 12/14/17 Insertion time: 15:00 Removal date: 12/20/17 Removal time: 13:53 Condom Cath placed during this visit: yes Reason for continuing: Not indwelling catheter Insertion date: 12/20/17 Insertion time: 13:05 Assessment and Plan - Assessment (1) Acute renal failure Code(s): N17.9 - Acute kidney failure, unspecified Status: Acute Plan: Acute renal failure is due to contrast-induced nephropathy, Doing poorly went into respiratory failure Intubated Mechanical ventilation Vas-Cath placed in anticipation of dialysis Point I was told the family has changed her mind and now withholding aggressive care Palliative care is taking over the care Please call us back if needed aggressive care (2) COPD exacerbation Code(s): J44.1 - Chronic obstructive pulmonary disease with (acute) exacerbation Status: Acute Plan: Patient is under treatment (3) Respiratory failure Code(s): J96.90 - Respiratory failure, unspecified, unspecified whether with hypoxia or hypercapnia Status: Acute Plan: On BiPAP (4) Diabetes Code(s): E11.9 - Type 2 diabetes mellitus without complications Status: Acute Plan: Monitor blood glucose (5) Acute non-ST elevation myocardial infarction (NSTEMI) Code(s): I21.4 - Non-ST elevation (NSTEMI) myocardial infarction Status: Acute Plan: Cardiology is following
[2017-12-21 15:31] LABS: ABG Base Excess -0.8 mmol/L (-2-2); ABG PCO2 60 mmHg (38-42); ABG PO2 380 mmHg (61-120)
--- NOTE | 2017-12-21 15:34 | P.PNPAL ---
Reason for Visit Reason for visit: a. To assist with evaluation and management of symptoms including:pain, dyspnea , debility b. To assist medical decision maker(s) with: better understanding of current medical conditions; weighing benefits/burdens of medical treatment options; making medical treatment decisions. Subjective Subjective/Interval History: Mr. Da Silva is an 81-year-old male who presented to [facility] emergency room on 12/14/17 with shortness of breath and altered mental status. Apparently he was found unresponsive by the family who then called 911. During his ambulance ride to the hospital he quickly decompensated to a GCS of 3, requiring emergent intubation. Per the family, the patient has a past medical history of hypothyroidism, GERD, COPD, diabetes, cyst of spinal meninges, and heart failure. Due to the perplexing nature of this patient's presentation and unsure etiology of his altered mental status he was admitted for further evaluation and treatment. The patient was transferred to the medical ICU for further evaluation. Dr. Vidal (Cardiology) was consulted for N STEMI, with unclear etiology. He felt this was unlikely due to CHF ordered a 2D echo. And suggest the patient be started on a heparin drip. 2D echo showed an EF of 55-60% with trace mitral valve and aortic valve regurgitation. There was aortic valve sclerosis and estimated pulmonary arterial pressure of 44 mmHg. Intensive care ordered CTA which was negative for PE. The patient was extubated to BiPAP 15/8 with 40% FiO2 on 12/16/17. Today his BiPAP settings were slightly increased to 18/8 remaining on 40% FiO2. His renal functioning was noted to be increasing in nephrology was consulted. Nephrology did note patient had probable medical renal disease. 12/20/17 Palliative care to follow with symptom management and to assist with continued medical goals. Patient continues to require Bipap on and off throughout the day. Patient was originally on 5 N. and appears to becoming more lethargic throughout the day. He was scheduled to have Vas-Cath placement for hemodialysis tomorrow. This afternoon he became obtunded and bradycardic with a heart rate in the 40s. He was transferred emergently to [facility]. At this point nursing staff was unable to reach patient's and apparently the transferring nurse stated she was okay with intubation despite a DNR order. The patient was subsequently intubated and Vas-Cath was placed. The patient remained severely bradycardic dipping down into the high 30s. I was able to reach the patient's , Sharon who stated that she did not realize that he had been reintubated. She was aware that he was transferred to intensive care for further monitoring but did not realize that he was deteriorating as quickly as he was. She stated that she would want to keep the patient intubated for the time being but should his heart stop she would not want further cardiopulmonary resuscitation. She also declined further dialysis treatment at this time. Further family discussion to follow. Today clinical's data revealed: * WBC 11.5, HGB 13.6, HCT 41.7, platelets 178 * NA 142, K+ 3.5, CL 101, CO2 29.7, BUN 51, creatinine 4.49, glucose 115 * ABG: PH 7.05, PCO2 108, PO2 108, HCO3 28 Family/Friend Interactions: Spoke with patient's , Sharon Da Silva today at 2:50 PM. She stated that she was aware he was being transferred for further monitoring but was unaware that he was intubated and declining rapidly. She understood that he was supposed to have a Vas-Cath placed today for hemodialysis which she agreed to on a temporary basis. She was informed that the patient became severely obtunded and bradycardic with heart rate in the 40s. He was transferred to ICU and subsequently intubated and sedated despite DNR status. We discussed how at this point the patient was critically ill and the fact that hemodialysis could potentially result in cardiac arrest given his current clinical condition. She stated that she would not want to proceed with hemodialysis today. She would like to continue to keep the patient intubated and sedated but should he need any further type of resuscitation she would not want aggressive measures. We also discussed if she were to not move forward with hemodialysis the patient would in a matter of days. She verbalized her understanding and asked for a brick veneer maker to come to give the patient has last rights. The case was also discussed with Dr. Holder and Dr. Grigsby. Also discussed case with patient's [id number] Roxie Da Silva @ 3:50pm . His clinical course from his admission date to now was provided. She was informed the patient's had elected to let the patient remain intubated but continue with no cardiac resuscitation. She was also informed that she has elected to not continue with hemodialysis at this time. All family members are aware at this time that if they continue with no hemodialysis the patient will . They wish to continue with no further escalation of care at this time and ask for us to call should the patient's clinical status declined again. Advance Directives Living Will: Never completed Health Care Surrogate: Never completed Durable Power of Wood Carving Lathe Operator: Never completed Health Care Surrogate Name and Number: Sharon Da Silva, /HCP [phone] Documented care wishes:: The patient does not currently have a documented living will or durable power of aquatic habitat biologist Significant change in goals:: The patient was transferred to SICU and subsequently intubated despite DNR status. Patient's stated she did not realize he was declining as rapidly as he was. She agreed to let the patient remain intubated but declines any further aggressive measures should he require further resuscitation. He also declined hemodialysis at this time with the understanding that this would likely result in his in a matter of days. Objective Vital Signs: Vital Signs 12/20/17 16:00 12/20/17 16:39 12/20/17 18:00 Temperature 97.9 F Pulse Rate 63 63 Respiratory Rate 25 H Blood Pressure 131/58 L Pulse Oximetry 92 L 93 L 12/20/17 20:00 12/20/17 21:10 12/20/17 21:53 Temperature 97.7 F Pulse Rate 114 H Respiratory Rate 18 Blood Pressure 104/52 L Pulse Oximetry 95 96 95 12/21/17 00:00 12/21/17 04:00 12/21/17 08:00 Temperature 97.5 F L 97.7 F 97.1 F L Pulse Rate 97 H 67 68 Respiratory Rate 18 18 18 Blood Pressure 106/53 L 133/62 142/66 H Pulse Oximetry 93 L 94 L 92 L 12/21/17 08:32 12/21/17 08:43 12/21/17 11:27 Temperature Pulse Rate 71 Respiratory Rate 16 Blood Pressure Pulse Oximetry 98 97 12/21/17 13:56 Temperature Pulse Rate Respiratory Rate 18 Blood Pressure Pulse Oximetry 98 Intake & Output 12/20/17 12/21/17 12/21/17 18:59 06:59 18:59 Intake Total 400 / 400 1100 / 1100 Output Total 600 / 600 350 / 350 Balance -200 / -200 750 / 750 Weight 97.5 kg Intake: IV 100 / 100 1100 / 1100 1/2 Normal Saline Inj 1,000 ML 1000 / 1000 @ 42 mls/hr IV.CONT .[id number] ANGIE Rx#:[id number] Zosyn 3.375 GM Premix 50 ML @ 100 / 100 100 / 100 200 mls/hr IV.SIG Q6H ANGIE Rx#: [id number] Oral 300 / 300 Output: Urine 350 / 350 Urine Amount (Catheter) 600 / 600 Condom 0 / 0 Indwelling Urethral Catheter 600 / 600 Other: # Urine Diapers 2 Date of Last Bowel Movement 12/20/17 12/20/17 12/20/17 # Bowel Movements 1 # Incontinent Bowel Movements 1 2 Physical Exam: CONSTITUTIONAL/GENERAL: Currently intubated, appears critically ill. TUBES/LINES/DRAINS:PIV, Barlow, ETT, right Vas-Cath EYES: Pupils equal and round and reactive. No scleral icterus. No injection or drainage. Fundi not examined. ENT: Currently unable to assess hearing due to clinical condition. Nose without bleeding or purulent drainage. Throat without visible erythema, exudates, masses , or lesions. CARDIOVASCULAR: Sinus bradycardia with a rate in the high 30s to low 40s. RESPIRATORY/CHEST: Mechanically ventilated. Clear to auscultation. Breath sounds equal bilaterally. No wheezes, rales, or rhonchi. Diminished at the bases. GASTROINTESTINAL: Abdomen soft, non-tender, nondistended. No hepato-splenomegaly , or palpable masses. Bowel sounds present. MUSCULOSKELETAL: Extremities without clubbing, cyanosis, or edema. No joint tenderness or effusion noted. No calf tenderness. No mottling or clubbing. NEUROLOGICAL: Currently sedated on 20 mcg of propofol pupils 2 mm with sluggish reaction. Flaccid x4 PSYCHIATRIC: Unable to assess due to clinical condition Diagnostic Tests Laboratory: Laboratory Results - last 72 hr 12/18/17 12/18/17 12/19/17 18:25 23:40 05:04 WBC 8.7 RBC 4.14 L Hgb 13.3 Hct 39.7 MCV 95.9 MCH 32.2 MCHC 33.6 RDW 14.8 Plt Count 146 L MPV 8.9 Neut % (Auto) 76.7 H Lymph % (Auto) 8.5 L Blanco % (Auto) 11.1 H Eos % (Auto) 3.3 Baso % (Auto) 0.4 Neut # (Auto) 6.7 Lymph # (Auto) 0.7 L Blanco # (Auto) 1.0 H Eos # (Auto) 0.3 Baso # (Auto) 0.0 WBC Differential . Differential Comment Auto diff final Puncture Site Patient Temperature O2 Saturation ABG pH ABG pCO2 ABG pO2 ABG HCO3 ABG O2 Content ABG Base Excess ABG Methemoglobin Zhang Test Hemoglobin Carboxyhemoglobin O2 Delivery Device Liter Flow Critical Value Sodium Potassium Chloride Carbon Dioxide Anion Gap BUN Creatinine Estimated GFR POC Glucose 125 H 106 Random Glucose Calcium Phosphorus Magnesium Total Bilirubin AST ALT Alkaline Phosphatase Total Protein Albumin Hepatitis A IgM Ab Hep Bs Antigen Hep B Core IgM Ab Hep C IgG Ab 12/19/17 12/19/17 12/19/17 05:04 05:51 14:25 WBC RBC Hgb Hct MCV MCH MCHC RDW Plt Count MPV Neut % (Auto) Lymph % (Auto) Blanco % (Auto) Eos % (Auto) Baso % (Auto) Neut # (Auto) Lymph # (Auto) Blanco # (Auto) Eos # (Auto) Baso # (Auto) WBC Differential Differential Comment Puncture Site Patient Temperature O2 Saturation ABG pH ABG pCO2 ABG pO2 ABG HCO3 ABG O2 Content ABG Base Excess ABG Methemoglobin Zhang Test Hemoglobin Carboxyhemoglobin O2 Delivery Device Liter Flow Critical Value Sodium 142 Potassium 3.6 Chloride 102 Carbon Dioxide 31.8 Anion Gap 8 BUN 29 H Creatinine 3.96 H Estimated GFR 15 L POC Glucose 156 H 144 H Random Glucose 127 H Calcium 8.0 L Phosphorus 4.9 Magnesium 2.1 Total Bilirubin 0.8 AST 35 ALT 45 Alkaline Phosphatase 35 L Total Protein 6.4 Albumin 2.5 L Hepatitis A IgM Ab Hep Bs Antigen Hep B Core IgM Ab Hep C IgG Ab 12/19/17 12/20/17 12/20/17 17:04 00:16 05:52 WBC RBC Hgb Hct MCV MCH MCHC RDW Plt Count MPV Neut % (Auto) Lymph % (Auto) Blanco % (Auto) Eos % (Auto) Baso % (Auto) Neut # (Auto) Lymph # (Auto) Blanco # (Auto) Eos # (Auto) Baso # (Auto) WBC Differential Differential Comment Puncture Site Patient Temperature O2 Saturation ABG pH ABG pCO2 ABG pO2 ABG HCO3 ABG O2 Content ABG Base Excess ABG Methemoglobin Zhang Test Hemoglobin Carboxyhemoglobin O2 Delivery Device Liter Flow Critical Value Sodium Potassium Chloride Carbon Dioxide Anion Gap BUN Creatinine Estimated GFR POC Glucose 154 H 172 H 132 H Random Glucose Calcium Phosphorus Magnesium Total Bilirubin AST ALT Alkaline Phosphatase Total Protein Albumin Hepatitis A IgM Ab Hep Bs Antigen Hep B Core IgM Ab Hep C IgG Ab 12/20/17 12/21/17 12/21/17 23:39 05:54 05:54 WBC 11.5 H RBC 4.21 L Hgb 13.6 Hct 41.7 MCV 99.2 MCH 32.3 MCHC 32.5 RDW 15.4 Plt Count 178 MPV 9.5 Neut % (Auto) 81.1 H Lymph % (Auto) 9.4 Blanco % (Auto) 8.4 H Eos % (Auto) 0.8 Baso % (Auto) 0.3 Neut # (Auto) 9.3 H Lymph # (Auto) 1.1 Blanco # (Auto) 1.0 H Eos # (Auto) 0.1 Baso # (Auto) 0.0 WBC Differential . Differential Comment Auto diff final Puncture Site Patient Temperature O2 Saturation ABG pH ABG pCO2 ABG pO2 ABG HCO3 ABG O2 Content ABG Base Excess ABG Methemoglobin Zhang Test Hemoglobin Carboxyhemoglobin O2 Delivery Device Liter Flow Critical Value Sodium Potassium Chloride Carbon Dioxide Anion Gap BUN Creatinine Estimated GFR POC Glucose 116 H Random Glucose Calcium Phosphorus Magnesium Total Bilirubin AST ALT Alkaline Phosphatase Total Protein Albumin Hepatitis A IgM Ab Indeterminate H Hep Bs Antigen Nonreactive Hep B Core IgM Ab Nonreactive Hep C IgG Ab Nonreactive 12/21/17 12/21/17 12/21/17 05:54 06:13 11:11 WBC RBC Hgb Hct MCV MCH MCHC RDW Plt Count MPV Neut % (Auto) Lymph % (Auto) Blanco % (Auto) Eos % (Auto) Baso % (Auto) Neut # (Auto) Lymph # (Auto) Blanco # (Auto) Eos # (Auto) Baso # (Auto) WBC Differential Differential Comment Puncture Site Left radial Patient Temperature 98.6 O2 Saturation 93 ABG pH 7.05 L* ABG pCO2 108 H* ABG pO2 108 ABG HCO3 28 H ABG O2 Content 18.5 ABG Base Excess -1.6 ABG Methemoglobin 1.3 Zhang Test Present Hemoglobin 14.1 Carboxyhemoglobin 0.6 O2 Delivery Device Mask Liter Flow 10.00 Critical Value Yes Sodium 142 Potassium 3.5 Chloride 101 Carbon Dioxide 29.7 Anion Gap 11 BUN 51 H Creatinine 4.49 H Estimated GFR 13 L POC Glucose 117 H Random Glucose 115 H Calcium 8.3 L Phosphorus Magnesium Total Bilirubin 0.5 AST 23 ALT 43 Alkaline Phosphatase 35 L Total Protein 6.6 Albumin 2.8 L Hepatitis A IgM Ab Hep Bs Antigen Hep B Core IgM Ab Hep C IgG Ab Result Diagrams: 12/24/17 02:31 12/24/17 02:31 Microbiology: Microbiology 12/14/17 15:00 Aerobic Blood Culture - Final Blood - Peripheral No growth in 5 days Anaerobic Blood Culture - Final No growth in 5 days 12/14/17 15:00 Aerobic Blood Culture - Final Blood - Peripheral No growth in 5 days Anaerobic Blood Culture - Final No growth in 5 days Imaging: Impressions Chest X-Ray 12/21/17 00:00 CONCLUSION: Acute mild pulmonary congestion with suspected bilateral pleural effusions. Chest X-Ray 12/21/17 14:32 CONCLUSION: 1. ETT and right IJ central line in good position. 2. Cardiomegaly with pulmonary vascular congestion. 3. Small bilateral pleural effusions and suspected associated compressive atelectasis at the lung bases. Procedures: 12/14/17 * Endotracheal intubation (subsequent extubation on 12/15/17) 12/21/17 * Endotracheal intubation * Vas-Cath placement Assessment and Plan - Disease Oriented Problem List (1) Acute non-ST elevation myocardial infarction (NSTEMI) (2) Respiratory failure requiring intubation - Symptom Scale (1) Dyspnea 0-10 Scale: Unable to quantify Comment: Currently mechanically ventilated (2) Pain 0-10 Scale: Unable to quantify Comment: Recently reintubated. Nonverbal cues not apparent at this time. Patient has fentanyl GTT ordered (3) Debility 0-10 Scale: Unable to quantify Pertinent Non-Medical Issues: Psychosocial: The patient was born and raised in [place] where he met his . 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 They have 2 sons to still live in [place] Spiritual: Sabianism. He declines a real estate director visit at this time. Legal: Should the patient become completely incapacitated, and in the absence of a documented living, per [place] statues medical decision making would fall to his , Sharon Da Silva by proxy [phone] Ethical issues impacting care: There are currently no known ethical issues impacting care at this time. Important Contacts: Sharon Da Silva, Prognosis: Patient has recently declined rapidly and was transferred back to the SICU in critical condition. He is currently intubated, severely bradycardic and in acute renal failure. Healthcare proxy is declining hemodialysis at this time. Given the unclear etiology of his original medical insult, combined with his multiple comorbidities he remains at high risk for further decline, increased morbidity, and . Code Status: No Code DNR Plan: * LEGAL DECISION MAKER -the patient is currently able to participate in his own healthcare decision making though defers to his Sharon. Should he become completely incapacitated any time in the absence of a documented living will per [place] statutes decision making would fall to his by proxy Sharon Da Silva [phone] * GOALS - Spoke with patient's , Sharon Da Silva today at 2:50 PM. She stated that she was aware he further monitoring but was unaware that he intubated and declining rapidly. She understood that he was supposed to have a Vas-Cath placed today for hemodialysis which she agreed to on a temporary basis. She is informed that the patient became severely obtunded and bradycardic with heart rate in the 40s. He was transferred to ICU subsequently intubated and sedated despite DNR status. We discussed how at this point the patient was critically ill and the fact that hemodialysis could potentially result in cardiac arrest given his current clinical condition. She stated that she would not want to proceed with hemodialysis today. She would like to continue to keep the patient intubated and sedated but should he need any further type of resuscitation she would not want aggressive measures. We also discussed if she were to not move forward with hemodialysis the patient would in a matter of days. Verbalized her understanding and asked for a brick veneer maker to come to give the patient has last rights. This conversation was discussed with Dr. Holder and Dr. Grigsby. * CODE STATUS -DNR * SYMPTOMS Pain - multifactorial including bedbound status, blood draws, invasive lines, tubes, procedures, etc. recently reintubated and sedated. Nonverbal cue pains or not apparent at this time patient has fentanyl GTT ordered. Dyspneapatient went into respiratory distress with a CO2 level of 108 requiring transfer back to the intensive care unit. Patient was subsequently reintubated. Defer to critical care at this time Debility -in light of his recent setback requiring reintubation. Patient will have a prolonged recovery. If he survives this hospitalization. Currently unable to receive physical therapy due to clinical condition. Will make further recommendations as his clinical course evolves. Palliative care will continue to follow during hospital course as condition evolves, to assist patient/decision maker with understanding of medical conditions, weighing benefits/burdens of treatment options, for clarification of goals of treatment. Additionally will assist with any symptoms of palliative concern. Case discussed with Dr. Holder, Dr. Grigsby, and RN (Joya) at bedside Attestation Attestation: To help prompt me to consider important information that might be impacting today's encounter and assessment, information from prior notes written by myself or my colleagues may have been "brought forward" into today's note. My signature on this note, however, is an attestation that I personally performed the exam, history, and/or decision-making noted today, and, unless otherwise indicated, the interactions with patient, family, and staff as well as the review of records all occurred today. I also attest that the listed assessment and stated plan reflect my best clinical judgment today based on the combination of historical information, prior notes, and today's exam/ interactions. When time spent is documented, it refers only to time spent today by the signer, or if indicated, combined time spent today by collaborating physician/nurse practitioner.
--- NOTE | 2017-12-21 15:38 | P.PCN ---
Date of procedure: 12/21/17 Pre-op diagnosis: Resp failure, acute renal failure Procedure: Procedure: Right IJ vascath placement Indications: ARF, Initiation HD The patient was placed in a dependent position appropriate for vascath placement based on the vein to be cannulated. The patients right neck was prepped and draped in sterile fashion. 1% Lidocaine was used to anesthetize the surrounding skin area. Using the Seldinger technique under ultrasound guidance. The catheter was threaded smoothly over the guide wire and appropriate blood return was obtained. Each lumen of the catheter was evacuated of air and flushed with sterile saline. The catheter was then sutured in place to the skin and a sterile dressing applied. patient tolerated procedure well. CXR post line placement showed vascath is in adequate position.
[2017-12-21] MEDS: Heparin - SQ 10,000 UNITS/ML Vial SQ SCH (21:42)
[2017-12-22] MEDS: Piperacil/Tazo 3.375 GM Premix 50 ML IV.SIG SCH ×3 (00:25→12:02)
[2017-12-22] MEDS: Oral Hygiene Kit OROPHARYNG SCH ×4 (00:26→11:36)
[2017-12-22] MEDS: Insulin NovoLOG Aspart Correctional Sugar Inj SQ SCH ×3 (00:34→12:00)
[2017-12-22 04:23] LABS: Baso # (Auto) 0.1 th/mm3 (0.0-0.2); Baso % (Auto) 0.6 % (0.0-2.0); Eos # (Auto) 0.1 th/mm3 (0.0-0.4); Hematocrit 39.5 % (39.0-51.0); Hemoglobin 12.8 gm/dL (13.0-17.0); Lymph # (Auto) 0.7 th/mm3 (1.0-4.8); Lymph % (Auto) 7.2 % (9.0-44.0); Mean Corpuscular HGB Conc 32.5 % (32.0-36.0); Mean Corpuscular Hemoglobin 32.1 pg (27.0-34.0); Mean Corpuscular Volume 98.9 fL (80.0-100.0); Mean Platelet Volume 9.6 fL (7.0-11.0); Mono # (Auto) 0.9 th/mm3 (0.0-0.9); Mono % (Auto) 8.6 % (0.0-8.0); Neut # (Auto) 8.5 th/mm3 (1.8-7.7); Neut % (Auto) 82.6 % (16.0-70.0); Platelet Count 159 th/mm3 (150-450); White Blood Count 10.2 th/mm3 (4.0-11.0)
[2017-12-22 04:43] LABS: Albumin 2.5 g/dL (3.4-5.0); Anion Gap 13 meq/L (5-15); Aspartate Aminotransferase 18 U/L (15-37); Blood Urea Nitrogen 59 mg/dL (7-18); Calcium 7.9 mg/dL (8.5-10.1); Carbon Dioxide 27.5 meq/L (21.0-32.0); Chloride 105 meq/L (98-107); Glomerular Filtration Rate 12 mL/min (>89); Glucose,Random 112 mg/dL (74-106); Potassium 3.2 meq/L (3.5-5.1); Sodium 145 meq/L (136-145)
[2017-12-22 04:44] LABS: Alanine Aminotransferase 38 U/L (12-78)
[2017-12-22 04:46] LABS: Alkaline Phosphatase 35 U/L (45-117); Total Protein 5.9 g/dL (6.4-8.2)
[2017-12-22] MEDS: Senna/Docusate Sodium 8.6/50 MG Tablet PO SCH ×2 (08:38→20:46)
[2017-12-22] MEDS: Heparin - SQ 10,000 UNITS/ML Vial SQ SCH ×2 (08:38→20:46)
[2017-12-22] MEDS: Chlorhexidine 0.12% Oral Kit 15 ML UDC OROPHARYNG SCH ×3 (08:58→20:50)
[2017-12-22] MEDS: Potassium Chloride 8 MEQ ER Capsule PO SCH (09:25)
--- NOTE | 2017-12-22 10:27 | P.PNCC ---
Subjective Subjective Remarks/Hospital Course: This is a unknown male. Admission 11 03/2017. Past medical history is unknown to me. There is no family currently available. According to records from previous ED physician who saw the patient before the ED physician had notified me patient has a history of hypothyroidism, gastroesophageal reflux disease, COPD, diabetes, heart failure. Patient was found unresponsive by family with a GCS of 3 and was brought in to the emergency department. Patient was intubated using etomidate and succinylcholine. CT brain negative. CT pulmonary antrum revealed right upper and lower lobe atelectasis. Lower lobe atelectasis versus infiltrate. Patient had elevated troponin. EKG revealed normal sinus rhythm at 64 with normal MT, QS and QT intervals. Dr. Vidal was notified. Patient has been started on a heparin drip for non-STEMI. Cardiology will evaluate. Patient is placed on broad- spectrum antibiotics. We are asked to admit. 12/15 Patient is intubated and sedated with Diprivan drip. On Heparin drip. Afebrile. CTA chest negative for PE. 12/16 Patient was extubated yesterday on BIPAP 15/8 with 40% FIO2. Afebrile. Awake and alert.On Heparin drip. 12/17 Patient is on BIPAP 18/8 with 40%, remains on Heparin drip. Afebrile. Renal function worse today with Cr: 2.25 from 1.03 12/21 Reconsult Patient was in resp. distress and with AMS. ABG showed acute hypercapneic resp acidosis with PH:7.05, pCO2:108. Floor nurse spoke to and she was agreeable for intubation. Patient was subsequently transferred to [facility] where he was immediately intubated by me and placed on mechanical ventilation. Renal function worse today with Cr: 4.49 from 3.96 plan to initiated HD today per renal. 12/22 Patient is intubated and sedated with Fentanyl infusion. Renal function is worse with Cr: 4.60 today from 4.49. Objective Vital Signs / I&O: Vital Signs 12/21/17 11:27 12/21/17 13:31 12/21/17 13:39 Temperature Pulse Rate 50 L 49 L Respiratory Rate 30 H 22 Blood Pressure 177/133 H Pulse Oximetry 97 97 12/21/17 13:43 12/21/17 13:46 12/21/17 13:53 Temperature 97.1 F L Pulse Rate 67 55 L 64 Respiratory Rate 28 H 20 28 H Blood Pressure 80/51 L 79/51 L 90/51 L Pulse Oximetry 94 L 100 98 12/21/17 13:55 12/21/17 13:56 12/21/17 14:00 Temperature Pulse Rate 53 L 50 L Respiratory Rate 28 H 18 Blood Pressure 84/46 L Pulse Oximetry 100 98 100 12/21/17 14:02 12/21/17 14:12 12/21/17 15:00 Temperature Pulse Rate 50 L 52 L 47 L Respiratory Rate 18 18 Blood Pressure 89/53 L 122/60 Pulse Oximetry 100 100 100 12/21/17 15:55 12/21/17 16:00 12/21/17 16:45 Temperature 97.5 F L Pulse Rate 50 L 55 L 57 L Respiratory Rate 19 18 26 H Blood Pressure 97/57 L Pulse Oximetry 100 100 96 12/21/17 17:00 12/21/17 17:49 12/21/17 18:00 Temperature Pulse Rate 53 L 64 61 Respiratory Rate 20 20 20 Blood Pressure 104/53 L 96/54 L Pulse Oximetry 99 95 99 12/21/17 19:00 12/21/17 19:46 12/21/17 19:47 Temperature Pulse Rate 64 62 Respiratory Rate 20 20 20 Blood Pressure 95/55 L Pulse Oximetry 98 98 12/21/17 20:00 12/21/17 21:00 12/21/17 22:00 Temperature 99.3 F Pulse Rate 64 68 66 Respiratory Rate 20 20 20 Blood Pressure 107/63 97/54 L 108/58 L Pulse Oximetry 98 95 95 12/21/17 22:07 12/21/17 23:00 12/22/17 00:00 Temperature 100 F H Pulse Rate 66 69 Respiratory Rate 20 20 20 Blood Pressure 107/56 L 109/73 Pulse Oximetry 94 L 95 95 12/22/17 00:05 12/22/17 01:00 12/22/17 02:00 Temperature Pulse Rate 68 68 73 Respiratory Rate 20 13 18 Blood Pressure 100/57 L 110/55 L Pulse Oximetry 95 97 12/22/17 02:21 12/22/17 03:00 12/22/17 04:00 Temperature 101.1 F H Pulse Rate 71 82 Respiratory Rate 12 12 17 Blood Pressure 104/57 L 117/58 L Pulse Oximetry 95 95 95 12/22/17 04:26 12/22/17 05:00 12/22/17 06:00 Temperature Pulse Rate 65 72 73 Respiratory Rate 12 12 12 Blood Pressure 93/55 L 105/55 L Pulse Oximetry 97 95 12/22/17 07:00 12/22/17 07:30 12/22/17 08:00 Temperature 98.7 F Pulse Rate 77 76 73 Respiratory Rate 12 12 13 Blood Pressure 110/54 L 106/52 L 104/59 L Pulse Oximetry 95 95 95 12/22/17 08:30 12/22/17 08:46 12/22/17 08:50 Temperature Pulse Rate 74 70 Respiratory Rate 12 13 13 Blood Pressure 110/52 L Pulse Oximetry 95 100 12/22/17 09:00 12/22/17 09:30 Temperature Pulse Rate 74 70 Respiratory Rate 13 12 Blood Pressure 100/54 L 94/54 L Pulse Oximetry 97 96 Intake & Output 12/21/17 12/22/17 12/22/17 18:59 06:59 18:59 Intake Total 441 / 441 Output Total 0 / 0 325 / 325 Balance 0 / 0 116 / 116 Weight 100.3 kg Intake: IV 150 / 150 Zosyn 3.375 GM Premix 50 ML @ 150 / 150 200 mls/hr IV.SIG Q6H [facility] Rx#: [id number] Tube Feeding 291 / 291 Output: Urine Amount (Catheter) 0 / 0 325 / 325 Condom 0 / 0 325 / 325 Other: # Voids 1 Date of Last Bowel Movement 12/21/17 12/21/17 12/21/17 # Bowel Movements 0 0 Result Diagrams: 12/22/17 03:55 12/22/17 03:55 Other Results: Laboratory Results - last 12 hr 12/22/17 12/22/17 03:55 03:55 WBC 10.2 RBC 4.00 L Hgb 12.8 L Hct 39.5 MCV 98.9 MCH 32.1 MCHC 32.5 RDW 15.0 Plt Count 159 MPV 9.6 Neut % (Auto) 82.6 H Lymph % (Auto) 7.2 L Bond % (Auto) 8.6 H Eos % (Auto) 1.0 Baso % (Auto) 0.6 Neut # (Auto) 8.5 H Lymph # (Auto) 0.7 L Bond # (Auto) 0.9 Eos # (Auto) 0.1 Baso # (Auto) 0.1 WBC Differential . Differential Comment Auto diff final Sodium 145 Potassium 3.2 L Chloride 105 Carbon Dioxide 27.5 Anion Gap 13 BUN 59 H Creatinine 4.60 H Estimated GFR 12 L Random Glucose 112 H Calcium 7.9 L Total Bilirubin 0.4 AST 18 ALT 38 Alkaline Phosphatase 35 L Total Protein 5.9 L D Albumin 2.5 L Imaging: Head CT 12/14/17 14:53 CONCLUSION: 1. No acute intracranial abnormality is identified. 2. Chronic findings include generalized atrophy and periventricular white matter change characteristic of chronic microvascular ischemia. . Chest CTA 12/14/17 17:06 CONCLUSION: 1. No pulmonary embolus. 2. Scattered areas of subpleural density seen in the posterior right upper and lower lobes likely related to mild consolidation or atelectasis. There is also some minimal suspected atelectasis or consolidation at the posterior lower lobes bilaterally. 3. Gallstones Abdomen/Bladder Ultrasound 12/17/17 00:00 CONCLUSION: 1. Kidneys are borderline echogenic which can be seen with medical renal disease. 2. Left renal cyst. 3. Liver appears echogenic which can be seen with hepatic steatosis/ hepatocellular dysfunction. Chest X-Ray 12/21/17 14:32 CONCLUSION: 1. ETT and right IJ central line in good position. 2. Cardiomegaly with pulmonary vascular congestion. 3. Small bilateral pleural effusions and suspected associated compressive atelectasis at the lung bases. Objective Remarks: GENERAL: Patient is 81 yo critically ill now intubated SKIN: Warm and dry. HEAD: Normocephalic. EYES: No scleral icterus. No injection or drainage. NECK: Supple, trachea midline. No JVD or lymphadenopathy. orally intubated CARDIOVASCULAR: Regular rate and rhythm without murmurs, gallops, or rubs. RESPIRATORY: Breath sounds equal bilaterally. No accessory muscle use. GASTROINTESTINAL: Abdomen soft, non-tender, nondistended. MUSCULOSKELETAL: No cyanosis, or edema. Neuro: Intubated Assessment and Plan - Assessment and Plan Plan: Neuro/Psych: Monitor neuro status, on Fentanyl infusion for sedation. Daily sedation vacation. 12/14 CT brain revealed no acute intracranial findings Acetaminophen 650 mg every 6 hours as needed fever CV: Elevated troponin possibly type II non-STEMI History of essential hypertension History of congestive heart failure unknown etiology Monitor HR and BP keep MAP>65mmHg Aspirin 81 mg daily, Lipitor 40mg daily, Hold Cardizem 60mg QID and Vasotec 2.5mg daily for hypotension post intubation Cards is following- Dr. Vidal Echo showed EF 55-60% Resp: Acute respiratory failure Continue with vent support keep sats >92% Bronchodilators, ICU vent bundle. Check ABG SBT when appropriate 12/14 CT pulmonary no evidence of PE, revealed right upper/lower atelectasis versus infiltrate. Bilateral lower lobe consolidation versus infiltrate. GI: Pantoprazole for GI prophylaxis Docusate sodium senna 1 tablet twice daily for bowel regimen Continue tube feeds- Nepro with goal rate 40ml/hr Monitor renal function, I/O's, avoid nephrotoxins Renal is following-Dr. Holder Renal function is worse with Cr: 4.60 from 4.49 Vascath placed 12/21 On Diamox 500mg IV daily Patient's now changed her mind against HD. Endo: Diabetes mellitus type 2 Hypothyroidism Continue home thyroid 500 mg daily. TSH level:2.37 Sliding scale insulin Accu-Cheks to maintain euglycemia every 6 hours aspart insulin Heme: Macrocytosis Monitor CBC daily. Follow trends. No indication for transfusion of blood products at this time ID: Blood cx-NGTD, sputum cx: normal resp marcio Continue Zosyn and monitor for signs of infections ( Fever, WBC) Access -Utilize peripheral IV. -Right IHJ vascath placed 12/21 Prophylaxis -GI -pantoprazole -DVT -SCDs/heparin Sq Palliative care is following Code status: No code DNR Spoke to patient's and updated her on his condition. CCT 35 mins excluding procedures.
[2017-12-22 11:17] LABS: ABG Base Excess 0.7 mmol/L (-2-2); ABG PCO2 54 mmHg (38-42); ABG PO2 144 mmHg (61-120)
[2017-12-22] MEDS: Pantoprazole Inj 40 MG Vial IV.PUSH SCH (12:01)
[2017-12-22] MEDS: Artificial Tears Opth Drops 15 ML Bottle EACH EYE SCH ×2 (13:00→18:34)
--- NOTE | 2017-12-22 14:30 | P.PNNP ---
Subjective Interval history: Ongoing minimal UOP - family has decided for dialysis and seen on dialysis today Physical Exam Vital signs: Vital Signs 12/21/17 15:00 12/21/17 15:55 12/21/17 16:00 Temperature 97.5 F L Pulse Rate 47 L 50 L 55 L Respiratory Rate 19 18 Blood Pressure Pulse Oximetry 100 100 100 12/21/17 16:45 12/21/17 17:00 12/21/17 17:49 Temperature Pulse Rate 57 L 53 L 64 Respiratory Rate 26 H 20 20 Blood Pressure 97/57 L 104/53 L Pulse Oximetry 96 99 95 12/21/17 18:00 12/21/17 19:00 12/21/17 19:46 Temperature Pulse Rate 61 64 Respiratory Rate 20 20 20 Blood Pressure 96/54 L 95/55 L Pulse Oximetry 99 98 98 12/21/17 19:47 12/21/17 20:00 12/21/17 21:00 Temperature 99.3 F Pulse Rate 62 64 68 Respiratory Rate 20 20 20 Blood Pressure 107/63 97/54 L Pulse Oximetry 98 95 12/21/17 22:00 12/21/17 22:07 12/21/17 23:00 Temperature Pulse Rate 66 66 Respiratory Rate 20 20 20 Blood Pressure 108/58 L 107/56 L Pulse Oximetry 95 94 L 95 12/22/17 00:00 12/22/17 00:05 12/22/17 01:00 Temperature 100 F H Pulse Rate 69 68 68 Respiratory Rate 20 20 13 Blood Pressure 109/73 100/57 L Pulse Oximetry 95 95 12/22/17 02:00 12/22/17 02:21 12/22/17 03:00 Temperature Pulse Rate 73 71 Respiratory Rate 18 12 12 Blood Pressure 110/55 L 104/57 L Pulse Oximetry 97 95 95 12/22/17 04:00 12/22/17 04:26 12/22/17 05:00 Temperature 101.1 F H Pulse Rate 82 65 72 Respiratory Rate 17 12 12 Blood Pressure 117/58 L 93/55 L Pulse Oximetry 95 97 12/22/17 06:00 12/22/17 07:00 12/22/17 07:30 Temperature Pulse Rate 73 77 76 Respiratory Rate 12 12 12 Blood Pressure 105/55 L 110/54 L 106/52 L Pulse Oximetry 95 95 95 12/22/17 08:00 12/22/17 08:30 12/22/17 08:46 Temperature 98.7 F Pulse Rate 73 74 Respiratory Rate 13 12 13 Blood Pressure 104/59 L 110/52 L Pulse Oximetry 95 95 100 12/22/17 08:50 12/22/17 09:00 12/22/17 09:30 Temperature Pulse Rate 70 74 70 Respiratory Rate 13 13 12 Blood Pressure 100/54 L 94/54 L Pulse Oximetry 97 96 12/22/17 10:00 12/22/17 10:15 12/22/17 10:30 Temperature Pulse Rate 73 73 75 Respiratory Rate 12 12 14 Blood Pressure 98/55 L 101/54 L 115/55 L Pulse Oximetry 96 96 97 12/22/17 10:45 12/22/17 10:56 12/22/17 11:00 Temperature Pulse Rate 75 74 75 Respiratory Rate 16 16 12 Blood Pressure 112/57 L 107/53 L Pulse Oximetry 96 97 12/22/17 11:15 12/22/17 11:30 12/22/17 11:45 Temperature Pulse Rate 75 80 78 Respiratory Rate 12 28 H 14 Blood Pressure 106/56 L 115/59 L 102/57 L Pulse Oximetry 97 97 98 12/22/17 12:00 Temperature 99.2 F Pulse Rate 78 Respiratory Rate 23 Blood Pressure 110/58 L Pulse Oximetry 98 Intake & Output 12/21/17 12/22/17 12/22/17 18:59 06:59 18:59 Intake Total 441 / 441 Output Total 0 / 0 325 / 325 Balance 0 / 0 116 / 116 Weight 100.3 kg Intake: IV 150 / 150 Zosyn 3.375 GM Premix 50 ML @ 150 / 150 200 mls/hr IV.SIG Q6H [facility] Rx#: [id number] Tube Feeding 291 / 291 Output: Urine Amount (Catheter) 0 / 0 325 / 325 Condom 0 / 0 325 / 325 Other: # Voids 1 Date of Last Bowel Movement 12/21/17 12/21/17 12/21/17 # Bowel Movements 0 0 - Constitutional no acute distress - Routine HEENT Exam Head: Present: normocephalic - Routine Neck Exam Present: supple - Routine Respiratory Exam Present: decreased breath sounds - Routine Cardiovascular Exam Present: RRR - Routine Abdominal Exam Present: soft - Routine Skin Exam Present: intact - Urinary Catheter Management Indwelling Urethral Catheter Cath placed during this visit: yes, but has since been removed by the nurse Reason for continuing: Hourly intake/output Insertion date: 12/14/17 Insertion time: 15:00 Removal date: 12/20/17 Removal time: 13:53 Condom Cath placed during this visit: yes Reason for continuing: Not indwelling catheter Insertion date: 12/20/17 Insertion time: 13:05 Assessment and Plan - Assessment (1) Acute renal failure Code(s): N17.9 - Acute kidney failure, unspecified Status: Acute Plan: Acute renal failure is due to contrast-induced nephropathy, Doing poorly went into respiratory failure Intubated now, with minimal UOP Initially family refused HD, and now wants to pursue it. Seen on HD today - UF as tolerated, repeat HD Sunday Contninue to follow electrolytes, UOP (2) COPD exacerbation Code(s): J44.1 - Chronic obstructive pulmonary disease with (acute) exacerbation Status: Acute Plan: Patient is under treatment (3) Respiratory failure Code(s): J96.90 - Respiratory failure, unspecified, unspecified whether with hypoxia or hypercapnia Status: Acute Plan: On BiPAP (4) Diabetes Code(s): E11.9 - Type 2 diabetes mellitus without complications Status: Acute Plan: Monitor blood glucose (5) Acute non-ST elevation myocardial infarction (NSTEMI) Code(s): I21.4 - Non-ST elevation (NSTEMI) myocardial infarction Status: Acute Plan: Cardiology is following
[2017-12-22] MEDS: Piperacil/Tazo 2.25 GM Premix 50 ML IV.SIG SCH (17:26)
[2017-12-23] MEDS: Insulin NovoLOG Aspart Correctional Sugar Inj SQ SCH ×4 (00:12→19:43)
[2017-12-23] MEDS: Piperacil/Tazo 2.25 GM Premix 50 ML IV.SIG SCH ×4 (00:12→17:31)
[2017-12-23] MEDS: Oral Hygiene Kit OROPHARYNG SCH ×3 (00:12→19:43)
[2017-12-23 03:58] LABS: Baso # (Auto) 0.1 th/mm3 (0.0-0.2); Baso % (Auto) 0.6 % (0.0-2.0); Eos # (Auto) 0.3 th/mm3 (0.0-0.4); Eos % (Auto) 2.6 % (0.0-4.0); Hematocrit 37.2 % (39.0-51.0); Hemoglobin 12.5 gm/dL (13.0-17.0); Lymph % (Auto) 9.9 % (9.0-44.0); Mean Corpuscular HGB Conc 33.5 % (32.0-36.0); Mean Corpuscular Hemoglobin 32.5 pg (27.0-34.0); Mean Corpuscular Volume 97.2 fL (80.0-100.0); Mean Platelet Volume 9.5 fL (7.0-11.0); Mono % (Auto) 9.5 % (0.0-8.0); Neut # (Auto) 7.8 th/mm3 (1.8-7.7); Neut % (Auto) 77.4 % (16.0-70.0); Platelet Count 140 th/mm3 (150-450); Red Blood Count 3.83 mil/mm3 (4.50-5.90); Red Cell Distribution Width 14.7 % (11.6-17.2); White Blood Count 10.1 th/mm3 (4.0-11.0)
[2017-12-23 04:32] LABS: Alanine Aminotransferase 30 U/L (12-78); Albumin 3.1 g/dL (3.4-5.0); Alkaline Phosphatase 31 U/L (45-117); Anion Gap 8 meq/L (5-15); Aspartate Aminotransferase 22 U/L (15-37); Blood Urea Nitrogen 46 mg/dL (7-18); Calcium 8.3 mg/dL (8.5-10.1); Carbon Dioxide 32.1 meq/L (21.0-32.0); Chloride 106 meq/L (98-107); Glomerular Filtration Rate 14 mL/min (>89); Glucose,Random 135 mg/dL (74-106); Sodium 146 meq/L (136-145); Total Protein 6.4 g/dL (6.4-8.2)
[2017-12-23] MEDS ORDERED: Potassium Chlor 20 mEq Premix 20 MEQ/100 ML PIGGYBACK IV.SIG ONE (05:15)
[2017-12-23] MEDS: Chlorhexidine 0.12% Oral Kit 15 ML UDC OROPHARYNG SCH ×2 (08:00→20:52)
[2017-12-23] MEDS: Potassium Chloride 8 MEQ ER Capsule PO SCH (08:07)
[2017-12-23] MEDS: Senna/Docusate Sodium 8.6/50 MG Tablet PO SCH ×2 (08:07→20:53)
[2017-12-23] MEDS: Pantoprazole Inj 40 MG Vial IV.PUSH SCH (08:07)
--- NOTE | 2017-12-23 08:32 | P.PNCC ---
Subjective Subjective Remarks/Hospital Course: This is a unknown male. Admission 11 03/2017. Past medical history is unknown to me. There is no family currently available. According to records from previous ED physician who saw the patient before the ED physician had notified me patient has a history of hypothyroidism, gastroesophageal reflux disease, COPD, diabetes, heart failure. Patient was found unresponsive by family with a GCS of 3 and was brought in to the emergency department. Patient was intubated using etomidate and succinylcholine. CT brain negative. CT pulmonary antrum revealed right upper and lower lobe atelectasis. Lower lobe atelectasis versus infiltrate. Patient had elevated troponin. EKG revealed normal sinus rhythm at 64 with normal [place], QS and QT intervals. Dr. Vidal was notified. Patient has been started on a heparin drip for non-STEMI. Cardiology will evaluate. Patient is placed on broad- spectrum antibiotics. We are asked to admit. 12/15 Patient is intubated and sedated with Diprivan drip. On Heparin drip. Afebrile. CTA chest negative for PE. 12/16 Patient was extubated yesterday on BIPAP 15/8 with 40% FIO2. Afebrile. Awake and alert.On Heparin drip. 12/17 Patient is on BIPAP 18/8 with 40%, remains on Heparin drip. Afebrile. Renal function worse today with Cr: 2.25 from 1.03 12/21 Reconsult Patient was in resp. distress and with AMS. ABG showed acute hypercapneic resp acidosis with PH:7.05, pCO2:108. Floor nurse spoke to and she was agreeable for intubation. Patient was subsequently transferred to [facility] where he was immediately intubated by me and placed on mechanical ventilation. Renal function worse today with Cr: 4.49 from 3.96 plan to initiated HD today per renal. 12/22 Patient is intubated and sedated with Fentanyl infusion. Renal function is worse with Cr: 4.60 today from 4.49. SUBJECTIVE: 12/23: T-max 38.4. Currently on PSV trial 26/06 at 40%. Hemodialysis yesterday -4 L. Positive BM. Tube feeds at goal. We will try extubation today if passes parameters in no complete currently on no sedation.. Objective Vital Signs / I&O: Vital Signs 12/22/17 08:30 12/22/17 08:46 12/22/17 08:50 Temperature Pulse Rate 74 70 Respiratory Rate 12 13 13 Blood Pressure 110/52 L Pulse Oximetry 95 100 12/22/17 09:00 12/22/17 09:30 12/22/17 10:00 Temperature Pulse Rate 74 70 73 Respiratory Rate 13 12 12 Blood Pressure 100/54 L 94/54 L 98/55 L Pulse Oximetry 97 96 96 12/22/17 10:15 12/22/17 10:30 12/22/17 10:45 Temperature Pulse Rate 73 75 75 Respiratory Rate 12 14 16 Blood Pressure 101/54 L 115/55 L 112/57 L Pulse Oximetry 96 97 96 12/22/17 10:56 12/22/17 11:00 12/22/17 11:15 Temperature Pulse Rate 74 75 75 Respiratory Rate 16 12 12 Blood Pressure 107/53 L 106/56 L Pulse Oximetry 97 97 12/22/17 11:30 12/22/17 11:45 12/22/17 12:00 Temperature 99.2 F Pulse Rate 80 78 78 Respiratory Rate 28 H 14 23 Blood Pressure 115/59 L 102/57 L 110/58 L Pulse Oximetry 97 98 98 12/22/17 12:15 12/22/17 12:30 12/22/17 12:45 Temperature Pulse Rate 83 76 75 Respiratory Rate 29 H 13 13 Blood Pressure 114/59 L 111/56 L 101/50 L Pulse Oximetry 96 98 97 12/22/17 13:00 12/22/17 13:15 12/22/17 13:30 Temperature Pulse Rate 73 73 73 Respiratory Rate 13 13 12 Blood Pressure 100/54 L 98/54 L 99/54 L Pulse Oximetry 97 97 97 12/22/17 13:45 12/22/17 14:00 12/22/17 14:15 Temperature 99.0 F Pulse Rate 77 77 77 Respiratory Rate 20 16 20 Blood Pressure 112/57 L 118/60 122/65 Pulse Oximetry 98 98 97 12/22/17 14:30 12/22/17 14:45 12/22/17 15:00 Temperature Pulse Rate 84 79 78 Respiratory Rate 18 22 16 Blood Pressure 122/63 119/62 119/60 Pulse Oximetry 98 97 98 12/22/17 15:15 12/22/17 15:30 12/22/17 15:45 Temperature Pulse Rate 80 78 75 Respiratory Rate 18 16 14 Blood Pressure 149/67 H 117/59 L 122/64 Pulse Oximetry 99 98 98 12/22/17 16:00 12/22/17 16:03 12/22/17 16:07 Temperature Pulse Rate 79 81 85 Respiratory Rate 17 20 17 Blood Pressure 132/76 117/59 L 143/68 H Pulse Oximetry 98 98 96 12/22/17 16:15 12/22/17 16:30 12/22/17 17:00 Temperature Pulse Rate 89 89 94 H Respiratory Rate 18 18 19 Blood Pressure 147/64 H 157/70 H 130/59 L Pulse Oximetry 98 99 97 12/22/17 17:15 12/22/17 17:30 12/22/17 17:39 Temperature Pulse Rate 85 87 Respiratory Rate 14 19 17 Blood Pressure 108/53 L 132/60 Pulse Oximetry 97 97 99 12/22/17 17:45 12/22/17 18:00 12/22/17 18:15 Temperature Pulse Rate 87 88 86 Respiratory Rate 18 18 20 Blood Pressure 131/60 146/74 H 146/69 H Pulse Oximetry 97 98 97 12/22/17 18:30 12/22/17 19:00 12/22/17 19:15 Temperature Pulse Rate 86 87 87 Respiratory Rate 19 16 17 Blood Pressure 153/67 H 147/73 H Pulse Oximetry 98 97 98 12/22/17 19:30 12/22/17 19:45 12/22/17 20:00 Temperature 98.9 F Pulse Rate 86 89 86 Respiratory Rate 13 15 15 Blood Pressure 132/63 124/68 143/66 H Pulse Oximetry 97 97 96 12/22/17 20:15 12/22/17 20:27 12/22/17 20:30 Temperature Pulse Rate 91 H 99 H 101 H Respiratory Rate 18 20 26 H Blood Pressure 151/85 H 154/81 H Pulse Oximetry 97 96 95 12/22/17 21:00 12/22/17 21:01 12/22/17 22:00 Temperature Pulse Rate 81 83 80 Respiratory Rate 14 12 12 Blood Pressure 136/74 Pulse Oximetry 98 98 96 12/22/17 22:01 12/22/17 23:00 12/22/17 23:01 Temperature Pulse Rate 79 83 81 Respiratory Rate 12 26 H 14 Blood Pressure 107/54 L 112/65 Pulse Oximetry 97 96 96 12/22/17 23:48 12/22/17 23:49 12/23/17 00:00 Temperature 99.4 F Pulse Rate 79 71 Respiratory Rate 13 12 16 Blood Pressure Pulse Oximetry 97 96 12/23/17 00:01 12/23/17 01:00 12/23/17 01:01 Temperature Pulse Rate 72 77 78 Respiratory Rate 14 17 13 Blood Pressure 105/55 L 110/57 L Pulse Oximetry 96 97 97 12/23/17 02:00 12/23/17 02:01 12/23/17 03:00 Temperature Pulse Rate 78 79 86 Respiratory Rate 20 23 18 Blood Pressure 136/58 L Pulse Oximetry 98 99 97 12/23/17 03:01 12/23/17 04:00 12/23/17 04:01 Temperature 99.4 F Pulse Rate 85 70 70 Respiratory Rate 17 14 16 Blood Pressure 129/59 L 133/61 Pulse Oximetry 97 98 98 12/23/17 04:53 12/23/17 05:00 12/23/17 05:01 Temperature Pulse Rate 82 76 69 Respiratory Rate 16 13 12 Blood Pressure 116/56 L Pulse Oximetry 98 98 97 12/23/17 06:00 12/23/17 06:01 12/23/17 08:04 Temperature Pulse Rate 85 85 71 Respiratory Rate 19 18 15 Blood Pressure 139/65 Pulse Oximetry 97 97 97 Intake & Output 12/22/17 12/23/17 12/23/17 18:59 06:59 18:59 Intake Total 533 / 533 610 / 610 Output Total 400 / 400 4525 / 4525 Balance 133 / 133 -3915 / -3915 Weight 97 kg Intake: IV 200 / 200 100 / 100 Flexbumin 25% Inj 100 ML @ 60 100 / 100 mls/hr IV.SIG WITH DIALYSIS PRN Rx#:[id number] Zosyn 2.25 GM Premix 50 ML @ 50 / 50 100 / 100 100 mls/hr IV.SIG Q6H ANGIE Rx#: [id number] Zosyn 3.375 GM Premix 50 ML @ 50 / 50 200 mls/hr IV.SIG Q6H ANGIE Rx#: [id number] Tube Feeding 333 / 333 390 / 390 Tube Irrigant 120 / 120 Output: Hemodialysis Amount 4000 / 4000 Urine Amount (Catheter) 400 / 400 525 / 525 Condom 400 / 400 525 / 525 Other: Date of Last Bowel Movement 12/22/17 12/23/17 # Bowel Movements 1 1 Result Diagrams: 12/23/17 03:35 12/23/17 03:35 Other Results: Microbiology 12/14/17 15:00 Blood - Peripheral Aerobic Blood Culture - Final No growth in 5 days 12/14/17 15:00 Blood - Peripheral Anaerobic Blood Culture - Final No growth in 5 days 12/14/17 15:00 Blood - Peripheral Aerobic Blood Culture - Final No growth in 5 days 12/14/17 15:00 Blood - Peripheral Anaerobic Blood Culture - Final No growth in 5 days 12/15/17 01:47 Catheterized Urine Urine Culture - Final No growth in 48 hours 12/14/17 19:05 Sputum - Endotracheal Gram Stain - Final 12/14/17 19:05 Sputum - Endotracheal Sputum Culture - Final Heavy growth normal respiratory marcio Imaging: Chest X-Ray 12/14/17 00:00 CONCLUSION: 1. Endotracheal tube is in appropriate position with tip measuring 4.5 cm from the vijay. 2. Underinflated examination with mild subsegmental atelectasis at the right lung base. Otherwise, no acute abnormality is identified. Chest X-Ray 12/14/17 00:00 CONCLUSION: Stable chest appearance Head CT 12/14/17 14:53 CONCLUSION: 1. No acute intracranial abnormality is identified. 2. Chronic findings include generalized atrophy and periventricular white matter change characteristic of chronic microvascular ischemia. . Chest CTA 12/14/17 17:06 CONCLUSION: 1. No pulmonary embolus. 2. Scattered areas of subpleural density seen in the posterior right upper and lower lobes likely related to mild consolidation or atelectasis. There is also some minimal suspected atelectasis or consolidation at the posterior lower lobes bilaterally. 3. Gallstones Abdomen/Bladder Ultrasound 12/17/17 00:00 CONCLUSION: 1. Kidneys are borderline echogenic which can be seen with medical renal disease. 2. Left renal cyst. 3. Liver appears echogenic which can be seen with hepatic steatosis/ hepatocellular dysfunction. Chest X-Ray 12/17/17 00:00 CONCLUSION: Diminished lung volumes and minimal bibasilar densities, greater left lower lobe Chest X-Ray 12/19/17 06:00 CONCLUSION: Likely subpulmonic effusion on the right Chest X-Ray 12/21/17 00:00 CONCLUSION: Acute mild pulmonary congestion with suspected bilateral pleural effusions. Chest X-Ray 12/21/17 14:32 CONCLUSION: 1. ETT and right IJ central line in good position. 2. Cardiomegaly with pulmonary vascular congestion. 3. Small bilateral pleural effusions and suspected associated compressive atelectasis at the lung bases. Objective Remarks: GENERAL: Patient is 81 yo critically ill male currently orotracheally to be in no acute distress SKIN: Warm and dry. HEAD: Normocephalic. EYES: No scleral icterus. No injection or drainage. NECK: Supple, trachea midline. No JVD or lymphadenopathy. orally intubated. Right IJ Hemovac catheter is clean dry and intact CARDIOVASCULAR: Regular rate and rhythm without murmurs, gallops, or rubs. RESPIRATORY: Breath sounds equal symmetric bilateral. Positive expiratory wheeze. GASTROINTESTINAL: Abdomen soft, non-tender, nondistended. MUSCULOSKELETAL: No peripheral edema. Neuro: Cranial nerves II through XII grossly intact. Moves all 4 extremities spontaneously. Assessment and Plan - Assessment and Plan Plan: Neuro/Psych: Monitor neuro status, on Fentanyl infusion for sedation as needed.. Daily sedation vacation. 12/14 CT brain revealed no acute intracranial findings Acetaminophen 650 mg every 6 hours as needed fever CV: Elevated troponin possibly type II non-STEMI History of essential hypertension History of congestive heart failure unknown etiology Monitor HR and BP keep MAP>65mmHg Aspirin 81 mg daily, atorvastatin 40mg daily, Hold Cardizem 60mg QID and Vasotec 2.5mg daily for hypotension post intubation/ CARLEEN inhibitor due to acute kidney injury. No beta-valorie due to respiratory failure Cards is following- Dr. Vidal Echo showed EF 55-60% Resp: Acute respiratory failure Continue with vent support keep sats >92% ACV /40 Bronchodilators, ICU vent bundle. Spontaneous breathing trials today 12/14 CT pulmonary no evidence of PE, revealed right upper/lower atelectasis versus infiltrate. Bilateral lower lobe consolidation versus infiltrate. Chest x-ray today 12/23 GI: Hypoalbuminemia Pantoprazole for GI prophylaxis Docusate sodium senna 1 tablet twice daily for bowel regimen Continue tube feeds- Nepro with goal rate 40ml/hr. Nutrition recommended Jevity 1.5 at 55 cc an hour Renal/FEN/ Acute kidney injury hypernatremia Hypopotassemia Monitor renal function, I/O's, avoid nephrotoxins Renal is following-Dr. Holder Renal function -hemodialysis -4 L 12/22 Vascath placed 12/21 On acetazolamide 500mg IV daily Received 20 milliequivalents potassium chloride today. On scheduled 16 mEq daily Endo: Diabetes mellitus type 2 Hypothyroidism Continue home thyroid 30 mg daily. TSH level:2.37 Sliding scale insulin Accu-Cheks to maintain euglycemia every 6 hours aspart insulin Heme: Normocytic anemia Thrombocytopenia Monitor CBC daily. Follow trends. No indication for transfusion of blood products at this time ID: Blood cx-NGTD, sputum cx: normal resp marcio Continue piperacillin/tazobactam and monitor for signs of infections ( Fever, WBC) Access -Utilize peripheral IV. -Right IHJ vascath placed 12/21 Prophylaxis -GI -pantoprazole -DVT -SCDs/heparin Sq Palliative care is following Code status: No code DNR Level 2 follow-up Code Status: DNR
--- NOTE | 2017-12-23 08:39 | P.DIET ---
Nutritional Evaluation Type of nutrition evaluation: follow-up Nutrition consult regarding: Tube Feeding Objective - Diagnosis Altered Mental Status - Objective % IBW: 138 (IBW = 154lb) Body Weight Used for Calculations: IBW (70 kg) Energy Needs - Lower Range (kCal/kg): 28 Energy Needs - Upper Range (kCal/kg): 33 Lower Limit kCal/kg (kCals): 1,960 Upper Limit kCal/kg (kCals): 2,310 Lower Limit Protein Factor (Grams per Kg): 1.3 Upper Limit Protein Factor (Grams per Kg): 1.5 Lower Protein Needs (Protein): 91 Upper Protein Needs (Protein): 105 Dietitian Reviewed in Medical Record: Curent medications, Intake & Output, Labs , Medical history, Tube feeding Diet Order: NPO Wound Care Note: 12/17 WOCN note: "Diffuse roofed and unroofed bullae to medial bilateral inner buttocks and gluteal cleft" Objective Comments: reported PMH includes: CHF, COPD, DM, GERD, hypospadias, hypothyroidism 12/15 Intubated; 12/16 Extubated; 12/21 Intubated Labs include: BUN 46, Creatinine 4.16, estGFR 14, Glucose 135 LBM 12/23, -UOP 925ml, HD 4000ml Assessment Assessment: Pt continues at nutritional risk r/t need for TF'ing and HD. HD initiated . To best meet needs for TF'ing w/Nepro, Rec a goal rate @ 50ml/hr to offer 2160 kcal, 97.2g protein and 872ml free water. Labs reviewed. Wt changes noted. . Recommendations: To best meet needs for TF'ing w/Nepro, Rec a goal rate @ 50ml/hr Dietitian to Monitor: Lab values, Renal labs, Glucose level, Intake & Output, Tube feeding tolerance, Weight change, Wound/skin status, Medical course
[2017-12-23] MEDS: Heparin - SQ 10,000 UNITS/ML Vial SQ SCH ×2 (09:00→20:53)
[2017-12-23] MEDS: Artificial Tears Opth Drops 15 ML Bottle EACH EYE SCH ×3 (09:00→19:43)
--- NOTE | 2017-12-23 09:02 | XR ---
EXAM DATE: 12/23/2017 8:54 AM EST AGE/SEX: 81 years / Male INDICATIONS: Respiratory failure. CLINICAL DATA: This is the patient's subsequent encounter. Patient reports that signs and symptoms h ave been present for 4 - 6 days and indicates a pain score of Nonresponsive. MEDICAL/SURGICAL HISTORY: Non-responsive. Non-responsive. COMPARISON: [facility], CHEST 1V SINGLE AP, 12/21/2017. . FINDINGS: Endotracheal tube is present and the tip terminates 2.7 cm above the vijay. Right jugular line tip o verlies the SVC. There are small bilateral effusions and patchy consolidation in the left greater richard n right lung base. CONCLUSION: Stable appearance of the chest. Electronically signed by: Jose Jaramillo MD 12/23/2017 9:00 AM EST
--- NOTE | 2017-12-23 13:53 | P.PNNP ---
Subjective Interval history: Patient intubated Physical Exam Vital signs: Vital Signs 12/22/17 14:00 12/22/17 14:15 12/22/17 14:30 Temperature 99.0 F Pulse Rate 77 77 84 Respiratory Rate 16 20 18 Blood Pressure 118/60 122/65 122/63 Pulse Oximetry 98 97 98 12/22/17 14:45 12/22/17 15:00 12/22/17 15:15 Temperature Pulse Rate 79 78 80 Respiratory Rate 22 16 18 Blood Pressure 119/62 119/60 149/67 H Pulse Oximetry 97 98 99 12/22/17 15:30 12/22/17 15:45 12/22/17 16:00 Temperature Pulse Rate 78 75 79 Respiratory Rate 16 14 17 Blood Pressure 117/59 L 122/64 132/76 Pulse Oximetry 98 98 98 12/22/17 16:03 12/22/17 16:07 12/22/17 16:15 Temperature Pulse Rate 81 85 89 Respiratory Rate 20 17 18 Blood Pressure 117/59 L 143/68 H 147/64 H Pulse Oximetry 98 96 98 12/22/17 16:30 12/22/17 17:00 12/22/17 17:15 Temperature Pulse Rate 89 94 H 85 Respiratory Rate 18 19 14 Blood Pressure 157/70 H 130/59 L 108/53 L Pulse Oximetry 99 97 97 12/22/17 17:30 12/22/17 17:39 12/22/17 17:45 Temperature Pulse Rate 87 87 Respiratory Rate 19 17 18 Blood Pressure 132/60 131/60 Pulse Oximetry 97 99 97 12/22/17 18:00 12/22/17 18:15 12/22/17 18:30 Temperature Pulse Rate 88 86 86 Respiratory Rate 18 20 19 Blood Pressure 146/74 H 146/69 H Pulse Oximetry 98 97 98 12/22/17 19:00 12/22/17 19:15 12/22/17 19:30 Temperature Pulse Rate 87 87 86 Respiratory Rate 16 17 13 Blood Pressure 153/67 H 147/73 H 132/63 Pulse Oximetry 97 98 97 12/22/17 19:45 12/22/17 20:00 12/22/17 20:15 Temperature 98.9 F Pulse Rate 89 86 91 H Respiratory Rate 15 15 18 Blood Pressure 124/68 143/66 H 151/85 H Pulse Oximetry 97 96 97 12/22/17 20:27 12/22/17 20:30 12/22/17 21:00 Temperature Pulse Rate 99 H 101 H 81 Respiratory Rate 20 26 H 14 Blood Pressure 154/81 H Pulse Oximetry 96 95 98 12/22/17 21:01 12/22/17 22:00 12/22/17 22:01 Temperature Pulse Rate 83 80 79 Respiratory Rate 12 12 12 Blood Pressure 136/74 107/54 L Pulse Oximetry 98 96 97 12/22/17 23:00 12/22/17 23:01 12/22/17 23:48 Temperature Pulse Rate 83 81 79 Respiratory Rate 26 H 14 13 Blood Pressure 112/65 Pulse Oximetry 96 96 12/22/17 23:49 12/23/17 00:00 12/23/17 00:01 Temperature 99.4 F Pulse Rate 71 72 Respiratory Rate 12 16 14 Blood Pressure 105/55 L Pulse Oximetry 97 96 96 12/23/17 01:00 12/23/17 01:01 12/23/17 02:00 Temperature Pulse Rate 77 78 78 Respiratory Rate 17 13 20 Blood Pressure 110/57 L Pulse Oximetry 97 97 98 12/23/17 02:01 12/23/17 03:00 12/23/17 03:01 Temperature Pulse Rate 79 86 85 Respiratory Rate 23 18 17 Blood Pressure 136/58 L 129/59 L Pulse Oximetry 99 97 97 12/23/17 04:00 12/23/17 04:01 12/23/17 04:53 Temperature 99.4 F Pulse Rate 70 70 82 Respiratory Rate 14 16 16 Blood Pressure 133/61 Pulse Oximetry 98 98 98 12/23/17 05:00 12/23/17 05:01 12/23/17 06:00 Temperature Pulse Rate 76 69 85 Respiratory Rate 13 12 19 Blood Pressure 116/56 L Pulse Oximetry 98 97 97 12/23/17 06:01 12/23/17 07:00 12/23/17 07:01 Temperature Pulse Rate 85 74 73 Respiratory Rate 18 15 18 Blood Pressure 139/65 131/63 Pulse Oximetry 97 97 97 12/23/17 08:00 12/23/17 08:01 12/23/17 08:04 Temperature Pulse Rate 76 74 71 Respiratory Rate 16 18 15 Blood Pressure 136/64 Pulse Oximetry 96 98 97 12/23/17 08:32 12/23/17 08:40 12/23/17 09:00 Temperature Pulse Rate 72 73 81 Respiratory Rate 14 15 15 Blood Pressure 131/63 134/58 L 113/57 L Pulse Oximetry 98 97 97 12/23/17 09:20 12/23/17 09:40 12/23/17 09:59 Temperature 98.7 F Pulse Rate 73 84 77 Respiratory Rate 24 17 15 Blood Pressure 120/57 L 118/55 L Pulse Oximetry 97 97 97 12/23/17 10:00 12/23/17 10:20 12/23/17 10:40 Temperature Pulse Rate 77 79 75 Respiratory Rate 18 30 H 13 Blood Pressure 119/58 L 127/58 L 108/51 L Pulse Oximetry 97 96 96 12/23/17 11:00 12/23/17 11:20 12/23/17 11:40 Temperature Pulse Rate 74 83 70 Respiratory Rate 16 21 14 Blood Pressure 115/57 L 138/59 L 172/64 H Pulse Oximetry 96 96 96 12/23/17 11:52 12/23/17 12:00 12/23/17 12:20 Temperature 98.5 F Pulse Rate 68 69 73 Respiratory Rate 13 13 25 H Blood Pressure 113/56 L 130/58 L 136/73 Pulse Oximetry 96 96 97 12/23/17 13:08 Temperature Pulse Rate 76 Respiratory Rate 16 Blood Pressure Pulse Oximetry 98 Intake & Output 12/22/17 12/23/17 12/23/17 18:59 06:59 18:59 Intake Total 533 / 533 610 / 610 100 / 100 Output Total 400 / 400 4525 / 4525 Balance 133 / 133 -3915 / -3915 100 / 100 Weight 97 kg Intake: IV 200 / 200 100 / 100 100 / 100 Flexbumin 25% Inj 100 ML @ 60 100 / 100 mls/hr IV.SIG WITH DIALYSIS PRN Rx#:[id number] Zosyn 2.25 GM Premix 50 ML @ 50 / 50 100 / 100 100 mls/hr IV.SIG Q6H ANGIE Rx#: [id number] Zosyn 3.375 GM Premix 50 ML @ 50 / 50 200 mls/hr IV.SIG Q6H ANGIE Rx#: [id number] KCl 20 mEq Premix Inj 20 meq In 100 / 100 100 ml @ 50 mls/hr IV.SIG ONCE ONE Rx#:[id number] Tube Feeding 333 / 333 390 / 390 Tube Irrigant 120 / 120 Output: Hemodialysis Amount 4000 / 4000 Urine Amount (Catheter) 400 / 400 525 / 525 Condom 400 / 400 525 / 525 Other: Date of Last Bowel Movement 12/22/17 12/23/17 12/23/17 # Bowel Movements 1 1 - Constitutional no acute distress - Routine HEENT Exam Head: Present: normocephalic - Routine Neck Exam Present: supple - Routine Respiratory Exam Present: patient mechanically ventilated - Routine Cardiovascular Exam Present: RRR - Routine Abdominal Exam Present: soft - Routine Skin Exam Present: intact - Routine Psychiatric Exam Present: unable to assess - Urinary Catheter Management Indwelling Urethral Catheter Cath placed during this visit: yes, but has since been removed by the nurse Reason for continuing: Hourly intake/output Insertion date: 12/14/17 Insertion time: 15:00 Removal date: 12/20/17 Removal time: 13:53 Condom Cath placed during this visit: yes Reason for continuing: Not indwelling catheter Insertion date: 12/20/17 Insertion time: 13:05 Assessment and Plan - Assessment (1) Acute renal failure Code(s): N17.9 - Acute kidney failure, unspecified Status: Acute Plan: Acute renal failure is due to contrast-induced nephropathy, Doing poorly went into respiratory failure Intubated now. Initially family refused HD, however then changed their minds HD done yesterday with 4L UF 900cc UOP recorded Plan to attempt weaning off vent today Will do further HD Sunday with UF as tolerated Continue to follow electrolytes, UOP (2) COPD exacerbation Code(s): J44.1 - Chronic obstructive pulmonary disease with (acute) exacerbation Status: Acute Plan: Patient is under treatment (3) Respiratory failure Code(s): J96.90 - Respiratory failure, unspecified, unspecified whether with hypoxia or hypercapnia Status: Acute Plan: remains intubated (4) Diabetes Code(s): E11.9 - Type 2 diabetes mellitus without complications Status: Acute Plan: Monitor blood glucose (5) Acute non-ST elevation myocardial infarction (NSTEMI) Code(s): I21.4 - Non-ST elevation (NSTEMI) myocardial infarction Status: Acute Plan: Cardiology is following
[2017-12-23] MEDS: Potassium Chlor 20 mEq Premix 20 MEQ/100 ML PIGGYBACK IV.SIG SCH ×2 (15:25→17:31)
[2017-12-23] MEDS ORDERED: Potassium Chloride 25 MEQ Effervescent Tablet PO ONE (16:30)
[2017-12-23] MEDS ORDERED: Digoxin Inj 500 MCG/2 ML Ampul IV.PUSH ONE (16:30)
[2017-12-23 18:13] LABS: Magnesium 2.5 mg/dL (1.5-2.5)
[2017-12-23 18:22] LABS: Troponin I 0.66 ng/mL (0.02-0.05)
[2017-12-23] MEDS: Potassium Chlor 10 mEq Premix 10 MEQ/100 ML PIGGYBACK IV.SIG SCH ×2 (19:48→20:51)
[2017-12-23] MEDS: Mupirocin 2% Nasal Oint Topical Syringe EACH NARE SCH (23:40)
[2017-12-24] MEDS: Oral Hygiene Kit OROPHARYNG SCH ×5 (00:13→19:59)
[2017-12-24 00:27] LABS: Anion Gap 9 meq/L (5-15); Aspartate Aminotransferase 23 U/L (15-37); Blood Urea Nitrogen 47 mg/dL (7-18); Calcium 8.7 mg/dL (8.5-10.1); Carbon Dioxide 26.1 meq/L (21.0-32.0); Chloride 110 meq/L (98-107); Glomerular Filtration Rate 14 mL/min (>89); Glucose,Random 127 mg/dL (74-106); Magnesium 2.5 mg/dL (1.5-2.5); Potassium 3.2 meq/L (3.5-5.1); Sodium 145 meq/L (136-145)
[2017-12-24 00:32] LABS: Alanine Aminotransferase 28 U/L (12-78); Alkaline Phosphatase 32 U/L (45-117); Phosphorus 2.3 mg/dL (2.5-4.9); Total Protein 6.5 g/dL (6.4-8.2)
[2017-12-24] MEDS: Insulin NovoLOG Aspart Correctional Sugar Inj SQ SCH ×4 (01:15→20:01)
[2017-12-24 03:40] LABS: Baso # (Auto) 0.1 th/mm3 (0.0-0.2); Baso % (Auto) 0.8 % (0.0-2.0); Eos # (Auto) 0.2 th/mm3 (0.0-0.4); Eos % (Auto) 2.2 % (0.0-4.0); Hematocrit 39.1 % (39.0-51.0); Hemoglobin 13.1 gm/dL (13.0-17.0); Lymph # (Auto) 0.8 th/mm3 (1.0-4.8); Lymph % (Auto) 7.3 % (9.0-44.0); Mean Corpuscular HGB Conc 33.5 % (32.0-36.0); Mean Corpuscular Hemoglobin 32.4 pg (27.0-34.0); Mean Corpuscular Volume 96.8 fL (80.0-100.0); Mean Platelet Volume 9.8 fL (7.0-11.0); Mono # (Auto) 0.9 th/mm3 (0.0-0.9); Mono % (Auto) 7.5 % (0.0-8.0); Neut # (Auto) 9.4 th/mm3 (1.8-7.7); Neut % (Auto) 82.2 % (16.0-70.0); Platelet Count 145 th/mm3 (150-450); Red Blood Count 4.04 mil/mm3 (4.50-5.90); White Blood Count 11.4 th/mm3 (4.0-11.0)
[2017-12-24 04:02] LABS: Alanine Aminotransferase 29 U/L (12-78); Albumin 2.9 g/dL (3.4-5.0); Anion Gap 10 meq/L (5-15); Aspartate Aminotransferase 18 U/L (15-37); Blood Urea Nitrogen 47 mg/dL (7-18); Calcium 8.6 mg/dL (8.5-10.1); Chloride 110 meq/L (98-107); Glomerular Filtration Rate 14 mL/min (>89); Glucose,Random 136 mg/dL (74-106); Potassium 3.2 meq/L (3.5-5.1); Sodium 147 meq/L (136-145)
[2017-12-24 04:04] LABS: Alkaline Phosphatase 28 U/L (45-117); Total Protein 6.5 g/dL (6.4-8.2)
[2017-12-24] MEDS: Piperacil/Tazo 2.25 GM Premix 50 ML IV.SIG SCH ×4 (07:23→20:00)
[2017-12-24] MEDS: Chlorhexidine 0.12% Oral Kit 15 ML UDC OROPHARYNG SCH ×2 (10:31→20:03)
[2017-12-24] MEDS: Artificial Tears Opth Drops 15 ML Bottle EACH EYE SCH ×3 (10:32→20:00)
[2017-12-24] MEDS: Pantoprazole Inj 40 MG Vial IV.PUSH SCH (10:35)
[2017-12-24] MEDS: Heparin - SQ 10,000 UNITS/ML Vial SQ SCH ×2 (10:43→20:03)
[2017-12-24] MEDS: Potassium Chloride 8 MEQ ER Capsule PO SCH (10:43)
[2017-12-24] MEDS: Senna/Docusate Sodium 8.6/50 MG Tablet PO SCH ×2 (10:44→20:04)
[2017-12-24] MEDS: Mupirocin 2% Nasal Oint Topical Syringe EACH NARE SCH ×2 (10:44→20:03)
--- NOTE | 2017-12-24 11:53 | P.PNPAL ---
Reason for Visit Reason for visit: a. To assist with evaluation and management of symptoms including:pain, dyspnea , anxiety b. To assist medical decision maker(s) with: better understanding of current medical conditions; weighing benefits/burdens of medical treatment options; making medical treatment decisions. Subjective Subjective/Interval History: Mr. Da Silva is an 81-year-old male who presented to [place] emergency room on 12/14/17 with shortness of breath and altered mental status. Apparently he was found unresponsive by the family who then called 911. During his ambulance ride to the hospital he quickly decompensated to a GCS of 3, requiring emergent intubation. Per the family, the patient has a past medical history of hypothyroidism, GERD, COPD, diabetes, cyst of spinal meninges, and heart failure. Due to the perplexing nature of this patient's presentation and unsure etiology of his altered mental status he was admitted for further evaluation and treatment. The patient was transferred to the medical ICU for further evaluation. Dr. Vidal (Cardiology) was consulted for N STEMI, with unclear etiology. He felt this was unlikely due to CHF ordered a 2D echo. And suggest the patient be started on a heparin drip. 2D echo showed an EF of 55-60% with trace mitral valve and aortic valve regurgitation. There was aortic valve sclerosis and estimated pulmonary arterial pressure of 44 mmHg. Intensive care ordered CTA which was negative for PE. The patient was extubated to BiPAP 15/8 with 40% FiO2 on 12/16/17. Today his BiPAP settings were slightly increased to 18/8 remaining on 40% FiO2. His renal functioning was noted to be increasing in nephrology was consulted. Nephrology did note patient had probable medical renal disease. 12/24/17 Palliative care to follow with symptom management and to assist with continued medical goals. Currently on sedation. Has been on CPAP approximately an hour and a half 10/540% FiO2.. Cognitively more alert today able to follow complex commands. Nods appropriately concerning yes or no questions revolving around symptom management such as pain and anxiety. Chest x-ray from 12/24/11 show some small bilateral effusions and patchy consolidation left greater than right. Cardiovascular dotson patient is returned to sinus rhythm. Tolerated hemodialysis first time on 12/23/11. Previously the family decided to withhold HD but then changed her mind. Plans for dialysis again today. Pending any complications would leave him extubated 1 more day with plans to extubate tomorrow. Discussed again with , Sharon and grandson Raimundo along with Dr. Grigsby at bedside. We discussed if the patient was extubated and again went into respiratory distress would she want her to be reintubated. The patient's stated she would not want him to be reintubated and stated "Let God handle it" Today clinical's data revealed: * WBC 11.4, Hgb 13.1, Hct 39.1, platelets 145 * NA 147, K+ 3.2, CL 110, CO2 27.0, BUN 47, creatinine 4.08, glucose 136 Family/Friend Interactions: Discussed with patient's , Sharon Da Silva and grandson Raimundo Da Silva at bedside. Dr. Grigsby was also present for the conversation. Family is aware of plans to extubate patient tomorrow. We discussed if the patient was extubated and again went into respiratory distress would they want their loved one to be again reintubated. They stated that they would not want the patient to be intubated again and he is to remain a DNR. He will continue with hemodialysis for the time being. Advance Directives Living Will: Never completed Health Care Surrogate: Never completed Durable Power of [place]: Never completed Health Care Surrogate Name and Number: Sharon Da Silva, /HCP [phone] Documented care wishes:: The patient does not currently have a documented living will or durable power of attorney at law Significant change in goals:: No significant changes in goals of care. Patient is to remain a DNR. Family wishes to continue with hemodialysis for the time being. Should he require any further cardiopulmonary resuscitation the family would like to let him pass peacefully instead of incurring heroic measures Objective Vital Signs: Vital Signs 12/23/17 11:40 12/23/17 11:52 12/23/17 12:00 Temperature 98.5 F Pulse Rate 70 68 69 Respiratory Rate 14 13 13 Blood Pressure 172/64 H 113/56 L 130/58 L Pulse Oximetry 96 96 96 12/23/17 12:20 12/23/17 12:40 12/23/17 13:00 Temperature Pulse Rate 73 71 69 Respiratory Rate 25 H 14 15 Blood Pressure 136/73 132/61 139/65 Pulse Oximetry 97 97 96 12/23/17 13:08 12/23/17 13:20 12/23/17 13:40 Temperature Pulse Rate 76 72 93 H Respiratory Rate 16 20 25 H Blood Pressure 151/67 H 172/76 H Pulse Oximetry 98 98 93 L 12/23/17 13:41 12/23/17 14:00 12/23/17 14:10 Temperature Pulse Rate 93 H 83 78 Respiratory Rate 24 25 H 17 Blood Pressure 171/74 H 174/69 H 125/60 Pulse Oximetry 93 L 95 96 12/23/17 14:20 12/23/17 14:40 12/23/17 15:00 Temperature Pulse Rate 77 147 H 111 H Respiratory Rate 17 18 14 Blood Pressure 136/64 131/93 H 125/79 Pulse Oximetry 95 95 94 L 12/23/17 15:20 12/23/17 15:40 12/23/17 16:00 Temperature Pulse Rate 143 H 142 H 145 H Respiratory Rate 15 16 15 Blood Pressure 125/62 108/71 149/94 H Pulse Oximetry 94 L 95 99 12/23/17 16:40 12/23/17 17:00 12/23/17 17:10 Temperature Pulse Rate 145 H 102 H 75 Respiratory Rate 16 16 16 Blood Pressure 110/68 109/58 L 115/59 L Pulse Oximetry 96 96 97 12/23/17 17:20 12/23/17 17:30 12/23/17 17:40 Temperature Pulse Rate 70 70 72 Respiratory Rate 16 17 16 Blood Pressure 122/57 L 125/62 128/60 Pulse Oximetry 98 96 96 12/23/17 17:50 12/23/17 17:53 12/23/17 18:00 Temperature Pulse Rate 91 H 88 79 Respiratory Rate 35 H 24 17 Blood Pressure 188/87 H 149/70 H 121/63 Pulse Oximetry 100 99 96 12/23/17 18:10 12/23/17 18:20 12/23/17 18:30 Temperature 98.7 F Pulse Rate 84 83 79 Respiratory Rate 31 H 18 18 Blood Pressure 129/60 146/61 H 142/64 H Pulse Oximetry 92 L 95 96 12/23/17 18:40 12/23/17 18:50 12/23/17 19:00 Temperature Pulse Rate 78 94 H 82 Respiratory Rate 17 21 17 Blood Pressure 123/67 156/67 H 156/63 H Pulse Oximetry 96 95 98 12/23/17 19:10 12/23/17 19:20 12/23/17 19:30 Temperature Pulse Rate 77 79 81 Respiratory Rate 17 17 16 Blood Pressure 155/96 H 147/65 H 143/63 H Pulse Oximetry 97 96 96 12/23/17 19:40 12/23/17 19:50 12/23/17 19:57 Temperature Pulse Rate 79 75 73 Respiratory Rate 16 16 16 Blood Pressure 128/60 131/61 Pulse Oximetry 96 96 96 12/23/17 20:00 12/23/17 20:10 12/23/17 20:20 Temperature 98.8 F Pulse Rate 74 71 84 Respiratory Rate 16 16 20 Blood Pressure 127/64 129/66 191/90 H Pulse Oximetry 96 98 99 12/23/17 20:26 12/23/17 21:00 12/23/17 21:30 Temperature Pulse Rate 83 75 76 Respiratory Rate 22 16 18 Blood Pressure 163/67 H 127/67 143/72 H Pulse Oximetry 98 98 98 12/23/17 22:00 12/23/17 22:30 12/23/17 23:00 Temperature Pulse Rate 71 69 72 Respiratory Rate 17 16 19 Blood Pressure 155/67 H Pulse Oximetry 98 98 97 12/23/17 23:30 12/23/17 23:56 12/24/17 00:00 Temperature 98.7 F Pulse Rate 83 67 70 Respiratory Rate 23 17 17 Blood Pressure 150/67 H 150/67 H Pulse Oximetry 97 97 98 12/24/17 00:30 12/24/17 01:00 12/24/17 01:30 Temperature Pulse Rate 72 97 H 85 Respiratory Rate 22 20 18 Blood Pressure 156/76 H 147/68 H Pulse Oximetry 97 94 L 95 12/24/17 02:00 12/24/17 02:30 12/24/17 03:00 Temperature Pulse Rate 81 74 82 Respiratory Rate 16 17 23 Blood Pressure 139/63 Pulse Oximetry 96 97 97 12/24/17 03:09 12/24/17 03:30 12/24/17 04:00 Temperature 99.2 F Pulse Rate 85 72 82 Respiratory Rate 17 16 20 Blood Pressure 147/65 H 147/65 H Pulse Oximetry 96 98 98 12/24/17 06:00 12/24/17 08:47 12/24/17 08:51 Temperature Pulse Rate 70 74 Respiratory Rate 16 17 Blood Pressure Pulse Oximetry 98 12/24/17 11:15 Temperature Pulse Rate 76 Respiratory Rate 16 Blood Pressure Pulse Oximetry Intake & Output 12/23/17 12/24/17 12/24/17 18:59 06:59 18:59 Intake Total 852 / 852 250 / 250 300 / 300 Output Total 550 / 550 450 / 450 Balance 302 / 302 -200 / -200 300 / 300 Intake: IV 300 / 300 250 / 250 300 / 300 Zosyn 2.25 GM Premix 50 ML @ 100 / 100 50 / 50 50 / 50 100 mls/hr IV.SIG Q6H ANGIE Rx#: [id number] KCl 10 mEq Premix Inj 10 meq In 100 / 100 100 ml @ 100 mls/hr IV.SIG Q1H ANGIE Rx#:[id number] KCl 20 mEq Premix Inj 20 meq In 200 / 200 100 / 100 100 ml @ 50 mls/hr IV.SIG Q2H ANGIE Rx#:[id number] fentaNYL 10 mcg/mL Premix Drip 250 / 250 2,500 mcg In 250 ml @ 50 MCG/HR 5 mls/hr IV.SIG TITRATE PRN Rx #:[id number] Tube Feeding 312 / 312 0 / 0 Tube Irrigant 240 / 240 Output: Stool 0 / 0 Urine Amount (Catheter) 550 / 550 450 / 450 Condom 550 / 550 450 / 450 Other: Date of Last Bowel Movement 12/23/17 12/23/17 # Bowel Movements 1 Physical Exam: CONSTITUTIONAL/GENERAL: Remains intubated, awake and alert TUBES/LINES/DRAINS:PIV, [place], ETT, right Vas-Cath, OGT EYES: Pupils equal and round and reactive. No scleral icterus. No injection or drainage. Fundi not examined. ENT: Hearing appears to be grossly normal. Nose without bleeding or purulent drainage. Throat without visible erythema, exudates, masses, or lesions. CARDIOVASCULAR: Regular rate and rhythm to auscultation. Sinus rhythm on telemetry RESPIRATORY/CHEST: Mechanically ventilated. Currently on CPAP 10/540% FiO2. Breath sounds equal bilaterally. rhonchi right middle lobe. Diminished at the bases. GASTROINTESTINAL: Abdomen soft, non-tender, nondistended. Bowel sounds present. MUSCULOSKELETAL: Trace pedal edema bilaterally. no calf tenderness. No mottling or clubbing. NEUROLOGICAL: Awake, following complex commands, nodding appropriately PSYCHIATRIC: Appears to become slightly anxious at times indicates he is uncomfortable with the ETT Diagnostic Tests Laboratory: Laboratory Results - last 72 hr 12/21/17 12/21/17 12/22/17 15:16 18:00 03:55 WBC 10.2 RBC 4.00 L Hgb 12.8 L Hct 39.5 MCV 98.9 MCH 32.1 MCHC 32.5 RDW 15.0 Plt Count 159 MPV 9.6 Neut % (Auto) 82.6 H Lymph % (Auto) 7.2 L Branch % (Auto) 8.6 H Eos % (Auto) 1.0 Baso % (Auto) 0.6 Neut # (Auto) 8.5 H Lymph # (Auto) 0.7 L Branch # (Auto) 0.9 Eos # (Auto) 0.1 Baso # (Auto) 0.1 WBC Differential . Differential Comment Auto diff final Puncture Site Right radial Patient Temperature 98.6 O2 Saturation 97 ABG pH 7.25 L* ABG pCO2 60 H* ABG pO2 380 H ABG HCO3 26 ABG O2 Content 18.6 ABG Base Excess -0.8 ABG Methemoglobin 1.5 Zhang Test Present Hemoglobin 13.0 Carboxyhemoglobin 0.8 O2 Delivery Device Ventilator Vent Setting A/c 18/550/5peep Inspired O2 100 Critical Value Yes Sodium Potassium Chloride Carbon Dioxide Anion Gap BUN Creatinine Estimated GFR POC Glucose 108 Random Glucose Calcium Phosphorus Magnesium Total Bilirubin AST ALT Alkaline Phosphatase Troponin I Total Protein Albumin 12/22/17 12/22/17 12/22/17 03:55 11:10 11:45 WBC RBC Hgb Hct MCV MCH MCHC RDW Plt Count MPV Neut % (Auto) Lymph % (Auto) Branch % (Auto) Eos % (Auto) Baso % (Auto) Neut # (Auto) Lymph # (Auto) Branch # (Auto) Eos # (Auto) Baso # (Auto) WBC Differential Differential Comment Puncture Site Right radial Patient Temperature 98.6 O2 Saturation 96 ABG pH 7.31 L ABG pCO2 54 H* ABG pO2 144 H ABG HCO3 26 ABG O2 Content 16.7 ABG Base Excess 0.7 ABG Methemoglobin 1.5 Zhang Test Present Hemoglobin 12.2 Carboxyhemoglobin 0.8 O2 Delivery Device Vent Vent Setting 12/650/5/50 Inspired O2 50 Critical Value Yes Sodium 145 Potassium 3.2 L Chloride 105 Carbon Dioxide 27.5 Anion Gap 13 BUN 59 H Creatinine 4.60 H Estimated GFR 12 L POC Glucose 135 H Random Glucose 112 H Calcium 7.9 L Phosphorus Magnesium Total Bilirubin 0.4 AST 18 ALT 38 Alkaline Phosphatase 35 L Troponin I Total Protein 5.9 L D Albumin 2.5 L 12/22/17 12/22/17 12/23/17 17:37 19:18 00:00 WBC RBC Hgb Hct MCV MCH MCHC RDW Plt Count MPV Neut % (Auto) Lymph % (Auto) Branch % (Auto) Eos % (Auto) Baso % (Auto) Neut # (Auto) Lymph # (Auto) Branch # (Auto) Eos # (Auto) Baso # (Auto) WBC Differential Differential Comment Puncture Site Patient Temperature O2 Saturation ABG pH ABG pCO2 ABG pO2 ABG HCO3 ABG O2 Content ABG Base Excess ABG Methemoglobin Zhang Test Hemoglobin Carboxyhemoglobin O2 Delivery Device Vent Setting Inspired O2 Critical Value Sodium Potassium 3.4 L Chloride Carbon Dioxide Anion Gap BUN Creatinine Estimated GFR POC Glucose 135 H 146 H Random Glucose Calcium Phosphorus Magnesium Total Bilirubin AST ALT Alkaline Phosphatase Troponin I Total Protein Albumin 12/23/17 12/23/17 12/23/17 03:35 03:35 06:46 WBC 10.1 RBC 3.83 L Hgb 12.5 L Hct 37.2 L MCV 97.2 MCH 32.5 MCHC 33.5 RDW 14.7 Plt Count 140 L MPV 9.5 Neut % (Auto) 77.4 H Lymph % (Auto) 9.9 Branch % (Auto) 9.5 H Eos % (Auto) 2.6 Baso % (Auto) 0.6 Neut # (Auto) 7.8 H Lymph # (Auto) 1.0 Branch # (Auto) 1.0 H Eos # (Auto) 0.3 Baso # (Auto) 0.1 WBC Differential . Differential Comment Auto diff final Puncture Site Patient Temperature O2 Saturation ABG pH ABG pCO2 ABG pO2 ABG HCO3 ABG O2 Content ABG Base Excess ABG Methemoglobin Zhang Test Hemoglobin Carboxyhemoglobin O2 Delivery Device Vent Setting Inspired O2 Critical Value Sodium 146 H Potassium 3.0 L Chloride 106 Carbon Dioxide 32.1 H Anion Gap 8 BUN 46 H Creatinine 4.16 H Estimated GFR 14 L POC Glucose 128 H Random Glucose 135 H Calcium 8.3 L Phosphorus Magnesium Total Bilirubin 0.5 AST 22 ALT 30 Alkaline Phosphatase 31 L Troponin I Total Protein 6.4 Albumin 3.1 L D 12/23/17 12/23/17 12/23/17 11:23 13:08 13:08 WBC RBC Hgb Hct MCV MCH MCHC RDW Plt Count MPV Neut % (Auto) Lymph % (Auto) Branch % (Auto) Eos % (Auto) Baso % (Auto) Neut # (Auto) Lymph # (Auto) Branch # (Auto) Eos # (Auto) Baso # (Auto) WBC Differential Differential Comment Puncture Site Patient Temperature O2 Saturation ABG pH ABG pCO2 ABG pO2 ABG HCO3 ABG O2 Content ABG Base Excess ABG Methemoglobin Zhang Test Hemoglobin Carboxyhemoglobin O2 Delivery Device Vent Setting Inspired O2 Critical Value Sodium Potassium 2.9 L* Chloride Carbon Dioxide Anion Gap BUN Creatinine Estimated GFR POC Glucose 181 H Random Glucose Calcium Phosphorus Magnesium 2.5 Total Bilirubin AST ALT Alkaline Phosphatase Troponin I 0.66 H* Total Protein Albumin 12/23/17 12/23/17 12/23/17 18:23 18:24 23:46 WBC RBC Hgb Hct MCV MCH MCHC RDW Plt Count MPV Neut % (Auto) Lymph % (Auto) Branch % (Auto) Eos % (Auto) Baso % (Auto) Neut # (Auto) Lymph # (Auto) Branch # (Auto) Eos # (Auto) Baso # (Auto) WBC Differential Differential Comment Puncture Site Patient Temperature O2 Saturation ABG pH ABG pCO2 ABG pO2 ABG HCO3 ABG O2 Content ABG Base Excess ABG Methemoglobin Zhang Test Hemoglobin Carboxyhemoglobin O2 Delivery Device Vent Setting Inspired O2 Critical Value Sodium 145 Potassium 3.2 L Chloride 110 H Carbon Dioxide 26.1 Anion Gap 9 BUN 47 H Creatinine 4.10 H Estimated GFR 14 L POC Glucose 192 H 144 H Random Glucose 127 H Calcium 8.7 Phosphorus 2.3 L Magnesium 2.5 Total Bilirubin 0.7 AST 23 ALT 28 Alkaline Phosphatase 32 L Troponin I Total Protein 6.5 Albumin 3.0 L 12/24/17 12/24/17 02:31 02:31 WBC 11.4 H RBC 4.04 L Hgb 13.1 Hct 39.1 MCV 96.8 MCH 32.4 MCHC 33.5 RDW 15.0 Plt Count 145 L MPV 9.8 Neut % (Auto) 82.2 H Lymph % (Auto) 7.3 L Branch % (Auto) 7.5 Eos % (Auto) 2.2 Baso % (Auto) 0.8 Neut # (Auto) 9.4 H Lymph # (Auto) 0.8 L Branch # (Auto) 0.9 Eos # (Auto) 0.2 Baso # (Auto) 0.1 WBC Differential . Differential Comment Auto diff final Puncture Site Patient Temperature O2 Saturation ABG pH ABG pCO2 ABG pO2 ABG HCO3 ABG O2 Content ABG Base Excess ABG Methemoglobin Zhang Test Hemoglobin Carboxyhemoglobin O2 Delivery Device Vent Setting Inspired O2 Critical Value Sodium 147 H Potassium 3.2 L Chloride 110 H Carbon Dioxide 27.0 Anion Gap 10 BUN 47 H Creatinine 4.08 H Estimated GFR 14 L POC Glucose Random Glucose 136 H Calcium 8.6 Phosphorus Magnesium Total Bilirubin 0.7 AST 18 ALT 29 Alkaline Phosphatase 28 L Troponin I Total Protein 6.5 Albumin 2.9 L Result Diagrams: 12/24/17 02:31 12/24/17 02:31 Imaging: Impressions Chest X-Ray 12/23/17 00:00 CONCLUSION: Stable appearance of the chest. Procedures: 12/14/17 * Endotracheal intubation (subsequent extubation on 12/15/17) 12/21/17 * Endotracheal intubation * Vas-Cath placement 12/22/17 * Hemodialysis Assessment and Plan - Disease Oriented Problem List (1) Acute non-ST elevation myocardial infarction (NSTEMI) (2) Respiratory failure requiring intubation - Symptom Scale (1) Dyspnea 0-10 Scale: Unable to quantify Comment: Currently mechanically ventilated. Tolerating CPAP 10/5 40% Fi02 (2) Pain 0-10 Scale: Unable to quantify Comment: Currenlty off sedation for CPAP trials. Denies pain, appears comfortable. (3) Anxiety 0-10 Scale: Unable to quantify Comment: related to intubation Pertinent Non-Medical Issues: Psychosocial: The patient was born and raised in [place] where he met his . 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 They have 2 sons to still live in [place] Spiritual: Jain. Last Rights were performed on 12/21/17 Legal: Should the patient become completely incapacitated, and in the absence of a documented living, per [place] statues medical decision making would fall to his , Sharon Da Silva by proxy [phone] Ethical issues impacting care: There are currently no known ethical issues impacting care at this time. Important Contacts: Sharon Da Silva, /HCP [phone] Prognosis: Patient has recently declined rapidly and was transferred back to the SICU in critical condition. He is currently intubated, severely bradycardic and in acute renal failure. Healthcare proxy is declining hemodialysis at this time. Given the unclear etiology of his original medical insult, combined with his multiple comorbidities he remains at high risk for further decline, increased morbidity, and . Code Status: No Code DNR Plan: * LEGAL DECISION MAKER -the patient is currently able to participate in his own healthcare decision making though defers to his Sharon. Should he become completely incapacitated any time in the absence of a documented living will per [place] statutes decision making would fall to his by proxy Sharon Da Silva [phone] * GOALS - Discussed with patient's , Sharon Da Silva and grandson Raimundo Da Silva at bedside. Dr. Grigsby was also present for the conversation. Family is aware of plans to extubate patient tomorrow. We discussed if the patient was extubated and again went into respiratory distress would they want their loved one to be again reintubated. They stated that they would not want the patient to be intubated again and he is to remain a DNR. He will continue with hemodialysis for the time being. * CODE STATUS -DNR * SYMPTOMS Pain - multifactorial including bedbound status, blood draws, invasive lines, tubes, procedures, etc. recently reintubated and sedated. Currently denies pain , fentanyl gtt on hold for the time being for CPAP trails. Once extubated can re -assess and make further recommendations as the clinical case evolves Dyspnearemains intubated at this time. Tolerating CPAP 10/5 40% Fi02. Plans for HD today then extubate tomorrow pending any further setbacks. Family is agreeable to Bipap if needed but no further intubation Anxiety - related to intubation. Patient is able communicate that the ETT is somewhat uncomfortable and at some times makes him anxious. Continue with frequent reorientation. Family remains at bedside to help keep the patient more comfortable. Palliative care will continue to follow during hospital course as condition evolves, to assist patient/decision maker with understanding of medical conditions, weighing benefits/burdens of treatment options, for clarification of goals of treatment. Additionally will assist with any symptoms of palliative concern. Case discussed with Dr. Grigsby and RN (Olivia) at bedside. Attestation Attestation: To help prompt me to consider important information that might be impacting today's encounter and assessment, information from prior notes written by myself or my colleagues may have been "brought forward" into today's note. My signature on this note, however, is an attestation that I personally performed the exam, history, and/or decision-making noted today, and, unless otherwise indicated, the interactions with patient, family, and staff as well as the review of records all occurred today. I also attest that the listed assessment and stated plan reflect my best clinical judgment today based on the combination of historical information, prior notes, and today's exam/ interactions. When time spent is documented, it refers only to time spent today by the signer, or if indicated, combined time spent today by collaborating physician/nurse practitioner.
--- NOTE | 2017-12-24 13:05 | P.PNCC ---
Subjective Subjective Remarks/Hospital Course: This is a unknown male. Admission 11 03/2017. Past medical history is unknown to me. There is no family currently available. According to records from previous ED physician who saw the patient before the ED physician had notified me patient has a history of hypothyroidism, gastroesophageal reflux disease, COPD, diabetes, heart failure. Patient was found unresponsive by family with a GCS of 3 and was brought in to the emergency department. Patient was intubated using etomidate and succinylcholine. CT brain negative. CT pulmonary antrum revealed right upper and lower lobe atelectasis. Lower lobe atelectasis versus infiltrate. Patient had elevated troponin. EKG revealed normal sinus rhythm at 64 with normal NH, QS and QT intervals. Dr. Vidal was notified. Patient has been started on a heparin drip for non-STEMI. Cardiology will evaluate. Patient is placed on broad- spectrum antibiotics. We are asked to admit. 12/15 Patient is intubated and sedated with Diprivan drip. On Heparin drip. Afebrile. CTA chest negative for PE. 12/16 Patient was extubated yesterday on BIPAP 15/8 with 40% FIO2. Afebrile. Awake and alert.On Heparin drip. 12/17 Patient is on BIPAP 18/8 with 40%, remains on Heparin drip. Afebrile. Renal function worse today with Cr: 2.25 from 1.03 12/21 Reconsult Patient was in resp. distress and with AMS. ABG showed acute hypercapneic resp acidosis with PH:7.05, pCO2:108. Floor nurse spoke to and she was agreeable for intubation. Patient was subsequently transferred to [facility] where he was immediately intubated by me and placed on mechanical ventilation. Renal function worse today with Cr: 4.49 from 3.96 plan to initiated HD today per renal. 12/22 Patient is intubated and sedated with Fentanyl infusion. Renal function is worse with Cr: 4.60 today from 4.49. SUBJECTIVE: 12/23: T-max 38.4. Currently on PSV trial 26/06 at 40%. Hemodialysis yesterday -4 L. Positive BM. Tube feeds at goal. We will try extubation today if passes parameters in no complete currently on no sedation.. 12/24 Patient is off sedation on CPAP 26/06 with 35% FIo2. Afebrile. Awake and alert. For HD today. Objective Vital Signs / I&O: Vital Signs 12/23/17 13:00 12/23/17 13:08 12/23/17 13:20 Temperature Pulse Rate 69 76 72 Respiratory Rate 15 16 20 Blood Pressure 139/65 151/67 H Pulse Oximetry 96 98 98 12/23/17 13:40 12/23/17 13:41 12/23/17 14:00 Temperature Pulse Rate 93 H 93 H 83 Respiratory Rate 25 H 24 25 H Blood Pressure 172/76 H 171/74 H 174/69 H Pulse Oximetry 93 L 93 L 95 12/23/17 14:10 12/23/17 14:20 12/23/17 14:40 Temperature Pulse Rate 78 77 147 H Respiratory Rate 17 17 18 Blood Pressure 125/60 136/64 131/93 H Pulse Oximetry 96 95 95 12/23/17 15:00 12/23/17 15:20 12/23/17 15:40 Temperature Pulse Rate 111 H 143 H 142 H Respiratory Rate 14 15 16 Blood Pressure 125/79 125/62 108/71 Pulse Oximetry 94 L 94 L 95 12/23/17 16:00 12/23/17 16:40 12/23/17 17:00 Temperature Pulse Rate 145 H 145 H 102 H Respiratory Rate 15 16 16 Blood Pressure 149/94 H 110/68 109/58 L Pulse Oximetry 99 96 96 12/23/17 17:10 12/23/17 17:20 12/23/17 17:30 Temperature Pulse Rate 75 70 70 Respiratory Rate 16 16 17 Blood Pressure 115/59 L 122/57 L 125/62 Pulse Oximetry 97 98 96 12/23/17 17:40 12/23/17 17:50 12/23/17 17:53 Temperature Pulse Rate 72 91 H 88 Respiratory Rate 16 35 H 24 Blood Pressure 128/60 188/87 H 149/70 H Pulse Oximetry 96 100 99 12/23/17 18:00 12/23/17 18:10 12/23/17 18:20 Temperature 98.7 F Pulse Rate 79 84 83 Respiratory Rate 17 31 H 18 Blood Pressure 121/63 129/60 146/61 H Pulse Oximetry 96 92 L 95 12/23/17 18:30 12/23/17 18:40 12/23/17 18:50 Temperature Pulse Rate 79 78 94 H Respiratory Rate 18 17 21 Blood Pressure 142/64 H 123/67 156/67 H Pulse Oximetry 96 96 95 12/23/17 19:00 12/23/17 19:10 12/23/17 19:20 Temperature Pulse Rate 82 77 79 Respiratory Rate 17 17 17 Blood Pressure 156/63 H 155/96 H 147/65 H Pulse Oximetry 98 97 96 12/23/17 19:30 12/23/17 19:40 12/23/17 19:50 Temperature Pulse Rate 81 79 75 Respiratory Rate 16 16 16 Blood Pressure 143/63 H 128/60 131/61 Pulse Oximetry 96 96 96 12/23/17 19:57 12/23/17 20:00 12/23/17 20:10 Temperature 98.8 F Pulse Rate 73 74 71 Respiratory Rate 16 16 16 Blood Pressure 127/64 129/66 Pulse Oximetry 96 96 98 12/23/17 20:20 12/23/17 20:26 12/23/17 21:00 Temperature Pulse Rate 84 83 75 Respiratory Rate 20 22 16 Blood Pressure 191/90 H 163/67 H 127/67 Pulse Oximetry 99 98 98 12/23/17 21:30 12/23/17 22:00 12/23/17 22:30 Temperature Pulse Rate 76 71 69 Respiratory Rate 18 17 16 Blood Pressure 143/72 H 155/67 H Pulse Oximetry 98 98 98 12/23/17 23:00 12/23/17 23:30 12/23/17 23:56 Temperature Pulse Rate 72 83 67 Respiratory Rate 19 23 17 Blood Pressure 150/67 H Pulse Oximetry 97 97 97 12/24/17 00:00 12/24/17 00:30 12/24/17 01:00 Temperature 98.7 F Pulse Rate 70 72 97 H Respiratory Rate 17 22 20 Blood Pressure 150/67 H 156/76 H Pulse Oximetry 98 97 94 L 12/24/17 01:30 12/24/17 02:00 12/24/17 02:30 Temperature Pulse Rate 85 81 74 Respiratory Rate 18 16 17 Blood Pressure 147/68 H 139/63 Pulse Oximetry 95 96 97 12/24/17 03:00 12/24/17 03:09 12/24/17 03:30 Temperature Pulse Rate 82 85 72 Respiratory Rate 23 17 16 Blood Pressure 147/65 H Pulse Oximetry 97 96 98 12/24/17 04:00 12/24/17 06:00 12/24/17 08:47 Temperature 99.2 F Pulse Rate 82 70 Respiratory Rate 20 16 Blood Pressure 147/65 H Pulse Oximetry 98 98 12/24/17 08:51 12/24/17 11:15 12/24/17 12:22 Temperature Pulse Rate 74 76 Respiratory Rate 17 16 Blood Pressure Pulse Oximetry 98 Intake & Output 12/23/17 12/24/17 12/24/17 18:59 06:59 18:59 Intake Total 852 / 852 250 / 250 300 / 300 Output Total 550 / 550 450 / 450 Balance 302 / 302 -200 / -200 300 / 300 Intake: IV 300 / 300 250 / 250 300 / 300 Zosyn 2.25 GM Premix 50 ML @ 100 / 100 50 / 50 50 / 50 100 mls/hr IV.SIG Q6H ANGIE Rx#: [id number] KCl 10 mEq Premix Inj 10 meq In 100 / 100 100 ml @ 100 mls/hr IV.SIG Q1H ANGIE Rx#:[id number] KCl 20 mEq Premix Inj 20 meq In 200 / 200 100 / 100 100 ml @ 50 mls/hr IV.SIG Q2H ANGIE Rx#:[id number] fentaNYL 10 mcg/mL Premix Drip 250 / 250 2,500 mcg In 250 ml @ 50 MCG/HR 5 mls/hr IV.SIG TITRATE PRN Rx #:[id number] Tube Feeding 312 / 312 0 / 0 Tube Irrigant 240 / 240 Output: Stool 0 / 0 Urine Amount (Catheter) 550 / 550 450 / 450 Condom 550 / 550 450 / 450 Other: Date of Last Bowel Movement 12/23/17 12/23/17 # Bowel Movements 1 Result Diagrams: 12/24/17 02:31 12/24/17 02:31 Other Results: Laboratory Results - last 12 hr 12/24/17 12/24/17 12/24/17 02:31 02:31 11:48 WBC 11.4 H RBC 4.04 L Hgb 13.1 Hct 39.1 MCV 96.8 MCH 32.4 MCHC 33.5 RDW 15.0 Plt Count 145 L MPV 9.8 Neut % (Auto) 82.2 H Lymph % (Auto) 7.3 L [place] % (Auto) 7.5 Eos % (Auto) 2.2 Baso % (Auto) 0.8 Neut # (Auto) 9.4 H Lymph # (Auto) 0.8 L [place] # (Auto) 0.9 Eos # (Auto) 0.2 Baso # (Auto) 0.1 WBC Differential . Differential Comment Auto diff final Sodium 147 H Potassium 3.2 L Chloride 110 H Carbon Dioxide 27.0 Anion Gap 10 BUN 47 H Creatinine 4.08 H Estimated GFR 14 L POC Glucose 109 Random Glucose 136 H Calcium 8.6 Total Bilirubin 0.7 AST 18 ALT 29 Alkaline Phosphatase 28 L Total Protein 6.5 Albumin 2.9 L Imaging: Head CT 12/14/17 14:53 CONCLUSION: 1. No acute intracranial abnormality is identified. 2. Chronic findings include generalized atrophy and periventricular white matter change characteristic of chronic microvascular ischemia. . Chest CTA 12/14/17 17:06 CONCLUSION: 1. No pulmonary embolus. 2. Scattered areas of subpleural density seen in the posterior right upper and lower lobes likely related to mild consolidation or atelectasis. There is also some minimal suspected atelectasis or consolidation at the posterior lower lobes bilaterally. 3. Gallstones Abdomen/Bladder Ultrasound 12/17/17 00:00 CONCLUSION: 1. Kidneys are borderline echogenic which can be seen with medical renal disease. 2. Left renal cyst. 3. Liver appears echogenic which can be seen with hepatic steatosis/ hepatocellular dysfunction. Chest X-Ray 12/23/17 00:00 CONCLUSION: Stable appearance of the chest. Objective Remarks: GENERAL: Patient is 81 yo critically ill male currently orotracheally to be in no acute distress SKIN: Warm and dry. HEAD: Normocephalic. EYES: No scleral icterus. No injection or drainage. NECK: Supple, trachea midline. No JVD or lymphadenopathy. orally intubated. Right IJ Hemovac catheter is clean dry and intact CARDIOVASCULAR: Regular rate and rhythm without murmurs, gallops, or rubs. RESPIRATORY: Breath sounds equal symmetric bilateral. Positive expiratory wheeze. GASTROINTESTINAL: Abdomen soft, non-tender, nondistended. MUSCULOSKELETAL: No peripheral edema. Neuro: Awake and alert Assessment and Plan - Assessment and Plan Plan: Neuro/Psych: Monitor neuro status, on Fentanyl infusion if needed for sedation Daily sedation vacation. Awake and alert. 12/14 CT brain revealed no acute intracranial findings Acetaminophen 650 mg every 6 hours as needed fever CV: Elevated troponin possibly type II non-STEMI History of essential hypertension History of congestive heart failure unknown etiology Monitor HR and BP keep MAP>65mmHg Aspirin 81 mg daily, atorvastatin 40mg daily, Cards is following- Dr. Vidal Echo showed EF 55-60% Resp: Acute respiratory failure Continue with vent support keep sats Bronchodilators, ICU vent bundle. Spontaneous breathing trials Daily 12/14 CT pulmonary no evidence of PE, revealed right upper/lower atelectasis versus infiltrate. Bilateral lower lobe consolidation versus infiltrate. Chest x-ray today 12/23 patchy consolidation bases L>R GI: Hypoalbuminemia Pantoprazole for GI prophylaxis Docusate sodium senna 1 tablet twice daily for bowel regimen Resume tube feeds- Nepro with goal rate 50ml/hr per nut. recommendations Renal/FEN/ Acute kidney injury hypernatremia Hypopotassemia Monitor renal function, I/O's, avoid nephrotoxins Renal is following-Dr. Holder For HD today Vascath placed 12/21 On acetazolamide 500mg IV daily Received 20 milliequivalents potassium chloride today. On scheduled 16 mEq daily Endo: Diabetes mellitus type 2 Hypothyroidism Continue home thyroid 30 mg daily. TSH level:2.37 Sliding scale insulin Accu-Cheks to maintain euglycemia every 6 hours aspart insulin Heme: Normocytic anemia Thrombocytopenia Monitor CBC daily. Follow trends. No indication for transfusion of blood products at this time ID: Blood [id number], sputum cx: normal resp marcio Continue piperacillin/tazobactam and monitor for signs of infections ( Fever, WBC) Access -Utilize peripheral IV. -Right IHJ vascath placed 12/21 Prophylaxis -GI -pantoprazole -DVT -SCDs/heparin Sq Palliative care is following Code status: No code DNR Level 3 follow-up
--- NOTE | 2017-12-24 14:26 | ECG ---
Date Performed: 12/23/2017 Time Performed: 16:29:22 PTAGE: 81 years EKG: Possible atrial flutter with rapid ventricular response. Poor R wave progression - probable normal variant Inferior T wave changes are nonspecific Low QRS voltages in limb leads ARTIAL FLUTTER IS NEW SINCE PRIOR TRACING Clinical correlation is recommended Abnormal ECG NO PREVIOUS TRACING DOCTOR: Irving Irizarry Interpretating Date/Time 12/24/2017 14:25:04
--- NOTE | 2017-12-24 15:23 | P.PNNP ---
Subjective Interval history: Patient is awake on the ventilator, he wanted to drink water Physical Exam Vital signs: Vital Signs 12/23/17 15:40 12/23/17 16:00 12/23/17 16:40 Temperature Pulse Rate 142 H 145 H 145 H Respiratory Rate 16 15 16 Blood Pressure 108/71 149/94 H 110/68 Pulse Oximetry 95 99 96 12/23/17 17:00 12/23/17 17:10 12/23/17 17:20 Temperature Pulse Rate 102 H 75 70 Respiratory Rate 16 16 16 Blood Pressure 109/58 L 115/59 L 122/57 L Pulse Oximetry 96 97 98 12/23/17 17:30 12/23/17 17:40 12/23/17 17:50 Temperature Pulse Rate 70 72 91 H Respiratory Rate 17 16 35 H Blood Pressure 125/62 128/60 188/87 H Pulse Oximetry 96 96 100 12/23/17 17:53 12/23/17 18:00 12/23/17 18:10 Temperature Pulse Rate 88 79 84 Respiratory Rate 24 17 31 H Blood Pressure 149/70 H 121/63 129/60 Pulse Oximetry 99 96 92 L 12/23/17 18:20 12/23/17 18:30 12/23/17 18:40 Temperature 98.7 F Pulse Rate 83 79 78 Respiratory Rate 18 18 17 Blood Pressure 146/61 H 142/64 H 123/67 Pulse Oximetry 95 96 96 12/23/17 18:50 12/23/17 19:00 12/23/17 19:10 Temperature Pulse Rate 94 H 82 77 Respiratory Rate 21 17 17 Blood Pressure 156/67 H 156/63 H 155/96 H Pulse Oximetry 95 98 97 12/23/17 19:20 12/23/17 19:30 12/23/17 19:40 Temperature Pulse Rate 79 81 79 Respiratory Rate 17 16 16 Blood Pressure 147/65 H 143/63 H 128/60 Pulse Oximetry 96 96 96 12/23/17 19:50 12/23/17 19:57 12/23/17 20:00 Temperature 98.8 F Pulse Rate 75 73 74 Respiratory Rate 16 16 16 Blood Pressure 131/61 127/64 Pulse Oximetry 96 96 96 12/23/17 20:10 12/23/17 20:20 12/23/17 20:26 Temperature Pulse Rate 71 84 83 Respiratory Rate 16 20 22 Blood Pressure 129/66 191/90 H 163/67 H Pulse Oximetry 98 99 98 12/23/17 21:00 12/23/17 21:30 12/23/17 22:00 Temperature Pulse Rate 75 76 71 Respiratory Rate 16 18 17 Blood Pressure 127/67 143/72 H Pulse Oximetry 98 98 98 12/23/17 22:30 12/23/17 23:00 12/23/17 23:30 Temperature Pulse Rate 69 72 83 Respiratory Rate 16 19 23 Blood Pressure 155/67 H 150/67 H Pulse Oximetry 98 97 97 12/23/17 23:56 12/24/17 00:00 12/24/17 00:30 Temperature 98.7 F Pulse Rate 67 70 72 Respiratory Rate 17 17 22 Blood Pressure 150/67 H 156/76 H Pulse Oximetry 97 98 97 12/24/17 01:00 12/24/17 01:30 12/24/17 02:00 Temperature Pulse Rate 97 H 85 81 Respiratory Rate 20 18 16 Blood Pressure 147/68 H Pulse Oximetry 94 L 95 96 12/24/17 02:30 12/24/17 03:00 12/24/17 03:09 Temperature Pulse Rate 74 82 85 Respiratory Rate 17 23 17 Blood Pressure 139/63 Pulse Oximetry 97 97 96 12/24/17 03:30 12/24/17 04:00 12/24/17 06:00 Temperature 99.2 F Pulse Rate 72 82 70 Respiratory Rate 16 20 Blood Pressure 147/65 H 147/65 H Pulse Oximetry 98 98 12/24/17 08:47 12/24/17 08:51 12/24/17 11:15 Temperature Pulse Rate 74 76 Respiratory Rate 16 17 16 Blood Pressure Pulse Oximetry 98 12/24/17 12:22 12/24/17 14:51 12/24/17 14:52 Temperature Pulse Rate 81 Respiratory Rate 16 16 Blood Pressure Pulse Oximetry 98 95 Intake & Output 12/23/17 12/24/17 12/24/17 18:59 06:59 18:59 Intake Total 852 / 852 250 / 250 350 / 350 Output Total 550 / 550 450 / 450 Balance 302 / 302 -200 / -200 350 / 350 Intake: IV 300 / 300 250 / 250 350 / 350 Zosyn 2.25 GM Premix 50 ML @ 100 / 100 50 / 50 100 / 100 100 mls/hr IV.SIG Q6H ANGIE Rx#: [id number] KCl 10 mEq Premix Inj 10 meq In 100 / 100 100 ml @ 100 mls/hr IV.SIG Q1H ANGIE Rx#:[id number] KCl 20 mEq Premix Inj 20 meq In 200 / 200 100 / 100 100 ml @ 50 mls/hr IV.SIG Q2H ANGIE Rx#:[id number] fentaNYL 10 mcg/mL Premix Drip 250 / 250 2,500 mcg In 250 ml @ 50 MCG/HR 5 mls/hr IV.SIG TITRATE PRN Rx #:[id number] Tube Feeding 312 / 312 0 / 0 Tube Irrigant 240 / 240 Output: Stool 0 / 0 Urine Amount (Catheter) 550 / 550 450 / 450 Condom 550 / 550 450 / 450 Other: Date of Last Bowel Movement 12/23/17 12/23/17 # Bowel Movements 1 Narrative: GENERAL: Patient got intubated HEAD: Intubated. NECK: Supple, trachea midline. No lymphadenopathy. EYES: No scleral icterus. No injection or drainage. CARDIOVASCULAR: Regular rate and rhythm without murmurs, gallops, or rubs. RESPIRATORY: Breath sounds diminished at bases GASTROINTESTINAL: Abdomen soft, non-tender, nondistended. MUSCULOSKELETAL: 1+ r edema. SKIN: Warm and dry. NEURO: Intubated and sedated - Urinary Catheter Management Indwelling Urethral Catheter Cath placed during this visit: yes, but has since been removed by the nurse Reason for continuing: Hourly intake/output Insertion date: 12/14/17 Insertion time: 15:00 Removal date: 12/20/17 Removal time: 13:53 Condom Cath placed during this visit: yes Reason for continuing: Not indwelling catheter Insertion date: 12/20/17 Insertion time: 13:05 Assessment and Plan - Assessment (1) Acute renal failure Code(s): N17.9 - Acute kidney failure, unspecified Status: Acute Plan: Acute renal failure is due to contrast-induced nephropathy, Doing poorly went into respiratory failure Intubated now. Initially family refused HD, however then changed their minds Patient is seen during hemodialysis second treatment, on 4K bath ultrafiltration of 4 L plan Extubation is planned for tomorrow Patient has improved significantly over the weekend after dialysis Replace potassium I will give him 20 MEQ of potassium IV Continue to follow electrolytes, UOP (2) COPD exacerbation Code(s): J44.1 - Chronic obstructive pulmonary disease with (acute) exacerbation Status: Acute Plan: Patient is under treatment (3) Respiratory failure Code(s): J96.90 - Respiratory failure, unspecified, unspecified whether with hypoxia or hypercapnia Status: Acute Plan: remains intubated (4) Diabetes Code(s): E11.9 - Type 2 diabetes mellitus without complications Status: Acute Plan: Monitor blood glucose (5) Acute non-ST elevation myocardial infarction (NSTEMI) Code(s): I21.4 - Non-ST elevation (NSTEMI) myocardial infarction Status: Acute Plan: Cardiology is following
[2017-12-24] MEDS ORDERED: Potassium Chlor 20 mEq Premix 20 MEQ/100 ML PIGGYBACK IV.SIG ONE (15:24)
--- NOTE | 2017-12-24 22:25 | P.PNCA ---
Subjective Interval history: Intubated Events over the weekend noted Medications and Allergies Active Medications: Active Medications Acetaminophen (Tylenol) 650 mg PO Q6H PRN PRN Reason: FEVER >101F Acetaminophen (Tylenol) 650 mg PO UNSCH PRN PRN Reason: SEE LABEL COMMENTS Acetazolamide Sodium (Diamox Inj) 500 mg IV.PUSH DAILY [facility] Last Admin: 12/24/17 10:32 Dose: 500 mg Albuterol (Albuterol Neb (Prn)) 2.5 mg NEB Q2HR NEB PRN PRN Reason: SHORTNESS OF BREATH/WHEEZING Last Admin: 12/20/17 08:22 Dose: 2.5 mg Albuterol (Duoneb Neb (Bijal)) 1 ampul NEB Q4HR NEB [facility] Last Admin: 12/24/17 21:05 Dose: 1 ampul Artificial Tears (Tears Naturale Opth Drops) 1 drop EACH EYE TID [facility] Last Admin: 12/24/17 20:00 Dose: 1 drop Aspirin (Aspirin Chew) 81 mg PO DAILY [facility] Last Admin: 12/24/17 10:44 Dose: 81 mg Atorvastatin Calcium (Lipitor) 40 mg PO DAILY [facility] Last Admin: 12/24/17 10:44 Dose: 40 mg Bisacodyl (Dulcolax Supp) 10 mg RECTAL DAILY PRN PRN Reason: SEVERE CONSITIPATION Budesonide (Pulmocort Respule Neb) 0.5 mg NEB Q12HR NEB [facility] Last Admin: 12/24/17 21:05 Dose: 0.5 mg Chlorhexidine Gluconate (Peridex 0.12% Oral Kit) 15 ml OROPHARYNG BID@0800, 2000 [facility] Last Admin: 12/24/17 20:03 Dose: 15 ml Clonidine HCl (Catapres) 0.1 mg PO UNSCH PRN PRN Reason: SEE LABEL COMMENTS Dextrose (D50w Vial) 50 ml IV.PUSH UNSCH PRN PRN Reason: PER HYPOGLYCEMIA PROTOCOL Diphenhydramine HCl (Benadryl) 25 mg PO UNSCH PRN PRN Reason: SEE LABEL COMMENTS Last Admin: 12/23/17 20:53 Dose: 25 mg Epoetin [place] (Epogen Inj) 4,000 unit IV.PUSH UNSCH PRN PRN Reason: SEE LABEL COMMENTS Gelatin (Gelfoam 12 Mm/7 Mm Topical) 1 foam TOPICAL PRN PRN PRN Reason: help stop bleeding from site Gentamicin Sulfate (Gentamicin Inj) 20 mg OTHER WITH DIALYSIS PRN PRN Reason: Dwell Gentamycin Lock Last Admin: 12/24/17 16:29 Dose: 20 mg Glucagon (Glucagon Inj) 1 mg OTHER PRN PRN PRN Reason: for Hypoglycemia Protocol Heparin Sodium (Porcine) (Heparin Inj) 8,000 units OTHER WITH DIALYSIS PRN PRN Reason: for machine prime Heparin Sodium (Porcine) (Heparin Inj) 1,000 units OTHER WITH DIALYSIS PRN PRN Reason: Dwell Heparin to Fill Catheter Heparin Sodium (Porcine) (Heparin Inj) 5,000 units SQ Q12HR BIJAL Last Admin: 12/24/17 20:03 Dose: 5,000 units Hydralazine HCl (Apresoline Inj) 10 mg IV.PUSH Q6H PRN PRN Reason: SBP>160, DBP>90 Last Admin: 12/15/17 14:26 Dose: 10 mg Albumin Human (Flexbumin 25% Inj) 100 mls @ 60 mls/hr IV.SIG WITH DIALYSIS PRN PRN Reason: hypotension / volume replace Last Infusion: 12/22/17 15:01 Dose: Infused Sodium Chloride (Ns Inj) 1,000 mls @ 0 mls/hr OTHER .Q0M PRN PRN Reason: for prime and rinse back Sodium Chloride (Ns Inj) 1,000 mls @ 200 mls/hr OTHER .Q5H PRN PRN Reason: for dialyzer flush PRN Sodium Chloride (Ns Inj) 1,000 mls @ 0 mls/hr IV.CONT .Q0M PRN PRN Reason: hypotension / volume replace Fentanyl (Fentanyl 10 Mcg/Ml Premix Drip) 2,500 mcg in 250 mls @ 5 mls/hr IV.SIG TITRATE PRN; Protocol PRN Reason: Per Protocol Last Titration: 12/24/17 07:00 Dose: Infused Piperacillin/Tazobactam/Dextrose (Zosyn 2.25 Gm Premix) 50 mls @ 100 mls/hr IV.SIG Q6H BIJAL Last Infusion: 12/24/17 20:51 Dose: Infused Insulin Aspart (Novolog Insulin Correctional Sugar Inj) 0 unit SQ Q6HR BIJAL; Protocol Last Admin: 12/24/17 20:01 Dose: Not Given Lactulose (Lactulose Liq) 30 ml PO DAILY PRN PRN Reason: SEVERE CONSITIPATION Mannitol (Mannitol Inj) 12.5 gm IV.PUSH UNSCH PRN PRN Reason: hypotension / volume replace Last Admin: 12/22/17 14:30 Dose: 12.5 gm Miscellaneous Medication () 1 each OROPHARYNG 0000,0400,1200,1600 [facility] Last Admin: 12/24/17 19:59 Dose: 1 each Mupirocin (Bactroban 2% Nasal Oint) 1 applicatio EACH NARE BID [facility] Last Admin: 12/24/17 20:03 Dose: 1 applicatio Nitroglycerin (Nitrostat Sl) 0.4 mg SL Q5M PRN PRN Reason: CHEST PAIN Ondansetron HCl (Zofran Inj) 4 mg IV.PUSH UNSCH PRN PRN Reason: NAUSEA OR VOMITING Pantoprazole Sodium (Protonix Inj) 40 mg IV.PUSH DAILY [facility] Last Admin: 12/24/17 10:35 Dose: 40 mg Potassium Chloride (Klor-Con 8) 16 meq PO DAILY [facility] Last Admin: 12/24/17 19:59 Dose: 16 meq Senna/Docusate Sodium (Marian-Colace) 1 tab PO BID [facility] Last Admin: 12/24/17 20:04 Dose: Not Given Sennosides (Senokot) 17.2 mg PO Q12H PRN PRN Reason: Moderate Constipation Sodium Chloride (Ns Flush) 2 ml IV.FLUSH BID [facility] Last Admin: 12/24/17 21:38 Dose: 2 ml Sodium Chloride (Ns Flush) 2 ml IV.FLUSH PRN PRN PRN Reason: FLUSH AFTER USING IV ACCESS Sodium Chloride (Ns Flush) 5 ml IV.FLUSH PRN PRN PRN Reason: flush each lumen during HD Thyroid (Jasper Thyroid) 30 mg PO DAILY@0600 [facility] Last Admin: 12/24/17 05:25 Dose: Not Given Allergies Allergy/AdvReac Type Severity Reaction Status Date / Time No Known Allergies Allergy Verified 12/14/17 14:49 Home Medications Medication Instructions Recorded Confirmed Type esomeprazole magnesium [Nexium 20 mg PO DAILY 12/14/17 12/14/17 History 24HR] glipizide 5 mg PO DAILY 12/14/17 12/14/17 History potassium chloride 10 meq PO DAILY 12/14/17 12/14/17 History tiotropium-olodaterol [Stiolto 2 puff INHALATION DAILY 12/14/17 12/14/17 History Respimat] tizanidine 4 mg PO BID 12/14/17 12/14/17 History thyroid (pork) 30 mg PO DAILY 12/17/17 12/17/17 History Physical Exam Vital signs: Vital Signs 12/23/17 22:30 12/23/17 23:00 12/23/17 23:30 Temperature Pulse Rate 69 72 83 Respiratory Rate 16 19 23 Blood Pressure 155/67 H 150/67 H Pulse Oximetry 98 97 97 12/23/17 23:56 12/24/17 00:00 12/24/17 00:30 Temperature 98.7 F Pulse Rate 67 70 72 Respiratory Rate 17 17 22 Blood Pressure 150/67 H 156/76 H Pulse Oximetry 97 98 97 12/24/17 01:00 12/24/17 01:30 12/24/17 02:00 Temperature Pulse Rate 97 H 85 81 Respiratory Rate 20 18 16 Blood Pressure 147/68 H Pulse Oximetry 94 L 95 96 12/24/17 02:30 12/24/17 03:00 12/24/17 03:09 Temperature Pulse Rate 74 82 85 Respiratory Rate 17 23 17 Blood Pressure 139/63 Pulse Oximetry 97 97 96 12/24/17 03:30 12/24/17 04:00 12/24/17 06:00 Temperature 99.2 F Pulse Rate 72 82 79 Respiratory Rate 16 20 17 Blood Pressure 147/65 H 147/65 H Pulse Oximetry 98 98 95 12/24/17 06:30 12/24/17 07:00 12/24/17 07:30 Temperature Pulse Rate 84 70 70 Respiratory Rate 29 H 17 16 Blood Pressure 131/63 133/60 Pulse Oximetry 83 L 12/24/17 08:00 12/24/17 08:30 12/24/17 08:47 Temperature 98.2 F Pulse Rate 70 70 Respiratory Rate 16 16 16 Blood Pressure 131/63 Pulse Oximetry 98 98 12/24/17 08:51 12/24/17 09:00 12/24/17 09:30 Temperature Pulse Rate 74 69 81 Respiratory Rate 17 17 17 Blood Pressure 115/64 Pulse Oximetry 99 98 12/24/17 10:00 12/24/17 10:30 12/24/17 11:00 Temperature Pulse Rate 73 70 84 Respiratory Rate 15 13 17 Blood Pressure 141/63 H Pulse Oximetry 97 98 99 12/24/17 11:15 12/24/17 11:30 12/24/17 12:00 Temperature 98.5 F Pulse Rate 76 87 82 Respiratory Rate 16 17 14 Blood Pressure 160/87 H Pulse Oximetry 99 97 12/24/17 12:22 12/24/17 12:30 12/24/17 13:00 Temperature Pulse Rate 81 80 Respiratory Rate 16 18 Blood Pressure 155/71 H Pulse Oximetry 98 99 100 12/24/17 13:30 12/24/17 14:00 12/24/17 14:30 Temperature Pulse Rate 75 75 72 Respiratory Rate 24 16 16 Blood Pressure 141/73 H 122/66 Pulse Oximetry 100 98 97 12/24/17 14:51 12/24/17 14:52 12/24/17 15:00 Temperature Pulse Rate 81 73 Respiratory Rate 16 16 16 Blood Pressure Pulse Oximetry 95 98 12/24/17 15:30 12/24/17 15:45 12/24/17 16:00 Temperature 98.3 F Pulse Rate 80 80 78 Respiratory Rate 17 16 16 Blood Pressure 123/58 L 122/58 L 126/60 Pulse Oximetry 96 97 97 12/24/17 16:15 12/24/17 16:30 12/24/17 16:45 Temperature Pulse Rate 83 83 73 Respiratory Rate 16 20 17 Blood Pressure 138/73 154/81 H 167/77 H Pulse Oximetry 96 99 100 12/24/17 17:00 12/24/17 17:05 12/24/17 18:00 Temperature Pulse Rate 73 75 74 Respiratory Rate 16 18 16 Blood Pressure 150/77 H Pulse Oximetry 99 98 98 12/24/17 18:05 12/24/17 19:00 12/24/17 19:05 Temperature Pulse Rate 70 75 72 Respiratory Rate 16 16 16 Blood Pressure 136/75 136/63 Pulse Oximetry 98 98 97 12/24/17 20:00 12/24/17 20:05 12/24/17 21:00 Temperature 98.1 F Pulse Rate 72 72 72 Respiratory Rate 16 16 16 Blood Pressure 145/72 H Pulse Oximetry 99 99 97 12/24/17 21:05 12/24/17 21:09 Temperature Pulse Rate 72 76 Respiratory Rate 16 16 Blood Pressure 142/69 H Pulse Oximetry 97 Intake & Output 12/24/17 12/24/17 12/25/17 06:59 18:59 06:59 Intake Total 250 / 250 350 / 350 50 / 50 Output Total 450 / 450 3900 / 3900 Balance -200 / -200 -3550 / -3550 50 / 50 Intake: IV 250 / 250 350 / 350 50 / 50 Zosyn 2.25 GM Premix 50 ML @ 50 / 50 100 / 100 50 / 50 100 mls/hr IV.SIG Q6H BIJAL Rx#: [id number] KCl 10 mEq Premix Inj 10 meq In 100 / 100 100 ml @ 100 mls/hr IV.SIG Q1H BIJAL Rx#:[id number] KCl 20 mEq Premix Inj 20 meq In 100 / 100 100 ml @ 50 mls/hr IV.SIG Q2H BIJAL Rx#:[id number] fentaNYL 10 mcg/mL Premix Drip 250 / 250 2,500 mcg In 250 ml @ 50 MCG/HR 5 mls/hr IV.SIG TITRATE PRN Rx #:[id number] Tube Feeding 0 / 0 0 / 0 Output: Stool 0 / 0 Hemodialysis Amount 3500 / 3500 Urine Amount (Catheter) 450 / 450 400 / 400 Condom 450 / 450 400 / 400 Other: Date of Last Bowel Movement 12/23/17 12/24/17 12/24/17 # Bowel Movements 3 Narrative: GENERAL: Patient got intubated HEAD: Intubated. NECK: Supple, trachea midline. No lymphadenopathy. EYES: No scleral icterus. No injection or drainage. CARDIOVASCULAR: Regular rate and rhythm without murmurs, gallops, or rubs. RESPIRATORY: Breath sounds diminished at bases GASTROINTESTINAL: Abdomen soft, non-tender, nondistended. MUSCULOSKELETAL: 1+ r edema. SKIN: Warm and dry. NEURO: Intubated and sedated - Urinary Catheter Management Indwelling Urethral Catheter Cath placed during this visit: yes, but has since been removed by the nurse Reason for continuing: Hourly intake/output Insertion date: 12/14/17 Insertion time: 15:00 Removal date: 12/20/17 Removal time: 13:53 Condom Cath placed during this visit: yes Reason for continuing: Not indwelling catheter Insertion date: 12/20/17 Insertion time: 13:05 Results 12/24/17 02:31 12/24/17 02:31 Cardiac Enzymes 12/23/17 12/23/17 12/23/17 Range/Units 03:35 13:08 23:46 AST 22 23 (15-37) U/L Troponin I 0.66 H* (0.02-0.05) ng/mL 12/24/17 Range/Units 02:31 AST 18 (15-37) U/L Troponin I (0.02-0.05) ng/mL CBC 12/23/17 12/24/17 Range/Units 03:35 02:31 WBC 10.1 11.4 H (4.0-11.0) th/mm3 RBC 3.83 L 4.04 L (4.50-5.90) mil/mm3 Hgb 12.5 L 13.1 (13.0-17.0) gm/dL Hct 37.2 L 39.1 (39.0-51.0) % Plt Count 140 L 145 L (150-450) th/mm3 Neut # (Auto) 7.8 H 9.4 H (1.8-7.7) th/mm3 Lymph # (Auto) 1.0 0.8 L (1.0-4.8) th/mm3 [place] # (Auto) 1.0 H 0.9 (0.0-0.9) th/mm3 Eos # (Auto) 0.3 0.2 (0.0-0.4) th/mm3 Baso # (Auto) 0.1 0.1 (0.0-0.2) th/mm3 Comprehensive Metabolic Panel 12/23/17 12/23/17 12/23/17 Range/Units 03:35 13:08 23:46 Sodium 146 H 145 (136-145) meq/L Potassium 3.0 L 2.9 L* 3.2 L (3.5-5.1) meq/L Chloride 106 110 H (98-107) meq/L Carbon Dioxide 32.1 H 26.1 (21.0-32.0) meq/L BUN 46 H 47 H (7-18) mg/dL Creatinine 4.16 H 4.10 H (0.60-1.30) mg/dL Calcium 8.3 L 8.7 (8.5-10.1) mg/dL AST 22 23 (15-37) U/L ALT 30 28 (12-78) U/L Alkaline Phosphatase 31 L 32 L (45-117) U/L Total Protein 6.4 6.5 (6.4-8.2) g/dL Albumin 3.1 L D 3.0 L (3.4-5.0) g/dL 12/24/17 Range/Units 02:31 Sodium 147 H (136-145) meq/L Potassium 3.2 L (3.5-5.1) meq/L Chloride 110 H (98-107) meq/L Carbon Dioxide 27.0 (21.0-32.0) meq/L BUN 47 H (7-18) mg/dL Creatinine 4.08 H (0.60-1.30) mg/dL Calcium 8.6 (8.5-10.1) mg/dL AST 18 (15-37) U/L ALT 29 (12-78) U/L Alkaline Phosphatase 28 L (45-117) U/L Total Protein 6.5 (6.4-8.2) g/dL Albumin 2.9 L (3.4-5.0) g/dL Intake and Output 12/24/17 12/24/17 12/24/17 06:59 14:59 22:59 Intake Total 50 / 50 350 / 350 50 / 50 Output Total 450 / 450 3900 / 3900 Balance -400 / -400 350 / 350 -3850 / -3850 Intake: IV 50 / 50 350 / 350 50 / 50 Zosyn 2.25 GM Premix 50 ML @ 50 / 50 100 / 100 50 / 50 100 mls/hr IV.SIG Q6H BIJAL Rx#: [id number] fentaNYL 10 mcg/mL Premix Drip 250 / 250 2,500 mcg In 250 ml @ 50 MCG/HR 5 mls/hr IV.SIG TITRATE PRN Rx #:[id number] Tube Feeding 0 / 0 0 / 0 Output: Stool 0 / 0 Hemodialysis Amount 3500 / 3500 Urine Amount (Catheter) 450 / 450 400 / 400 Condom 450 / 450 400 / 400 Other: Date of Last Bowel Movement 12/23/17 12/24/17 12/24/17 # Bowel Movements 3 - Imaging and Cardiology Imaging: Impressions Chest X-Ray 12/23/17 00:00 CONCLUSION: Stable appearance of the chest. Assessment and Plan - Assessment (1) Encephalopathy acute Code(s): G93.40 - Encephalopathy, unspecified Status: Acute (2) Acute non-ST elevation myocardial infarction (NSTEMI) Code(s): I21.4 - Non-ST elevation (NSTEMI) myocardial infarction Status: Acute (3) Respiratory failure requiring intubation Code(s): J96.90 - Respiratory failure, unspecified, unspecified whether with hypoxia or hypercapnia Status: Acute - Plan 1) Encephalopathy, resolved Presented with GCS of 3, possible carbon dioxide retention? Resolved now 2) Acute respiratory failure s/p extubation Reintubation 3) NSTEMI Probable type 2 Discussed with him on multiple days about consideration of ischemic work up He declines ischemic work up, understands risks/benefits Discussed with Palliative care, patient is DNR Will continue to treat medically per the patient's wishes Discussed with on 12/18/17, she agrees with decision of medical management and DNR status Will DC Heparin drip Con't ASA/Cardizem/Statin No CARLEEN-I due to SCARLET No BB due to significant lung disease 4) EF 55-60% 5) Continues to retain CO2 6) No further cardiovascular workup
[2017-12-25] MEDS: Oral Hygiene Kit OROPHARYNG SCH ×4 (00:15→17:52)
[2017-12-25] MEDS: Insulin NovoLOG Aspart Correctional Sugar Inj SQ SCH ×4 (00:15→18:53)
[2017-12-25] MEDS: Piperacil/Tazo 2.25 GM Premix 50 ML IV.SIG SCH ×4 (00:16→17:51)
[2017-12-25 04:35] LABS: Baso # (Auto) 0.1 th/mm3 (0.0-0.2); Baso % (Auto) 0.7 % (0.0-2.0); Eos # (Auto) 0.3 th/mm3 (0.0-0.4); Eos % (Auto) 2.4 % (0.0-4.0); Hematocrit 40.2 % (39.0-51.0); Hemoglobin 13.2 gm/dL (13.0-17.0); Lymph # (Auto) 1.1 th/mm3 (1.0-4.8); Lymph % (Auto) 9.1 % (9.0-44.0); Mean Corpuscular HGB Conc 32.9 % (32.0-36.0); Mean Corpuscular Hemoglobin 31.8 pg (27.0-34.0); Mean Corpuscular Volume 96.6 fL (80.0-100.0); Mean Platelet Volume 10.1 fL (7.0-11.0); Mono % (Auto) 7.8 % (0.0-8.0); Neut # (Auto) 9.9 th/mm3 (1.8-7.7); Platelet Count 178 th/mm3 (150-450); Red Blood Count 4.16 mil/mm3 (4.50-5.90); Red Cell Distribution Width 14.9 % (11.6-17.2); White Blood Count 12.4 th/mm3 (4.0-11.0)
[2017-12-25 05:19] LABS: Alanine Aminotransferase 24 U/L (12-78); Albumin 2.9 g/dL (3.4-5.0); Alkaline Phosphatase 32 U/L (45-117); Anion Gap 8 meq/L (5-15); Aspartate Aminotransferase 17 U/L (15-37); Blood Urea Nitrogen 36 mg/dL (7-18); Calcium 8.7 mg/dL (8.5-10.1); Carbon Dioxide 27.8 meq/L (21.0-32.0); Chloride 108 meq/L (98-107); Glomerular Filtration Rate 17 mL/min (>89); Glucose,Random 129 mg/dL (74-106); Potassium 3.1 meq/L (3.5-5.1); Sodium 144 meq/L (136-145); Total Protein 6.6 g/dL (6.4-8.2)
[2017-12-25] MEDS ORDERED: Potassium Chlor 20 mEq Premix 20 MEQ/100 ML PIGGYBACK IV.SIG ONE (06:00)
[2017-12-25] MEDS: Senna/Docusate Sodium 8.6/50 MG Tablet PO SCH ×2 (09:14→20:29)
[2017-12-25] MEDS: Chlorhexidine 0.12% Oral Kit 15 ML UDC OROPHARYNG SCH ×2 (09:14→20:23)
[2017-12-25] MEDS: Pantoprazole Inj 40 MG Vial IV.PUSH SCH (09:14)
[2017-12-25] MEDS: Mupirocin 2% Nasal Oint Topical Syringe EACH NARE SCH ×2 (09:19→20:30)
[2017-12-25] MEDS: Heparin - SQ 10,000 UNITS/ML Vial SQ SCH ×2 (09:19→20:30)
[2017-12-25] MEDS: Artificial Tears Opth Drops 15 ML Bottle EACH EYE SCH ×3 (09:22→17:52)
--- NOTE | 2017-12-25 10:59 | P.PNCC ---
Subjective Subjective Remarks/Hospital Course: This is a unknown male. Admission 11 03/2017. Past medical history is unknown to me. There is no family currently available. According to records from previous ED physician who saw the patient before the ED physician had notified me patient has a history of hypothyroidism, gastroesophageal reflux disease, COPD, diabetes, heart failure. Patient was found unresponsive by family with a GCS of 3 and was brought in to the emergency department. Patient was intubated using etomidate and succinylcholine. CT brain negative. CT pulmonary antrum revealed right upper and lower lobe atelectasis. Lower lobe atelectasis versus infiltrate. Patient had elevated troponin. EKG revealed normal sinus rhythm at 64 with normal SD, QS and QT intervals. Dr. Vidal was notified. Patient has been started on a heparin drip for non-STEMI. Cardiology will evaluate. Patient is placed on broad- spectrum antibiotics. We are asked to admit. 12/15 Patient is intubated and sedated with Diprivan drip. On Heparin drip. Afebrile. CTA chest negative for PE. 12/16 Patient was extubated yesterday on BIPAP 15/8 with 40% FIO2. Afebrile. Awake and alert.On Heparin drip. 12/17 Patient is on BIPAP 18/8 with 40%, remains on Heparin drip. Afebrile. Renal function worse today with Cr: 2.25 from 1.03 12/21 Reconsult Patient was in resp. distress and with AMS. ABG showed acute hypercapneic resp acidosis with PH:7.05, pCO2:108. Floor nurse spoke to and she was agreeable for intubation. Patient was subsequently transferred to [facility] where he was immediately intubated by me and placed on mechanical ventilation. Renal function worse today with Cr: 4.49 from 3.96 plan to initiated HD today per renal. 12/22 Patient is intubated and sedated with Fentanyl infusion. Renal function is worse with Cr: 4.60 today from 4.49. SUBJECTIVE: 12/23: T-max 38.4. Currently on PSV trial 15 at 40%. Hemodialysis yesterday -4 L. Positive BM. Tube feeds at goal. We will try extubation today if passes parameters in no complete currently on no sedation.. 12/24 Patient is off sedation on CPAP 26/06 with 35% FIo2. Afebrile. Awake and alert. For HD today. 12/25 Patient is on CPAP awake and alert . Afebrile. s/p HD 1L removed. Objective Vital Signs / I&O: Vital Signs 12/24/17 11:00 12/24/17 11:15 12/24/17 11:30 Temperature Pulse Rate 84 76 87 Respiratory Rate 17 16 17 Blood Pressure 160/87 H Pulse Oximetry 99 99 12/24/17 12:00 12/24/17 12:22 12/24/17 12:30 Temperature 98.5 F Pulse Rate 82 81 Respiratory Rate 14 16 Blood Pressure 155/71 H Pulse Oximetry 97 98 99 12/24/17 13:00 12/24/17 13:30 12/24/17 14:00 Temperature Pulse Rate 80 75 75 Respiratory Rate 18 24 16 Blood Pressure 141/73 H Pulse Oximetry 100 100 98 12/24/17 14:30 12/24/17 14:51 12/24/17 14:52 Temperature Pulse Rate 72 81 Respiratory Rate 16 16 16 Blood Pressure 122/66 Pulse Oximetry 97 95 12/24/17 15:00 12/24/17 15:30 12/24/17 15:45 Temperature Pulse Rate 73 80 80 Respiratory Rate 16 17 16 Blood Pressure 123/58 L 122/58 L Pulse Oximetry 98 96 97 12/24/17 16:00 12/24/17 16:15 12/24/17 16:30 Temperature 98.3 F Pulse Rate 78 83 83 Respiratory Rate 16 16 20 Blood Pressure 126/60 138/73 154/81 H Pulse Oximetry 97 96 99 12/24/17 16:45 12/24/17 17:00 12/24/17 17:05 Temperature Pulse Rate 73 73 75 Respiratory Rate 17 16 18 Blood Pressure 167/77 H 150/77 H Pulse Oximetry 100 99 98 12/24/17 18:00 12/24/17 18:05 12/24/17 19:00 Temperature Pulse Rate 74 70 75 Respiratory Rate 16 16 16 Blood Pressure 136/75 Pulse Oximetry 98 98 98 12/24/17 19:05 12/24/17 20:00 12/24/17 20:05 Temperature 98.1 F Pulse Rate 72 72 72 Respiratory Rate 16 16 16 Blood Pressure 136/63 145/72 H Pulse Oximetry 97 99 99 12/24/17 21:00 12/24/17 21:05 12/24/17 21:09 Temperature Pulse Rate 72 72 76 Respiratory Rate 16 16 16 Blood Pressure 142/69 H Pulse Oximetry 97 97 12/24/17 22:00 12/24/17 22:05 12/24/17 23:00 Temperature Pulse Rate 76 75 73 Respiratory Rate 18 16 16 Blood Pressure 148/67 H Pulse Oximetry 97 97 98 12/24/17 23:05 12/25/17 00:00 12/25/17 00:05 Temperature 98.2 F Pulse Rate 70 69 74 Respiratory Rate 16 16 16 Blood Pressure 118/59 L 127/59 L Pulse Oximetry 98 98 98 12/25/17 00:12 12/25/17 01:00 12/25/17 01:05 Temperature Pulse Rate 69 85 78 Respiratory Rate 17 21 19 Blood Pressure 120/58 L Pulse Oximetry 96 98 12/25/17 02:00 12/25/17 02:05 12/25/17 03:00 Temperature Pulse Rate 68 67 68 Respiratory Rate 16 16 16 Blood Pressure 98/55 L Pulse Oximetry 98 98 97 12/25/17 03:05 12/25/17 03:52 12/25/17 03:55 Temperature Pulse Rate 68 72 Respiratory Rate 16 16 16 Blood Pressure 101/73 Pulse Oximetry 97 96 12/25/17 03:58 12/25/17 04:00 12/25/17 06:00 Temperature 98.8 F Pulse Rate 72 66 Respiratory Rate Blood Pressure Pulse Oximetry 12/25/17 07:26 12/25/17 08:00 12/25/17 10:41 Temperature Pulse Rate 66 Respiratory Rate 16 16 17 Blood Pressure Pulse Oximetry 96 99 Intake & Output 12/24/17 12/25/17 12/25/17 18:59 06:59 18:59 Intake Total 350 / 350 412 / 412 100 / 100 Output Total 3900 / 3900 75 / 75 Balance -3550 / -3550 337 / 337 100 / 100 Weight 93.4 kg Intake: IV 350 / 350 250 / 250 100 / 100 Zosyn 2.25 GM Premix 50 ML @ 100 / 100 150 / 150 100 mls/hr IV.SIG Q6H ANGIE Rx#: [id number] KCl 20 mEq Premix Inj 20 meq In 100 / 100 100 ml @ 50 mls/hr IV.SIG ONCE ONE Rx#:[id number] fentaNYL 10 mcg/mL Premix Drip 250 / 250 2,500 mcg In 250 ml @ 50 MCG/HR 5 mls/hr IV.SIG TITRATE PRN Rx #:[id number] Tube Feeding 0 / 0 162 / 162 Output: Hemodialysis Amount 3500 / 3500 Urine Amount (Catheter) 400 / 400 75 / 75 Condom 400 / 400 75 / 75 Other: Date of Last Bowel Movement 12/24/17 12/25/17 # Bowel Movements 3 # Incontinent Bowel Movements 1 Result Diagrams: 12/25/17 03:37 12/25/17 03:37 Other Results: Laboratory Results - last 12 hr 12/25/17 12/25/17 12/25/17 00:01 03:37 03:37 WBC 12.4 H RBC 4.16 L Hgb 13.2 Hct 40.2 MCV 96.6 MCH 31.8 MCHC 32.9 RDW 14.9 Plt Count 178 MPV 10.1 Neut % (Auto) 80.0 H Lymph % (Auto) 9.1 [place] % (Auto) 7.8 Eos % (Auto) 2.4 Baso % (Auto) 0.7 Neut # (Auto) 9.9 H Lymph # (Auto) 1.1 [place] # (Auto) 1.0 H Eos # (Auto) 0.3 Baso # (Auto) 0.1 WBC Differential . Differential Comment Auto diff final Sodium 144 Potassium 3.1 L Chloride 108 H Carbon Dioxide 27.8 Anion Gap 8 BUN 36 H Creatinine 3.47 H Estimated GFR 17 L POC Glucose 118 H Random Glucose 129 H Calcium 8.7 Total Bilirubin 0.7 AST 17 ALT 24 Alkaline Phosphatase 32 L Total Protein 6.6 Albumin 2.9 L 12/25/17 06:28 WBC RBC Hgb Hct MCV MCH MCHC RDW Plt Count MPV Neut % (Auto) Lymph % (Auto) [place] % (Auto) Eos % (Auto) Baso % (Auto) Neut # (Auto) Lymph # (Auto) [place] # (Auto) Eos # (Auto) Baso # (Auto) WBC Differential Differential Comment Sodium Potassium Chloride Carbon Dioxide Anion Gap BUN Creatinine Estimated GFR POC Glucose 123 H Random Glucose Calcium Total Bilirubin AST ALT Alkaline Phosphatase Total Protein Albumin Imaging: Head CT 12/14/17 14:53 CONCLUSION: 1. No acute intracranial abnormality is identified. 2. Chronic findings include generalized atrophy and periventricular white matter change characteristic of chronic microvascular ischemia. . Chest CTA 12/14/17 17:06 CONCLUSION: 1. No pulmonary embolus. 2. Scattered areas of subpleural density seen in the posterior right upper and lower lobes likely related to mild consolidation or atelectasis. There is also some minimal suspected atelectasis or consolidation at the posterior lower lobes bilaterally. 3. Gallstones Abdomen/Bladder Ultrasound 12/17/17 00:00 CONCLUSION: 1. Kidneys are borderline echogenic which can be seen with medical renal disease. 2. Left renal cyst. 3. Liver appears echogenic which can be seen with hepatic steatosis/ hepatocellular dysfunction. Chest X-Ray 12/23/17 00:00 CONCLUSION: Stable appearance of the chest. Objective Remarks: GENERAL: Patient is 81 yo critically ill male currently orotracheally to be in no acute distress SKIN: Warm and dry. HEAD: Normocephalic. EYES: No scleral icterus. No injection or drainage. NECK: Supple, trachea midline. No JVD or lymphadenopathy. orally intubated. Right IJ Hemovac catheter is clean dry and intact CARDIOVASCULAR: Regular rate and rhythm without murmurs, gallops, or rubs. RESPIRATORY: Breath sounds equal symmetric bilateral. Positive expiratory wheeze. GASTROINTESTINAL: Abdomen soft, non-tender, nondistended. MUSCULOSKELETAL: No peripheral edema. Neuro: Awake and alert Assessment and Plan - Assessment and Plan Plan: Neuro/Psych: On no sedation. Awake and alert. 12/14 CT brain revealed no acute intracranial findings Acetaminophen 650 mg every 6 hours as needed fever CV: Elevated troponin possibly type II non-STEMI History of essential hypertension History of congestive heart failure unknown etiology Monitor HR and BP keep MAP>65mmHg Aspirin 81 mg daily, atorvastatin 40mg daily, Cards is following- Dr. Vidal Echo showed EF 55-60% Resp: Acute respiratory failure Continue with vent support keep sats Bronchodilators, ICU vent bundle. Spontaneous breathing trials Daily Check CXR today 12/14 CT pulmonary no evidence of PE, revealed right upper/lower atelectasis versus infiltrate. Bilateral lower lobe consolidation versus infiltrate. GI: Hypoalbuminemia Pantoprazole for GI prophylaxis Docusate sodium senna 1 tablet twice daily for bowel regimen tube feeds- Nepro with goal rate 50ml/hr per nut. recommendations Renal/FEN/ Acute kidney injury hypernatremia Hypopotassemia Monitor renal function, I/O's, avoid nephrotoxins Renal is following-Dr. Holder s/p HD 12/24 with remova 1L. Vascath placed 12/21 On acetazolamide 500mg IV daily Endo: Diabetes mellitus type 2 Hypothyroidism Continue home thyroid 30 mg daily. TSH level:2.37 Sliding scale insulin Accu-Cheks to maintain euglycemia every 6 hours aspart insulin Heme: Normocytic anemia Thrombocytopenia Monitor CBC daily. Follow trends. No indication for transfusion of blood products at this time ID: Blood cx-NGTD, sputum cx: normal resp marcio Continue piperacillin/tazobactam and monitor for signs of infections ( Fever, WBC) Access -Utilize peripheral IV. -Right IHJ vascath placed 12/21 Prophylaxis -GI -pantoprazole -DVT -SCDs/heparin Sq Palliative care is following Code status: No code DNR Discussed with patient's and undated her on his condition. Level 3 follow-up
--- NOTE | 2017-12-25 11:14 | P.PNPAL ---
Reason for Visit Reason for visit: a. To assist with evaluation and management of symptoms including:pain, dyspnea , anxiety b. To assist medical decision maker(s) with: better understanding of current medical conditions; weighing benefits/burdens of medical treatment options; making medical treatment decisions. Subjective Subjective/Interval History: Mr. Da Silva is an 81-year-old male who presented to [facility] emergency room on 12/14/17 with shortness of breath and altered mental status. Apparently he was found unresponsive by the family who then called 911. During his ambulance ride to the hospital he quickly decompensated to a GCS of 3, requiring emergent intubation. Per the family, the patient has a past medical history of hypothyroidism, GERD, COPD, diabetes, cyst of spinal meninges, and heart failure. Due to the perplexing nature of this patient's presentation and unsure etiology of his altered mental status he was admitted for further evaluation and treatment. The patient was transferred to the medical ICU for further evaluation. Dr. Vidal (Cardiology) was consulted for N STEMI, with unclear etiology. He felt this was unlikely due to CHF ordered a 2D echo. And suggest the patient be started on a heparin drip. 2D echo showed an EF of 55-60% with trace mitral valve and aortic valve regurgitation. There was aortic valve sclerosis and estimated pulmonary arterial pressure of 44 mmHg. Intensive care ordered CTA which was negative for PE. The patient was extubated to BiPAP 15/8 with 40% FiO2 on 12/16/17. Today his BiPAP settings were slightly increased to 18/8 remaining on 40% FiO2. His renal functioning was noted to be increasing in nephrology was consulted. Nephrology did note patient had probable medical renal disease. 12/25/17 Palliative care to follow with symptom management and to assist with continued medical goals. Has been off sedation. He rested on full vent support overnight , placed back on CPAP this AM and continues to maintain Sp02 >92%. Was able to tolerate dialysis yesterday with 1L fluid removal. Overnight had reported 20 beat run of V tach, with a smaller run earlier this morning. No other cardiovascular events noted. Patient remains off sedation and is able to communicate as best he can with the ETT obstructing. Again appropriates some level of anxiety. He points to the ETT and nods his head when asked about feelings of anxiety. He denies pain for me but the nurse reports some discomfort with pericare and notes 2 areas of discoloration on his buttock. Family at bedside and are anticipating successful extubation today. Today clinical's data revealed: * WBC 12.4, Hgb 13.2, Hct 40.2, Platelets 175 * Na 144, K+ 3.1, Cl 108, C02 27.8, BUN 36, Creatinine 3.47, estimated GFR 17, glucose 129 Family/Friend Interactions: Patient's and grandson are again at bedside. They are anticipating a successful extubation later today. We discussed is apparent ongoing need for hemodialysis. Family is hopeful that nephrology can opine as to what type of schedule patient will require for ongoing hemodialysis. They would also appreciate information as to if nephrology feels this will be a permanent renal failure or if there is hope for his kidneys to recover. Advance Directives Living Will: Never completed Health Care Surrogate: Never completed Durable Power of Chainstitch Tunnel Elastic Operator: Never completed Health Care Surrogate Name and Number: Sharon Da Silva, /HCP [phone] Documented care wishes:: The patient does not currently have a documented living will or durable power of biomedical photographer Significant change in goals:: No significant changes in goals of care Objective Vital Signs: Vital Signs 12/24/17 11:15 12/24/17 11:30 12/24/17 12:00 Temperature 98.5 F Pulse Rate 76 87 82 Respiratory Rate 16 17 14 Blood Pressure 160/87 H Pulse Oximetry 99 97 12/24/17 12:22 12/24/17 12:30 12/24/17 13:00 Temperature Pulse Rate 81 80 Respiratory Rate 16 18 Blood Pressure 155/71 H Pulse Oximetry 98 99 100 12/24/17 13:30 12/24/17 14:00 12/24/17 14:30 Temperature Pulse Rate 75 75 72 Respiratory Rate 24 16 16 Blood Pressure 141/73 H 122/66 Pulse Oximetry 100 98 97 12/24/17 14:51 12/24/17 14:52 12/24/17 15:00 Temperature Pulse Rate 81 73 Respiratory Rate 16 16 16 Blood Pressure Pulse Oximetry 95 98 12/24/17 15:30 12/24/17 15:45 12/24/17 16:00 Temperature 98.3 F Pulse Rate 80 80 78 Respiratory Rate 17 16 16 Blood Pressure 123/58 L 122/58 L 126/60 Pulse Oximetry 96 97 97 12/24/17 16:15 12/24/17 16:30 12/24/17 16:45 Temperature Pulse Rate 83 83 73 Respiratory Rate 16 20 17 Blood Pressure 138/73 154/81 H 167/77 H Pulse Oximetry 96 99 100 12/24/17 17:00 12/24/17 17:05 12/24/17 18:00 Temperature Pulse Rate 73 75 74 Respiratory Rate 16 18 16 Blood Pressure 150/77 H Pulse Oximetry 99 98 98 12/24/17 18:05 12/24/17 19:00 12/24/17 19:05 Temperature Pulse Rate 70 75 72 Respiratory Rate 16 16 16 Blood Pressure 136/75 136/63 Pulse Oximetry 98 98 97 12/24/17 20:00 12/24/17 20:05 12/24/17 21:00 Temperature 98.1 F Pulse Rate 72 72 72 Respiratory Rate 16 16 16 Blood Pressure 145/72 H Pulse Oximetry 99 99 97 12/24/17 21:05 12/24/17 21:09 12/24/17 22:00 Temperature Pulse Rate 72 76 76 Respiratory Rate 16 16 18 Blood Pressure 142/69 H Pulse Oximetry 97 97 12/24/17 22:05 12/24/17 23:00 12/24/17 23:05 Temperature Pulse Rate 75 73 70 Respiratory Rate 16 16 16 Blood Pressure 148/67 H 118/59 L Pulse Oximetry 97 98 98 12/25/17 00:00 12/25/17 00:05 12/25/17 00:12 Temperature 98.2 F Pulse Rate 69 74 69 Respiratory Rate 16 16 17 Blood Pressure 127/59 L Pulse Oximetry 98 98 12/25/17 01:00 12/25/17 01:05 12/25/17 02:00 Temperature Pulse Rate 85 78 68 Respiratory Rate 21 19 16 Blood Pressure 120/58 L Pulse Oximetry 96 98 98 12/25/17 02:05 12/25/17 03:00 12/25/17 03:05 Temperature Pulse Rate 67 68 68 Respiratory Rate 16 16 16 Blood Pressure 98/55 L 101/73 Pulse Oximetry 98 97 97 12/25/17 03:52 12/25/17 03:55 12/25/17 03:58 Temperature 98.8 F Pulse Rate 72 Respiratory Rate 16 16 Blood Pressure Pulse Oximetry 96 12/25/17 04:00 12/25/17 06:00 12/25/17 07:26 Temperature Pulse Rate 72 66 Respiratory Rate 16 Blood Pressure Pulse Oximetry 96 12/25/17 08:00 12/25/17 10:41 Temperature Pulse Rate 66 Respiratory Rate 16 17 Blood Pressure Pulse Oximetry 99 Intake & Output 12/24/17 12/25/17 12/25/17 18:59 06:59 18:59 Intake Total 350 / 350 412 / 412 100 / 100 Output Total 3900 / 3900 75 / 75 Balance -3550 / -3550 337 / 337 100 / 100 Weight 93.4 kg Intake: IV 350 / 350 250 / 250 100 / 100 Zosyn 2.25 GM Premix 50 ML @ 100 / 100 150 / 150 100 mls/hr IV.SIG Q6H ANGIE Rx#: [id number] KCl 20 mEq Premix Inj 20 meq In 100 / 100 100 ml @ 50 mls/hr IV.SIG ONCE ONE Rx#:[id number] fentaNYL 10 mcg/mL Premix Drip 250 / 250 2,500 mcg In 250 ml @ 50 MCG/HR 5 mls/hr IV.SIG TITRATE PRN Rx #:[id number] Tube Feeding 0 / 0 162 / 162 Output: Hemodialysis Amount 3500 / 3500 Urine Amount (Catheter) 400 / 400 75 / 75 Condom 400 / 400 75 / 75 Other: Date of Last Bowel Movement 12/24/17 12/25/17 # Bowel Movements 3 # Incontinent Bowel Movements 1 Physical Exam: CONSTITUTIONAL/GENERAL: Remains intubated, awake and alert TUBES/LINES/DRAINS:PIV, Barlow, ETT, right Vas-Cath, OGT EYES: Pupils equal and round and reactive. No scleral icterus. No injection or drainage. Fundi not examined. ENT: Hearing appears to be grossly normal. Nose without bleeding or purulent drainage. Throat without visible erythema, exudates, masses, or lesions. CARDIOVASCULAR: Regular rate and rhythm to auscultation. Sinus rhythm on telemetry RESPIRATORY/CHEST: Mechanically ventilated. Currently on CPAP 10/540% FiO2. Breath sounds equal bilaterally. rhonchi right middle lobe. Diminished at the bases. GASTROINTESTINAL: Abdomen soft, non-tender, nondistended. Bowel sounds present. MUSCULOSKELETAL: Trace pedal edema bilaterally. no calf tenderness. No mottling or clubbing. NEUROLOGICAL: Awake, following complex commands, nodding appropriately PSYCHIATRIC: Appears to become slightly anxious at times indicates he is uncomfortable with the ETT Diagnostic Tests Laboratory: Laboratory Results - last 72 hr 12/22/17 12/22/17 12/22/17 11:10 11:45 17:37 WBC RBC Hgb Hct MCV MCH MCHC RDW Plt Count MPV Neut % (Auto) Lymph % (Auto) Armstrong % (Auto) Eos % (Auto) Baso % (Auto) Neut # (Auto) Lymph # (Auto) Armstrong # (Auto) Eos # (Auto) Baso # (Auto) WBC Differential Differential Comment Puncture Site Right radial Patient Temperature 98.6 O2 Saturation 96 ABG pH 7.31 L ABG pCO2 54 H* ABG pO2 144 H ABG HCO3 26 ABG O2 Content 16.7 ABG Base Excess 0.7 ABG Methemoglobin 1.5 Zhang Test Present Hemoglobin 12.2 Carboxyhemoglobin 0.8 O2 Delivery Device Vent Vent Setting 12/650/5/50 Inspired O2 50 Critical Value Yes Sodium Potassium Chloride Carbon Dioxide Anion Gap BUN Creatinine Estimated GFR POC Glucose 135 H 135 H Random Glucose Calcium Phosphorus Magnesium Total Bilirubin AST ALT Alkaline Phosphatase Troponin I Total Protein Albumin 12/22/17 12/23/17 12/23/17 19:18 00:00 03:35 WBC 10.1 RBC 3.83 L Hgb 12.5 L Hct 37.2 L MCV 97.2 MCH 32.5 MCHC 33.5 RDW 14.7 Plt Count 140 L MPV 9.5 Neut % (Auto) 77.4 H Lymph % (Auto) 9.9 Armstrong % (Auto) 9.5 H Eos % (Auto) 2.6 Baso % (Auto) 0.6 Neut # (Auto) 7.8 H Lymph # (Auto) 1.0 Armstrong # (Auto) 1.0 H Eos # (Auto) 0.3 Baso # (Auto) 0.1 WBC Differential . Differential Comment Auto diff final Puncture Site Patient Temperature O2 Saturation ABG pH ABG pCO2 ABG pO2 ABG HCO3 ABG O2 Content ABG Base Excess ABG Methemoglobin Zhang Test Hemoglobin Carboxyhemoglobin O2 Delivery Device Vent Setting Inspired O2 Critical Value Sodium Potassium 3.4 L Chloride Carbon Dioxide Anion Gap BUN Creatinine Estimated GFR POC Glucose 146 H Random Glucose Calcium Phosphorus Magnesium Total Bilirubin AST ALT Alkaline Phosphatase Troponin I Total Protein Albumin 12/23/17 12/23/17 12/23/17 03:35 06:46 11:23 WBC RBC Hgb Hct MCV MCH MCHC RDW Plt Count MPV Neut % (Auto) Lymph % (Auto) Armstrong % (Auto) Eos % (Auto) Baso % (Auto) Neut # (Auto) Lymph # (Auto) Armstrong # (Auto) Eos # (Auto) Baso # (Auto) WBC Differential Differential Comment Puncture Site Patient Temperature O2 Saturation ABG pH ABG pCO2 ABG pO2 ABG HCO3 ABG O2 Content ABG Base Excess ABG Methemoglobin Zhang Test Hemoglobin Carboxyhemoglobin O2 Delivery Device Vent Setting Inspired O2 Critical Value Sodium 146 H Potassium 3.0 L Chloride 106 Carbon Dioxide 32.1 H Anion Gap 8 BUN 46 H Creatinine 4.16 H Estimated GFR 14 L POC Glucose 128 H 181 H Random Glucose 135 H Calcium 8.3 L Phosphorus Magnesium Total Bilirubin 0.5 AST 22 ALT 30 Alkaline Phosphatase 31 L Troponin I Total Protein 6.4 Albumin 3.1 L D 12/23/17 12/23/17 12/23/17 13:08 13:08 18:23 WBC RBC Hgb Hct MCV MCH MCHC RDW Plt Count MPV Neut % (Auto) Lymph % (Auto) Armstrong % (Auto) Eos % (Auto) Baso % (Auto) Neut # (Auto) Lymph # (Auto) Armstrong # (Auto) Eos # (Auto) Baso # (Auto) WBC Differential Differential Comment Puncture Site Patient Temperature O2 Saturation ABG pH ABG pCO2 ABG pO2 ABG HCO3 ABG O2 Content ABG Base Excess ABG Methemoglobin Zhang Test Hemoglobin Carboxyhemoglobin O2 Delivery Device Vent Setting Inspired O2 Critical Value Sodium Potassium 2.9 L* Chloride Carbon Dioxide Anion Gap BUN Creatinine Estimated GFR POC Glucose 192 H Random Glucose Calcium Phosphorus Magnesium 2.5 Total Bilirubin AST ALT Alkaline Phosphatase Troponin I 0.66 H* Total Protein Albumin 12/23/17 12/23/17 12/24/17 18:24 23:46 02:31 WBC 11.4 H RBC 4.04 L Hgb 13.1 Hct 39.1 MCV 96.8 MCH 32.4 MCHC 33.5 RDW 15.0 Plt Count 145 L MPV 9.8 Neut % (Auto) 82.2 H Lymph % (Auto) 7.3 L Armstrong % (Auto) 7.5 Eos % (Auto) 2.2 Baso % (Auto) 0.8 Neut # (Auto) 9.4 H Lymph # (Auto) 0.8 L Armstrong # (Auto) 0.9 Eos # (Auto) 0.2 Baso # (Auto) 0.1 WBC Differential . Differential Comment Auto diff final Puncture Site Patient Temperature O2 Saturation ABG pH ABG pCO2 ABG pO2 ABG HCO3 ABG O2 Content ABG Base Excess ABG Methemoglobin Zhang Test Hemoglobin Carboxyhemoglobin O2 Delivery Device Vent Setting Inspired O2 Critical Value Sodium 145 Potassium 3.2 L Chloride 110 H Carbon Dioxide 26.1 Anion Gap 9 BUN 47 H Creatinine 4.10 H Estimated GFR 14 L POC Glucose 144 H Random Glucose 127 H Calcium 8.7 Phosphorus 2.3 L Magnesium 2.5 Total Bilirubin 0.7 AST 23 ALT 28 Alkaline Phosphatase 32 L Troponin I Total Protein 6.5 Albumin 3.0 L 12/24/17 12/24/17 12/24/17 02:31 11:48 18:47 WBC RBC Hgb Hct MCV MCH MCHC RDW Plt Count MPV Neut % (Auto) Lymph % (Auto) Armstrong % (Auto) Eos % (Auto) Baso % (Auto) Neut # (Auto) Lymph # (Auto) Armstrong # (Auto) Eos # (Auto) Baso # (Auto) WBC Differential Differential Comment Puncture Site Patient Temperature O2 Saturation ABG pH ABG pCO2 ABG pO2 ABG HCO3 ABG O2 Content ABG Base Excess ABG Methemoglobin Zhang Test Hemoglobin Carboxyhemoglobin O2 Delivery Device Vent Setting Inspired O2 Critical Value Sodium 147 H Potassium 3.2 L Chloride 110 H Carbon Dioxide 27.0 Anion Gap 10 BUN 47 H Creatinine 4.08 H Estimated GFR 14 L POC Glucose 109 119 H Random Glucose 136 H Calcium 8.6 Phosphorus Magnesium Total Bilirubin 0.7 AST 18 ALT 29 Alkaline Phosphatase 28 L Troponin I Total Protein 6.5 Albumin 2.9 L 12/25/17 12/25/17 12/25/17 00:01 03:37 03:37 WBC 12.4 H RBC 4.16 L Hgb 13.2 Hct 40.2 MCV 96.6 MCH 31.8 MCHC 32.9 RDW 14.9 Plt Count 178 MPV 10.1 Neut % (Auto) 80.0 H Lymph % (Auto) 9.1 Armstrong % (Auto) 7.8 Eos % (Auto) 2.4 Baso % (Auto) 0.7 Neut # (Auto) 9.9 H Lymph # (Auto) 1.1 Armstrong # (Auto) 1.0 H Eos # (Auto) 0.3 Baso # (Auto) 0.1 WBC Differential . Differential Comment Auto diff final Puncture Site Patient Temperature O2 Saturation ABG pH ABG pCO2 ABG pO2 ABG HCO3 ABG O2 Content ABG Base Excess ABG Methemoglobin Zhang Test Hemoglobin Carboxyhemoglobin O2 Delivery Device Vent Setting Inspired O2 Critical Value Sodium 144 Potassium 3.1 L Chloride 108 H Carbon Dioxide 27.8 Anion Gap 8 BUN 36 H Creatinine 3.47 H Estimated GFR 17 L POC Glucose 118 H Random Glucose 129 H Calcium 8.7 Phosphorus Magnesium Total Bilirubin 0.7 AST 17 ALT 24 Alkaline Phosphatase 32 L Troponin I Total Protein 6.6 Albumin 2.9 L 12/25/17 06:28 WBC RBC Hgb Hct MCV MCH MCHC RDW Plt Count MPV Neut % (Auto) Lymph % (Auto) Armstrong % (Auto) Eos % (Auto) Baso % (Auto) Neut # (Auto) Lymph # (Auto) Armstrong # (Auto) Eos # (Auto) Baso # (Auto) WBC Differential Differential Comment Puncture Site Patient Temperature O2 Saturation ABG pH ABG pCO2 ABG pO2 ABG HCO3 ABG O2 Content ABG Base Excess ABG Methemoglobin Zhang Test Hemoglobin Carboxyhemoglobin O2 Delivery Device Vent Setting Inspired O2 Critical Value Sodium Potassium Chloride Carbon Dioxide Anion Gap BUN Creatinine Estimated GFR POC Glucose 123 H Random Glucose Calcium Phosphorus Magnesium Total Bilirubin AST ALT Alkaline Phosphatase Troponin I Total Protein Albumin Result Diagrams: 12/25/17 03:37 12/25/17 03:37 Procedures: 12/14/17 * Endotracheal intubation (subsequent extubation on 12/15/17) 12/21/17 * Endotracheal intubation * Vas-Cath placement 12/22/17 * Hemodialysis 12/24/17 * Hemodialysis Assessment and Plan - Disease Oriented Problem List (1) Acute non-ST elevation myocardial infarction (NSTEMI) (2) Respiratory failure requiring intubation - Symptom Scale (1) Dyspnea 0-10 Scale: Unable to quantify Comment: Currently mechanically ventilated. Tolerating CPAP 10/5 40% Fi02 (2) Pain 0-10 Scale: Unable to quantify Comment: Currenlty off sedation for CPAP trials. Denies pain, appears comfortable. (3) Anxiety 0-10 Scale: Unable to quantify Comment: related to intubation Pertinent Non-Medical Issues: Psychosocial: The patient was born and raised in [place] where he met his . 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 They have 2 sons to still live in [place] Spiritual: Pentecostalism. Last Rights were performed on 12/21/17 Legal: Should the patient become completely incapacitated, and in the absence of a documented living, per [place] statues medical decision making would fall to his , Sharon Da Silva by proxy [phone] Ethical issues impacting care: There are currently no known ethical issues impacting care at this time. Important Contacts: Sharon Da Silva, /HCP [phone] Prognosis: Patient has recently declined rapidly and was transferred back to the SICU in critical condition. He is currently intubated, severely bradycardic and in acute renal failure. Healthcare proxy is declining hemodialysis at this time. Given the unclear etiology of his original medical insult, combined with his multiple comorbidities he remains at high risk for further decline, increased morbidity, and . Code Status: No Code DNR Plan: * LEGAL DECISION MAKER -the patient is currently able to participate in his own healthcare decision making though defers to his Sharon. Should he become completely incapacitated any time in the absence of a documented living will per [place] statutes decision making would fall to his by proxy Sharon Da Silva [phone] * GOALS - Patient's and grandson are again at bedside. They are anticipating a successful extubation later today. We discussed is apparent ongoing need for hemodialysis. Family is hopeful that nephrology can opine as to what type of schedule patient will require for ongoing hemodialysis. They would also appreciate information as to if nephrology feels this will be a permanent renal failure or if there is hope for his kidneys to recover. If in fact the patient is in permanent renal failure, patient and would like to readdress long-term goals concerning hemodialysis. They feel that ideally they would not want to move forward with HD but are open to discussion. Appreciate nephrology insight into this matter. * CODE STATUS -DNR * SYMPTOMS Pain - multifactorial including bedbound status, blood draws, invasive lines, tubes, procedures, etc. recently reintubated and sedated. Currently denies pain , fentanyl gtt on hold for the time being for CPAP trails. Once extubated can re -assess and make further recommendations as the clinical case evolves Dyspnearemains intubated at this time. Tolerating CPAP 10/5 40% Fi02. Planning for extubation today. Again, should patient respiratory status declined once again family and patient are open to BiPAP for short period of time but do not want intubation. Anxiety - related to intubation. Patient is able communicate that the ETT is somewhat uncomfortable and at some times makes him anxious. Continue with frequent reorientation. Family remains at bedside to help keep the patient more comfortable. Palliative care will continue to follow during hospital course as condition evolves, to assist patient/decision maker with understanding of medical conditions, weighing benefits/burdens of treatment options, for clarification of goals of treatment. Additionally will assist with any symptoms of palliative concern. Case discussed with RN (Olivia) at bedside. Attestation Attestation: To help prompt me to consider important information that might be impacting today's encounter and assessment, information from prior notes written by myself or my colleagues may have been "brought forward" into today's note. My signature on this note, however, is an attestation that I personally performed the exam, history, and/or decision-making noted today, and, unless otherwise indicated, the interactions with patient, family, and staff as well as the review of records all occurred today. I also attest that the listed assessment and stated plan reflect my best clinical judgment today based on the combination of historical information, prior notes, and today's exam/ interactions. When time spent is documented, it refers only to time spent today by the signer, or if indicated, combined time spent today by collaborating physician/nurse practitioner.
[2017-12-25 11:53] LABS: ABG Base Excess 1.7 mmol/L (-2-2); ABG PCO2 51 mmHg (38-42); ABG PO2 111 mmHg (61-120)
--- NOTE | 2017-12-25 11:59 | XR ---
EXAM DATE: 12/25/2017 11:47 AM EST AGE/SEX: 81 years / Male INDICATIONS: VDRF. CLINICAL DATA: This is the patient's subsequent encounter. Patient reports that signs and symptoms h ave been present for 1 week and indicates a pain score of Nonresponsive. MEDICAL/SURGICAL HISTORY: Non-responsive. Non-responsive. COMPARISON: [facility], CHEST 1V SINGLE AP, 12/23/2017. . FINDINGS: The ET tubes in satisfactory position. There is a nasogastric tube present. There is a Vas-Cath in pl waqas in the right internal jugular vein. The heart is normal in size. The lungs are clear. The aeration has improved compared to previous date d 12/23/2017. The graft the bony structures are grossly intact. CONCLUSION: Support equipment in good position. Appearance of the parenchyma has improved since previous of 12/23/2017. Electronically signed by: Martin Martinez MD 12/25/2017 11:58 AM EST
--- NOTE | 2017-12-25 14:59 | P.PNNP ---
Subjective Interval history: Patient is on the ventilator awake and responds Physical Exam Vital signs: Vital Signs 12/24/17 15:00 12/24/17 15:30 12/24/17 15:45 Temperature Pulse Rate 73 80 80 Respiratory Rate 16 17 16 Blood Pressure 123/58 L 122/58 L Pulse Oximetry 98 96 97 12/24/17 16:00 12/24/17 16:15 12/24/17 16:30 Temperature 98.3 F Pulse Rate 78 83 83 Respiratory Rate 16 16 20 Blood Pressure 126/60 138/73 154/81 H Pulse Oximetry 97 96 99 12/24/17 16:45 12/24/17 17:00 12/24/17 17:05 Temperature Pulse Rate 73 73 75 Respiratory Rate 17 16 18 Blood Pressure 167/77 H 150/77 H Pulse Oximetry 100 99 98 12/24/17 18:00 12/24/17 18:05 12/24/17 19:00 Temperature Pulse Rate 74 70 75 Respiratory Rate 16 16 16 Blood Pressure 136/75 Pulse Oximetry 98 98 98 12/24/17 19:05 12/24/17 20:00 12/24/17 20:05 Temperature 98.1 F Pulse Rate 72 72 72 Respiratory Rate 16 16 16 Blood Pressure 136/63 145/72 H Pulse Oximetry 97 99 99 12/24/17 21:00 12/24/17 21:05 12/24/17 21:09 Temperature Pulse Rate 72 72 76 Respiratory Rate 16 16 16 Blood Pressure 142/69 H Pulse Oximetry 97 97 12/24/17 22:00 12/24/17 22:05 12/24/17 23:00 Temperature Pulse Rate 76 75 73 Respiratory Rate 18 16 16 Blood Pressure 148/67 H Pulse Oximetry 97 97 98 12/24/17 23:05 12/25/17 00:00 12/25/17 00:05 Temperature 98.2 F Pulse Rate 70 69 74 Respiratory Rate 16 16 16 Blood Pressure 118/59 L 127/59 L Pulse Oximetry 98 98 98 12/25/17 00:12 12/25/17 01:00 12/25/17 01:05 Temperature Pulse Rate 69 85 78 Respiratory Rate 17 21 19 Blood Pressure 120/58 L Pulse Oximetry 96 98 12/25/17 02:00 12/25/17 02:05 12/25/17 03:00 Temperature Pulse Rate 68 67 68 Respiratory Rate 16 16 16 Blood Pressure 98/55 L Pulse Oximetry 98 98 97 12/25/17 03:05 12/25/17 03:52 12/25/17 03:55 Temperature Pulse Rate 68 72 Respiratory Rate 16 16 16 Blood Pressure 101/73 Pulse Oximetry 97 96 12/25/17 03:58 12/25/17 04:00 12/25/17 06:00 Temperature 98.8 F Pulse Rate 72 66 Respiratory Rate Blood Pressure Pulse Oximetry 12/25/17 07:26 12/25/17 08:00 12/25/17 10:41 Temperature Pulse Rate 66 Respiratory Rate 16 16 17 Blood Pressure Pulse Oximetry 96 99 12/25/17 12:00 Temperature Pulse Rate 76 Respiratory Rate 18 Blood Pressure Pulse Oximetry Intake & Output 12/24/17 12/25/17 12/25/17 18:59 06:59 18:59 Intake Total 350 / 350 412 / 412 100 / 100 Output Total 3900 / 3900 75 / 75 Balance -3550 / -3550 337 / 337 100 / 100 Weight 93.4 kg Intake: IV 350 / 350 250 / 250 100 / 100 Zosyn 2.25 GM Premix 50 ML @ 100 / 100 150 / 150 100 mls/hr IV.SIG Q6H ANGIE Rx#: [id number] KCl 20 mEq Premix Inj 20 meq In 100 / 100 100 ml @ 50 mls/hr IV.SIG ONCE ONE Rx#:[id number] fentaNYL 10 mcg/mL Premix Drip 250 / 250 2,500 mcg In 250 ml @ 50 MCG/HR 5 mls/hr IV.SIG TITRATE PRN Rx #:[id number] Tube Feeding 0 / 0 162 / 162 Output: Hemodialysis Amount 3500 / 3500 Urine Amount (Catheter) 400 / 400 75 / 75 Condom 400 / 400 75 / 75 Other: Date of Last Bowel Movement 12/24/17 12/25/17 # Bowel Movements 3 # Incontinent Bowel Movements 1 Narrative: GENERAL: Patient got intubated HEAD: Intubated. NECK: Supple, trachea midline. No lymphadenopathy. EYES: No scleral icterus. No injection or drainage. CARDIOVASCULAR: Regular rate and rhythm without murmurs, gallops, or rubs. RESPIRATORY: Breath sounds diminished at bases GASTROINTESTINAL: Abdomen soft, non-tender, nondistended. MUSCULOSKELETAL: 1+ r edema. SKIN: Warm and dry. NEURO: Intubated and sedated - Urinary Catheter Management Indwelling Urethral Catheter Cath placed during this visit: yes, but has since been removed by the nurse Reason for continuing: Hourly intake/output Insertion date: 12/14/17 Insertion time: 15:00 Removal date: 12/20/17 Removal time: 13:53 Condom Cath placed during this visit: yes Reason for continuing: Not indwelling catheter Insertion date: 12/20/17 Insertion time: 13:05 Assessment and Plan - Assessment (1) Acute renal failure Code(s): N17.9 - Acute kidney failure, unspecified Status: Acute Plan: Acute renal failure is due to contrast-induced nephropathy, Doing poorly went into respiratory failure Intubated now. Initially family refused HD, however then changed their minds Hemodialysis tomorrow Extubation is planned for tomorrow Patient has improved significantly over the weekend after dialysis Replace potassium I will give him 40 MEQ of potassium IV Continue to follow electrolytes, UOP (2) COPD exacerbation Code(s): J44.1 - Chronic obstructive pulmonary disease with (acute) exacerbation Status: Acute Plan: Patient is under treatment (3) Respiratory failure Code(s): J96.90 - Respiratory failure, unspecified, unspecified whether with hypoxia or hypercapnia Status: Acute Plan: remains intubated (4) Diabetes Code(s): E11.9 - Type 2 diabetes mellitus without complications Status: Acute Plan: Monitor blood glucose (5) Acute non-ST elevation myocardial infarction (NSTEMI) Code(s): I21.4 - Non-ST elevation (NSTEMI) myocardial infarction Status: Acute Plan: Cardiology is following
[2017-12-25] MEDS: Potassium Chlor 20 mEq Premix 20 MEQ/100 ML PIGGYBACK IV.SIG SCH ×2 (17:51→19:58)
[2017-12-26] MEDS: Insulin NovoLOG Aspart Correctional Sugar Inj SQ SCH ×4 (00:27→17:30)
[2017-12-26] MEDS: Piperacil/Tazo 2.25 GM Premix 50 ML IV.SIG SCH ×4 (00:28→17:48)
[2017-12-26] MEDS: Oral Hygiene Kit OROPHARYNG SCH ×4 (00:28→17:30)
[2017-12-26 04:31] LABS: Baso # (Auto) 0.1 th/mm3 (0.0-0.2); Eos # (Auto) 0.4 th/mm3 (0.0-0.4); Eos % (Auto) 4.2 % (0.0-4.0); Hematocrit 40.4 % (39.0-51.0); Hemoglobin 13.4 gm/dL (13.0-17.0); Lymph # (Auto) 1.1 th/mm3 (1.0-4.8); Lymph % (Auto) 10.8 % (9.0-44.0); Mean Corpuscular HGB Conc 33.2 % (32.0-36.0); Mean Corpuscular Volume 96.5 fL (80.0-100.0); Mean Platelet Volume 9.9 fL (7.0-11.0); Mono # (Auto) 0.9 th/mm3 (0.0-0.9); Mono % (Auto) 8.7 % (0.0-8.0); Neut # (Auto) 7.8 th/mm3 (1.8-7.7); Neut % (Auto) 75.3 % (16.0-70.0); Platelet Count 189 th/mm3 (150-450); Red Blood Count 4.19 mil/mm3 (4.50-5.90); Red Cell Distribution Width 14.7 % (11.6-17.2); White Blood Count 10.3 th/mm3 (4.0-11.0)
[2017-12-26 05:05] LABS: Alanine Aminotransferase 21 U/L (12-78); Albumin 2.7 g/dL (3.4-5.0); Alkaline Phosphatase 32 U/L (45-117); Anion Gap 8 meq/L (5-15); Aspartate Aminotransferase 15 U/L (15-37); Blood Urea Nitrogen 42 mg/dL (7-18); Calcium 8.6 mg/dL (8.5-10.1); Carbon Dioxide 25.2 meq/L (21.0-32.0); Chloride 112 meq/L (98-107); Glomerular Filtration Rate 17 mL/min (>89); Glucose,Random 132 mg/dL (74-106); Sodium 145 meq/L (136-145); Total Protein 6.5 g/dL (6.4-8.2)
[2017-12-26 05:11] LABS: Potassium 2.7 meq/L (3.5-5.1)
[2017-12-26] MEDS: Potassium Chlor 20 mEq Premix 20 MEQ/100 ML PIGGYBACK IV.SIG SCH ×2 (06:37→09:33)
--- NOTE | 2017-12-26 07:06 | P.PNCC ---
Subjective Subjective Remarks/Hospital Course: This is a unknown male. Admission 11 03/2017. Past medical history is unknown to me. There is no family currently available. According to records from previous ED physician who saw the patient before the ED physician had notified me patient has a history of hypothyroidism, gastroesophageal reflux disease, COPD, diabetes, heart failure. Patient was found unresponsive by family with a GCS of 3 and was brought in to the emergency department. Patient was intubated using etomidate and succinylcholine. CT brain negative. CT pulmonary antrum revealed right upper and lower lobe atelectasis. Lower lobe atelectasis versus infiltrate. Patient had elevated troponin. EKG revealed normal sinus rhythm at 64 with normal [place], QS and QT intervals. Dr. Vidal was notified. Patient has been started on a heparin drip for non-STEMI. Cardiology will evaluate. Patient is placed on broad- spectrum antibiotics. We are asked to admit. 12/15 Patient is intubated and sedated with Diprivan drip. On Heparin drip. Afebrile. CTA chest negative for PE. 12/16 Patient was extubated yesterday on BIPAP 15/8 with 40% FIO2. Afebrile. Awake and alert.On Heparin drip. 12/17 Patient is on BIPAP 18/8 with 40%, remains on Heparin drip. Afebrile. Renal function worse today with Cr: 2.25 from 1.03 12/21 Reconsult Patient was in resp. distress and with AMS. ABG showed acute hypercapneic resp acidosis with PH:7.05, pCO2:108. Floor nurse spoke to and she was agreeable for intubation. Patient was subsequently transferred to [facility] where he was immediately intubated by me and placed on mechanical ventilation. Renal function worse today with Cr: 4.49 from 3.96 plan to initiated HD today per renal. 12/22 Patient is intubated and sedated with Fentanyl infusion. Renal function is worse with Cr: 4.60 today from 4.49. SUBJECTIVE: 12/23: T-max 38.4. Currently on PSV trial 26/06 at 40%. Hemodialysis yesterday -4 L. Positive BM. Tube feeds at goal. We will try extubation today if passes parameters in no complete currently on no sedation.. 12/24 Patient is off sedation on CPAP 26/06 with 35% FIo2. Afebrile. Awake and alert. For HD today. 12/25 Patient is on CPAP awake and alert . Afebrile. s/p HD 1L removed. 12/26: Strong on CPAP. Alert. Extubate after HD. Objective Vital Signs / I&O: Vital Signs 12/25/17 07:05 12/25/17 07:26 12/25/17 08:00 Temperature 97.9 F Pulse Rate 68 68 Respiratory Rate 16 16 16 Blood Pressure 118/58 L Pulse Oximetry 99 96 98 12/25/17 08:05 12/25/17 09:00 12/25/17 09:05 Temperature Pulse Rate 66 66 69 Respiratory Rate 16 17 16 Blood Pressure 126/66 125/65 Pulse Oximetry 99 97 98 12/25/17 10:00 12/25/17 10:05 12/25/17 10:41 Temperature Pulse Rate 87 87 Respiratory Rate 21 20 17 Blood Pressure 138/63 Pulse Oximetry 97 98 99 12/25/17 11:00 12/25/17 11:05 11/13/18 12:00 Temperature 98.5 F Pulse Rate 75 77 74 Respiratory Rate 22 22 17 Blood Pressure 137/64 Pulse Oximetry 98 97 100 12/25/17 12:05 12/25/17 13:00 12/25/17 13:05 Temperature Pulse Rate 73 72 76 Respiratory Rate 17 17 18 Blood Pressure 139/64 120/59 L Pulse Oximetry 100 97 98 12/25/17 14:00 12/25/17 14:05 12/25/17 15:00 Temperature Pulse Rate 67 68 66 Respiratory Rate 15 16 16 Blood Pressure 134/69 Pulse Oximetry 99 98 97 12/25/17 15:05 12/25/17 15:16 12/25/17 16:00 Temperature 98.2 F Pulse Rate 65 64 115 H Respiratory Rate 15 16 17 Blood Pressure 123/61 Pulse Oximetry 97 98 100 12/25/17 16:05 12/25/17 17:00 12/25/17 17:05 Temperature Pulse Rate 112 H 67 79 Respiratory Rate 16 15 23 Blood Pressure 133/61 Pulse Oximetry 99 98 98 12/25/17 17:46 12/25/17 18:00 12/25/17 18:05 Temperature Pulse Rate 68 75 70 Respiratory Rate 17 18 17 Blood Pressure 125/64 140/65 Pulse Oximetry 98 97 98 12/25/17 19:10 12/25/17 19:11 12/25/17 20:00 Temperature Pulse Rate 66 72 Respiratory Rate 17 17 16 Blood Pressure 147/65 H Pulse Oximetry 99 99 12/25/17 20:05 12/25/17 21:00 12/25/17 22:00 Temperature Pulse Rate 72 69 72 Respiratory Rate 16 16 Blood Pressure 147/65 H 110/56 L Pulse Oximetry 99 98 12/26/17 00:00 12/26/17 00:05 12/26/17 02:00 Temperature Pulse Rate 106 H 96 H 62 Respiratory Rate 16 16 Blood Pressure 127/71 Pulse Oximetry 98 96 12/26/17 03:55 12/26/17 04:00 12/26/17 04:05 Temperature 98.6 F Pulse Rate 71 69 Respiratory Rate 16 16 16 Blood Pressure 121/59 L Pulse Oximetry 97 97 97 12/26/17 05:00 12/26/17 06:00 Temperature Pulse Rate 60 71 Respiratory Rate 16 Blood Pressure Pulse Oximetry 97 Intake & Output 12/25/17 12/26/1718 18:59 06:59 18:59 Intake Total 358 / 358 300 / 300 Output Total 350 / 350 350 / 350 Balance -50 / -50 Weight 98.2 kg Intake: IV 200 / 200 300 / 300 Zosyn 2.25 GM Premix 50 ML @ 100 / 100 100 / 100 100 mls/hr IV.SIG Q6H ANGIE Rx#: [id number] KCl 20 mEq Premix Inj 20 meq In 100 / 100 200 / 200 100 ml @ 50 mls/hr IV.SIG Q2H ANGIE Rx#:[id number] Tube Feeding 158 / 158 Output: Urine Amount (Catheter) 350 / 350 350 / 350 Condom 350 / 350 350 / 350 Other: Date of Last Bowel Movement 12/25/17 12/26/17 # Bowel Movements 3 Result Diagrams: 12/26/17 03:20 12/26/17 03:20 Objective Remarks: GENERAL: Patient is 81 yo critically ill male currently, no acute distress SKIN: Warm and dry. HEAD: Normocephalic. EYES: No scleral icterus. No injection or drainage. NECK: Supple, trachea midline. orally intubated. Right IJ catheter is clean dry and intact CARDIOVASCULAR: Regular rate and rhythm without murmurs, gallops, or rubs. No JVD RESPIRATORY: Breath sounds equal symmetric bilateral. Clear. GASTROINTESTINAL: Abdomen soft, non-tender, nondistended. No guarding. MUSCULOSKELETAL: No peripheral edema. Well perfused. Neuro: Awake and alert, interactive. Assessment and Plan - Assessment and Plan Plan: Neuro/Psych: On no sedation. Awake and alert. 12/14 CT brain revealed no acute intracranial findings Acetaminophen 650 mg every 6 hours as needed fever CV: Elevated troponin possibly type II non-STEMI History of essential hypertension History of congestive heart failure unknown etiology Monitor HR and BP keep MAP>65mmHg Aspirin 81 mg daily, atorvastatin 40mg daily, Cards is following- Dr. Vidal Echo showed EF 55-60% Resp: Acute respiratory failure Continue with vent support keep sats Bronchodilators, ICU vent bundle. Spontaneous breathing trials Daily Check CXR today 12/14 CT pulmonary no evidence of PE, revealed right upper/lower atelectasis versus infiltrate. Bilateral lower lobe consolidation versus infiltrate. Extubate. GI: Hypoalbuminemia Pantoprazole for GI prophylaxis Docusate sodium senna 1 tablet twice daily for bowel regimen tube feeds- Nepro with goal rate 50ml/hr per nut. recommendations Renal/FEN/ Acute kidney injury hypernatremia Hypopotassemia Monitor renal function, I/O's, avoid nephrotoxins Renal is following-Dr. Holder s/p HD 12/24 with remova 1L. Vascath placed 12/21 On acetazolamide 500mg IV daily Endo: Diabetes mellitus type 2 Hypothyroidism Continue home thyroid 30 mg daily. TSH level:2.37 Sliding scale insulin Accu-Cheks to maintain euglycemia every 6 hours aspart insulin Heme: Normocytic anemia Thrombocytopenia Monitor CBC daily. Follow trends. No indication for transfusion of blood products at this time ID: Blood cx-NGTD, sputum cx: normal resp marcio Continue piperacillin/tazobactam and monitor for signs of infections ( Fever, WBC) Access -Utilize peripheral IV. -Right IHJ vascath placed 12/21 Prophylaxis -GI -pantoprazole -DVT -SCDs/heparin Sq Palliative care is following Code status: No code DNR Discussed with patient's and undated her on his condition. Overall: Stronger respiratory status. Extubate today.
[2017-12-26] MEDS: Chlorhexidine 0.12% Oral Kit 15 ML UDC OROPHARYNG SCH ×2 (09:30→20:09)
[2017-12-26] MEDS: Heparin - SQ 10,000 UNITS/ML Vial SQ SCH ×2 (09:32→20:08)
[2017-12-26] MEDS: Senna/Docusate Sodium 8.6/50 MG Tablet PO SCH ×2 (09:32→20:10)
[2017-12-26] MEDS: Pantoprazole Inj 40 MG Vial IV.PUSH SCH (09:32)
[2017-12-26] MEDS: Mupirocin 2% Nasal Oint Topical Syringe EACH NARE SCH ×2 (09:33→20:08)
[2017-12-26] MEDS: Artificial Tears Opth Drops 15 ML Bottle EACH EYE SCH ×3 (09:34→17:30)
--- NOTE | 2017-12-26 10:56 | P.PNNP ---
Subjective Interval history: Patient is awake on ventilator, tolerating weaning, dropped his potassium and he was given potassium supplement 40 mEq this morning Urine output 700 cc Remains on hemodialysis Physical Exam Vital signs: Vital Signs 12/25/17 11:00 12/25/17 11:05 12/25/17 12:00 Temperature 98.5 F Pulse Rate 75 77 74 Respiratory Rate 22 22 17 Blood Pressure 137/64 Pulse Oximetry 98 97 100 12/25/17 12:05 12/25/17 13:00 12/25/17 13:05 Temperature Pulse Rate 73 72 76 Respiratory Rate 17 17 18 Blood Pressure 139/64 120/59 L Pulse Oximetry 100 97 98 12/25/17 14:00 12/25/17 14:05 12/25/17 15:00 Temperature Pulse Rate 67 68 66 Respiratory Rate 15 16 16 Blood Pressure 134/69 Pulse Oximetry 99 98 97 12/25/17 15:05 12/25/17 15:16 12/25/17 16:00 Temperature 98.2 F Pulse Rate 65 64 115 H Respiratory Rate 15 16 17 Blood Pressure 123/61 Pulse Oximetry 97 98 100 12/25/17 16:05 12/25/17 17:00 12/25/17 17:05 Temperature Pulse Rate 112 H 67 79 Respiratory Rate 16 15 23 Blood Pressure 133/61 Pulse Oximetry 99 98 98 12/25/17 17:46 12/25/17 18:00 12/25/17 18:05 Temperature Pulse Rate 68 75 70 Respiratory Rate 17 18 17 Blood Pressure 125/64 140/65 Pulse Oximetry 98 97 98 12/25/17 19:10 12/25/17 19:11 12/25/17 20:00 Temperature Pulse Rate 66 72 Respiratory Rate 17 17 16 Blood Pressure 147/65 H Pulse Oximetry 99 99 12/25/17 20:05 12/25/17 21:00 12/25/17 22:00 Temperature Pulse Rate 72 69 72 Respiratory Rate 16 16 Blood Pressure 147/65 H 110/56 L Pulse Oximetry 99 98 12/26/17 00:00 12/26/17 00:05 12/26/17 02:00 Temperature Pulse Rate 106 H 96 H 62 Respiratory Rate 16 16 Blood Pressure 127/71 Pulse Oximetry 98 96 12/26/17 03:55 12/26/17 04:00 12/26/17 04:05 Temperature 98.6 F Pulse Rate 71 69 Respiratory Rate 16 16 16 Blood Pressure 121/59 L Pulse Oximetry 97 97 97 12/26/17 05:00 12/26/17 06:00 12/26/17 08:00 Temperature 98.2 F Pulse Rate 60 71 69 Respiratory Rate 16 16 Blood Pressure 131/61 Pulse Oximetry 97 97 12/26/17 08:22 12/26/17 10:00 Temperature Pulse Rate 68 69 Respiratory Rate 15 Blood Pressure Pulse Oximetry 96 Intake & Output 12/25/17 12/26/17 12/26/17 18:59 06:59 18:59 Intake Total 358 / 358 300 / 300 100 / 100 Output Total 350 / 350 350 / 350 Balance 8 / 8 -50 / -50 100 / 100 Weight 98.2 kg Intake: IV 200 / 200 300 / 300 100 / 100 Zosyn 2.25 GM Premix 50 ML @ 100 / 100 100 / 100 100 mls/hr IV.SIG Q6H ANGIE Rx#: [id number] KCl 20 mEq Premix Inj 20 meq In 100 / 100 200 / 200 100 / 100 100 ml @ 50 mls/hr IV.SIG Q2H ANGIE Rx#:[id number] Tube Feeding 158 / 158 Output: Urine Amount (Catheter) 350 / 350 350 / 350 Condom 350 / 350 350 / 350 Other: Date of Last Bowel Movement 12/25/17 12/26/17 12/26/17 # Bowel Movements 3 Narrative: GENERAL: Well-nourished, well-developed intubated patient. SKIN: Warm and dry. HEAD: Normocephalic. EYES: No scleral icterus. No injection or drainage. NECK: Supple, trachea midline. No JVD or lymphadenopathy. CARDIOVASCULAR: S1-S2 irregular. RESPIRATORY: Breath sounds diminished at bases GASTROINTESTINAL: Abdomen soft, non-tender, nondistended. EXTREMITIES: No edema NEUROLOGICAL: Awake, alert, and oriented x 3. Non-focal. - Urinary Catheter Management Indwelling Urethral Catheter Cath placed during this visit: yes, but has since been removed by the nurse Reason for continuing: Hourly intake/output Insertion date: 12/14/17 Insertion time: 15:00 Removal date: 12/20/17 Removal time: 13:53 Condom Cath placed during this visit: yes Reason for continuing: Not indwelling catheter Insertion date: 12/20/17 Insertion time: 13:05 Assessment and Plan - Assessment (1) Acute renal failure Code(s): N17.9 - Acute kidney failure, unspecified Status: Acute Plan: Acute renal failure is due to contrast-induced nephropathy, Remains intubated tolerating weaning Initially family refused HD, however then changed their minds Hemodialysis planned for this afternoon Extubation is planned for possibly this afternoon or early in the morning Patient has improved significantly after dialysis Replace potassium given orders for 40 MEQ of potassium IV Discontinue Diamox Discussed with Dr. Robertson Continue to follow electrolytes, UOP (2) COPD exacerbation Code(s): J44.1 - Chronic obstructive pulmonary disease with (acute) exacerbation Status: Acute Plan: Patient is under treatment (3) Respiratory failure Code(s): J96.90 - Respiratory failure, unspecified, unspecified whether with hypoxia or hypercapnia Status: Acute Plan: remains intubated (4) Diabetes Code(s): E11.9 - Type 2 diabetes mellitus without complications Status: Acute Plan: Monitor blood glucose (5) Acute non-ST elevation myocardial infarction (NSTEMI) Code(s): I21.4 - Non-ST elevation (NSTEMI) myocardial infarction Status: Acute Plan: Cardiology is following
--- NOTE | 2017-12-26 13:08 | P.PNPAL ---
Reason for Visit Reason for visit: a. To assist with evaluation and management of symptoms including:pain, dyspnea , anxiety b. To assist medical decision maker(s) with: better understanding of current medical conditions; weighing benefits/burdens of medical treatment options; making medical treatment decisions. Subjective Subjective/Interval History: Mr. Da Silva is an 81-year-old male who presented to [place] emergency room on 12/14/17 with shortness of breath and altered mental status. Apparently he was found unresponsive by the family who then called 911. During his ambulance ride to the hospital he quickly decompensated to a GCS of 3, requiring emergent intubation. Per the family, the patient has a past medical history of hypothyroidism, GERD, COPD, diabetes, cyst of spinal meninges, and heart failure. Due to the perplexing nature of this patient's presentation and unsure etiology of his altered mental status he was admitted for further evaluation and treatment. The patient was transferred to the medical ICU for further evaluation. Dr. Vidal (Cardiology) was consulted for N STEMI, with unclear etiology. He felt this was unlikely due to CHF ordered a 2D echo. And suggest the patient be started on a heparin drip. 2D echo showed an EF of 55-60% with trace mitral valve and aortic valve regurgitation. There was aortic valve sclerosis and estimated pulmonary arterial pressure of 44 mmHg. Intensive care ordered CTA which was negative for PE. The patient was extubated to BiPAP 15/8 with 40% FiO2 on 12/16/17. Today his BiPAP settings were slightly increased to 18/8 remaining on 40% FiO2. His renal functioning was noted to be increasing in nephrology was consulted. Nephrology did note patient had probable medical renal disease. 12/26/17 Palliative care to follow with symptom management and to assist with continued medical goals. Has been off sedation. He rested on full vent support overnight , placed back on CPAP this AM and continues to maintain Sp02 >92%. Patient was not extubated yesterday. Line is to hopefully extubate today. Yesterday's CXR showed some improvement of the parenchyma. Patient continues to have strong respiratory effort with CPAP. Fortunately he continues to need hemodialysis. We will need to have discussion once he tolerates extubation as to whether or not the patient and family wish to continue with dialysis in a longer term basis. He apparently becomes extremely fatigued with hemodialysis, so there is a concern on how well he will be able to continue to tolerate. Today clinical's data revealed: * WBC 10.3, Hgb 13.4, HCT 40.4, platelets 189 * NA 145, K+ 10.7, CL 112, CO2 25.2, BUN 42, creatinine 3.56, glucose 132 Advance Directives Living Will: Never completed Health Care Surrogate: Never completed Durable Power of Building Carpenter: Never completed Health Care Surrogate Name and Number: Sharon Da Silva, /HCP [phone] Documented care wishes:: The patient does not currently have a documented living will or durable power of ip technology transactions attorney Significant change in goals:: No significant change in goals of care Objective Vital Signs: Vital Signs 12/25/17 14:00 12/25/17 14:05 12/25/17 15:00 Temperature Pulse Rate 67 68 66 Respiratory Rate 15 16 16 Blood Pressure 134/69 Pulse Oximetry 99 98 97 12/25/17 15:05 12/25/17 15:16 12/25/17 16:00 Temperature 98.2 F Pulse Rate 65 64 115 H Respiratory Rate 15 16 17 Blood Pressure 123/61 Pulse Oximetry 97 98 100 12/25/17 16:05 12/25/17 17:00 12/25/17 17:05 Temperature Pulse Rate 112 H 67 79 Respiratory Rate 16 15 23 Blood Pressure 133/61 Pulse Oximetry 99 98 98 12/25/17 17:46 12/25/17 18:00 12/25/17 18:05 Temperature Pulse Rate 68 75 70 Respiratory Rate 17 18 17 Blood Pressure 125/64 140/65 Pulse Oximetry 98 97 98 12/25/17 19:10 12/25/17 19:11 12/25/17 20:00 Temperature Pulse Rate 66 72 Respiratory Rate 17 17 16 Blood Pressure 147/65 H Pulse Oximetry 99 99 12/25/17 20:05 12/25/17 21:00 12/25/17 22:00 Temperature Pulse Rate 72 69 72 Respiratory Rate 16 16 Blood Pressure 147/65 H 110/56 L Pulse Oximetry 99 98 12/26/17 00:00 12/26/17 00:05 12/26/17 02:00 Temperature Pulse Rate 106 H 96 H 62 Respiratory Rate 16 16 Blood Pressure 127/71 Pulse Oximetry 98 96 12/26/17 03:55 12/26/17 04:00 12/26/17 04:05 Temperature 98.6 F Pulse Rate 71 69 Respiratory Rate 16 16 16 Blood Pressure 121/59 L Pulse Oximetry 97 97 97 12/26/17 05:00 12/26/17 05:05 12/26/17 06:00 Temperature Pulse Rate 60 67 87 Respiratory Rate 16 16 32 H Blood Pressure 119/58 L Pulse Oximetry 97 97 99 12/26/17 06:05 12/26/17 07:00 12/26/17 07:05 Temperature Pulse Rate 76 74 72 Respiratory Rate 25 H 18 17 Blood Pressure 126/57 L 139/61 Pulse Oximetry 97 98 97 12/26/17 08:00 12/26/17 08:05 12/26/17 08:22 Temperature 98.2 F Pulse Rate 68 66 68 Respiratory Rate 16 17 15 Blood Pressure 131/61 131/61 Pulse Oximetry 97 99 96 12/26/17 09:00 12/26/17 09:05 12/26/17 10:00 Temperature Pulse Rate 67 65 67 Respiratory Rate 16 16 16 Blood Pressure 131/61 Pulse Oximetry 100 100 98 12/26/17 10:05 12/26/17 11:00 12/26/17 11:11 Temperature Pulse Rate 71 69 75 Respiratory Rate 17 17 23 Blood Pressure 139/65 149/67 H Pulse Oximetry 97 98 95 12/26/17 11:29 12/26/17 12:00 12/26/17 12:05 Temperature Pulse Rate 64 64 Respiratory Rate 17 17 17 Blood Pressure 126/62 Pulse Oximetry 98 99 98 Intake & Output 12/25/17 12/26/17 12/26/17 18:59 06:59 18:59 Intake Total 358 / 358 300 / 300 150 / 150 Output Total 350 / 350 350 / 350 Balance -50 / -50 150 / 150 Weight 98.2 kg Intake: IV 200 / 200 300 / 300 150 / 150 Zosyn 2.25 GM Premix 50 ML @ 100 / 100 100 / 100 50 / 50 100 mls/hr IV.SIG Q6H ANGIE Rx#: [id number] KCl 20 mEq Premix Inj 20 meq In 100 / 100 200 / 200 100 / 100 100 ml @ 50 mls/hr IV.SIG Q2H ANGIE Rx#:[id number] Tube Feeding 158 / 158 Output: Urine Amount (Catheter) 350 / 350 350 / 350 Condom 350 / 350 350 / 350 Other: Date of Last Bowel Movement 12/25/17 12/26/17 12/26/17 # Bowel Movements 3 Physical Exam: CONSTITUTIONAL/GENERAL: Remains intubated, awake and alert TUBES/LINES/DRAINS:PIV, [place], ETT, right Vas-Cath, OGT EYES: Pupils equal and round and reactive. No scleral icterus. No injection or drainage. Fundi not examined. ENT: Hearing appears to be grossly normal. Nose without bleeding or purulent drainage. Throat without visible erythema, exudates, masses, or lesions. CARDIOVASCULAR: Regular rate and rhythm to auscultation. Sinus rhythm on telemetry RESPIRATORY/CHEST: Mechanically ventilated. Currently on CPAP 10/5 35% FiO2. Breath sounds equal bilaterally. Scattered rhonchi right. Diminished at the bases. GASTROINTESTINAL: Abdomen soft, non-tender, nondistended. Bowel sounds present. MUSCULOSKELETAL: Trace pedal edema bilaterally. no calf tenderness. No mottling or clubbing. NEUROLOGICAL: Awake, following complex commands, nodding appropriately PSYCHIATRIC: Appears to become slightly anxious at times indicates he is uncomfortable with the ETT Diagnostic Tests Laboratory: Laboratory Results - last 72 hr 12/23/17 12/23/17 12/23/17 13:08 13:08 18:23 WBC RBC Hgb Hct MCV MCH MCHC RDW Plt Count MPV Neut % (Auto) Lymph % (Auto) [place] % (Auto) Eos % (Auto) Baso % (Auto) Neut # (Auto) Lymph # (Auto) [place] # (Auto) Eos # (Auto) Baso # (Auto) WBC Differential Differential Comment Puncture Site Patient Temperature O2 Saturation ABG pH ABG pCO2 ABG pO2 ABG HCO3 ABG O2 Content ABG Base Excess ABG Methemoglobin Zhnag Test Hemoglobin Carboxyhemoglobin O2 Delivery Device Vent Setting Inspired O2 Critical Value Sodium Potassium 2.9 L* Chloride Carbon Dioxide Anion Gap BUN Creatinine Estimated GFR POC Glucose 192 H Random Glucose Calcium Phosphorus Magnesium 2.5 Total Bilirubin AST ALT Alkaline Phosphatase Troponin I 0.66 H* Total Protein Albumin 12/23/17 12/23/17 12/24/17 18:24 23:46 02:31 WBC 11.4 H RBC 4.04 L Hgb 13.1 Hct 39.1 MCV 96.8 MCH 32.4 MCHC 33.5 RDW 15.0 Plt Count 145 L MPV 9.8 Neut % (Auto) 82.2 H Lymph % (Auto) 7.3 L [place] % (Auto) 7.5 Eos % (Auto) 2.2 Baso % (Auto) 0.8 Neut # (Auto) 9.4 H Lymph # (Auto) 0.8 L [place] # (Auto) 0.9 Eos # (Auto) 0.2 Baso # (Auto) 0.1 WBC Differential . Differential Comment Auto diff final Puncture Site Patient Temperature O2 Saturation ABG pH ABG pCO2 ABG pO2 ABG HCO3 ABG O2 Content ABG Base Excess ABG Methemoglobin Zhang Test Hemoglobin Carboxyhemoglobin O2 Delivery Device Vent Setting Inspired O2 Critical Value Sodium 145 Potassium 3.2 L Chloride 110 H Carbon Dioxide 26.1 Anion Gap 9 BUN 47 H Creatinine 4.10 H Estimated GFR 14 L POC Glucose 144 H Random Glucose 127 H Calcium 8.7 Phosphorus 2.3 L Magnesium 2.5 Total Bilirubin 0.7 AST 23 ALT 28 Alkaline Phosphatase 32 L Troponin I Total Protein 6.5 Albumin 3.0 L 12/24/17 12/24/17 12/24/17 02:31 11:48 18:47 WBC RBC Hgb Hct MCV MCH MCHC RDW Plt Count MPV Neut % (Auto) Lymph % (Auto) [place] % (Auto) Eos % (Auto) Baso % (Auto) Neut # (Auto) Lymph # (Auto) [place] # (Auto) Eos # (Auto) Baso # (Auto) WBC Differential Differential Comment Puncture Site Patient Temperature O2 Saturation ABG pH ABG pCO2 ABG pO2 ABG HCO3 ABG O2 Content ABG Base Excess ABG Methemoglobin Zhang Test Hemoglobin Carboxyhemoglobin O2 Delivery Device Vent Setting Inspired O2 Critical Value Sodium 147 H Potassium 3.2 L Chloride 110 H Carbon Dioxide 27.0 Anion Gap 10 BUN 47 H Creatinine 4.08 H Estimated GFR 14 L POC Glucose 109 119 H Random Glucose 136 H Calcium 8.6 Phosphorus Magnesium Total Bilirubin 0.7 AST 18 ALT 29 Alkaline Phosphatase 28 L Troponin I Total Protein 6.5 Albumin 2.9 L 12/25/17 12/25/17 12/25/17 00:01 03:37 03:37 WBC 12.4 H RBC 4.16 L Hgb 13.2 Hct 40.2 MCV 96.6 MCH 31.8 MCHC 32.9 RDW 14.9 Plt Count 178 MPV 10.1 Neut % (Auto) 80.0 H Lymph % (Auto) 9.1 [place] % (Auto) 7.8 Eos % (Auto) 2.4 Baso % (Auto) 0.7 Neut # (Auto) 9.9 H Lymph # (Auto) 1.1 [place] # (Auto) 1.0 H Eos # (Auto) 0.3 Baso # (Auto) 0.1 WBC Differential . Differential Comment Auto diff final Puncture Site Patient Temperature O2 Saturation ABG pH ABG pCO2 ABG pO2 ABG HCO3 ABG O2 Content ABG Base Excess ABG Methemoglobin Zhang Test Hemoglobin Carboxyhemoglobin O2 Delivery Device Vent Setting Inspired O2 Critical Value Sodium 144 Potassium 3.1 L Chloride 108 H Carbon Dioxide 27.8 Anion Gap 8 BUN 36 H Creatinine 3.47 H Estimated GFR 17 L POC Glucose 118 H Random Glucose 129 H Calcium 8.7 Phosphorus Magnesium Total Bilirubin 0.7 AST 17 ALT 24 Alkaline Phosphatase 32 L Troponin I Total Protein 6.6 Albumin 2.9 L 12/25/17 12/25/17 12/25/17 06:28 11:42 12:32 WBC RBC Hgb Hct MCV MCH MCHC RDW Plt Count MPV Neut % (Auto) Lymph % (Auto) [place] % (Auto) Eos % (Auto) Baso % (Auto) Neut # (Auto) Lymph # (Auto) [place] # (Auto) Eos # (Auto) Baso # (Auto) WBC Differential Differential Comment Puncture Site Right radial Patient Temperature 98.6 O2 Saturation 95 ABG pH 7.34 L ABG pCO2 51 H* ABG pO2 111 ABG HCO3 27 H ABG O2 Content 20.7 H ABG Base Excess 1.7 ABG Methemoglobin 1.4 Zhang Test Present Hemoglobin 15.4 Carboxyhemoglobin 0.8 O2 Delivery Device Ventilator Vent Setting Cpap 5/10/40% Inspired O2 40 Critical Value Yes Sodium Potassium Chloride Carbon Dioxide Anion Gap BUN Creatinine Estimated GFR POC Glucose 123 H 112 H Random Glucose Calcium Phosphorus Magnesium Total Bilirubin AST ALT Alkaline Phosphatase Troponin I Total Protein Albumin 12/25/17 12/26/17 12/26/17 17:10 00:06 03:20 WBC 10.3 RBC 4.19 L Hgb 13.4 Hct 40.4 MCV 96.5 MCH 32.0 MCHC 33.2 RDW 14.7 Plt Count 189 MPV 9.9 Neut % (Auto) 75.3 H Lymph % (Auto) 10.8 [place] % (Auto) 8.7 H Eos % (Auto) 4.2 H Baso % (Auto) 1.0 Neut # (Auto) 7.8 H Lymph # (Auto) 1.1 [place] # (Auto) 0.9 Eos # (Auto) 0.4 Baso # (Auto) 0.1 WBC Differential . Differential Comment Auto diff final Puncture Site Patient Temperature O2 Saturation ABG pH ABG pCO2 ABG pO2 ABG HCO3 ABG O2 Content ABG Base Excess ABG Methemoglobin Zhang Test Hemoglobin Carboxyhemoglobin O2 Delivery Device Vent Setting Inspired O2 Critical Value Sodium Potassium Chloride Carbon Dioxide Anion Gap BUN Creatinine Estimated GFR POC Glucose 95 105 Random Glucose Calcium Phosphorus Magnesium Total Bilirubin AST ALT Alkaline Phosphatase Troponin I Total Protein Albumin 12/26/17 12/26/17 12/26/17 03:20 06:55 11:38 WBC RBC Hgb Hct MCV MCH MCHC RDW Plt Count MPV Neut % (Auto) Lymph % (Auto) [place] % (Auto) Eos % (Auto) Baso % (Auto) Neut # (Auto) Lymph # (Auto) [place] # (Auto) Eos # (Auto) Baso # (Auto) WBC Differential Differential Comment Puncture Site Patient Temperature O2 Saturation ABG pH ABG pCO2 ABG pO2 ABG HCO3 ABG O2 Content ABG Base Excess ABG Methemoglobin Zhang Test Hemoglobin Carboxyhemoglobin O2 Delivery Device Vent Setting Inspired O2 Critical Value Sodium 145 Potassium 2.7 L* Chloride 112 H Carbon Dioxide 25.2 Anion Gap 8 BUN 42 H Creatinine 3.56 H Estimated GFR 17 L POC Glucose 123 H 115 H Random Glucose 132 H Calcium 8.6 Phosphorus Magnesium Total Bilirubin 0.5 AST 15 ALT 21 Alkaline Phosphatase 32 L Troponin I Total Protein 6.5 Albumin 2.7 L Result Diagrams: 12/26/17 03:20 12/26/17 03:20 Imaging: Impressions Chest X-Ray 12/25/17 10:59 CONCLUSION: Support equipment in good position. Appearance of the parenchyma has improved since previous of 12/23/2017. Procedures: 12/14/17 * Endotracheal intubation (subsequent extubation on 12/15/17) 12/21/17 * Endotracheal intubation * Vas-Cath placement 12/22/17 * Hemodialysis 12/24/17 * Hemodialysis Assessment and Plan - Disease Oriented Problem List (1) Acute non-ST elevation myocardial infarction (NSTEMI) (2) Respiratory failure requiring intubation - Symptom Scale (1) Dyspnea 0-10 Scale: Unable to quantify Comment: Currently mechanically ventilated. Tolerating CPAP 10/5 35% Fi02 (2) Pain 0-10 Scale: Unable to quantify Comment: Currenlty off sedation for CPAP trials. Denies pain, appears comfortable. (3) Anxiety 0-10 Scale: Unable to quantify Comment: related to intubation Pertinent Non-Medical Issues: Psychosocial: The patient was born and raised in [place] where he met his . He worked for the [employer]. He retired approximately 4 years ago and the couple moved to the [facility]. They have 2 sons to still live in [place] Spiritual: Evangelical. Last Rights were performed on 12/21/17 Legal: Should the patient become completely incapacitated, and in the absence of a documented living, per [place] statues medical decision making would fall to his , Sharon Da Silva by proxy [phone] Ethical issues impacting care: There are currently no known ethical issues impacting care at this time. Important Contacts: Sharon Giffordfanta, /HCP [phone] Prognosis: Patient originally had what was felt to be an end STEMI the refused additional ischemic workup. His underlying COPD has continued to be an issue and the patient was unable to ambulate without a walker. Nursing of functional decline having issues walking from his front door to the mailbox without being extremely short of breath. He is now in acute renal failure which is felt to be contrast induced. Originally family had declined hemodialysis but changed their minds recently. Both the patient and his have noted in the past that they would not want to continue with hemodialysis long-term. During the course of his hospital stay he again deteriorated requiring reintubation and transfer to the surgical ICU. Given the unclear etiology of his original medical insult, combined with his multiple comorbidities he remains at high risk for further decline, increased morbidity, and . Code Status: No Code DNR Plan: * LEGAL DECISION MAKER -the patient is currently able to participate in his own healthcare decision making though defers to his Sharon. Should he become completely incapacitated any time in the absence of a documented living will per [place] statutes decision making would fall to his by proxy Sharon Avinash [phone] * GOALS -both the patient and family request extubation. Patient is able to participate in his own home and has made it known that he does not want to be reintubated should the need arise. For now the family will continue with hemodialysis and address that on an as-needed basis. In the past they have stated they would not want to continue with long-term hemodialysis, but again they would need nephrology opinion on this matter. * CODE STATUS -DNR * SYMPTOMS Pain - multifactorial including bedbound status, blood draws, invasive lines, tubes, procedures, etc. recently reintubated and sedated. Currently denies pain , has been off IV sedation for CPAP trails. Has Tylenol 650mg po Q6H PRN for fevers, would be appropriate at this time for pain. Once extubated can re- assess and make further recommendations as the clinical case evolves Dyspnearemains intubated at this time. Tolerating CPAP 10/5 35% Fi02. Planning for extubation today. Again, should patient respiratory status declined once again family and patient are open to BiPAP for short period of time but do not want intubation. Anticipate that the patient may require long- term O2 use after extubation. Anxiety - related to intubation. Patient is able communicate that the ETT is somewhat uncomfortable and at some times makes him anxious. Continue with frequent reorientation. Family remains at bedside to help keep the patient more comfortable. Would expect this to improve once extubated. No further recommendations at this time Palliative care will continue to follow during hospital course as condition evolves, to assist patient/decision maker with understanding of medical conditions, weighing benefits/burdens of treatment options, for clarification of goals of treatment. Additionally will assist with any symptoms of palliative concern. Case discussed with Dr. Robertson and RN (Renee) at bedside. Attestation Attestation: To help prompt me to consider important information that might be impacting today's encounter and assessment, information from prior notes written by myself or my colleagues may have been "brought forward" into today's note. My signature on this note, however, is an attestation that I personally performed the exam, history, and/or decision-making noted today, and, unless otherwise indicated, the interactions with patient, family, and staff as well as the review of records all occurred today. I also attest that the listed assessment and stated plan reflect my best clinical judgment today based on the combination of historical information, prior notes, and today's exam/ interactions. When time spent is documented, it refers only to time spent today by the signer, or if indicated, combined time spent today by collaborating physician/nurse practitioner.
[2017-12-27] MEDS: Piperacil/Tazo 2.25 GM Premix 50 ML IV.SIG SCH ×4 (01:23→18:44)
[2017-12-27] MEDS: Oral Hygiene Kit OROPHARYNG SCH ×4 (01:26→19:37)
[2017-12-27] MEDS: Insulin NovoLOG Aspart Correctional Sugar Inj SQ SCH ×4 (01:26→18:50)
[2017-12-27 07:58] LABS: Calcium 8.7 mg/dL (8.5-10.1); Carbon Dioxide 28.5 meq/L (21.0-32.0); Phosphorus 3.4 mg/dL (2.5-4.9); Potassium 3.1 meq/L (3.5-5.1)
--- NOTE | 2017-12-27 07:59 | P.PNCC ---
Subjective Subjective Remarks/Hospital Course: This is a unknown male. Admission 11 03/2017. Past medical history is unknown to me. There is no family currently available. According to records from previous ED physician who saw the patient before the ED physician had notified me patient has a history of hypothyroidism, gastroesophageal reflux disease, COPD, diabetes, heart failure. Patient was found unresponsive by family with a GCS of 3 and was brought in to the emergency department. Patient was intubated using etomidate and succinylcholine. CT brain negative. CT pulmonary antrum revealed right upper and lower lobe atelectasis. Lower lobe atelectasis versus infiltrate. Patient had elevated troponin. EKG revealed normal sinus rhythm at 64 with normal SC, QS and QT intervals. Dr. Vidal was notified. Patient has been started on a heparin drip for non-STEMI. Cardiology will evaluate. Patient is placed on broad- spectrum antibiotics. We are asked to admit. 12/15 Patient is intubated and sedated with Diprivan drip. On Heparin drip. Afebrile. CTA chest negative for PE. 12/16 Patient was extubated yesterday on BIPAP 15/8 with 40% FIO2. Afebrile. Awake and alert.On Heparin drip. 12/17 Patient is on BIPAP 18/8 with 40%, remains on Heparin drip. Afebrile. Renal function worse today with Cr: 2.25 from 1.03 12/21 Reconsult Patient was in resp. distress and with AMS. ABG showed acute hypercapneic resp acidosis with PH:7.05, pCO2:108. Floor nurse spoke to and she was agreeable for intubation. Patient was subsequently transferred to [facility] where he was immediately intubated by me and placed on mechanical ventilation. Renal function worse today with Cr: 4.49 from 3.96 plan to initiated HD today per renal. 12/22 Patient is intubated and sedated with Fentanyl infusion. Renal function is worse with Cr: 4.60 today from 4.49. SUBJECTIVE: 12/23: T-max 38.4. Currently on PSV trial 26/06 at 40%. Hemodialysis yesterday -4 L. Positive BM. Tube feeds at goal. We will try extubation today if passes parameters in no complete currently on no sedation.. 12/24 Patient is off sedation on CPAP 26/06 with 35% FIo2. Afebrile. Awake and alert. For HD today. 12/25 Patient is on CPAP awake and alert . Afebrile. s/p HD 1L removed. 12/26: Strong on CPAP. Alert. Extubate after HD. 12/27: Extubated yesterday after dialysis. He continues to protect his airway well and his respiratory effort is comfortable. Patient status is full DNR, confirmed by his and the palliative care team. Objective Vital Signs / I&O: Vital Signs 12/26/17 08:00 12/26/17 08:05 12/26/17 08:22 Temperature 98.2 F Pulse Rate 68 66 68 Respiratory Rate 16 17 15 Blood Pressure 131/61 131/61 Pulse Oximetry 97 99 96 12/26/17 09:00 12/26/17 09:05 12/26/17 10:00 Temperature Pulse Rate 67 65 67 Respiratory Rate 16 16 16 Blood Pressure 131/61 Pulse Oximetry 100 100 98 12/26/17 10:05 12/26/17 11:00 12/26/17 11:11 Temperature Pulse Rate 71 69 75 Respiratory Rate 17 17 23 Blood Pressure 139/65 149/67 H Pulse Oximetry 97 98 95 12/26/17 11:29 12/26/17 12:00 12/26/17 12:05 Temperature Pulse Rate 64 64 Respiratory Rate 17 17 17 Blood Pressure 126/62 Pulse Oximetry 98 99 98 12/26/17 14:00 12/26/17 16:00 12/26/17 16:02 Temperature 98.2 F Pulse Rate 69 84 Respiratory Rate 21 13 Blood Pressure 164/66 H Pulse Oximetry 94 L 92 L 12/26/17 18:00 12/26/17 18:39 12/26/17 19:53 Temperature Pulse Rate 71 71 Respiratory Rate 19 Blood Pressure Pulse Oximetry 94 L 12/26/17 20:00 12/26/17 20:15 12/26/17 20:30 Temperature 97.8 F Pulse Rate 70 74 78 Respiratory Rate 16 17 20 Blood Pressure 121/59 L 114/56 L 121/57 L Pulse Oximetry 100 100 97 12/26/17 22:00 12/27/17 00:00 12/27/17 00:15 Temperature 98.8 F Pulse Rate 72 66 61 Respiratory Rate 15 13 Blood Pressure 129/60 118/57 L Pulse Oximetry 99 100 12/27/17 00:30 12/27/17 00:45 12/27/17 02:00 Temperature Pulse Rate 62 63 61 Respiratory Rate 12 15 Blood Pressure 116/65 99/56 L Pulse Oximetry 100 99 12/27/17 04:00 12/27/17 04:15 12/27/17 04:30 Temperature Pulse Rate 64 64 64 Respiratory Rate 14 14 14 Blood Pressure 101/54 L 96/50 L 107/55 L Pulse Oximetry 98 97 98 12/27/17 04:45 12/27/17 06:00 12/27/17 07:00 Temperature Pulse Rate 61 64 63 Respiratory Rate 12 14 Blood Pressure 107/52 L Pulse Oximetry 99 Intake & Output 12/26/17 12/27/17 12/27/17 18:59 06:59 18:59 Intake Total 300 / 300 Output Total 500 / 500 3020 / 3020 Balance -200 / -200 -3020 / -3020 Weight 89.3 kg Intake: IV 300 / 300 Zosyn 2.25 GM Premix 50 ML @ 100 / 100 100 mls/hr IV.SIG Q6H ANGIE Rx#: [id number] KCl 20 mEq Premix Inj 20 meq In 200 / 200 100 ml @ 50 mls/hr IV.SIG Q2H ANGIE Rx#:[id number] Output: Urine 300 / 300 Stool 200 / 200 200 / 200 Hemodialysis Amount 2500 / 2500 Urine Amount (Catheter) 320 / 320 Condom 320 / 320 Other: Date of Last Bowel Movement 12/26/17 12/27/17 Result Diagrams: 12/26/17 03:20 12/26/17 19:34 Objective Remarks: GENERAL: 81-year-old chronically ill man SKIN: Warm and dry. HEAD: Normocephalic. Atraumatic EYES: No scleral icterus. No injection or drainage. NECK: Supple, trachea midline. Nasal cannula, right IJ catheter is clean dry and intact CARDIOVASCULAR: Regular rate and rhythm without murmurs, gallops, or rubs. No JVD RESPIRATORY: Breath sounds equal symmetric bilateral. Clear. Comfortable respiratory pattern. GASTROINTESTINAL: Abdomen soft, non-tender, nondistended. No guarding. Bowel sounds active MUSCULOSKELETAL: No peripheral edema. Well perfused. Neuro: Awake and alert, interactive. Conversant. Assessment and Plan - Assessment and Plan Plan: Neuro/Psych: On no sedation. Awake and alert. 12/14 CT brain revealed no acute intracranial findings Acetaminophen 650 mg every 6 hours as needed fever CV: Elevated troponin possibly type II non-STEMI History of essential hypertension History of congestive heart failure unknown etiology Monitor HR and BP keep MAP>65mmHg Aspirin 81 mg daily, atorvastatin 40mg daily, Cards is following- Dr. Vidal Echo showed EF 55-60% Resp: Acute respiratory failure Continue with vent support keep sats Bronchodilators, ICU vent bundle. Spontaneous breathing trials Daily Check CXR today 12/14 CT pulmonary no evidence of PE, revealed right upper/lower atelectasis versus infiltrate. Bilateral lower lobe consolidation versus infiltrate. Extubated 12/26. GI: Hypoalbuminemia Pantoprazole for GI prophylaxis Docusate sodium senna 1 tablet twice daily for bowel regimen tube feeds- Nepro with goal rate 50ml/hr per nut. recommendations Renal/FEN/ Acute kidney injury hypernatremia Hypopotassemia Monitor renal function, I/O's, avoid nephrotoxins Renal is following-Dr. Holder s/p HD 12/24 with remova 1L. Vascath placed 12/21 On acetazolamide 500mg IV daily Endo: Diabetes mellitus type 2 Hypothyroidism Continue home thyroid 30 mg daily. TSH level:2.37 Sliding scale insulin Accu-Cheks to maintain euglycemia every 6 hours aspart insulin Heme: Normocytic anemia Thrombocytopenia Monitor CBC daily. Follow trends. No indication for transfusion of blood products at this time ID: Blood cx-NGTD, sputum cx: normal resp marcio Continue piperacillin/tazobactam and monitor for signs of infections ( Fever, WBC) Access -Utilize peripheral IV. -Right IHJ vascath placed 12/21 Prophylaxis -GI -pantoprazole -DVT -SCDs/heparin Sq Palliative care is following Code status: No code DNR Discussed with patient's and undated her on his condition. She insists that the patient and her want no more intubation. She is presently deciding whether she wants to continue with dialysis. Overall: He has tolerated extubation and is breathing comfortably. He is stable to transition to another level of care.
[2017-12-27] MEDS: Chlorhexidine 0.12% Oral Kit 15 ML UDC OROPHARYNG SCH ×2 (10:10→20:23)
[2017-12-27] MEDS: Senna/Docusate Sodium 8.6/50 MG Tablet PO SCH ×2 (10:10→20:24)
[2017-12-27] MEDS: Mupirocin 2% Nasal Oint Topical Syringe EACH NARE SCH ×2 (10:10→20:24)
[2017-12-27] MEDS: Artificial Tears Opth Drops 15 ML Bottle EACH EYE SCH ×3 (10:10→18:50)
[2017-12-27] MEDS: Pantoprazole Inj 40 MG Vial IV.PUSH SCH (10:13)
[2017-12-27] MEDS: Heparin - SQ 10,000 UNITS/ML Vial SQ SCH ×2 (10:14→20:24)
[2017-12-27] MEDS ORDERED: Potassium Chlor 20 mEq Premix 20 MEQ/100 ML PIGGYBACK IV.SIG ONE (10:57)
--- NOTE | 2017-12-27 10:57 | P.PNNP ---
Subjective Interval history: Patient extubated doing better, hemodialysis was done yesterday Physical Exam Vital signs: Vital Signs 12/26/17 11:00 12/26/17 11:11 12/26/17 11:29 Temperature Pulse Rate 69 75 Respiratory Rate 17 23 17 Blood Pressure 149/67 H Pulse Oximetry 98 95 98 12/26/17 12:00 12/26/17 12:05 12/26/17 14:00 Temperature Pulse Rate 64 64 69 Respiratory Rate 17 17 Blood Pressure 126/62 Pulse Oximetry 99 98 12/26/17 16:00 12/26/17 16:02 12/26/17 18:00 Temperature 98.2 F Pulse Rate 84 71 Respiratory Rate 21 13 Blood Pressure 164/66 H Pulse Oximetry 94 L 92 L 12/26/17 18:39 12/26/17 19:53 12/26/17 20:00 Temperature 97.8 F Pulse Rate 71 70 Respiratory Rate 19 16 Blood Pressure 121/59 L Pulse Oximetry 94 L 100 12/26/17 20:15 12/26/17 20:30 12/26/17 22:00 Temperature Pulse Rate 74 78 72 Respiratory Rate 17 20 Blood Pressure 114/56 L 121/57 L Pulse Oximetry 100 97 12/27/17 00:00 12/27/17 00:15 12/27/17 00:30 Temperature 98.8 F Pulse Rate 66 61 62 Respiratory Rate 15 13 12 Blood Pressure 129/60 118/57 L 116/65 Pulse Oximetry 99 100 100 12/27/17 00:45 12/27/17 02:00 12/27/17 04:00 Temperature Pulse Rate 63 61 64 Respiratory Rate 15 14 Blood Pressure 99/56 L 101/54 L Pulse Oximetry 99 98 12/27/17 04:15 12/27/17 04:30 12/27/17 04:45 Temperature Pulse Rate 64 64 61 Respiratory Rate 14 14 12 Blood Pressure 96/50 L 107/55 L 107/52 L Pulse Oximetry 97 98 99 12/27/17 06:00 12/27/17 07:00 12/27/17 08:00 Temperature 98.6 F Pulse Rate 64 63 58 L Respiratory Rate 23 13 Blood Pressure Pulse Oximetry 95 100 12/27/17 08:03 Temperature Pulse Rate 63 Respiratory Rate 32 H Blood Pressure 129/59 L Pulse Oximetry 98 Intake & Output 12/26/17 12/27/1712/27/18 18:59 06:59 18:59 Intake Total 300 / 300 50 / 50 50 / 50 Output Total 500 / 500 3020 / 3020 Balance -200 / -200 -2970 / -2970 50 / 50 Weight 89.3 kg Intake: IV 300 / 300 50 / 50 50 / 50 Zosyn 2.25 GM Premix 50 ML @ 100 / 100 50 / 50 50 / 50 100 mls/hr IV.SIG Q6H ANGIE Rx#: [id number] KCl 20 mEq Premix Inj 20 meq In 200 / 200 100 ml @ 50 mls/hr IV.SIG Q2H ANGIE Rx#:[id number] Output: Urine 300 / 300 Stool 200 / 200 200 / 200 Hemodialysis Amount 2500 / 2500 Urine Amount (Catheter) 320 / 320 Condom 320 / 320 Other: Date of Last Bowel Movement 12/26/17 12/27/17 12/26/17 Narrative: GENERAL: Patient extubated HEAD: Atraumatic. NECK: Supple, trachea midline. No lymphadenopathy. EYES: No scleral icterus. No injection or drainage. CARDIOVASCULAR: Regular rate and rhythm without murmurs, gallops, or rubs. RESPIRATORY: Breath sounds diminished at bases GASTROINTESTINAL: Abdomen soft, non-tender, nondistended. MUSCULOSKELETAL: Mild edema. SKIN: Warm and dry. NEURO: Alert and responding to questions - Urinary Catheter Management Indwelling Urethral Catheter Cath placed during this visit: yes, but has since been removed by the nurse Reason for continuing: Hourly intake/output Insertion date: 12/14/17 Insertion time: 15:00 Removal date: 12/20/17 Removal time: 13:53 Condom Cath placed during this visit: yes Reason for continuing: Not indwelling catheter Insertion date: 12/20/17 Insertion time: 13:05 Assessment and Plan - Assessment (1) Acute renal failure Code(s): N17.9 - Acute kidney failure, unspecified Status: Acute Plan: Acute renal failure is due to contrast-induced nephropathy, Extubated Replace potassium losses potassium was 3.1, creatinine remains high at 3.3 Initially family refused HD, however then changed their minds Patient received dialysis yesterday 2.5 L removed next dialysis tomorrow Continue to follow electrolytes, UOP (2) COPD exacerbation Code(s): J44.1 - Chronic obstructive pulmonary disease with (acute) exacerbation Status: Acute Plan: Patient is under treatment (3) Respiratory failure Code(s): J96.90 - Respiratory failure, unspecified, unspecified whether with hypoxia or hypercapnia Status: Acute Plan: remains on oxygen (4) Diabetes Code(s): E11.9 - Type 2 diabetes mellitus without complications Status: Acute Plan: Monitor blood glucose (5) Acute non-ST elevation myocardial infarction (NSTEMI) Code(s): I21.4 - Non-ST elevation (NSTEMI) myocardial infarction Status: Acute Plan: Cardiology is following
[2017-12-28] MEDS: Piperacil/Tazo 2.25 GM Premix 50 ML IV.SIG SCH ×4 (00:43→20:32)
[2017-12-28] MEDS: Oral Hygiene Kit OROPHARYNG SCH ×3 (00:44→20:32)
[2017-12-28] MEDS: Insulin NovoLOG Aspart Correctional Sugar Inj SQ SCH ×4 (00:44→17:20)
[2017-12-28] MEDS: Chlorhexidine 0.12% Oral Kit 15 ML UDC OROPHARYNG SCH ×2 (08:00→21:23)
[2017-12-28 09:30] LABS: Calcium 8.6 mg/dL (8.5-10.1); Carbon Dioxide 27.6 meq/L (21.0-32.0)
--- NOTE | 2017-12-28 10:26 | P.PNNP ---
Subjective Interval history: Patient is seen during dialysis he is doing okay, blood flow is low during dialysis his breathing is stable Physical Exam Vital signs: Vital Signs 12/27/17 11:00 12/27/17 12:00 12/27/17 20:00 Temperature 97.8 F 97.8 F Pulse Rate 65 73 81 Respiratory Rate 29 H 18 18 Blood Pressure 155/72 H Pulse Oximetry 95 96 92 L 12/27/17 20:30 12/27/17 20:33 12/28/17 00:00 Temperature 97.5 F L Pulse Rate 81 81 Respiratory Rate 18 20 Blood Pressure 145/69 H Pulse Oximetry 97 94 L 12/28/17 04:00 12/28/17 07:53 12/28/17 08:00 Temperature 97 F L 97.3 F L Pulse Rate 72 70 70 Respiratory Rate 20 20 16 Blood Pressure 154/72 H 121/67 Pulse Oximetry 96 92 L Intake & Output 12/27/17 12/28/17 12/28/17 18:59 06:59 18:59 Intake Total 325 / 325 270 / 270 Output Total 50 / 50 100 / 100 Balance 275 / 275 170 / 170 Weight 86.7 kg Intake: IV 200 / 200 150 / 150 Zosyn 2.25 GM Premix 50 ML @ 100 / 100 150 / 150 100 mls/hr IV.SIG Q6H ANGIE Rx#: [id number] KCl 20 mEq Premix Inj 20 meq In 100 / 100 100 ml @ 50 mls/hr IV.SIG ONCE ONE Rx#:[id number] Oral 125 / 125 120 / 120 Output: Urine 100 / 100 Stool 50 / 50 Other: Date of Last Bowel Movement 12/27/17 12/27/17 # Bowel Movements 0 Narrative: GENERAL: Patient extubated HEAD: Atraumatic. NECK: Supple, trachea midline. No lymphadenopathy. EYES: No scleral icterus. No injection or drainage. CARDIOVASCULAR: Regular rate and rhythm without murmurs, gallops, or rubs. RESPIRATORY: Breath sounds diminished at bases GASTROINTESTINAL: Abdomen soft, non-tender, nondistended. MUSCULOSKELETAL: Mild edema. SKIN: Warm and dry. NEURO: Alert and responding to questions - Urinary Catheter Management Indwelling Urethral Catheter Cath placed during this visit: yes, but has since been removed by the nurse Reason for continuing: Hourly intake/output Insertion date: 12/14/17 Insertion time: 15:00 Removal date: 12/20/17 Removal time: 13:53 Condom Cath placed during this visit: yes Reason for continuing: Not indwelling catheter Insertion date: 12/20/17 Insertion time: 13:05 Assessment and Plan - Assessment (1) Acute renal failure Code(s): N17.9 - Acute kidney failure, unspecified Status: Acute Plan: Acute renal failure is due to contrast-induced nephropathy, Patient seen during hemodialysis blood flow is low, Vas-Cath is malfunctioning, will request PermCath insertion 4K bath ultrafiltration of 2 L plan Replace potassium Continue to remove fluid with dialysis Continue to follow electrolytes, UOP (2) COPD exacerbation Code(s): J44.1 - Chronic obstructive pulmonary disease with (acute) exacerbation Status: Acute Plan: Patient is under treatment (3) Respiratory failure Code(s): J96.90 - Respiratory failure, unspecified, unspecified whether with hypoxia or hypercapnia Status: Acute Plan: remains on oxygen (4) Diabetes Code(s): E11.9 - Type 2 diabetes mellitus without complications Status: Acute Plan: Monitor blood glucose (5) Acute non-ST elevation myocardial infarction (NSTEMI) Code(s): I21.4 - Non-ST elevation (NSTEMI) myocardial infarction Status: Acute Plan: Cardiology is following
--- NOTE | 2017-12-28 11:45 | P.PNPAL ---
Reason for Visit Reason for visit: a. To assist with evaluation and management of symptoms including:pain, dyspnea , anxiety b. To assist medical decision maker(s) with: better understanding of current medical conditions; weighing benefits/burdens of medical treatment options; making medical treatment decisions. Subjective Subjective/Interval History: Mr. Da Silva is an 81-year-old male who presented to [facility] emergency room on 12/14/17 with shortness of breath and altered mental status. Apparently he was found unresponsive by the family who then called 911. During his ambulance ride to the hospital he quickly decompensated to a GCS of 3, requiring emergent intubation. Per the family, the patient has a past medical history of hypothyroidism, GERD, COPD, diabetes, cyst of spinal meninges, and heart failure. Due to the perplexing nature of this patient's presentation and unsure etiology of his altered mental status he was admitted for further evaluation and treatment. The patient was transferred to the medical ICU for further evaluation. Dr. Vidal (Cardiology) was consulted for N STEMI, with unclear etiology. He felt this was unlikely due to CHF ordered a 2D echo. And suggest the patient be started on a heparin drip. 2D echo showed an EF of 55-60% with trace mitral valve and aortic valve regurgitation. There was aortic valve sclerosis and estimated pulmonary arterial pressure of 44 mmHg. Intensive care ordered CTA which was negative for PE. The patient was extubated to BiPAP 15/8 with 40% FiO2 on 12/16/17. Today his BiPAP settings were slightly increased to 18/8 remaining on 40% FiO2. His renal functioning was noted to be increasing in nephrology was consulted. Nephrology did note patient had probable medical renal disease. 12/28/17 Palliative care to follow with symptom management and to assist with continued medical goals. Patient was extubated 12/26/17 and transferred to medical floor 12/27/17. Today, during hemodialysis patient become hypoxic with O2 sats in the 40's despite increasing O2 use to non-rebreather. Per HD nurse, Benito lopez was only able to tolerate approximately 600ml of fluid removal before he declined. Patient is currently seen back in his room. He now on a simple face mask with O2 down to 8L. He is somnolent but able to arouse with some prodding. He verbalizes that he is very tired. He appears to be working hard to breathe. Lungs relatively clear but diminished all around, very difficult to hear air movement. Denies any chest pain, sinus rhythm with multiple PACs on telemetry. Last chest x-ray done on 12/25 showed improved parenchyma. and grandson updated at bedside. Today clinical's data revealed: * NA 144, K+ 3.0, CL 107, CO2 27.6 BUN 43, creatinine 3.75, glucose 120 * Phosphorus 8.6, magnesium 4.0, albumin 3.0 Family/Friend Interactions: Discussed the course of events and hemodialysis today with patient's , Sharon and grandson at bedside. She was informed that it appears the patient is poorly tolerating hemodialysis. She was also informed that his Vas-Cath was working poorly and nephrology was considering to a PermCath. The patient was able to participate in a very limited aspect with some nodding at certain phrases. We discussed if the family wished to continue with hemodialysis it would require the patient having a PermCath placed and continuing with hemodialysis 3 days a week for the next foreseeable future. We discussed that while patient was previously intubated he tolerated hemodialysis but it was very taxing for him. Since he has been extubated, it appears he does not tolerated HD well. We also discussed that if they decided to stop hemodialysis , and the patient continued with his current renal function that his life expectancy could be potentially somewhere between 1-3 weeks. All family members presents verbalized understanding. They understand that if they continue with dialysis the patient will have to have a more permanent access placed and may or may not tolerate continued hemodialysis. They also understand if they elect to discontinue hemodialysis the patient will most likely in the next coming days to weeks. The patient's verbalized that she would want him to just be comfortable for his remaining days. She stated that he had been through a lot during his current hospitalization and she wanted to get him home. All family members were open to hospice consultation verbalized that they would like to take him home with hospice. Hospice consult was placed today. Advance Directives Living Will: Never completed Health Care Surrogate: Never completed Durable Power of Dried Fruit Washer: Never completed Health Care Surrogate Name and Number: Sharon Da Silva, /HCP [phone] Documented care wishes:: The patient does not currently have a documented living will or durable power of finance attorney Significant change in goals:: Family has verbally stated that they would like patient to be comfort oriented. Assessment consulted and they have agreed to meet with him on Sunday. They are requesting 2 days to prepare the home so that they can adequately care for the patient at home. Objective Vital Signs: Vital Signs 12/27/17 12:00 12/27/17 20:00 12/27/17 20:30 Temperature 97.8 F 97.8 F Pulse Rate 73 81 81 Respiratory Rate 18 18 18 Blood Pressure 155/72 H Pulse Oximetry 96 92 L 12/27/17 20:33 12/28/17 00:00 12/28/17 04:00 Temperature 97.5 F L 97 F L Pulse Rate 81 72 Respiratory Rate 20 20 Blood Pressure 145/69 H 154/72 H Pulse Oximetry 97 94 L 96 12/28/17 07:53 12/28/17 08:00 Temperature 97.3 F L Pulse Rate 70 70 Respiratory Rate 20 16 Blood Pressure 121/67 Pulse Oximetry 92 L Intake & Output 12/27/17 12/28/17 12/28/17 18:59 06:59 18:59 Intake Total 325 / 325 270 / 270 Output Total 50 / 50 100 / 100 Balance 275 / 275 170 / 170 Weight 86.7 kg Intake: IV 200 / 200 150 / 150 Zosyn 2.25 GM Premix 50 ML @ 100 / 100 150 / 150 100 mls/hr IV.SIG Q6H [facility] Rx#: [id number] KCl 20 mEq Premix Inj 20 meq In 100 / 100 100 ml @ 50 mls/hr IV.SIG ONCE ONE Rx#:[id number] Oral 125 / 125 120 / 120 Output: Urine 100 / 100 Stool 50 / 50 Other: Date of Last Bowel Movement 12/27/17 12/27/17 # Bowel Movements 0 Physical Exam: CONSTITUTIONAL/GENERAL: Somnolent, appears in some level of respiratory distress. TUBES/LINES/DRAINS:PIV, Barlow, rectal bag, right Vas-Cath, facemask EYES: Pupils equal and round and reactive. No scleral icterus. No injection or drainage. Fundi not examined. ENT: Hearing appears to be grossly normal. Nose without bleeding or purulent drainage. Throat without visible erythema, exudates, masses, or lesions. CARDIOVASCULAR: Regular rate and rhythm to auscultation. Sinus rhythm with frequent PACs on telemetry RESPIRATORY/CHEST: Currently on 8 L via simple facemask. Respiratory rate in the mid 20s appears to be working hard to breathe. Breath sounds equal bilaterally. Extremely decreased air movement throughout. GASTROINTESTINAL: Abdomen soft, non-tender, nondistended. Bowel sounds present. MUSCULOSKELETAL: Trace pedal edema bilaterally. no calf tenderness. No mottling or clubbing. NEUROLOGICAL: Somnolent, awakes after some physical stimuli. Verbalizes he is tired, able to follow simple commands PSYCHIATRIC: Appears calm at this time Diagnostic Tests Laboratory: Laboratory Results - last 72 hr 12/22/17 12/25/17 12/25/17 11:10 11:42 12:32 WBC RBC Hgb Hct MCV MCH MCHC RDW Plt Count MPV Neut % (Auto) Lymph % (Auto) Becker % (Auto) Eos % (Auto) Baso % (Auto) Neut # (Auto) Lymph # (Auto) Becker # (Auto) Eos # (Auto) Baso # (Auto) WBC Differential Differential Comment Puncture Site Right radial Patient Temperature 98.6 O2 Saturation 95 ABG pH 7.34 L ABG pCO2 51 H* ABG pO2 111 ABG HCO3 27 H ABG O2 Content 20.7 H ABG Base Excess 1.7 ABG Methemoglobin 1.4 Zhang Test Present Hemoglobin 15.4 Carboxyhemoglobin 0.8 O2 Delivery Device Ventilator Vent Setting Cpap 5/10/40% Inspired O2 40 Critical Value Yes Yes Sodium Potassium Chloride Carbon Dioxide Anion Gap BUN Creatinine Estimated GFR POC Glucose 112 H Random Glucose Calcium Phosphorus Total Bilirubin AST ALT Alkaline Phosphatase Total Protein Albumin 12/25/17 12/26/17 12/26/17 17:10 00:06 03:20 WBC 10.3 RBC 4.19 L Hgb 13.4 Hct 40.4 MCV 96.5 MCH 32.0 MCHC 33.2 RDW 14.7 Plt Count 189 MPV 9.9 Neut % (Auto) 75.3 H Lymph % (Auto) 10.8 Becker % (Auto) 8.7 H Eos % (Auto) 4.2 H Baso % (Auto) 1.0 Neut # (Auto) 7.8 H Lymph # (Auto) 1.1 Becker # (Auto) 0.9 Eos # (Auto) 0.4 Baso # (Auto) 0.1 WBC Differential . Differential Comment Auto diff final Puncture Site Patient Temperature O2 Saturation ABG pH ABG pCO2 ABG pO2 ABG HCO3 ABG O2 Content ABG Base Excess ABG Methemoglobin Zhang Test Hemoglobin Carboxyhemoglobin O2 Delivery Device Vent Setting Inspired O2 Critical Value Sodium Potassium Chloride Carbon Dioxide Anion Gap BUN Creatinine Estimated GFR POC Glucose 95 105 Random Glucose Calcium Phosphorus Total Bilirubin AST ALT Alkaline Phosphatase Total Protein Albumin 12/26/17 12/26/17 12/26/17 03:20 06:55 11:38 WBC RBC Hgb Hct MCV MCH MCHC RDW Plt Count MPV Neut % (Auto) Lymph % (Auto) Becker % (Auto) Eos % (Auto) Baso % (Auto) Neut # (Auto) Lymph # (Auto) Becker # (Auto) Eos # (Auto) Baso # (Auto) WBC Differential Differential Comment Puncture Site Patient Temperature O2 Saturation ABG pH ABG pCO2 ABG pO2 ABG HCO3 ABG O2 Content ABG Base Excess ABG Methemoglobin Zhang Test Hemoglobin Carboxyhemoglobin O2 Delivery Device Vent Setting Inspired O2 Critical Value Sodium 145 Potassium 2.7 L* Chloride 112 H Carbon Dioxide 25.2 Anion Gap 8 BUN 42 H Creatinine 3.56 H Estimated GFR 17 L POC Glucose 123 H 115 H Random Glucose 132 H Calcium 8.6 Phosphorus Total Bilirubin 0.5 AST 15 ALT 21 Alkaline Phosphatase 32 L Total Protein 6.5 Albumin 2.7 L 12/26/17 12/26/17 12/27/17 16:24 19:34 01:17 WBC RBC Hgb Hct MCV MCH MCHC RDW Plt Count MPV Neut % (Auto) Lymph % (Auto) Becker % (Auto) Eos % (Auto) Baso % (Auto) Neut # (Auto) Lymph # (Auto) Becker # (Auto) Eos # (Auto) Baso # (Auto) WBC Differential Differential Comment Puncture Site Patient Temperature O2 Saturation ABG pH ABG pCO2 ABG pO2 ABG HCO3 ABG O2 Content ABG Base Excess ABG Methemoglobin Zhang Test Hemoglobin Carboxyhemoglobin O2 Delivery Device Vent Setting Inspired O2 Critical Value Sodium Potassium 4.6 D Chloride Carbon Dioxide Anion Gap BUN Creatinine Estimated GFR POC Glucose 109 89 Random Glucose Calcium Phosphorus Total Bilirubin AST ALT Alkaline Phosphatase Total Protein Albumin 12/27/17 12/27/17 12/27/17 05:38 06:27 12:00 WBC RBC Hgb Hct MCV MCH MCHC RDW Plt Count MPV Neut % (Auto) Lymph % (Auto) Becker % (Auto) Eos % (Auto) Baso % (Auto) Neut # (Auto) Lymph # (Auto) Becker # (Auto) Eos # (Auto) Baso # (Auto) WBC Differential Differential Comment Puncture Site Patient Temperature O2 Saturation ABG pH ABG pCO2 ABG pO2 ABG HCO3 ABG O2 Content ABG Base Excess ABG Methemoglobin Zhang Test Hemoglobin Carboxyhemoglobin O2 Delivery Device Vent Setting Inspired O2 Critical Value Sodium 144 Potassium 3.1 L D Chloride 107 Carbon Dioxide 28.5 Anion Gap 9 BUN 36 H Creatinine 3.30 H Estimated GFR 18 L POC Glucose 91 113 H Random Glucose 94 Calcium 8.7 Phosphorus 3.4 Total Bilirubin AST ALT Alkaline Phosphatase Total Protein Albumin 3.0 L 12/27/17 12/28/17 12/28/17 17:26 00:42 05:37 WBC RBC Hgb Hct MCV MCH MCHC RDW Plt Count MPV Neut % (Auto) Lymph % (Auto) Becker % (Auto) Eos % (Auto) Baso % (Auto) Neut # (Auto) Lymph # (Auto) Becker # (Auto) Eos # (Auto) Baso # (Auto) WBC Differential Differential Comment Puncture Site Patient Temperature O2 Saturation ABG pH ABG pCO2 ABG pO2 ABG HCO3 ABG O2 Content ABG Base Excess ABG Methemoglobin Zhang Test Hemoglobin Carboxyhemoglobin O2 Delivery Device Vent Setting Inspired O2 Critical Value Sodium Potassium Chloride Carbon Dioxide Anion Gap BUN Creatinine Estimated GFR POC Glucose 140 H 107 109 Random Glucose Calcium Phosphorus Total Bilirubin AST ALT Alkaline Phosphatase Total Protein Albumin 12/28/17 07:34 WBC RBC Hgb Hct MCV MCH MCHC RDW Plt Count MPV Neut % (Auto) Lymph % (Auto) Becker % (Auto) Eos % (Auto) Baso % (Auto) Neut # (Auto) Lymph # (Auto) Becker # (Auto) Eos # (Auto) Baso # (Auto) WBC Differential Differential Comment Puncture Site Patient Temperature O2 Saturation ABG pH ABG pCO2 ABG pO2 ABG HCO3 ABG O2 Content ABG Base Excess ABG Methemoglobin Zhang Test Hemoglobin Carboxyhemoglobin O2 Delivery Device Vent Setting Inspired O2 Critical Value Sodium 144 Potassium 3.0 L Chloride 107 Carbon Dioxide 27.6 Anion Gap 9 BUN 43 H Creatinine 3.75 H Estimated GFR 16 L POC Glucose Random Glucose 120 H Calcium 8.6 Phosphorus 4.0 Total Bilirubin AST ALT Alkaline Phosphatase Total Protein Albumin 3.0 L Result Diagrams: 12/26/17 03:20 12/28/17 07:34 Procedures: 12/14/17 * Endotracheal intubation (subsequent extubation on 12/15/17) 12/21/17 * Endotracheal intubation * Vas-Cath placement 12/22/17 * Hemodialysis 12/24/17 * Hemodialysis 12/26/17 * Hemodialysis 12/28/17 * Patient rapid response during hemodialysis and was unable to complete session. Assessment and Plan - Disease Oriented Problem List (1) Acute non-ST elevation myocardial infarction (NSTEMI) (2) Respiratory failure requiring intubation - Symptom Scale (1) Dyspnea 0-10 Scale: Unable to quantify Comment: Deteriorating respiratory status during hemodialysis initially requiring nonrebreather has been weaned down to facemask (2) Pain 0-10 Scale: Unable to quantify Comment: Continues to deny pain at this time (3) Anxiety 0-10 Scale: Unable to quantify Comment: Currently calm Pertinent Non-Medical Issues: Psychosocial: The patient was born and raised in [place] where he met his . He worked for the [employer]. He retired approximately 4 years ago and the couple moved to the [facility]. They have 2 sons to still live in [place] [employer]ual: [employer]. Last Rights were performed on 12/21/17 Legal: Should the patient become completely incapacitated, and in the absence of a documented living, per [place] statues medical decision making would fall to his , Sharon Da Silva by proxy [phone] Ethical issues impacting care: There are currently no known ethical issues impacting care at this time. Important Contacts: Sharon Da Silva, /HCP [phone] Prognosis: Patient originally had what was felt to be an end STEMI the refused additional ischemic workup. His underlying COPD has continued to be an issue and the patient was unable to ambulate without a walker. Nursing of functional decline having issues walking from his front door to the mailbox without being extremely short of breath. He is now in acute renal failure which is felt to be contrast induced. Originally family had declined hemodialysis but changed their minds recently. Both the patient and his have noted in the past that they would not want to continue with hemodialysis long-term. During the course of his hospital stay he again deteriorated requiring reintubation and transfer to the surgical ICU. Given the unclear etiology of his original medical insult, combined with his multiple comorbidities he remains at high risk for further decline, increased morbidity, and . Code Status: No Code DNR Plan: * LEGAL DECISION MAKER -the patient is currently able to participate in his own healthcare decision making though defers to his Sharon. Should he become completely incapacitated any time in the absence of a documented living will per [place] statutes decision making would fall to his by proxy Sharon Da Silva [phone] * GOALS - Discussed the course of events and hemodialysis today with patient's , Sharon and grandson at bedside. She was informed that it appears the patient is poorly tolerating hemodialysis. She was also informed that his Vas- Cath was working poorly and nephrology was considering to a PermCath. The patient was able to participate in a very limited aspect with some nodding at certain phrases. We discussed if the family wished to continue with hemodialysis it would require the patient having a PermCath placed and continuing with hemodialysis 3 days a week for the next foreseeable future. We discussed that while patient was previously intubated he tolerated hemodialysis but it was very taxing for him. Since he has been extubated, it appears he does not tolerated HD well. We also discussed that if they decided to stop hemodialysis, and the patient continued with his current renal function that his life expectancy could be potentially somewhere between 1-3 weeks. All family members presents verbalized understanding. They understand that if they continue with dialysis the patient will have to have a more permanent access placed and may or may not tolerate continued hemodialysis. They also understand if they elect to discontinue hemodialysis the patient will most likely in the next coming days to weeks. The patient's verbalized that she would want him to just be comfortable for his remaining days. She stated that he had been through a lot during his current hospitalization and she wanted to get him home. All family members were open to hospice consultation verbalized that they would like to take him home with hospice. Hospice consult was placed today. * CODE STATUS -DNR * SYMPTOMS Pain, at risk for - multifactorial including bedbound status, blood draws, invasive lines, tubes, procedures, etc. family has verbalized her wish to proceed with comfort measures. Once this is been finalized would make appropriate recommendations for pain management. Dyspneawas extubated 12/26/17. Went into respiratory distress today during hemodialysis. Originally requiring nonrebreather has been weaned down to simple face mask. The patient and family again reiterate desire for no further intubation. Patient's verbalized wanting to transition to comfort care. At this time to suggest to wean oxygen to where patient is comfortable. Previously family had been open to BiPAP, patient's asked that she call before proceeding with this type of therapy. Again family is leaning more towards comfort measures. Anxiety -patient currently calm, denies any anxiety. Once family elects for full comfort measures will make appropriate recommendations to help with anxiety related to shortness of breath Palliative care will continue to follow during hospital course as condition evolves, to assist patient/decision maker with understanding of medical conditions, weighing benefits/burdens of treatment options, for clarification of goals of treatment. Additionally will assist with any symptoms of palliative concern. Case discussed with Dr. Durand and RN (Madelyn) at bedside. Attestation Attestation: To help prompt me to consider important information that might be impacting today's encounter and assessment, information from prior notes written by myself or my colleagues may have been "brought forward" into today's note. My signature on this note, however, is an attestation that I personally performed the exam, history, and/or decision-making noted today, and, unless otherwise indicated, the interactions with patient, family, and staff as well as the review of records all occurred today. I also attest that the listed assessment and stated plan reflect my best clinical judgment today based on the combination of historical information, prior notes, and today's exam/ interactions. When time spent is documented, it refers only to time spent today by the signer, or if indicated, combined time spent today by collaborating physician/nurse practitioner.
--- NOTE | 2017-12-28 12:42 | P.PNIM ---
Subjective Interval history: I Called this morning due to hypoxia with saturations in the 40s in dialysis. Saturations now improved. Patient says he is feeling all right. Denies chest pain or shortness of breath. Physical Exam Vital signs: Vital Signs 12/27/17 20:00 12/27/17 20:30 12/27/17 20:33 Temperature 97.8 F Pulse Rate 81 81 Respiratory Rate 18 18 Blood Pressure 155/72 H Pulse Oximetry 92 L 97 12/28/17 00:00 12/28/17 04:00 12/28/17 07:53 Temperature 97.5 F L 97 F L Pulse Rate 81 72 70 Respiratory Rate 20 20 20 Blood Pressure 145/69 H 154/72 H Pulse Oximetry 94 L 96 12/28/17 08:00 Temperature 97.3 F L Pulse Rate 70 Respiratory Rate 16 Blood Pressure 121/67 Pulse Oximetry 92 L Intake & Output 12/27/17 12/28/17 12/28/17 18:59 06:59 18:59 Intake Total 325 / 325 270 / 270 Output Total 50 / 50 100 / 100 Balance 275 / 275 170 / 170 Weight 86.7 kg Intake: IV 200 / 200 150 / 150 Zosyn 2.25 GM Premix 50 ML @ 100 / 100 150 / 150 100 mls/hr IV.SIG Q6H [facility] Rx#: [id number] KCl 20 mEq Premix Inj 20 meq In 100 / 100 100 ml @ 50 mls/hr IV.SIG ONCE ONE Rx#:[id number] Oral 125 / 125 120 / 120 Output: Urine 100 / 100 Stool 50 / 50 Other: Date of Last Bowel Movement 12/27/17 12/27/17 # Bowel Movements 0 Narrative: GENERAL: Patient lying in bed. Appears comfortable. SKIN: Warm and dry. HEAD: Normocephalic. EYES: No scleral icterus. No injection or drainage. NECK: Supple, trachea midline. No JVD. CARDIOVASCULAR: Regular rate and rhythm without murmurs, gallops, or rubs. RESPIRATORY: Breath sounds equal bilaterally. Poor air movement. No accessory muscle use. GASTROINTESTINAL: Abdomen soft, non-tender, nondistended. MUSCULOSKELETAL: No cyanosis, or edema. BACK: Nontender without obvious deformity. No CVA tenderness. - Urinary Catheter Management Indwelling Urethral Catheter Cath placed during this visit: yes, but has since been removed by the nurse Reason for continuing: Hourly intake/output Insertion date: 12/14/17 Insertion time: 15:00 Removal date: 12/20/17 Removal time: 13:53 Condom Cath placed during this visit: yes Reason for continuing: Not indwelling catheter Insertion date: 12/20/17 Insertion time: 13:05 Results - Labs CBC & Chem 7: 12/26/17 03:20 12/28/17 07:34 Laboratory Results - last 24 hr 12/27/17 12/28/17 12/28/17 17:26 00:42 05:37 Sodium Potassium Chloride Carbon Dioxide Anion Gap BUN Creatinine Estimated GFR POC Glucose 140 H 107 109 Random Glucose Calcium Phosphorus Albumin 12/28/17 07:34 Sodium 144 Potassium 3.0 L Chloride 107 Carbon Dioxide 27.6 Anion Gap 9 BUN 43 H Creatinine 3.75 H Estimated GFR 16 L POC Glucose Random Glucose 120 H Calcium 8.6 Phosphorus 4.0 Albumin 3.0 L Assessment and Plan - Plan Neuro/Psych: On no sedation. Awake and alert. 12/14 CT brain revealed no acute intracranial findings Acetaminophen 650 mg every 6 hours as needed fever CV: Elevated troponin possibly type II non-STEMI History of essential hypertension History of congestive heart failure unknown etiology Monitor HR and BP keep MAP>65mmHg Aspirin 81 mg daily, atorvastatin 40mg daily, Cards is following- Dr. Vidal Echo showed EF 55-60% Resp: Acute respiratory failure Continue with vent support keep sats Bronchodilators, ICU vent bundle. Spontaneous breathing trials Daily Check CXR today 12/14 CT pulmonary no evidence of PE, revealed right upper/lower atelectasis versus infiltrate. Bilateral lower lobe consolidation versus infiltrate. Extubated 12/26. = 12/28. High Called due to hypoxia. Family has opted for DNR. Palliative care following. I discussed with palliative care, and family would like to consult hospice. Appreciate palliative care, hospice assistance. GI: Hypoalbuminemia Pantoprazole for GI prophylaxis Docusate sodium senna 1 tablet twice daily for bowel regimen tube feeds- Nepro with goal rate 50ml/hr per nut. recommendations Renal/FEN/ Acute kidney injury hypernatremia Hypopotassemia Monitor renal function, I/O's, avoid nephrotoxins Renal is following-Dr. Holder s/p HD 12/24 with remova 1L. Vascath placed 12/21 Dialysis as per nephrology. Appreciate assistance. Endo: Diabetes mellitus type 2 Hypothyroidism Continue home thyroid 30 mg daily. TSH level:2.37 Sliding scale insulin Accu-Cheks to maintain euglycemia every 6 hours aspart insulin Heme: Normocytic anemia Thrombocytopenia Monitor CBC daily. Follow trends. No indication for transfusion of blood products at this time ID: Blood cx-NGTD, sputum cx: normal resp marcio Continue piperacillin/tazobactam and monitor for signs of infections ( Fever, WBC) Access -Utilize peripheral IV. -Right IHJ vascath placed 12/21 Prophylaxis -GI -pantoprazole -DVT -SCDs/heparin Sq Palliative care is following Code status: No code DNR Discussed Condition With: Patient, palliative care team, Nurse
[2017-12-28] MEDS: Pantoprazole Inj 40 MG Vial IV.PUSH SCH (13:00)
[2017-12-28] MEDS: Senna/Docusate Sodium 8.6/50 MG Tablet PO SCH ×3 (13:00→21:28)
[2017-12-28] MEDS: Artificial Tears Opth Drops 15 ML Bottle EACH EYE SCH ×2 (13:00→20:31)
[2017-12-28] MEDS: Heparin - SQ 10,000 UNITS/ML Vial SQ SCH ×2 (13:00→21:25)
[2017-12-28] MEDS: Mupirocin 2% Nasal Oint Topical Syringe EACH NARE SCH ×2 (20:26→21:25)
[2017-12-29] MEDS: Oral Hygiene Kit OROPHARYNG SCH ×4 (00:19→15:18)
[2017-12-29] MEDS: Piperacil/Tazo 2.25 GM Premix 50 ML IV.SIG SCH ×5 (00:47→23:45)
[2017-12-29] MEDS: Insulin NovoLOG Aspart Correctional Sugar Inj SQ SCH ×5 (00:47→23:12)
[2017-12-29] MEDS: Chlorhexidine 0.12% Oral Kit 15 ML UDC OROPHARYNG SCH ×2 (07:08→22:19)
[2017-12-29 07:49] LABS: Calcium 8.3 mg/dL (8.5-10.1); Carbon Dioxide 28.4 meq/L (21.0-32.0); Phosphorus 4.8 mg/dL (2.5-4.9); Potassium 3.3 meq/L (3.5-5.1)
[2017-12-29] MEDS: Senna/Docusate Sodium 8.6/50 MG Tablet PO SCH ×2 (08:51→22:21)
[2017-12-29] MEDS: Heparin - SQ 10,000 UNITS/ML Vial SQ SCH ×2 (08:51→22:20)
[2017-12-29] MEDS: Mupirocin 2% Nasal Oint Topical Syringe EACH NARE SCH ×2 (08:51→22:19)
[2017-12-29] MEDS: Pantoprazole Inj 40 MG Vial IV.PUSH SCH (08:52)
[2017-12-29] MEDS: Artificial Tears Opth Drops 15 ML Bottle EACH EYE SCH ×3 (08:52→17:02)
--- NOTE | 2017-12-29 11:47 | P.PNNP ---
Subjective Interval history: Resting this morning with no acute complaints. On venti mask with mild shortness of breath. Palliative following and Hospice has been consulted. <Amaya Ochoa - Last Filed: 12/29/17 11:38> Physical Exam Vital signs: Vital Signs 12/28/17 12:00 12/28/17 16:00 12/28/17 19:20 Temperature 96.9 F L 97.2 F L Pulse Rate 110 H 71 118 H Respiratory Rate 18 18 20 Blood Pressure 122/58 L 127/62 Pulse Oximetry 100 94 L 12/28/17 19:21 12/28/17 20:00 12/29/17 00:00 Temperature 98.4 F 98.4 F Pulse Rate 101 H 69 Respiratory Rate 19 19 Blood Pressure 121/59 L 100/59 L Pulse Oximetry 94 L 97 100 12/29/17 04:00 12/29/17 07:32 12/29/17 08:00 Temperature 97.8 F 98.0 F Pulse Rate 75 85 82 Respiratory Rate 20 16 22 Blood Pressure 114/55 L 141/76 H Pulse Oximetry 89 L 93 L 95 Intake & Output 12/28/17 12/29/17 12/29/17 18:59 06:59 18:59 Intake Total 404 / 404 510 / 510 Output Total Balance 404 / 404 509 / 509 Weight 86.7 kg Intake: IV 50 / 50 150 / 150 Zosyn 2.25 GM Premix 50 ML @ 50 / 50 150 / 150 100 mls/hr IV.SIG Q6H [facility] Rx#: [id number] Oral 354 / 354 360 / 360 Output: Urine Other: # Voids 4 Date of Last Bowel Movement 12/27/17 12/29/17 # Bowel Movements 1 Narrative: GENERAL: Patient lying in bed. Appears comfortable. SKIN: Warm and dry. NECK: Supple, trachea midline. No JVD. CARDIOVASCULAR: Regular rate and rhythm without murmurs, gallops, or rubs. Right IJ vas cath RESPIRATORY: Breath sounds equal bilaterally. Poor air movement. No accessory muscle use. GASTROINTESTINAL: Abdomen soft, non-tender, nondistended. MUSCULOSKELETAL: No cyanosis, or edema. BACK: Nontender without obvious deformity. No CVA tenderness. - Urinary Catheter Management Indwelling Urethral Catheter Cath placed during this visit: yes, but has since been removed by the nurse Reason for continuing: Hourly intake/output Insertion date: 12/14/17 Insertion time: 15:00 Removal date: 12/20/17 Removal time: 13:53 Condom Cath placed during this visit: yes Reason for continuing: Not indwelling catheter Insertion date: 12/20/17 Insertion time: 13:05 <Amaya Ochoa - Last Filed: 12/29/17 11:38> Vital signs: Vital Signs 12/31/17 00:00 12/31/17 00:04 12/31/17 03:55 Temperature 98.8 F Pulse Rate 68 66 69 Respiratory Rate 16 Blood Pressure 131/85 Pulse Oximetry 96 12/31/17 04:00 12/31/17 07:00 12/31/17 07:40 Temperature 98.7 F Pulse Rate 66 65 Respiratory Rate 16 20 Blood Pressure 130/61 Pulse Oximetry 95 92 L 12/31/17 08:00 Temperature 97.7 F Pulse Rate 76 Respiratory Rate 21 Blood Pressure 147/60 H Pulse Oximetry 96 Intake & Output 12/31/17 12/31/17 01/01/18 06:59 18:59 06:59 Intake Total 100 / 100 Balance 100 / 100 Weight 84 kg Intake: IV 100 / 100 Zosyn 2.25 GM Premix 50 ML @ 100 / 100 100 mls/hr IV.SIG Q6H [facility] Rx#: [id number] Other: # Incontinent Voids 3 Date of Last Bowel Movement 12/30/17 # Incontinent Bowel Movements 1 - Urinary Catheter Management Indwelling Urethral Catheter Cath placed during this visit: no Condom Cath placed during this visit: no <Rudolph Bell - Last Filed: 12/31/17 21:11> Assessment and Plan - Assessment (1) Acute renal failure Code(s): N17.9 - Acute kidney failure, unspecified Status: Acute Plan: Acute renal failure is due to contrast-induced nephropathy, Helicat call during hemodialysis yesterday for low SaO2, on ventimask now UF of only 600 ml yesterday Palliative care following and hospice consulted. Will follow with patient goals. (2) COPD exacerbation Code(s): J44.1 - Chronic obstructive pulmonary disease with (acute) exacerbation Status: Acute Plan: Patient is under treatment (3) Respiratory failure Code(s): J96.90 - Respiratory failure, unspecified, unspecified whether with hypoxia or hypercapnia Status: Acute Plan: remains on oxygen (4) Diabetes Code(s): E11.9 - Type 2 diabetes mellitus without complications Status: Acute Plan: Monitor blood glucose (5) Acute non-ST elevation myocardial infarction (NSTEMI) Code(s): I21.4 - Non-ST elevation (NSTEMI) myocardial infarction Status: Acute Plan: Cardiology is following <Amaya Ochoa - Last Filed: 12/29/17 11:38> - Assessment (1) Acute renal failure Code(s): N17.9 - Acute kidney failure, unspecified Status: Acute Plan: Patient seen and examined, agree with above. Patient has HD yesterday, Hospice consulted, will follow the recommendations. (2) COPD exacerbation Code(s): J44.1 - Chronic obstructive pulmonary disease with (acute) exacerbation Status: Acute (3) Respiratory failure Code(s): J96.90 - Respiratory failure, unspecified, unspecified whether with hypoxia or hypercapnia Status: Acute (4) Diabetes Code(s): E11.9 - Type 2 diabetes mellitus without complications Status: Acute (5) Acute non-ST elevation myocardial infarction (NSTEMI) Code(s): I21.4 - Non-ST elevation (NSTEMI) myocardial infarction Status: Acute <Rudolph Bell - Last Filed: 12/31/17 21:11>
--- NOTE | 2017-12-29 13:22 | P.PNIM ---
Subjective Interval history: Patient says he is feeling right., Sleeping wakes up for exam. He denies any pain. Physical Exam Vital signs: Vital Signs 12/28/17 16:00 12/28/17 19:20 12/28/17 19:21 Temperature 97.2 F L Pulse Rate 71 118 H Respiratory Rate 18 20 Blood Pressure 127/62 Pulse Oximetry 94 L 94 L 12/28/17 20:00 12/29/17 00:00 12/29/17 04:00 Temperature 98.4 F 98.4 F 97.8 F Pulse Rate 101 H 69 75 Respiratory Rate 19 19 20 Blood Pressure 121/59 L 100/59 L 114/55 L Pulse Oximetry 97 100 89 L 12/29/17 07:32 12/29/17 08:00 Temperature 98.0 F Pulse Rate 85 82 Respiratory Rate 16 22 Blood Pressure 141/76 H Pulse Oximetry 93 L 95 Intake & Output 12/28/17 12/29/17 12/29/17 18:59 06:59 18:59 Intake Total 404 / 404 510 / 510 Output Total Balance 404 / 404 509 / 509 Weight 86.7 kg Intake: IV 50 / 50 150 / 150 Zosyn 2.25 GM Premix 50 ML @ 50 / 50 150 / 150 100 mls/hr IV.SIG Q6H [facility] Rx#: [id number] Oral 354 / 354 360 / 360 Output: Urine Other: # Voids 4 Date of Last Bowel Movement 12/27/17 12/29/17 # Bowel Movements 1 Narrative: GENERAL: Patient lying in bed. Sleeping, wakes up for exam. Appears comfortable. SKIN: Warm and dry. NECK: Supple, trachea midline. No JVD. CARDIOVASCULAR: Regular rate and rhythm without murmurs, gallops, or rubs. Right IJ vas cath RESPIRATORY: Breath sounds equal bilaterally. Poor air movement. No accessory muscle use. GASTROINTESTINAL: Abdomen soft, non-tender, nondistended. MUSCULOSKELETAL: No cyanosis, trace edema. BACK: Nontender without obvious deformity. No CVA tenderness. - Urinary Catheter Management Indwelling Urethral Catheter Cath placed during this visit: yes, but has since been removed by the nurse Reason for continuing: Hourly intake/output Insertion date: 12/14/17 Insertion time: 15:00 Removal date: 12/20/17 Removal time: 13:53 Condom Cath placed during this visit: yes Reason for continuing: Not indwelling catheter Insertion date: 12/20/17 Insertion time: 13:05 Results - Labs CBC & Chem 7: 12/26/17 03:20 12/29/17 06:16 Laboratory Results - last 24 hr 12/28/17 12/29/17 12/29/17 15:55 00:47 05:33 Sodium Potassium Chloride Carbon Dioxide Anion Gap BUN Creatinine Estimated GFR POC Glucose 122 H 116 H 245 H Random Glucose Calcium Phosphorus Albumin 12/29/17 12/29/17 12/29/17 05:35 06:16 12:03 Sodium 141 Potassium 3.3 L Chloride 105 Carbon Dioxide 28.4 Anion Gap 8 BUN 42 H Creatinine 4.02 H Estimated GFR 14 L POC Glucose 145 H 230 H Random Glucose 161 H Calcium 8.3 L Phosphorus 4.8 Albumin 3.0 L 12/29/17 12:04 Sodium Potassium Chloride Carbon Dioxide Anion Gap BUN Creatinine Estimated GFR POC Glucose 237 H Random Glucose Calcium Phosphorus Albumin Assessment and Plan - Plan Neuro/Psych: On no sedation. Awake and alert. 12/14 CT brain revealed no acute intracranial findings Acetaminophen 650 mg every 6 hours as needed fever CV: Elevated troponin possibly type II non-STEMI History of essential hypertension History of congestive heart failure unknown etiology Monitor HR and BP keep MAP>65mmHg Aspirin 81 mg daily, atorvastatin 40mg daily, Cards is following- Dr. Vidal Echo showed EF 55-60% Resp: Acute respiratory failure Continue with vent support keep sats Bronchodilators, ICU vent bundle. Spontaneous breathing trials Daily Check CXR today 12/14 CT pulmonary no evidence of PE, revealed right upper/lower atelectasis versus infiltrate. Bilateral lower lobe consolidation versus infiltrate. Extubated 12/26. = 12/28. High Called due to hypoxia. Family has opted for DNR. Palliative care following. I discussed with palliative care, and family would like to consult hospice. Appreciate palliative care, hospice assistance. = Discussed with hospice. Patient and family reportedly receptive to hospice yesterday. Pending hospice consultation. Appreciate assistance. Will check chest x-ray. GI: Hypoalbuminemia Pantoprazole for GI prophylaxis Docusate sodium senna 1 tablet twice daily for bowel regimen tube feeds- Nepro with goal rate 50ml/hr per nut. recommendations Renal/FEN/ Acute kidney injury hypernatremia Hypopotassemia Monitor renal function, I/O's, avoid nephrotoxins Renal is following-Dr. Holder s/p HD 12/24 with remova 1L. Vascath placed 12/21 Dialysis as per nephrology. Appreciate assistance. Endo: Diabetes mellitus type 2 Hypothyroidism Continue home thyroid 30 mg daily. TSH level:2.37 Sliding scale insulin Accu-Cheks to maintain euglycemia every 6 hours aspart insulin Heme: Normocytic anemia Thrombocytopenia Monitor CBC daily. Follow trends. No indication for transfusion of blood products at this time ID: Blood cx-NGTD, sputum cx: normal resp marcio Continue piperacillin/tazobactam and monitor for signs of infections ( Fever, WBC) Access -Utilize peripheral IV. -Right IHJ vascath placed 12/21 Prophylaxis -GI -pantoprazole -DVT -SCDs/heparin Sq Palliative care is following Code status: No code DNR Discussed Condition With: Patient, nurse, hospice office. Discharge Planning: Palliative care and hospice following
[2017-12-29 15:54] LABS: Hematocrit 42.9 % (39.0-51.0); Hemoglobin 14.2 gm/dL (13.0-17.0); Mean Corpuscular HGB Conc 33.2 % (32.0-36.0); Mean Corpuscular Hemoglobin 32.2 pg (27.0-34.0); Mean Platelet Volume 9.4 fL (7.0-11.0); Platelet Count 207 th/mm3 (150-450); Red Blood Count 4.42 mil/mm3 (4.50-5.90); Red Cell Distribution Width 15.1 % (11.6-17.2); White Blood Count 12.9 th/mm3 (4.0-11.0)
--- NOTE | 2017-12-29 15:56 | XR ---
EXAM DATE: 12/29/2017 3:50 PM EST AGE/SEX: 81 years / Male INDICATIONS: Shortness of breath. CLINICAL DATA: This is the patient's initial encounter. Patient reports that signs and symptoms have been present for 2 weeks and indicates a pain score of 0/10. MEDICAL/SURGICAL HISTORY: Congestive heart failure. Chronic obstructive pulmonary disease. Di abetes mellitus type II. GERD. Smoker. None. COMPARISON: [facility], CHEST 1V SINGLE AP, 12/25/2017. . FINDINGS: The endotracheal tube and nasogastric tube have been removed. Left infrahilar streakiness is noted co nsistent with atelectasis and/or infiltrate. The heart is stable. Right internal jugular central line is unchanged with its tip in the right atrium. No pneumothorax is noted. CONCLUSION: Left infrahilar streakiness consistent with atelectasis and/or infiltrate. Electronically signed by: Janes Sims MD 12/29/2017 3:55 PM EST
[2017-12-30] MEDS: Oral Hygiene Kit OROPHARYNG SCH ×5 (03:47→23:35)
[2017-12-30] MEDS: Piperacil/Tazo 2.25 GM Premix 50 ML IV.SIG SCH ×4 (05:54→23:35)
[2017-12-30] MEDS: Insulin NovoLOG Aspart Correctional Sugar Inj SQ SCH ×4 (06:31→23:40)
[2017-12-30] MEDS: Chlorhexidine 0.12% Oral Kit 15 ML UDC OROPHARYNG SCH ×2 (08:34→22:14)
[2017-12-30] MEDS: Senna/Docusate Sodium 8.6/50 MG Tablet PO SCH ×2 (08:34→22:17)
[2017-12-30] MEDS: Mupirocin 2% Nasal Oint Topical Syringe EACH NARE SCH ×2 (08:34→22:16)
[2017-12-30] MEDS: Heparin - SQ 10,000 UNITS/ML Vial SQ SCH ×2 (08:35→22:16)
[2017-12-30] MEDS: Pantoprazole Inj 40 MG Vial IV.PUSH SCH (08:35)
[2017-12-30] MEDS: Artificial Tears Opth Drops 15 ML Bottle EACH EYE SCH ×3 (08:35→17:16)
[2017-12-30 09:00] LABS: Albumin 2.8 g/dL (3.4-5.0); Calcium 8.6 mg/dL (8.5-10.1); Carbon Dioxide 29.4 meq/L (21.0-32.0); Potassium 3.2 meq/L (3.5-5.1)
[2017-12-30 09:08] LABS: Phosphorus 3.4 mg/dL (2.5-4.9)
--- NOTE | 2017-12-30 10:48 | P.PNIM ---
Subjective Interval history: Patient says he is feeling right. Denies any pain. Says he had a bowel movement today. Physical Exam Vital signs: Vital Signs 12/29/17 12:00 12/29/17 16:00 12/29/17 20:00 Temperature 98.1 F 98.1 F 97.8 F Pulse Rate 66 69 69 Respiratory Rate 22 23 19 Blood Pressure 178/103 H 144/70 H 122/56 L Pulse Oximetry 94 L 92 L 95 12/29/17 20:04 12/29/17 20:12 12/29/17 23:13 Temperature 98.7 F Pulse Rate 69 72 68 Respiratory Rate 16 18 Blood Pressure 136/60 Pulse Oximetry 94 L 94 L 12/29/17 23:51 12/30/17 03:53 12/30/17 04:00 Temperature 98.9 F Pulse Rate 64 69 65 Respiratory Rate 18 Blood Pressure 104/52 L Pulse Oximetry 95 12/30/17 07:35 12/30/17 08:00 Temperature 98.5 F Pulse Rate 68 63 Respiratory Rate 18 18 Blood Pressure 141/65 H Pulse Oximetry 96 92 L Intake & Output 12/29/17 12/30/17 12/30/17 18:59 06:59 18:59 Intake Total 580 / 580 100 / 100 Balance 580 / 580 100 / 100 Weight 85.7 kg Intake: IV 100 / 100 100 / 100 Zosyn 2.25 GM Premix 50 ML @ 100 / 100 100 / 100 100 mls/hr IV.SIG Q6H [facility] Rx#: [id number] Oral 480 / 480 Other: # Voids 3 # Incontinent Voids 3 Date of Last Bowel Movement 12/29/17 12/29/17 # Bowel Movements 1 # Incontinent Bowel Movements 1 Narrative: GENERAL: Patient lying in bed. NAD SKIN: Warm and dry. HEAD: Normocephalic. EYES: No scleral icterus. No injection or drainage. NECK: Supple, trachea midline. No JVD. CARDIOVASCULAR: Regular rate and rhythm without murmurs, gallops, or rubs. RESPIRATORY: Breath sounds equal bilaterally. No accessory muscle use. GASTROINTESTINAL: Abdomen soft, non-tender, nondistended. MUSCULOSKELETAL: No cyanosis, or edema. BACK: Nontender without obvious deformity. No CVA tenderness. - Urinary Catheter Management Indwelling Urethral Catheter Cath placed during this visit: yes, but has since been removed by the nurse Reason for continuing: Hourly intake/output Insertion date: 12/14/17 Insertion time: 15:00 Removal date: 12/20/17 Removal time: 13:53 Condom Cath placed during this visit: yes Reason for continuing: Not indwelling catheter Insertion date: 12/20/17 Insertion time: 13:05 Results - Labs CBC & Chem 7: 12/29/17 15:44 12/30/17 08:09 Laboratory Results - last 24 hr 12/29/17 12/29/17 12/29/17 12:03 12:04 15:44 WBC 12.9 H RBC 4.42 L Hgb 14.2 Hct 42.9 MCV 97.0 MCH 32.2 MCHC 33.2 RDW 15.1 Plt Count 207 MPV 9.4 Sodium Potassium Chloride Carbon Dioxide Anion Gap BUN Creatinine Estimated GFR POC Glucose 230 H 237 H Random Glucose Calcium Phosphorus Albumin 12/29/17 12/29/17 12/30/17 17:04 23:11 06:30 WBC RBC Hgb Hct MCV MCH MCHC RDW Plt Count MPV Sodium Potassium Chloride Carbon Dioxide Anion Gap BUN Creatinine Estimated GFR POC Glucose 187 H 138 H 175 H Random Glucose Calcium Phosphorus Albumin 12/30/17 08:09 WBC RBC Hgb Hct MCV MCH MCHC RDW Plt Count MPV Sodium 143 Potassium 3.2 L Chloride 106 Carbon Dioxide 29.4 Anion Gap 8 BUN 44 H Creatinine 4.25 H Estimated GFR 13 L POC Glucose Random Glucose 117 H Calcium 8.6 Phosphorus 3.4 D Albumin 2.8 L - Imaging Impressions Chest X-Ray 12/29/17 00:00 CONCLUSION: Left infrahilar streakiness consistent with atelectasis and/or infiltrate. Assessment and Plan - Plan Neuro/Psych: On no sedation. Awake and alert. 12/14 CT brain revealed no acute intracranial findings Acetaminophen 650 mg every 6 hours as needed fever CV: Elevated troponin possibly type II non-STEMI History of essential hypertension History of congestive heart failure unknown etiology Monitor HR and BP keep MAP>65mmHg Aspirin 81 mg daily, atorvastatin 40mg daily, Cards is following- Dr. Vidal Echo showed EF 55-60% Resp: Acute respiratory failure Continue with vent support keep sats Bronchodilators, ICU vent bundle. Spontaneous breathing trials Daily Check CXR today 12/14 CT pulmonary no evidence of PE, revealed right upper/lower atelectasis versus infiltrate. Bilateral lower lobe consolidation versus infiltrate. Extubated 12/26. = 12/28. High Called due to hypoxia. Family has opted for DNR. Palliative care following. I discussed with palliative care, and family would like to consult hospice. Appreciate palliative care, hospice assistance. = Discussed with hospice. Patient and family reportedly receptive to hospice yesterday. Pending hospice consultation. Appreciate assistance. Will check chest x-ray. = 11#18. Discussed with and hospice at bedside. Plan for discharge to hospice care center tomorrow. GI: Hypoalbuminemia Pantoprazole for GI prophylaxis Docusate sodium senna 1 tablet twice daily for bowel regimen tube feeds- Nepro with goal rate 50ml/hr per nut. recommendations Renal/FEN/ Acute kidney injury hypernatremia Hypokalemia. Monitor renal function, I/O's, avoid nephrotoxins Renal is following-Dr. Holder s/p HD 12/24 with remova 1L. Vascath placed 12/21 Dialysis as per nephrology. Appreciate assistance. =12/30. Hypokalemia 3.2. Will hold off on replacement in setting of renal failure. Endo: Diabetes mellitus type 2 Hypothyroidism Continue home thyroid 30 mg daily. TSH level:2.37 Sliding scale insulin Accu-Cheks to maintain euglycemia every 6 hours aspart insulin Heme: Normocytic anemia Thrombocytopenia Monitor CBC daily. Follow trends. No indication for transfusion of blood products at this time ID: Blood cx-NGTD, sputum cx: normal resp marcio Continue piperacillin/tazobactam and monitor for signs of infections ( Fever, WBC) Access -Utilize peripheral IV. -Right IHJ vascath placed 12/21 Prophylaxis -GI -pantoprazole -DVT -SCDs/heparin Sq Palliative care is following Code status: No code DNR Discharge Planning: Palliative care and hospice following The discharge to hospice care center tomorrow.
--- NOTE | 2017-12-30 11:13 | P.PNNP ---
Subjective Interval history: Resting comfortably, no acute events overnight. On 6 liters via simple mask. Denies any nausea, vomiting, or diarrhea. <Amaya Ochoa - Last Filed: 12/30/17 11:09> Physical Exam Vital signs: Vital Signs 12/29/17 12:00 12/29/17 16:00 12/29/17 20:00 Temperature 98.1 F 98.1 F 97.8 F Pulse Rate 66 69 69 Respiratory Rate 22 23 19 Blood Pressure 178/103 H 144/70 H 122/56 L Pulse Oximetry 94 L 92 L 95 12/29/17 20:04 12/29/17 20:12 12/29/17 23:13 Temperature 98.7 F Pulse Rate 69 72 68 Respiratory Rate 16 18 Blood Pressure 136/60 Pulse Oximetry 94 L 94 L 12/29/17 23:51 12/30/17 03:53 12/30/17 04:00 Temperature 98.9 F Pulse Rate 64 69 65 Respiratory Rate 18 Blood Pressure 104/52 L Pulse Oximetry 95 12/30/17 07:35 12/30/17 08:00 Temperature 98.5 F Pulse Rate 68 63 Respiratory Rate 18 18 Blood Pressure 141/65 H Pulse Oximetry 96 92 L Intake & Output 12/29/17 12/30/17 12/30/17 18:59 06:59 18:59 Intake Total 580 / 580 100 / 100 Balance 580 / 580 100 / 100 Weight 85.7 kg Intake: IV 100 / 100 100 / 100 Zosyn 2.25 GM Premix 50 ML @ 100 / 100 100 / 100 100 mls/hr IV.SIG Q6H [facility] Rx#: [id number] Oral 480 / 480 Other: # Voids 3 # Incontinent Voids 3 Date of Last Bowel Movement 12/29/17 12/29/17 # Bowel Movements 1 # Incontinent Bowel Movements 1 Narrative: GENERAL: Patient lying in bed. NAD SKIN: Warm and dry. NECK: Supple, trachea midline. No JVD. CARDIOVASCULAR: Regular rate and rhythm without murmurs, gallops, or rubs. Right IJ vas cath RESPIRATORY: Breath sounds equal bilaterally. No accessory muscle use. GASTROINTESTINAL: Abdomen soft, non-tender, nondistended. +BS MUSCULOSKELETAL: No cyanosis, mild edema. BACK: Nontender without obvious deformity. No CVA tenderness. - Urinary Catheter Management Indwelling Urethral Catheter Cath placed during this visit: yes, but has since been removed by the nurse Reason for continuing: Hourly intake/output Insertion date: 12/14/17 Insertion time: 15:00 Removal date: 12/20/17 Removal time: 13:53 Condom Cath placed during this visit: yes Reason for continuing: Not indwelling catheter Insertion date: 12/20/17 Insertion time: 13:05 <Amaya Ochoa - Last Filed: 12/30/17 11:09> Vital signs: Vital Signs 12/31/17 00:00 12/31/17 00:04 12/31/17 03:55 Temperature 98.8 F Pulse Rate 68 66 69 Respiratory Rate 16 Blood Pressure 131/85 Pulse Oximetry 96 12/31/17 04:00 12/31/17 07:00 12/31/17 07:40 Temperature 98.7 F Pulse Rate 66 65 Respiratory Rate 16 20 Blood Pressure 130/61 Pulse Oximetry 95 92 L 12/31/17 08:00 Temperature 97.7 F Pulse Rate 76 Respiratory Rate 21 Blood Pressure 147/60 H Pulse Oximetry 96 Intake & Output 12/31/17 12/31/17 01/01/18 06:59 18:59 06:59 Intake Total 100 / 100 Balance 100 / 100 Weight 84 kg Intake: IV 100 / 100 Zosyn 2.25 GM Premix 50 ML @ 100 / 100 100 mls/hr IV.SIG Q6H [facility] Rx#: [id number] Other: # Incontinent Voids 3 Date of Last Bowel Movement 12/30/17 # Incontinent Bowel Movements 1 - Urinary Catheter Management Indwelling Urethral Catheter Cath placed during this visit: no Condom Cath placed during this visit: no <Rudolph Bell - Last Filed: 12/31/17 21:33> Assessment and Plan - Assessment (1) Acute renal failure Code(s): N17.9 - Acute kidney failure, unspecified Status: Acute Plan: Acute renal failure is due to contrast-induced nephropathy, Palliative care following and hospice consulted. Patient does not want to continue with HD Plan for discharge to hospice care center tomorrow. (2) COPD exacerbation Code(s): J44.1 - Chronic obstructive pulmonary disease with (acute) exacerbation Status: Acute (3) Respiratory failure Code(s): J96.90 - Respiratory failure, unspecified, unspecified whether with hypoxia or hypercapnia Status: Acute Plan: remains on oxygen (4) Diabetes Code(s): E11.9 - Type 2 diabetes mellitus without complications Status: Acute Plan: Monitor blood glucose (5) Acute non-ST elevation myocardial infarction (NSTEMI) Code(s): I21.4 - Non-ST elevation (NSTEMI) myocardial infarction Status: Acute Plan: Cardiology is following <Amaya Ochoa - Last Filed: 12/30/17 11:09> - Assessment (1) Acute renal failure Code(s): N17.9 - Acute kidney failure, unspecified Status: Acute Plan: Patient seen and examined, agree with above. Patient has SCARLET, possibly related to contrast, for Hospice tomorrow. (2) COPD exacerbation Code(s): J44.1 - Chronic obstructive pulmonary disease with (acute) exacerbation Status: Acute (3) Respiratory failure Code(s): J96.90 - Respiratory failure, unspecified, unspecified whether with hypoxia or hypercapnia Status: Acute (4) Diabetes Code(s): E11.9 - Type 2 diabetes mellitus without complications Status: Acute (5) Acute non-ST elevation myocardial infarction (NSTEMI) Code(s): I21.4 - Non-ST elevation (NSTEMI) myocardial infarction Status: Acute <Rudolph Bell - Last Filed: 12/31/17 21:33>
[2017-12-31] MEDS: Insulin NovoLOG Aspart Correctional Sugar Inj SQ SCH (05:13)
[2017-12-31] MEDS: Oral Hygiene Kit OROPHARYNG SCH (05:14)
[2017-12-31] MEDS: Piperacil/Tazo 2.25 GM Premix 50 ML IV.SIG SCH ×2 (05:14→12:10)
[2017-12-31] MEDS: Chlorhexidine 0.12% Oral Kit 15 ML UDC OROPHARYNG SCH (08:40)
[2017-12-31] MEDS: Pantoprazole Inj 40 MG Vial IV.PUSH SCH (08:41)
[2017-12-31] MEDS: Senna/Docusate Sodium 8.6/50 MG Tablet PO SCH (08:42)
[2017-12-31] MEDS: Heparin - SQ 10,000 UNITS/ML Vial SQ SCH (08:42)
[2017-12-31] MEDS: Mupirocin 2% Nasal Oint Topical Syringe EACH NARE SCH (08:42)
[2017-12-31] MEDS: Artificial Tears Opth Drops 15 ML Bottle EACH EYE SCH (08:43)
[2017-12-31 09:07] VITALS: BP 147/60; RESP 21; TEMP 97.7; O2SAT 96
--- NOTE | 2017-12-31 09:34 | P.PNIM ---
Subjective Interval history: Patient says he is feeling all right. Denies any chest pain or shortness of breath. Physical Exam Vital signs: Vital Signs 12/30/17 12:00 12/30/17 16:00 12/30/17 19:55 Temperature 97.7 F 97.7 F Pulse Rate 69 70 66 Respiratory Rate 18 22 Blood Pressure 139/55 L 162/74 H Pulse Oximetry 94 L 92 L 12/30/17 20:00 12/30/17 20:50 12/30/17 20:51 Temperature 97.2 F L Pulse Rate 70 65 Respiratory Rate 16 20 Blood Pressure 140/65 Pulse Oximetry 97 93 L 12/31/17 00:00 12/31/17 00:04 12/31/17 03:55 Temperature 98.8 F Pulse Rate 68 66 69 Respiratory Rate 16 Blood Pressure 131/85 Pulse Oximetry 96 12/31/17 04:00 12/31/17 07:00 12/31/17 07:40 Temperature 98.7 F Pulse Rate 66 65 Respiratory Rate 16 20 Blood Pressure 130/61 Pulse Oximetry 95 92 L 12/31/17 08:00 Temperature 97.7 F Pulse Rate 67 Respiratory Rate 21 Blood Pressure 147/60 H Pulse Oximetry 96 Intake & Output 12/30/17 12/31/17 12/31/17 18:59 06:59 18:59 Intake Total 460 / 460 100 / 100 Balance 460 / 460 100 / 100 Weight 84 kg Intake: IV 100 / 100 100 / 100 Zosyn 2.25 GM Premix 50 ML @ 100 / 100 100 / 100 100 mls/hr IV.SIG Q6H [facility] Rx#: [id number] Oral 360 / 360 Other: # Voids 3 # Incontinent Voids 3 Date of Last Bowel Movement 12/29/17 12/30/17 # Bowel Movements 2 # Incontinent Bowel Movements 1 Narrative: GENERAL: Sitting up in bed. Appears comfortable. Sleeping, wakes up for exam. SKIN: Warm and dry. HEAD: Normocephalic. EYES: No scleral icterus. No injection or drainage. NECK: Supple, trachea midline. No JVD. CARDIOVASCULAR: Regular rate and rhythm without murmurs, gallops, or rubs. RESPIRATORY: Breath sounds equal bilaterally. No accessory muscle use. GASTROINTESTINAL: Abdomen soft, non-tender, nondistended. MUSCULOSKELETAL: No cyanosis, or edema. BACK: Nontender without obvious deformity. No CVA tenderness. - Urinary Catheter Management Indwelling Urethral Catheter Cath placed during this visit: yes, but has since been removed by the nurse Reason for continuing: Hourly intake/output Insertion date: 12/14/17 Insertion time: 15:00 Removal date: 12/20/17 Removal time: 13:53 Condom Cath placed during this visit: yes Reason for continuing: Not indwelling catheter Insertion date: 12/20/17 Insertion time: 13:05 Results - Labs CBC & Chem 7: 12/29/17 15:44 12/30/17 08:09 Laboratory Results - last 24 hr 12/30/17 12/30/17 12/30/17 12:15 17:16 23:38 POC Glucose 139 H 129 H 110 12/31/17 12/31/17 05:12 08:00 POC Glucose 126 H 148 H Assessment and Plan - Plan Neuro/Psych: On no sedation. Awake and alert. 12/14 CT brain revealed no acute intracranial findings Acetaminophen 650 mg every 6 hours as needed fever CV: Elevated troponin possibly type II non-STEMI History of essential hypertension History of congestive heart failure unknown etiology Monitor HR and BP keep MAP>65mmHg Aspirin 81 mg daily, atorvastatin 40mg daily, Cards is following- Dr. Vidal Echo showed EF 55-60% Resp: Acute respiratory failure Continue with vent support keep sats Bronchodilators, ICU vent bundle. Spontaneous breathing trials Daily Check CXR today 12/14 CT pulmonary no evidence of PE, revealed right upper/lower atelectasis versus infiltrate. Bilateral lower lobe consolidation versus infiltrate. Extubated 12/26. = 12/28. High Called due to hypoxia. Family has opted for DNR. Palliative care following. I discussed with palliative care, and family would like to consult hospice. Appreciate palliative care, hospice assistance. = Discussed with hospice. Patient and family reportedly receptive to hospice yesterday. Pending hospice consultation. Appreciate assistance. Will check chest x-ray. = 11#18. Discussed with and hospice at bedside. Plan for discharge to hospice care center tomorrow. = 12/31. Plan for discharge to hospice today. GI: Hypoalbuminemia Pantoprazole for GI prophylaxis Docusate sodium senna 1 tablet twice daily for bowel regimen tube feeds- Nepro with goal rate 50ml/hr per nut. recommendations Renal/FEN/ Acute kidney injury hypernatremia Hypokalemia. Monitor renal function, I/O's, avoid nephrotoxins Renal is following-Dr. Holder s/p HD 12/24 with remova 1L. Vascath placed 12/21 Dialysis as per nephrology. Appreciate assistance. =12/30. Hypokalemia 3.2. Will hold off on replacement in setting of renal failure. Endo: Diabetes mellitus type 2 Hypothyroidism Continue home thyroid 30 mg daily. TSH level:2.37 Sliding scale insulin Accu-Cheks to maintain euglycemia every 6 hours aspart insulin Heme: Normocytic anemia Thrombocytopenia Monitor CBC daily. Follow trends. No indication for transfusion of blood products at this time ID: Blood cx-NGTD, sputum cx: normal resp marcio Continue piperacillin/tazobactam and monitor for signs of infections ( Fever, WBC) Access -Utilize peripheral IV. -Right IHJ vascath placed 12/21 Prophylaxis -GI -pantoprazole -DVT -SCDs/heparin Sq Palliative care is following Code status: No code DNR Discharge Planning: Palliative care and hospice following The discharge to [facility]
--- NOTE | 2017-12-31 09:35 | P.DS ---
Date of admission: 12/14/17 17:51 Primary care physician: No Primary Care Physician Brief History from admission: This is a unknown male. Admission 11 03/2017. Past medical history is unknown to me. There is no family currently available. According to records from previous ED physician who saw the patient before the ED physician had notified me patient has a history of hypothyroidism, gastroesophageal reflux disease, COPD, diabetes, heart failure. Patient was found unresponsive by family with a GCS of 3 and was brought in to the emergency department. Patient was intubated using etomidate and succinylcholine. CT brain negative. CT pulmonary antrum revealed right upper and lower lobe atelectasis. Lower lobe atelectasis versus infiltrate. Patient had elevated troponin. EKG revealed normal sinus rhythm at 64 with normal OK, QS and QT intervals. Dr. Vidal was notified. Patient has been started on a heparin drip for non-STEMI. Cardiology will evaluate. Patient is placed on broad- spectrum antibiotics. We are asked to admit. DS: Summary Hospital Course: Neuro/Psych: On no sedation. Awake and alert. 12/14 CT brain revealed no acute intracranial findings Acetaminophen 650 mg every 6 hours as needed fever CV: Elevated troponin possibly type II non-STEMI History of essential hypertension History of congestive heart failure unknown etiology Monitor HR and BP keep MAP>65mmHg Aspirin 81 mg daily, atorvastatin 40mg daily, Cards is following- Dr. Vidal Echo showed EF 55-60% Resp: Acute respiratory failure Continue with vent support keep sats Bronchodilators, ICU vent bundle. Spontaneous breathing trials Daily Check CXR today 12/14 CT pulmonary no evidence of PE, revealed right upper/lower atelectasis versus infiltrate. Bilateral lower lobe consolidation versus infiltrate. Extubated 12/26. = 16. High Called due to hypoxia. Family has opted for DNR. Palliative care following. I discussed with palliative care, and family would like to consult hospice. Appreciate palliative care, hospice assistance. = Discussed with hospice. Patient and family reportedly receptive to hospice yesterday. Pending hospice consultation. Appreciate assistance. Will check chest x-ray. = 11#18. Discussed with and hospice at bedside. Plan for discharge to hospice care center tomorrow. = 12/31. Plan for discharge to hospice today. GI: Hypoalbuminemia Pantoprazole for GI prophylaxis Docusate sodium senna 1 tablet twice daily for bowel regimen tube feeds- Nepro with goal rate 50ml/hr per nut. recommendations Renal/FEN/ Acute kidney injury hypernatremia Hypokalemia. Monitor renal function, I/O's, avoid nephrotoxins Renal is following-Dr. Holder s/p HD 12/24 with remova 1L. Vascath placed 12/21 Dialysis as per nephrology. Appreciate assistance. =12/30. Hypokalemia 3.2. Will hold off on replacement in setting of renal failure. Endo: Diabetes mellitus type 2 Hypothyroidism Continue home thyroid 30 mg daily. TSH level:2.37 Sliding scale insulin Accu-Cheks to maintain euglycemia every 6 hours aspart insulin Heme: Normocytic anemia Thrombocytopenia Monitor CBC daily. Follow trends. No indication for transfusion of blood products at this time ID: Blood cx-NGTD, sputum cx: normal resp marcio Continue piperacillin/tazobactam and monitor for signs of infections ( Fever, WBC) Access -Utilize peripheral IV. -Right IHJ vascath placed 12/21 Prophylaxis -GI -pantoprazole -DVT -SCDs/heparin Sq Palliative care is following Code status: No code DNR Discharge Planning: Palliative care and hospice following The discharge to hospice care center - Time Spent with Patient Total time spent providing and/or coordinating discharge services: Greater than 30 minutes - Quality: VTE Deep Vein Thrombosis/Pulmonary Embolism Present on Admission: No Exam Vital signs: Vital Signs 12/30/17 12:00 12/30/17 16:00 12/30/17 19:55 Temperature 97.7 F 97.7 F Pulse Rate 69 70 66 Respiratory Rate 18 22 Blood Pressure 139/55 L 162/74 H Pulse Oximetry 94 L 92 L 12/30/17 20:00 12/30/17 20:50 12/30/17 20:51 Temperature 97.2 F L Pulse Rate 70 65 Respiratory Rate 16 20 Blood Pressure 140/65 Pulse Oximetry 97 93 L 12/31/17 00:00 12/31/17 00:04 12/31/17 03:55 Temperature 98.8 F Pulse Rate 68 66 69 Respiratory Rate 16 Blood Pressure 131/85 Pulse Oximetry 96 12/31/17 04:00 12/31/17 07:00 12/31/17 07:40 Temperature 98.7 F Pulse Rate 66 65 Respiratory Rate 16 20 Blood Pressure 130/61 Pulse Oximetry 95 92 L 12/31/17 08:00 Temperature 97.7 F Pulse Rate 67 Respiratory Rate 21 Blood Pressure 147/60 H Pulse Oximetry 96 Intake & Output 12/30/17 12/31/17 12/31/17 18:59 06:59 18:59 Intake Total 460 / 460 100 / 100 Balance 460 / 460 100 / 100 Weight 84 kg Intake: IV 100 / 100 100 / 100 Zosyn 2.25 GM Premix 50 ML @ 100 / 100 100 / 100 100 mls/hr IV.SIG Q6H [facility] Rx#: [id number] Oral 360 / 360 Other: # Voids 3 # Incontinent Voids 3 Date of Last Bowel Movement 12/29/17 12/30/17 # Bowel Movements 2 # Incontinent Bowel Movements 1 Results Labs on day of discharge: Labs from last 24 hours 12/31/17 12/31/17 12/30/17 08:00 05:12 23:38 POC Glucose 148 H 126 H 110 12/30/17 12/30/17 17:16 12:15 POC Glucose 129 H 139 H - Impressions ITS Impressions Head CT 12/14/17 14:53 CONCLUSION: 1. No acute intracranial abnormality is identified. 2. Chronic findings include generalized atrophy and periventricular white matter change characteristic of chronic microvascular ischemia. . Chest CTA 12/14/17 17:06 CONCLUSION: 1. No pulmonary embolus. 2. Scattered areas of subpleural density seen in the posterior right upper and lower lobes likely related to mild consolidation or atelectasis. There is also some minimal suspected atelectasis or consolidation at the posterior lower lobes bilaterally. 3. Gallstones Abdomen/Bladder Ultrasound 12/17/17 00:00 CONCLUSION: 1. Kidneys are borderline echogenic which can be seen with medical renal disease. 2. Left renal cyst. 3. Liver appears echogenic which can be seen with hepatic steatosis/ hepatocellular dysfunction. Chest X-Ray 12/29/17 00:00 CONCLUSION: Left infrahilar streakiness consistent with atelectasis and/or infiltrate. Discharge Plan - Discharge Disposition Patient Disposition: 51 Hospice/Med Facility - Discharge Condition Condition: Critical - Discharge Order Discharge Orders: Discharge Order (Routine); Ordered 12/31/17 Ordered By: Tal Durand - Discharge Details Anticipated Discharge Date: 12/31/17 Discharge Comment: to hospice when bed available - Physicians Team Primary Care Provider: [facility],No Attending Provider: Tal Durand Other Providers: Jayjay Vidal DO ; Logan Holder MD ; Jon Krishna MD ; [facility] ; [facility] ; [facility] ; [facility] ; [facility]
[2017-12-31 10:48] VITALS: PULSE 76
== END 2017-12-31 12:00 | disposition hospice, inpatient (51) ==
LOC: NEPE 14:39 → NEDA 17:51 → EDBD 17:51 → NEDA 19:43 → HIMC 19:55 → N05 12-20 19:55 → N03 12-21 13:35 → N04 12-27 16:16
PROVIDERS: ADMIT Internal Medicine; ATTEND Internal Medicine